=== PATIENT | male | born 1960 | race Caucasian/White ===

== ENCOUNTER 2020-02-13 19:48 | Emergency (ER) | payer OTHER, SELFPAY ==
[2020-02-13] VITALS (10 sets, daily range): BP systolic 126–165; BP diastolic 68–86; PULSE 56–80; RESP 17–24; TEMP 37.1; O2SAT 93–97; BMI 24.4
--- NOTE | 2020-02-13 20:04 | DI.RAD.S_ITS ---
PROCEDURE: XR CHEST 1V INDICATIONS: chest pain TECHNIQUE: One view of the chest was acquired. COMPARISON: None. FINDINGS: Surgical changes and devices: None. Lungs and pleura: Lungs are clear. No pleural effusions or pneumothorax. Mediastinum: Mediastinal contours appear normal. Heart size is normal. Bones and chest wall: No suspicious bony lesions. Overlying soft tissues appear unremarkable. IMPRESSION: Normal chest. Dictated by: Abeba Farooq M.D. on 02/13/2020 at 21:23 Approved by: Abeba Farooq M.D. on 02/13/2020 at 21:24
--- NOTE | 2020-02-13 20:06 | ED.CHESTPAIN ---
HPI - Chest Pain General Chief Complaint: Chest Pain Stated Complaint: dizziness, chest pains Time Seen by Provider: 02/13/20 20:05 Source: patient Mode of arrival: Wheelchair Limitations: no limitations History of Present Illness HPI narrative: Patient is a 59-year-old male with no diagnosed medical problems. He does state he is a smoker who is here for evaluation because he states that her earlier today he had a fairly sudden onset of what he says was dizziness. He did describe somewhat of a room spinning sensation. States that it occurred after he stood up from bending over. Since that time he has had some chest discomfort. Also has had some weakness. General a not feeling very well. Some nausea. No vomiting. He is in the area working. Has never had any cardiac workup in the past. No prior cardiac history. Does not anything for symptoms prior to arrival. Related Data Previous Rx's Medication Instructions Recorded meclizine 25 mg PO TID PRN #12 tab 02/13/20 Allergies Allergy/AdvReac Type Severity Reaction Status Date / Time No Known Drug Allergies Allergy Verified 02/13/20 20:13 Review of Systems Constitutional Constitutional: Reports fatigue, Denies fever(s), Denies headache(s), Reports lethargy and Reports malaise Eyes Eyes: Denies change in vision and Denies diplopia ENT Ears, Nose, Mouth, and Throat: Reports vertigo, Reports dizziness, Denies headache(s) and Denies sore throat Cardiovascular Cardiovascular: Denies chest pain, Denies rapid heart rate and Denies dyspnea Respiratory Respiratory: Denies dyspnea Gastrointestinal Gastrointestinal: Denies abdominal pain, Denies change in bowel habits, Denies diarrhea and Reports nausea Genitourinary Genitourinary: Denies dysuria Genitourinary: Denies dysuria Musculoskeletal Musculoskeletal: Denies arthralgias and Denies myalgias Integumentary/Breasts Skin/Breast: Denies rash Neurologic Neurologic: Denies behavioral changes, Reports vertigo, Reports dizziness and Denies headache(s) Psychiatric Psychiatric: Denies behavioral changes Endocrine Endocrine: Reports fatigue Hematologic/Lymphatic Hematologic/Lymphatic: Denies easy bleeding and Denies easy bruising Patient History Medical History Patient denies medical problems (Acute) Social History (Reviewed 02/14/20 @ 04:35 by SOPHIA Hagen Smoking Status: Current every day smoker Smoking Status: Current every day smoker Substance Use Type: does not use Exam Initial Vital Signs Initial Vital Signs: Vital Signs Temperature 98.7 F 02/13/20 19:58 Pulse Rate 80 02/13/20 19:58 Respiratory Rate 18 02/13/20 19:58 Blood Pressure 165/86 H 02/13/20 19:58 Pulse Oximetry 97 02/13/20 19:58 Const General: cooperative and comfortable Limitations: mental status not altered HENMT Head: normal to inspection and normocephalic Ears: hearing grossly normal bilaterally Nose: external nose normal Resp Effort & Inspection: normal respiratory effort Auscultation: clear to auscultation bilaterally Cardio Rate: regular rate Rhythm: regular rhythm GI Inspection: non-distended Palpation: soft, No firm and No tender Skin Lesions: no lesions Rashes: no rashes Neuro General: patient alert, patient awake and patient oriented x3 Cranial Nerves: CN's II-XI intact bilaterally Cognition: normal cognition Speech: speech normal Gait: normal gait Motor: muscle tone normal throughout Sensory Exam: no sensory deficits noted Extrem General: normal to inspection and capillary refill normal Psych Appearance: grossly normal and well kempt Course Orders Ordered: ED Orders 02/13/20 20:01 EKG-12 Lead Stat 02/13/20 20:04 XR chest 1V Stat 02/13/20 20:10 Complete Blood Count AUTO DIFF Stat Comprehensive Metabolic Panel Stat Lipase Stat Partial Thromboplastin Time Stat Prothrombin Time INR Stat Troponin & CK Cardiac Panel Stat 02/13/20 22:57 Troponin I Stat Discontinued Medications Meclizine HCl (Antivert) 25 mg PO NOW ONE Stop: 02/13/20 20:15 Last Admin: 02/13/20 20:42 Dose: 25 mg Documented by: ATILIO Vital Signs Vital signs: Vital Signs - 8 hr 02/13/20 20:36 02/13/20 21:00 02/13/20 21:30 Pulse Rate 70 67 67 Respiratory Rate 24 18 23 Blood Pressure 132/70 140/72 Pulse Oximetry 97 95 96 02/13/20 22:00 02/13/20 22:01 02/13/20 22:30 Pulse Rate 63 63 61 Respiratory Rate 21 20 19 Blood Pressure 129/69 129/77 Pulse Oximetry 93 94 93 02/13/20 23:00 02/13/20 23:01 02/13/20 23:30 Pulse Rate 56 L 59 L Respiratory Rate 17 18 Blood Pressure 128/69 126/68 Pulse Oximetry 97 95 MDM - Chest Pain Lab Data Attestation: I reviewed the patient's lab results. Result diagrams: 02/13/20 20:10 02/13/20 20:10 Labs: Lab Results 02/13/20 02/13/20 02/13/20 Range/Units 20:10 20:10 20:10 WBC 7.8 (4.5-11.0) X10^3/uL RBC 4.77 (4.5-5.9) X10^6/uL Hgb 15.0 (13.5-17.5) g/dL Hct 43.5 (41-53) % MCV 91.1 (80-100) fL MCH 31.5 (26-34) PG MCHC 34.5 (30-36) % RDW 14.3 (11.6-14.8) % Plt Count 217 (150-400) X10^3/uL Neut % (Auto) 51.7 (50-75) % Lymph % (Auto) 36.9 (25-40) % [place] % (Auto) 5.8 (3-14) % Eos % (Auto) 3.6 (2-4) % Baso % (Auto) 2.0 (0-2) % Neut # (Auto) 4000 (0748-1070) /uL Lymph # (Auto) 2900 (0622-8497) /uL [place] # (Auto) 500 (0-900) /uL Eos # (Auto) 300 (0-450) /uL Baso # (Auto) 200 H (0-100) /uL PT 11.7 (10.1-12.7) SECONDS INR 1.0 (0.9-1.3) APTT 30 (26.4-36.2) SECONDS Sodium 136 L (137-145) mmol/L Potassium 3.7 (3.4-5.1) mmol/L Chloride 102 (98-107) mmol/L Carbon Dioxide 26 (22-32) mmol/L BUN 13 (9-20) mg/dL Creatinine 0.85 (0.66-1.25) mg/dL Estimated GFR > 60.0 (>60) mL/min BUN/Creatinine Ratio 15.3 (6-22) Glucose 149 H (70-100) mg/dL Calcium 9.5 (8.4-10.2) mg/dL Total Bilirubin 0.9 (0.2-1.3) mg/dL AST 34 (17-59) IU/L ALT 41 (<50) IU/L Alkaline Phosphatase 37 L (38-126) U/L Total Creatine Kinase 318 H (55-170) U/L CK-MB (CK-2) 3.62 H (<2.37) ng/mL CK-MB (CK-2) Rel Index 1.1 L (1.5-5.0) % Troponin I 0.012 (0.01-0.034) ng/mL Total Protein 7.2 (6.3-8.2) g/dL Albumin 4.4 (3.5-5.0) g/dL Globulin 2.8 (1.7-4.1) g/dL Albumin/Globulin Ratio 1.6 (1.0-2.8) Lipase 64 (23-300) U/L // Range/Units 22:57 WBC (4.5-11.0) X10^3/uL RBC (4.5-5.9) X10^6/uL Hgb (13.5-17.5) g/dL Hct (41-53) % MCV (80-100) fL MCH (26-34) PG MCHC (30-36) % RDW (11.6-14.8) % Plt Count (150-400) X10^3/uL Neut % (Auto) (50-75) % Lymph % (Auto) (25-40) % [place] % (Auto) (3-14) % Eos % (Auto) (2-4) % Baso % (Auto) (0-2) % Neut # (Auto) (8626-5988) /uL Lymph # (Auto) (8159-6560) /uL [place] # (Auto) (0-900) /uL Eos # (Auto) (0-450) /uL Baso # (Auto) (0-100) /uL PT (10.1-12.7) SECONDS INR (0.9-1.3) APTT (26.4-36.2) SECONDS Sodium (137-145) mmol/L Potassium (3.4-5.1) mmol/L Chloride (98-107) mmol/L Carbon Dioxide (22-32) mmol/L BUN (9-20) mg/dL Creatinine (0.66-1.25) mg/dL Estimated GFR (>60) mL/min BUN/Creatinine Ratio (6-22) Glucose (70-100) mg/dL Calcium (8.4-10.2) mg/dL Total Bilirubin (0.2-1.3) mg/dL AST (17-59) IU/L ALT (<50) IU/L Alkaline Phosphatase (38-126) U/L Total Creatine Kinase (55-170) U/L CK-MB (CK-2) (<2.37) ng/mL CK-MB (CK-2) Rel Index (1.5-5.0) % Troponin I < 0.012 (0.01-0.034) ng/mL Total Protein (6.3-8.2) g/dL Albumin (3.5-5.0) g/dL Globulin (1.7-4.1) g/dL Albumin/Globulin Ratio (1.0-2.8) Lipase (23-300) U/L Urine Dip Bedside Urine Glucose Negative Bedside Urine Bilirubin - Negative Bedside Urine Ketone - Negative Urine Specific [place] 1.020 Bedside Urine Occult Blood - Negative Bedside Urine pH 6.0 Bedside Urine Protein - Negative Bedside Urine Urobilinogen - Negative Bedside Urine Nitrite - Negative Bedside Urine Leukocytes - Negative Esterase Imaging Data Chest x-ray: Radiologist's Impression: [address] [address] XRay Report Signed Patient: Jourdan Augustine CMR#: [id number] : 2Acct:[id number] Age/Sex: 59 / MDate of Service: 02/13/20 Loc: ED Accession Number: [id number] Procedure: XR chest 1V Ordering Provider: Schuyler Abbott D.O. PROCEDURE: XR CHEST 1V INDICATIONS: chest pain TECHNIQUE: One view of the chest was acquired. COMPARISON: None. FINDINGS: Surgical changes and devices: None. Lungs and pleura: Lungs are clear. No pleural effusions or pneumothorax. Mediastinum: Mediastinal contours appear normal. Heart size is normal. Bones and chest wall: No suspicious bony lesions. Overlying soft tissues appear unremarkable. IMPRESSION: Normal chest. Dictated by: Abeba Farooq M.D. on 02/13/2020 at 21:23 Approved by: Abeba Farooq M.D. on 02/13/2020 at 21:24 ECG Data Attestation: I personally reviewed and interpreted this ECG as follows: Prior ECG tracings: not available for review Interpretation: Sinus rhythm Ventricular rate is 74 Normal axis Normal QRS Normal QTC No ST T wave changes MDM Narrative Medical decision making narrative: Patient is afebrile, troponins negative x2 with 2nd being greater than 6 hours of the onset of his symptoms. Did report improvement of symptoms after the meclizine. His dizziness does appear to be vertigo in nature. He states he feels much better after being here in the ER being evaluated for symptoms. Low suspicion for ACS. Feeling can hold on further workup for now. Patient was given return precautions and follow-up instructions. He expressed understanding and agreement. Discharge Plan Departure Patient Disposition: Home Clinical Impression: Vertigo, Atypical chest pain Discharge Date/Time: 02/13/20 23:55 Instructions: DI for Vertigo, DI for Atypical Chest Pain Activity Restrictions/Additional Instructions: Recommend that you may contact with a primary provider when you return back home. Take medication as directed as needed. Return to the emergency department for any new or worsening symptoms Prescriptions: New meclizine 25 mg tablet 25 mg PO TID PRN (Reason: dizziness) Qty: 12 RF: 0
[2020-02-13 20:20] LABS: Add Manual Diff / Slide Review NO; Basophils Absolute Auto 200 /uL (0-100); Eosinophils Absolute Auto 300 /uL (0-450); Eosinophils Percent Auto 3.6 % (2-4); Hematocrit 43.5 % (41-53); Lymphocytes Absolute Auto 2900 /uL (1100-4500); Lymphocytes Percent Auto 36.9 % (25-40); Mean Corpuscular HGB Conc 34.5 % (30-36); Mean Corpuscular Hemoglobin 31.5 PG (26-34); Mean Corpuscular Volume 91.1 fL (80-100); Monocytes Absolute Auto 500 /uL (0-900); Monocytes Percent Auto 5.8 % (3-14); Neutrophils Absolute Auto 4000 /uL (1500-7000); Neutrophils Percent Auto 51.7 % (50-75); Platelet Count 217 X10^3/uL (150-400); Red Blood Cell Count 4.77 X10^6/uL (4.5-5.9); Red Cell Distribution Width 14.3 % (11.6-14.8); White Blood Cell Count 7.8 X10^3/uL (4.5-11.0)
[2020-02-13 20:39] LABS: Prothrombin Time 11.7 SECONDS (10.1-12.7)
[2020-02-13 20:41] LABS: PTT Partial Thromboplastin Tim 30 SECONDS (26.4-36.2)
[2020-02-13] MEDS: MECLIZINE HCL 12.5 MG TABLET 25 MG PO (20:42)
[2020-02-13 20:43] LABS: Alanine Aminotransferase 41 IU/L (<50); Albumin 4.4 g/dL (3.5-5.0); Albumin Globulin Ratio 1.6 (1.0-2.8); Alkaline Phosphatase 37 U/L (38-126); Aspartate Aminotransferase 34 IU/L (17-59); BUN Creatinine Ratio 15.3 (6-22); Bilirubin Total 0.9 mg/dL (0.2-1.3); Blood Urea Nitrogen 13 mg/dL (9-20); Calcium 9.5 mg/dL (8.4-10.2); Carbon Dioxide 26 mmol/L (22-32); Chloride 102 mmol/L (98-107); Creatine Kinase 318 U/L (55-170); Estimated Glomerular Filt Rate > 60.0 mL/min (>60); Globulin 2.8 g/dL (1.7-4.1); Glucose 149 mg/dL (70-100); Lipase 64 U/L (23-300); Potassium 3.7 mmol/L (3.4-5.1); Sodium 136 mmol/L (137-145); Total Protein 7.2 g/dL (6.3-8.2)
[2020-02-13 20:54] LABS: Troponin I 0.012 ng/mL (0.01-0.034)
[2020-02-13 20:58] LABS: CKMB % Relative Index 1.1 % (1.5-5.0); Creatine Kinase MB 3.62 ng/mL (<2.37); HEMOLYSIS 38 (0-50)
[2020-02-13 23:31] LABS: Troponin I < 0.012 ng/mL (0.01-0.034)
== END 2020-02-13 23:55 | disposition home or self-care (01) ==
PROVIDERS: Emergency Provider Emergency Medicine
DX: R42 Dizziness and giddiness (principal); R07.89 Other chest pain
CPT/HCPCS: 36415; 51798; 71045; 80053; 81003; 82550; 82553; 83690; 84484; 85025; 85610; 85730; 93005; 99284

== ENCOUNTER 2020-05-11 15:25 | Emergency (ER) | payer OTHER, SELFPAY ==
[2020-05-11 15:28] VITALS: BP 158/75; PULSE 95; RESP 16; TEMP 36.5; O2SAT 98; BMI 36.6
[2020-05-11 15:45] LABS: WBC Urine None Seen (0-5/HPF)
[2020-05-11 15:56] LABS: Bacteria Urine Few (2-10); Culture Indicated Urine Cult Not Indicated; RBC Urine 0-1/HPF (0-5/HPF)
[2020-05-11 17:25] LABS: Add Manual Diff / Slide Review NO; Basophils Absolute Auto 100 /uL (0-100); Basophils Percent Auto 0.8 % (0-2); Eosinophils Absolute Auto 200 /uL (0-450); Eosinophils Percent Auto 2.2 % (2-4); Hematocrit 43.7 % (41-53); Hemoglobin 15.1 g/dL (13.5-17.5); Lymphocytes Absolute Auto 3300 /uL (1100-4500); Lymphocytes Percent Auto 39.4 % (25-40); Mean Corpuscular HGB Conc 34.6 % (30-36); Mean Corpuscular Hemoglobin 31.8 PG (26-34); Mean Corpuscular Volume 91.7 fL (80-100); Monocytes Absolute Auto 700 /uL (0-900); Monocytes Percent Auto 8.6 % (3-14); Neutrophils Absolute Auto 4100 /uL (1500-7000); Platelet Count 213 X10^3/uL (150-400); Red Blood Cell Count 4.77 X10^6/uL (4.5-5.9); Red Cell Distribution Width 13.1 % (11.6-14.8); White Blood Cell Count 8.3 X10^3/uL (4.5-11.0)
[2020-05-11 17:37] LABS: Alanine Aminotransferase 51 IU/L (<50); Albumin 4.2 g/dL (3.5-5.0); Albumin Globulin Ratio 1.6 (1.0-2.8); Alkaline Phosphatase 35 U/L (38-126); Aspartate Aminotransferase 31 IU/L (17-59); BUN Creatinine Ratio 18.3 (6-22); Bilirubin Total 0.6 mg/dL (0.2-1.3); Blood Urea Nitrogen 20 mg/dL (9-20); Calcium 9.2 mg/dL (8.4-10.2); Carbon Dioxide 30 mmol/L (22-32); Chloride 104 mmol/L (98-107); Estimated Glomerular Filt Rate > 60.0 mL/min (>60); Globulin 2.7 g/dL (1.7-4.1); Glucose 100 mg/dL (70-100); HEMOLYSIS 17 (0-50); Lipase 82 U/L (23-300); Sodium 136 mmol/L (137-145); Total Protein 6.9 g/dL (6.3-8.2)
--- NOTE | 2020-05-11 17:47 | DI.CT.S_ITS ---
PROCEDURE: CT ABDOMEN PELVIS W CON INDICATIONS: right side/abd pain with mass TECHNIQUE: After the administration of intravenous contrast, 5 mm thick sections acquired from the diaphragm to the symphysis. 5 mm coronal and sagittal reformats were acquired. For radiation dose reduction, the following was used: automated exposure control, adjustment of mA and/or kV according to patient size. COMPARISON: None. FINDINGS: Image quality: Excellent. ABDOMEN: Lung bases: Lung bases are clear. Heart size is normal. Solid organs: Liver is enlargement steatosis. Gallbladder is unremarkable . Biliary system is non dilated. Pancreas enhances normally. Spleen is normal in size and enhancement. No adrenal nodules. Kidneys demonstrate normal size and enhancement, without hydronephrosis. Peritoneum and bowel: Bowel loops demonstrate normal wall thickness and caliber. No free fluid or air. Colonic diverticula are present without associated inflammatory change. Nodes and vessels: No retroperitoneal or mesenteric adenopathy by size criteria. Aorta and inferior vena cava are normal in size. Miscellaneous: Fat containing ventral hernia is present.. PELVIS: Genitourinary: Bladder wall thickness is normal. Miscellaneous: Fat containing left inguinal hernia is present. Bones: No suspicious bony lesions. No vertebral body compression fractures. IMPRESSION: 1. Hepatomegaly with steatosis. 2. Diverticulosis. Dictated by: Darshana De Jesus M.D. on 05/11/2020 at 17:09 Approved by: Darshana De Jesus M.D. on 05/11/2020 at 17:12
[2020-05-11 18:14] LABS: Creatine Kinase 170 U/L (55-170)
[2020-05-11 18:26] LABS: Troponin I < 0.012 ng/mL (0.01-0.034)
[2020-05-11 18:30] LABS: CKMB % Relative Index 1.2 % (1.5-5.0); Creatine Kinase MB 2.07 ng/mL (<2.37)
[2020-05-11 18:39] VITALS: BP 137/89; PULSE 74; O2SAT 98
[2020-05-11] MEDS: KETOROLAC 60 MG/2 ML VIAL 15 MG IV (18:54)
[2020-05-11 19:00] VITALS: PULSE 72; O2SAT 97
--- NOTE | 2020-05-11 22:27 | ED.ABDPAIN ---
HPI - Abdominal Pain <ODILIA Hill - Last Filed: 05/11/20 22:53> General Chief Complaint: Urogenital-Male Stated Complaint: RIGHT SIDE PAIN AND SWELLING Time Seen by Provider: 05/11/20 16:49 Source: patient Mode of arrival: Ambulatory Limitations: no limitations History of Present Illness HPI narrative: This is a 60-year-old male, smoker, who has past medical history significant for diverticulitis developed abscess and he was hospitalized in ICU for 10 days, asthma, GERD, vertigo presents to ED with chief complain of bilateral lumbar discomfort for 1 month and now he noticed bilateral side pain for a few days. Patient reports pain is pretty constant and sharp in character and rates as 5 to 6/10. Patient reports he urinates very frequently up to 5 times a hour in a small amount regardless how much he drinks. Patient denies history of prostate problems. Patient reports slight nausea and vertigo symptoms. He denies chest pain, increasing dyspnea from his baseline asthma state, nausea, vomiting, other urinary symptoms like urgency, or dysuria. Denies lower leg edema. Patient reports he can palpate swelling and bulging to right side and abdominal bloatedness. Patient reports last bowel movement this morning and reports his usual. Last meal at 12:30 p.m. this afternoon. Patient reports history of diabetes in grandmother and brother. He denies using alcohol or IV drugs. Related Data Previous Rx's Medication Instructions Recorded meclizine 25 mg PO TID PRN #12 tab 02/13/20 Allergies Allergy/AdvReac Type Severity Reaction Status Date / Time Penicillins Allergy Severe Rash Verified 05/11/20 15:33 Review of Systems <ODILIA Hill - Last Filed: 05/11/20 22:53> Review of Systems Narrative: General: Denies fever, chills, fatigue, malaise, sweats. HEENT: Denies sinus pain, ear pain, sore throat, difficulty swallowing, dizziness. Respiratory: Denies dyspnea, cough, wheezing, hemoptysis, sputum. Cardiovascular: Denies chest pain, palpitations, orthopnea, edema. Gastrointestinal: See HPI : See HPI Musculoskeletal: Denies weakness, joint pain or bony pain. Skin: Denies rash, skin lesions, or other. Neurologic: Denies weakness, headache, numbness, change in speech, confusion, seizures, incoordination. Psychiatric: No concerning psychosocial issues. 12-point review of systems is negative except for those stated above. Patient History <ODILIA Hill - Last Filed: 05/11/20 22:53> Medical History Asthma Diverticulitis GERD (gastroesophageal reflux disease) Social History Smoking Status: Current every day smoker Smoking Status: Current every day smoker Substance Use Type: does not use Exam <ODILIA Hill - Last Filed: 05/11/20 22:53> Narrative Exam Narrative: GEN: Alert, oriented x 3, well appearing and obese, and in no acute distress. Head: Normal cephalic, atraumatic. No scalp or temporal tenderness, palpable mass or rash. EYES: Pupils are equal, round, and reactive to light and accommodation. Extraocular muscles are intact bilaterally. There is no subconjunctival hemorrhage, exudate and sclera non-icteric. ENT: Hearing grossly intact. Nose without bleeding, purulent discharge or deviation. Mucous membrane moist, no mucosal lesion. Throat without erythema, tonsillar hypertrophy or exudate. Uvula in midline, airway patent. Neck: Trachea in midline. No JVD, non-tender without lymphadenopathy. No masses or thyroid megaly. Supple, non-tender and no meningeal signs. CARDIAC: Normal regular rate and rhythm without murmurs, gallops, or rubs. No chest wall tenderness. No peripheral edema, cyanosis or pallor. Capillary refill is less than 2 seconds. RESPIRATORY: Lungs are clear to auscultate bilaterally. No cough, wheezes, rales, or rhonchi. No stridor, respiratory distress, increase work of breathing, or accessary muscle used. ABD: Abdomen soft and non-distended. Mild tenderness to palpate in right mid to lateral abdomen. No guarding or rebound tenderness to palpate. Bowel sounds are normal in all 4 quadrants. There is no palpable masses or organomegaly. EXT: Full painless ROM of all extremities with no loss of sensation, strength, effusion or edema. SKIN: Warm, dry, normal color for patient. No erythema, lesions or rash over visible areas. BACK: Nontender without deformity or crepitance. No flank tenderness. No rash. NEUROLOGICAL: Alert and oriented to place, time and person. Sensation and motor function intact bilaterally. No facial droops, dysphasia. PSYCHIATRIC: Good judgement and reason, without hallucinations, abnormal affect or abnormal behaviors during the examination. Patient is not suicidal. Initial Vital Signs Initial Vital Signs: Vital Signs Temperature 97.7 F 05/11/20 15:28 Pulse Rate 95 H 05/11/20 15:28 Respiratory Rate 16 05/11/20 15:28 Blood Pressure 158/75 H 05/11/20 15:28 Pulse Oximetry 98 05/11/20 15:28 <Schuyler Abbott DO - Last Filed: 05/12/20 07:17> Initial Vital Signs Initial Vital Signs: Vital Signs Temperature 97.7 F 05/11/20 15:28 Pulse Rate 95 H 05/11/20 15:28 Respiratory Rate 16 05/11/20 15:28 Blood Pressure 158/75 H 05/11/20 15:28 Pulse Oximetry 98 05/11/20 15:28 Scores <ODILIA Hill - Last Filed: 05/11/20 22:53> GCS [place] coma scale eye opening: Spontaneous [place] coma scale verbal response: Orientated [place] coma scale motor response: Obey commands [place] coma scale total score: 15 qSOFA Altered Mental Status (GCS <15): No Respiratory rate greater than/equal to 22: No Systolic blood pressure less than or equal to 100: No qSOFA Total: 0 0-1 Not High Risk 1-3 High risk Course <ODILIA Hill - Last Filed: 05/11/20 22:53> Orders Ordered: Discontinued Medications Ketorolac Tromethamine (Ketorolac 60 Mg/2 Ml Vial) 15 mg IV NOW ONE Stop: 05/11/20 18:51 Last Admin: 05/11/20 18:54 Dose: 15 mg Documented by: SWATI Vital Signs Vital signs: Vital Signs - 8 hr 05/11/20 15:28 05/11/20 18:39 05/11/20 19:00 Temperature 97.7 F Pulse Rate 95 H 74 72 Respiratory Rate 16 Blood Pressure 158/75 H 137/89 Pulse Oximetry 98 98 97 <DO Devyn Hagen Last Filed: 05/12/20 07:17> Orders Ordered: Discontinued Medications Ketorolac Tromethamine (Ketorolac 60 Mg/2 Ml Vial) 15 mg IV NOW ONE Stop: 05/11/20 18:51 Last Admin: 05/11/20 18:54 Dose: 15 mg Documented by: SCANAPO Vital Signs Vital signs: Vital Signs - 8 hr 05/11/20 15:28 05/11/20 18:39 05/11/20 19:00 Temperature 97.7 F Pulse Rate 95 H 74 72 Respiratory Rate 16 Blood Pressure 158/75 H 137/89 Pulse Oximetry 98 98 97 MDM - Abdominal Pain <Jaskaran ODILIA Fernandez - Last Filed: 05/11/20 22:53> Differential Diagnosis Differential diagnosis: Likely acute appendicitis, calculus of kidney and diverticulitis (diverticulosis, hernia, kidney failure) Medical Records Attestation: I reviewed the patient's medical records. Lab Data Attestation: I reviewed the patient's lab results. Result diagrams: 05/11/20 17:17 05/11/20 17:17 Labs: Lab Results 05/11/20 05/11/20 05/11/20 Range/Units 15:44 17:17 17:17 WBC 8.3 (4.5-11.0) X10^3/uL RBC 4.77 (4.5-5.9) X10^6/uL Hgb 15.1 (13.5-17.5) g/dL Hct 43.7 (41-53) % MCV 91.7 (80-100) fL MCH 31.8 (26-34) PG MCHC 34.6 (30-36) % RDW 13.1 (11.6-14.8) % Plt Count 213 (150-400) X10^3/uL Neut % (Auto) 49.0 L (50-75) % Lymph % (Auto) 39.4 (25-40) % [place] % (Auto) 8.6 (3-14) % Eos % (Auto) 2.2 (2-4) % Baso % (Auto) 0.8 (0-2) % Neut # (Auto) 4100 (7932-6873) /uL Lymph # (Auto) 3300 (8054-1412) /uL [place] # (Auto) 700 (0-900) /uL Eos # (Auto) 200 (0-450) /uL Baso # (Auto) 100 (0-100) /uL Sodium 136 L (137-145) mmol/L Potassium 4.0 (3.4-5.1) mmol/L Chloride 104 (98-107) mmol/L Carbon Dioxide 30 (22-32) mmol/L BUN 20 (9-20) mg/dL Creatinine 1.09 (0.66-1.25) mg/dL Estimated GFR > 60.0 (>60) mL/min BUN/Creatinine Ratio 18.3 (6-22) Glucose 100 (70-100) mg/dL Calcium 9.2 (8.4-10.2) mg/dL Total Bilirubin 0.6 (0.2-1.3) mg/dL AST 31 (17-59) IU/L ALT 51 H (<50) IU/L Alkaline Phosphatase 35 L (38-126) U/L Total Creatine Kinase (55-170) U/L CK-MB (CK-2) (<2.37) ng/mL CK-MB (CK-2) Rel Index (1.5-5.0) % Troponin I (0.01-0.034) ng/mL Total Protein 6.9 (6.3-8.2) g/dL Albumin 4.2 (3.5-5.0) g/dL Globulin 2.7 (1.7-4.1) g/dL Albumin/Globulin Ratio 1.6 (1.0-2.8) Lipase 82 (23-300) U/L Urine RBC 0-1/hpf (0-5/HPF) Urine WBC None seen (0-5/HPF) Urine Bacteria Few (2-10) H (None) Ur Culture Indicated? Cult not indicated 05/11/20 Range/Units 17:17 WBC (4.5-11.0) X10^3/uL RBC (4.5-5.9) X10^6/uL Hgb (13.5-17.5) g/dL Hct (41-53) % MCV (80-100) fL MCH (26-34) PG MCHC (30-36) % RDW (11.6-14.8) % Plt Count (150-400) X10^3/uL Neut % (Auto) (50-75) % Lymph % (Auto) (25-40) % [place] % (Auto) (3-14) % Eos % (Auto) (2-4) % Baso % (Auto) (0-2) % Neut # (Auto) (4266-2658) /uL Lymph # (Auto) (5508-7634) /uL [place] # (Auto) (0-900) /uL Eos # (Auto) (0-450) /uL Baso # (Auto) (0-100) /uL Sodium (137-145) mmol/L Potassium (3.4-5.1) mmol/L Chloride (98-107) mmol/L Carbon Dioxide (22-32) mmol/L BUN (9-20) mg/dL Creatinine (0.66-1.25) mg/dL Estimated GFR (>60) mL/min BUN/Creatinine Ratio (6-22) Glucose (70-100) mg/dL Calcium (8.4-10.2) mg/dL Total Bilirubin (0.2-1.3) mg/dL AST (17-59) IU/L ALT (<50) IU/L Alkaline Phosphatase (38-126) U/L Total Creatine Kinase 170 (55-170) U/L CK-MB (CK-2) 2.07 (<2.37) ng/mL CK-MB (CK-2) Rel Index 1.2 L (1.5-5.0) % Troponin I < 0.012 (0.01-0.034) ng/mL Total Protein (6.3-8.2) g/dL Albumin (3.5-5.0) g/dL Globulin (1.7-4.1) g/dL Albumin/Globulin Ratio (1.0-2.8) Lipase (23-300) U/L Urine RBC (0-5/HPF) Urine WBC (0-5/HPF) Urine Bacteria (None) Ur Culture Indicated? Point of care testing: Urine Dip Bedside Urine Glucose 250 mg/dl Bedside Urine Bilirubin - Negative Bedside Urine Ketone - Negative Urine Specific Mason 1.025 Bedside Urine Occult Blood +/- Bedside Urine pH 6.0 Bedside Urine Protein - Negative Bedside Urine Urobilinogen - Negative Bedside Urine Nitrite - Negative Bedside Urine Leukocytes - Negative Esterase Imaging Data CT scan - abdomen/pelvis: Radiologist's Impression: [address] [id number] Scan ReportSigned Patient: Jourdan Augustine CMR#: [id number]: 1960cct:[id number]/Sex: 60 / MDate of Service: 05/11/20Loc: EDAccession Number: [id number] Procedure: CT abdomen pelvis w con Ordering Provider: Jaskaran Fernandez PROCEDURE: CT ABDOMEN PELVIS W CON INDICATIONS: right side/abd pain with mass TECHNIQUE: After the administration of intravenous contrast, 5 mm thick sections acquired from the diaphragm to the symphysis. 5 mm coronal and sagittal reformats were acquired. For radiation dose reduction, the following was used: automated exposure control, adjustment of mA and/or kV according to patient size. COMPARISON: None. FINDINGS: Image quality: Excellent. ABDOMEN: Lung bases: Lung bases are clear. Heart size is normal. Solid organs: Liver is enlargement steatosis. Gallbladder is unremarkable . Biliary system is non dilated. Pancreas enhances normally. Spleen is normal in size and enhancement. No adrenal nodules. Kidneys demonstrate normal size and enhancement, without hydronephrosis. Peritoneum and bowel: Bowel loops demonstrate normal wall thickness and caliber. No free fluid or air. Colonic diverticula are present without associated inflammatory change. Nodes and vessels: No retroperitoneal or mesenteric adenopathy by size criteria. Aorta and inferior vena cava are normal in size. Miscellaneous: Fat containing ventral hernia is present.. PELVIS: Genitourinary: Bladder wall thickness is normal. Miscellaneous: Fat containing left inguinal hernia is present. Bones: No suspicious bony lesions. No vertebral body compression fractures. IMPRESSION: 1. Hepatomegaly with steatosis. 2. Diverticulosis. Dictated by: Darshana De Jesus M.D. on 05/11/2020 at 17:09 Approved by: Darshana De Jesus M.D. on 05/11/2020 at 17:12 ECG Data Attestation: I personally reviewed and interpreted this ECG as follows: Prior ECG tracings: available for review Interpretation: Sinus rhythm rate at 70. Normal [place]. [place] interval 174, QRS duration 86, QT/QTC 386/[address] changes. MDM Narrative Medical decision making narrative: This is a 60-year-old male who presents to ED with right side pain for last few day and prior to this had bilateral low back pain for about a month with urinary frequency. No other urinary symptoms. Patient is afebrile. Urine dip stick with positive 250mg/dL of glucose and +/- for blood. No other indications for urinary infection. No leukocytosis of 8.3. No lactate elevation. Unremarkable chemistry test. Unremarkable LFTs with normal lipase. Cardiac enzymes were negative. EKG normal sinus rhythm without ST elevations or depressions. Given patient's history of diverticulitis with abscess formation and slight blood in his urine, abdominal CT was obtained. CT indicates enlarged liver with steatosis. Normal kidney in size and enhancement without hydronephrosis. Normal bowel loops without free fluid or air. Colonic diverticula low cyst without inflammatory changes. Fat containing ventral hernia with fat containing left inguinal hernia. Patient does not complain of left inguinal pain or bulging. He does not feel anterior abdominal bulging or pain. There is no indication of strangulation of hernia. It is unclear the etiology of patient's discomfort. Findings were discussed with patient and advised to elect a PCP to follow-up on non alcoholic fatty liver for monitoring and to monitor his symptoms for worsening. Return precautions were discussed with patient and advised follow-up with general surgery if worsening or persistent discomfort. Patient verbalized understanding and with treatment. <Schuyler Abbott, DO - Last Filed: 05/12/20 07:17> Lab Data Labs: Lab Results 05/11/20 05/11/20 05/11/20 Range/Units 15:44 17:17 17:17 WBC 8.3 (4.5-11.0) X10^3/uL RBC 4.77 (4.5-5.9) X10^6/uL Hgb 15.1 (13.5-17.5) g/dL Hct 43.7 (41-53) % MCV 91.7 (80-100) fL MCH 31.8 (26-34) PG MCHC 34.6 (30-36) % RDW 13.1 (11.6-14.8) % Plt Count 213 (150-400) X10^3/uL Neut % (Auto) 49.0 L (50-75) % Lymph % (Auto) 39.4 (25-40) % [place] % (Auto) 8.6 (3-14) % Eos % (Auto) 2.2 (2-4) % Baso % (Auto) 0.8 (0-2) % Neut # (Auto) 4100 (1738-7842) /uL Lymph # (Auto) 3300 (3270-9434) /uL [place] # (Auto) 700 (0-900) /uL Eos # (Auto) 200 (0-450) /uL Baso # (Auto) 100 (0-100) /uL Sodium 136 L (137-145) mmol/L Potassium 4.0 (3.4-5.1) mmol/L Chloride 104 (98-107) mmol/L Carbon Dioxide 30 (22-32) mmol/L BUN 20 (9-20) mg/dL Creatinine 1.09 (0.66-1.25) mg/dL Estimated GFR > 60.0 (>60) mL/min BUN/Creatinine Ratio 18.3 (6-22) Glucose 100 (70-100) mg/dL Calcium 9.2 (8.4-10.2) mg/dL Total Bilirubin 0.6 (0.2-1.3) mg/dL AST 31 (17-59) IU/L ALT 51 H (<50) IU/L Alkaline Phosphatase 35 L (38-126) U/L Total Creatine Kinase (55-170) U/L CK-MB (CK-2) (<2.37) ng/mL CK-MB (CK-2) Rel Index (1.5-5.0) % Troponin I (0.01-0.034) ng/mL Total Protein 6.9 (6.3-8.2) g/dL Albumin 4.2 (3.5-5.0) g/dL Globulin 2.7 (1.7-4.1) g/dL Albumin/Globulin Ratio 1.6 (1.0-2.8) Lipase 82 (23-300) U/L Urine RBC 0-1/hpf (0-5/HPF) Urine WBC None seen (0-5/HPF) Urine Bacteria Few (2-10) H (None) Ur Culture Indicated? Cult not indicated 05/11/20 Range/Units 17:17 WBC (4.5-11.0) X10^3/uL RBC (4.5-5.9) X10^6/uL Hgb (13.5-17.5) g/dL Hct (41-53) % MCV (80-100) fL MCH (26-34) PG MCHC (30-36) % RDW (11.6-14.8) % Plt Count (150-400) X10^3/uL Neut % (Auto) (50-75) % Lymph % (Auto) (25-40) % [place] % (Auto) (3-14) % Eos % (Auto) (2-4) % Baso % (Auto) (0-2) % Neut # (Auto) (5899-0779) /uL Lymph # (Auto) (0086-3074) /uL [place] # (Auto) (0-900) /uL Eos # (Auto) (0-450) /uL Baso # (Auto) (0-100) /uL Sodium (137-145) mmol/L Potassium (3.4-5.1) mmol/L Chloride (98-107) mmol/L Carbon Dioxide (22-32) mmol/L BUN (9-20) mg/dL Creatinine (0.66-1.25) mg/dL Estimated GFR (>60) mL/min BUN/Creatinine Ratio (6-22) Glucose (70-100) mg/dL Calcium (8.4-10.2) mg/dL Total Bilirubin (0.2-1.3) mg/dL AST (17-59) IU/L ALT (<50) IU/L Alkaline Phosphatase (38-126) U/L Total Creatine Kinase 170 (55-170) U/L CK-MB (CK-2) 2.07 (<2.37) ng/mL CK-MB (CK-2) Rel Index 1.2 L (1.5-5.0) % Troponin I < 0.012 (0.01-0.034) ng/mL Total Protein (6.3-8.2) g/dL Albumin (3.5-5.0) g/dL Globulin (1.7-4.1) g/dL Albumin/Globulin Ratio (1.0-2.8) Lipase (23-300) U/L Urine RBC (0-5/HPF) Urine WBC (0-5/HPF) Urine Bacteria (None) Ur Culture Indicated? Point of care testing: Urine Dip Bedside Urine Glucose 250 mg/dl Bedside Urine Bilirubin - Negative Bedside Urine Ketone - Negative Urine Specific Mason 1.025 Bedside Urine Occult Blood +/- Bedside Urine pH 6.0 Bedside Urine Protein - Negative Bedside Urine Urobilinogen - Negative Bedside Urine Nitrite - Negative Bedside Urine Leukocytes - Negative Esterase Discharge Plan Departure Patient Disposition: Home Clinical Impression: Hernia, Fatty liver Abdominal pain Qualifiers: Abdominal location: upper abdomen, unspecified Qualified Code(s): R10.10 - Upper abdominal pain, unspecified Instructions: DI for Groin Hernia, DI for Abdominal Pain-Adult, DI for Ventral Hernia, DI for Nonalcoholic Fatty Liver Disease Activity Restrictions/Additional Instructions: You have been diagnosed with [right side pain. Labs are assuring. CT findings of liver enlargement with steatosis, fat containing ventral and inguinal hernia, diverticulosis without associated inflammatory changes.]. What to do: *Take your medications as directed. You can take [id number] Tylenol and or Motrin as needed for discomfort. *Follow up with your primary care provider in 2-3 days, call for an appointment. [facility] contact [facility] to set up a primary care physician and follow-up on CT results out patiently. Let them know you were seen in the ED and that we asked you to be seen in follow up. If abdominal pain persists, follow-up with general surgery. *Return to ED if you have any new, worsening, or concerning symptoms, such as [worsening pain, unable to tolerate fluids, fever, jaundice, chest pain, breathing difficulty, unable to tolerate fluids, or any acute concerns]. Prescriptions: No Action meclizine 25 mg tablet 25 mg PO TID PRN (Reason: dizziness) Qty: 12 RF: 0 Referrals: [facility] [Provider Group] [facility] [Outside] <Schuyler Abbott, - Last Filed: 05/12/20 07:17> Cosign ED Attending Helenaature Attestation: Dr Abbott Co-Sign Statement: I was available for consultation during this patient's emergency department visit. This chart is signed by myself for administrative purposes only. I did not have direct contact with this patient during this visit. They were seen independently by the APC.
== END 2020-05-11 19:22 | disposition home or self-care (01) ==
PROVIDERS: Emergency Medicine; Emergency Provider Nurse Practitioner Family
DX: R10.10 Upper abdominal pain, unspecified (principal); K46.9 Unspecified abdominal hernia without obstruction or gangrene; K76.0 Fatty (change of) liver, not elsewhere classified; R11.10 Vomiting, unspecified; R11.0 Nausea; R42 Dizziness and giddiness
CPT/HCPCS: 36415; 74177; 80053; 81003; 81015; 82550; 82553; 83690; 84484; 85025; 93005; 93010; 96374; 99283; 99284; J1885; Q9967

== ENCOUNTER → 2020-06-15 10:11 | Outpatient (CLI) | payer OTHER, MEDICAID, SELFPAY ==
[2020-06-15 11:01] LABS: COVID19 -Nasal RAPID Negative (Negative)
== END ==
PROVIDERS: Visit Provider Specialist
DX: Z01.812 Encounter for preprocedural laboratory examination (principal); Z20.828 Contact with and (suspected) exposure to other viral communicable diseases
CPT/HCPCS: 87635; C9803

== ENCOUNTER 2020-06-16 10:31 | Day surgery (SDC) | payer OTHER, MEDICAID, SELFPAY ==
[2020-06-16] VITALS (7 sets, daily range): BP systolic 111–136; BP diastolic 64–89; PULSE 66–80; RESP 15–20; TEMP 36.1–36.6; O2SAT 93–97; BMI 36.6
--- NOTE | 2020-06-16 | PATH_ITS ---
[facility] Accession Number: [id number] . 01 Material submitted: . PART A: colon - COLON POLYP AT 20 CM PART B: colon - POLYP AT THE ANAL VERGE PART C: colon - BASE OF THE POLYP . 02 Diagnosis: A. Colon Polyp at 20 cm, Biopsy: Hyperplastic polyp. . B. Colon Polyp at Anal Verge, Biopsy: Tubulovillous adenoma with high-grade dysplasia. Negative for malignancy. Additional step sections examined. . C. Base of Polyp, Biopsy: Residual tubulovillous adenoma with high-grade dysplasia. Negative for malignancy. Dysplasia focally approximates the peripheral tissue margin; please see comment. Additional step sections examined. [facility] 06/22/2020 1124 Local . 02 Comment: Part C: Sections are of polypoid colonic mucosa with focal involvement by residual tubulovillous adenoma. Focally, the residual neoplasm approximates the peripheral aspect of the deep cauteried tissue edge. There is no evidence of malignancy. Given the histologic findings, correlation with the endoscopic findings before and after polypectomy to ensure complete removal of the lesion, and a shortened surveillance interval are recommended. . As part of routine quality assurance monitor, Dr. Cee has reviewed this case and agrees with the diagnosis of tubulovillous adenoma with high-grade dysplasia. . 02 Electronically signed: . Edu Massey MD, PhD, Pathologist NPI- [id number] . 01 Gross description: . Part A: COLON POLYP AT 20 CM: Received in formalin is 1 fragment(s) of mehta, soft tissue measuring 0.3 x 0.3 x 0.2 cm submitted entirely in 1 cassette(s) Part B: POLYP AT THE ANAL VERGE: Received in formalin is 1 piece of mehta, soft tissue measuring 1.3 x 1.0 x 0.8 cm which is inked, serially sectioned and submitted entirely in 1 cassette(s) Part C: BASE OF THE POLYP: Received in formalin is 1 piece of mehta, soft tissue measuring 1.0 x 0.7 x 0.7 cm which is inked, serially sectioned and submitted entirely in 1 cassette(s) /[facility] 06/17/2020 0148 Local . 02 Pathologist provided ICD-10: D12.8, K63.5 . 02 CPT . 741161, 195309, 078163 Performed at: 01 [facility] [address] [place] [address], [place], [place] [id number] MD Vitor Elmore MD Phone: [phone] Performed at: 02 [facility] [place] [address] [facility] [place], [place] [id number] MD Fifi Samaniego MD Phone: [phone]
[2020-06-16] MEDS: ONDANSETRON 4 MG/2 ML INJ IV (11:31)
[2020-06-16] MEDS: LACTATED RINGERS 1,000 ML 200 ML IV (11:38)
--- NOTE | 2020-06-16 11:40 | SUR.PREOP ---
Zofran given for c/o nausea, now relieved.
--- NOTE | 2020-06-16 13:18 | PM.PREOP ---
Pre-operative Note COVID-19 COVID-19 status: Negative Result date/Date tested (Pos, Neg/Pending): 06/15/20 Interval Note History & Physical reviewed/Exam performed by Physician: Yes Changes to H&P: Yes H&P completed within 30 days and has changed as indicated here:: Patient pain in his side has essentially gone away. This is without the medication. He had requested a screening colonoscopy the same day as he was in the office. I have discussed the procedure and the rationale with the patient including risks of bleeding, perforation which would necessitate a major operation, failure to find remove all lesions and the potential to tattoo. They appeared to understand and wished to proceed. ASA Class (for procedural sedation): II
[2020-06-16] MEDS: fentaNYL 250 MCG/5 ML INJ IV (13:33)
[2020-06-16] MEDS: MIDAZOLAM 5 MG/5 ML VIAL IV (13:34)
--- NOTE | 2020-06-16 14:04 | PM.OP.ENDO ---
Operative Date/Time/Diagnoses Date of procedure: 06/16/20 Time of procedure: 14:00 Pre-op diagnosis: Screening colonoscopy. This is his 1st exam. Post-op diagnosis: other (Large polyp near the anal verge. Diverticulosis.) Procedure & Clinicians Study performed: Colonoscopy abandoned. Patient had a flexible sigmoidoscopy to 35 cm. With hot snare polypectomy. Same procedure as scheduled: Yes Indications: Screening exam Procedure Notes SCOAP/Timeout: Not applicable Procedure in detail: The patient was placed in left lateral decubitus position underwent IV sedation directed by the surgeon consisting of gela Johnson. Digital exam was remarkable for decreased sphincter tone. I could only feel the very edge of his prostate with my finger. There were no palpable masses. Scope was inserted and advanced slowly through the rectum into the sigmoid colon. At about 35 cm I reached a point that was like pushing against a wall. I could not advance and was requiring a fair amount of pressure in order to attempt to do so. Patient had diverticulosis in the area. I backed the scope out and repositioned the patient as well as thinking that that might help the situation but it did not change anything. I still could not get any further without pushing 2 degree that I felt unsafe. Therefore I is backed the scope out I removed a small polyp at 20 cm with biopsy forceps. I ultimately retroflexed in the rectum. Patient was noted to have a large polyp near the anal verge. I snare this in 2 pieces and they were submitted separately. One was the polyp itself of the 2nd was the base. There was no bleeding at completion. The entire polyp appeared to be removed. It appeared to be over a hemorrhoid. Scope withdrawal time: Not applicable Sedation minutes: 20 Findings: diverticulosis and other findings (Large polyp near the anal verge. Smaller polyp at 20 cm. ) Specimen(s): other (Two polyps) Complications: none Post-procedure Recommendations: Other recommendation (Will need a barium enema.) Follow up: as needed (After barium enema) Disposition: PACU
== END 2020-06-16 14:42 | disposition home or self-care (01) ==
PROVIDERS: Referring Provider Specialist; Visit Provider Specialist
PROC: 0DJD8ZZ Inspection of Lower Intestinal Tract, Via Natural or Artificial Opening Endoscopic (ICD-10-PCS; CPT 45378; principal; 2020-06-16 11:30)
DX: Z12.11 Encounter for screening for malignant neoplasm of colon (principal); F17.210 Nicotine dependence, cigarettes, uncomplicated; K57.30 Diverticulosis of large intestine without perforation or abscess without bleeding; D12.8 Benign neoplasm of rectum
CPT/HCPCS: 45338; 99152; J2250; J2405; J3010

== ENCOUNTER 2020-06-24 15:37 | Inpatient (IN) | payer OTHER, MEDICAID, SELFPAY ==
[2020-06-24 16:03] VITALS: BP 179/104; PULSE 73; RESP 20; TEMP 36.8; O2SAT 98
--- NOTE | 2020-06-24 16:13 | DI.CT.S_ITS ---
PROCEDURE: CT ABDOMEN PELVIS W CON INDICATIONS: RLQ pain 1 week post colonoscopy TECHNIQUE: After the administration of intravenous contrast, 5 mm thick sections acquired from the diaphragm to the symphysis. 5 mm coronal and sagittal reformats were acquired. For radiation dose reduction, the following was used: automated exposure control, adjustment of mA and/or kV according to patient size. COMPARISON: None. FINDINGS: Image quality: Excellent. ABDOMEN: Lung bases: Lung bases are clear. Heart size is normal. Solid organs: Moderate to severe hepatic steatosis. No focal hepatic mass. Gallbladder unremarkable. Normal size and appearance of the spleen. Pancreas is within normal limits. No adrenal gland mass. No hydronephrosis or other significant renal abnormality. The aorta and IVC are patent. There is aortic atherosclerosis extending into the iliac arteries and major visceral branches. Peritoneum and bowel: Patulous distal esophagus. No hiatal hernia. Organized free fluid and inflammatory change are present adjacent to the distal sigmoid colon on the left, abutting the left pelvic sidewall and vasculature. There is no definite free air. There are numerous sigmoid and distal colonic diverticula. Remainder of the bowel is unremarkable. The appendix is normal. Miscellaneous: No ventral hernias. PELVIS: Genitourinary: Bladder wall thickness is normal. Miscellaneous: No inguinal hernias or adenopathy. Bones: No suspicious bony lesions. No vertebral body compression fractures. IMPRESSION: Free fluid and inflammatory change adjacent to the sigmoid colon, consistent with diverticulitis. Somewhat organized appearance of the free fluid without rim enhancement, which may represent a developing abscess. This is not amenable to percutaneous drainage on the basis of size and position. Dictated by: Jose Enrique Alvarez M.D. on 06/24/2020 at 17:16 Approved by: Jose Enrique Alvarez M.D. on 06/24/2020 at 17:19
--- NOTE | 2020-06-24 16:34 | ED.ABDPAIN ---
HPI - Abdominal Pain General Chief Complaint: Abdominal Pain Stated Complaint: pain below belly button Time Seen by Provider: 06/24/20 16:13 Source: patient Mode of arrival: Ambulatory History of Present Illness HPI narrative: 60-year-old gentleman with a history of asthma, reflux and diverticulitis 1 episode of which he developed a diverticular abscess and was hospitalized for 10 days and a colonoscopy on 06/16. Apparently the colonoscopy was not able to be completed any further than the sigmoid. Was seen by Dr. Rivera in follow-up today with continued and increasing left lower quadrant pain. He describes left lower quadrant to suprapubic pain, a change to his stools and describes them as ?smaller and less cohesive?. The pain is described as bloating and cramping worse when he sits down and worse again if he bends forward. Feels that he isn't voiding as much as he typically should be for as much as he is drinking. He describes no fevers, vomiting, cough, chest pain or, headache, neurologic complaints Related Data Home Medications Medication Instructions Recorded Confirmed aspirin 81 mg tablet,delayed 81 mg PO DAILY 05/27/20 06/24/20 release omeprazole magnesium 2.5 mg oral 10 mg PO DAILY 05/27/20 06/24/20 suspension,delayed release albuterol sulfate 2 puff INHALATION QID 06/16/20 06/24/20 Allergies Allergy/AdvReac Type Severity Reaction Status Date / Time Penicillins Allergy Severe Rash Verified 06/24/20 15:28 codeine Allergy Verified 06/24/20 15:28 Review of Systems Review of Systems Narrative: Remainder of review of systems including constitutional, ENT, cardiovascular, respiratory, GI, , musculoskeletal, skin, neurologic and psychiatric systems reviewed and are unremarkable except as noted in HPI. Patient History Medical History Asthma Diverticulitis GERD (gastroesophageal reflux disease) Social History (Updated 05/27/20 @ 13:48 by Jignesh Shah RN) household members: spouse Smoking Status: Current every day smoker alcohol intake: never substance use type: does not use Smoking Status: Current every day smoker Substance Use Type: does not use Exam Narrative Exam Narrative: General: Healthy appearing, mild abdominal pain but Able to give a complete and coherent history. Well-nourished well-developed HEENT: Moist mucous membranes, normal sclera with reactive pupils, Neck: No JVD, supple Respiratory: Lungs are clear to auscultation, no wheezing no rales no rhonchi. Full and symmetrical air movement Cardiac: Regular rate and rhythm no murmurs no bruits Abdomen: Soft, tender in the left lower quadrant and suprapubic area without rebound or guarding. good bowel tones, no flank pain Skin: Warm and dry, no rashes Neurologic: Grossly neurologically intact with no obvious asymmetries or abnormalities Extremities: No trauma, well perfused Psych: Cooperative, appropriate insight and affect Initial Vital Signs Initial Vital Signs: Vital Signs Temperature 98.2 F 06/24/20 16:03 Pulse Rate 73 06/24/20 16:03 Respiratory Rate 20 06/24/20 16:03 Blood Pressure 179/104 H 06/24/20 16:03 Pulse Oximetry 98 06/24/20 16:03 Course Orders Ordered: ED Orders 06/24/20 16:13 CT abdomen pelvis w con Stat 06/24/20 16:40 Complete Blood Count AUTO DIFF Stat Comprehensive Metabolic Panel Stat Magnesium Stat Hydromorphone HCl (Hydromorphone 0.5 Mg Inj) 0.5 mg IV Q15MIN PRN PRN Reason: Pain, Last Admin: 06/24/20 16:37 Dose: 0.5 mg Documented by: EDILMA Discontinued Medications Sodium Chloride (Normal Saline 0.9%) 1,000 mls @ 1,000 mls/hr IV BOLUS ONE Stop: 06/24/20 17:32 Last Admin: 06/24/20 16:37 Dose: 1,000 mls/hr Documented by: EDILMA Ondansetron HCl (Ondansetron 4 Mg/2 Ml Inj) 4 mg IV NOW ONE Stop: 06/24/20 16:14 Last Admin: 06/24/20 16:37 Dose: 4 mg Documented by: EDILMA Vital Signs Vital signs: Vital Signs - 8 hr 06/24/20 16:03 06/24/20 17:31 Temperature 98.2 F Pulse Rate 73 67 Respiratory Rate 20 17 Blood Pressure 179/104 H 131/68 Pulse Oximetry 98 99 MDM - Abdominal Pain Lab Data Attestation: I reviewed the patient's lab results. Result diagrams: 06/24/20 16:40 06/24/20 16:40 Labs: Lab Results 06/24/20 06/24/20 Range/Units 16:40 16:40 WBC 8.4 (4.5-11.0) X10^3/uL RBC 4.44 L (4.5-5.9) X10^6/uL Hgb 14.0 (13.5-17.5) g/dL Hct 40.9 L (41-53) % MCV 92.1 (80-100) fL MCH 31.5 (26-34) PG MCHC 34.1 (30-36) % RDW 12.8 (11.6-14.8) % Plt Count 225 (150-400) X10^3/uL Neut % (Auto) 59.9 (50-75) % Lymph % (Auto) 29.4 (25-40) % [place] % (Auto) 8.2 (3-14) % Eos % (Auto) 2.0 (2-4) % Baso % (Auto) 0.5 (0-2) % Neut # (Auto) 5100 (3618-4459) /uL Lymph # (Auto) 2500 (7420-7778) /uL [place] # (Auto) 700 (0-900) /uL Eos # (Auto) 200 (0-450) /uL Baso # (Auto) 0 (0-100) /uL Sodium 135 L (137-145) mmol/L Potassium 4.2 (3.4-5.1) mmol/L Chloride 104 (98-107) mmol/L Carbon Dioxide 29 (22-32) mmol/L BUN 16 (9-20) mg/dL Creatinine 0.66 (0.66-1.25) mg/dL Estimated GFR > 60.0 (>60) mL/min BUN/Creatinine Ratio 24.2 H (6-22) Glucose 147 H (70-100) mg/dL Calcium 8.8 (8.4-10.2) mg/dL Magnesium 2.0 (1.6-2.3) mg/dL Total Bilirubin 0.2 (0.2-1.3) mg/dL AST 23 (17-59) IU/L ALT 35 (<50) IU/L Alkaline Phosphatase 35 L (38-126) U/L Total Protein 6.7 (6.3-8.2) g/dL Albumin 3.9 (3.5-5.0) g/dL Globulin 2.8 (1.7-4.1) g/dL Albumin/Globulin Ratio 1.4 (1.0-2.8) Point of care testing: Urine Dip Bedside Urine Glucose Negative Bedside Urine Bilirubin - Negative Bedside Urine Ketone - Negative Urine Specific [place] 1.015 Bedside Urine Occult Blood - Negative Bedside Urine pH 6.0 Bedside Urine Protein - Negative Bedside Urine Urobilinogen - Negative Bedside Urine Nitrite - Negative Bedside Urine Leukocytes - Negative Esterase Imaging Data CT scan - abdomen/pelvis: Radiologist's Impression: FINDINGS: Image quality: Excellent. ABDOMEN: Lung bases: Lung bases are clear. Heart size is normal. Solid organs: Moderate to severe hepatic steatosis. No focal hepatic mass. Gallbladder unremarkable. Normal size and appearance of the spleen. Pancreas is within normal limits. No adrenal gland mass. No hydronephrosis or other significant renal abnormality. The aorta and IVC are patent. There is aortic atherosclerosis extending into the iliac arteries and major visceral branches. Peritoneum and bowel: Patulous distal esophagus. No hiatal hernia. Organized free fluid and inflammatory change are present adjacent to the distal sigmoid colon on the left, abutting the left pelvic sidewall and vasculature. There is no definite free air. There are numerous sigmoid and distal colonic diverticula. Remainder of the bowel is unremarkable. The appendix is normal. Miscellaneous: No ventral hernias. PELVIS: Genitourinary: Bladder wall thickness is normal. Miscellaneous: No inguinal hernias or adenopathy. Bones: No suspicious bony lesions. No vertebral body compression fractures. IMPRESSION: Free fluid and inflammatory change adjacent to the sigmoid colon, consistent with diverticulitis. Somewhat organized appearance of the free fluid without rim enhancement, which may represent a developing abscess. This is not amenable to percutaneous drainage on the basis of size and position. Dictated by: Jose Enrique Alvarez M.D. on 06/24/2020 at 17:16 MDM Narrative Medical decision making narrative: Developing diverticulitis with possibility of an organizing abscess without evidence of sepsis. Will be admitted to the Surgical Service, Dr. Rivera, with IV Flagyl and Levaquin due to penicillin allergy. Discharge Plan Departure Patient Disposition: Admitted as Observation Clinical Impression: Colonic diverticular abscess
[2020-06-24] MEDS: HYDROMORPHONE 0.5 MG INJ IV (16:37)
[2020-06-24] MEDS: ONDANSETRON 4 MG/2 ML INJ IV (16:37)
[2020-06-24] MEDS: SODIUM CHLORIDE 0.9% 1,000 ML 1000 ML IV (16:37)
[2020-06-24 16:49] LABS: Add Manual Diff / Slide Review NO; Basophils Absolute Auto 0 /uL (0-100); Basophils Percent Auto 0.5 % (0-2); Eosinophils Absolute Auto 200 /uL (0-450); Hematocrit 40.9 % (41-53); Lymphocytes Absolute Auto 2500 /uL (1100-4500); Lymphocytes Percent Auto 29.4 % (25-40); Mean Corpuscular HGB Conc 34.1 % (30-36); Mean Corpuscular Hemoglobin 31.5 PG (26-34); Mean Corpuscular Volume 92.1 fL (80-100); Monocytes Absolute Auto 700 /uL (0-900); Monocytes Percent Auto 8.2 % (3-14); Neutrophils Absolute Auto 5100 /uL (1500-7000); Neutrophils Percent Auto 59.9 % (50-75); Platelet Count 225 X10^3/uL (150-400); Red Blood Cell Count 4.44 X10^6/uL (4.5-5.9); Red Cell Distribution Width 12.8 % (11.6-14.8); White Blood Cell Count 8.4 X10^3/uL (4.5-11.0)
[2020-06-24 16:58] LABS: Alanine Aminotransferase 35 IU/L (<50); Albumin 3.9 g/dL (3.5-5.0); Albumin Globulin Ratio 1.4 (1.0-2.8); Alkaline Phosphatase 35 U/L (38-126); Aspartate Aminotransferase 23 IU/L (17-59); BUN Creatinine Ratio 24.2 (6-22); Bilirubin Total 0.2 mg/dL (0.2-1.3); Blood Urea Nitrogen 16 mg/dL (9-20); Calcium 8.8 mg/dL (8.4-10.2); Carbon Dioxide 29 mmol/L (22-32); Chloride 104 mmol/L (98-107); Estimated Glomerular Filt Rate > 60.0 mL/min (>60); Globulin 2.8 g/dL (1.7-4.1); Glucose 147 mg/dL (70-100); HEMOLYSIS < 15 (0-50); Potassium 4.2 mmol/L (3.4-5.1); Sodium 135 mmol/L (137-145); Total Protein 6.7 g/dL (6.3-8.2)
[2020-06-24 17:31] VITALS: BP 131/68; PULSE 67; RESP 17; O2SAT 99
[2020-06-24 18:30] VITALS: BP 147/87; PULSE 64; RESP 18; O2SAT 99
[2020-06-24 18:58] LABS: COVID19 -Nasal RAPID Negative (Negative)
[2020-06-24 19:53] VITALS: BP 147/91; PULSE 66; RESP 18; TEMP 35.9; O2SAT 97
[2020-06-24] MEDS: LACTATED RINGERS 1,000 ML 125 ML IV (20:14)
[2020-06-24] MEDS: levoFLOXacin 750 MG/150 ML PIGGYBACK 100 MG IV (20:30)
[2020-06-24] MEDS: KETOROLAC 30 MG/ML VIAL IV (20:30)
[2020-06-24] MEDS: GABAPENTIN 300 MG CAPSULE PO (20:31)
[2020-06-24 20:38] VITALS: BMI 36.6
[2020-06-24] MEDS: ALBUTEROL HFA MDI 60 PUFF/8 GM INHALER INH (21:02)
[2020-06-24 21:03] VITALS: PULSE 56; RESP 16; O2SAT 96
--- NOTE | 2020-06-24 22:05 | PC.NURSE ---
Addendum entered by Ana Morrissey R.N. 06/24/20 23:05: Pt reports good pain relief from toradol with abdominal pain 4/10. Provided with ice pack to abdomen as well. Taking oral fluids without difficulty. Original Note: 1937 Pt to room 216 from E.R. via wheelchair. Able to ambulate independently. C/o abdominal pain 7/10 cramping in nature and given toradol as ordered. IV antibiotics infusing and pt provided with clear liquids. Denies nausea. Oriented to room, call light and plan of care for the evening. BL scd's in place.
[2020-06-24] MEDS: metroNIDAZOLE 500 MG/100 ML PIGGYBACK 100 MG IV (22:07)
[2020-06-25 00:15] VITALS: BP 102/59; PULSE 57; RESP 14; TEMP 36.5; O2SAT 94
[2020-06-25] MEDS: metroNIDAZOLE 500 MG/100 ML PIGGYBACK 100 MG IV ×2 (03:29→10:19)
[2020-06-25 04:00] VITALS: BP 112/58; PULSE 69; RESP 14; TEMP 36.6; O2SAT 96
--- NOTE | 2020-06-25 06:27 | PC.NURSE ---
Pt stable through shift, no complaints of pain. IV abx and fluids as prescribed. Pt slept through shift.
[2020-06-25 07:13] LABS: Add Manual Diff / Slide Review NO; Basophils Absolute Auto 100 /uL (0-100); Basophils Percent Auto 0.6 % (0-2); Eosinophils Absolute Auto 200 /uL (0-450); Eosinophils Percent Auto 1.9 % (2-4); Hematocrit 43.2 % (41-53); Hemoglobin 14.6 g/dL (13.5-17.5); Lymphocytes Absolute Auto 2300 /uL (1100-4500); Lymphocytes Percent Auto 25.7 % (25-40); Mean Corpuscular HGB Conc 33.8 % (30-36); Mean Corpuscular Hemoglobin 31.4 PG (26-34); Mean Corpuscular Volume 92.8 fL (80-100); Monocytes Absolute Auto 800 /uL (0-900); Monocytes Percent Auto 8.9 % (3-14); Neutrophils Absolute Auto 5700 /uL (1500-7000); Neutrophils Percent Auto 62.9 % (50-75); Platelet Count 216 X10^3/uL (150-400); Red Blood Cell Count 4.66 X10^6/uL (4.5-5.9); White Blood Cell Count 9.1 X10^3/uL (4.5-11.0)
[2020-06-25] MEDS: LACTATED RINGERS 1,000 ML 125 ML IV (07:29)
[2020-06-25] MEDS: PANTOPRAZOLE 20 MG TABLET PO (07:29)
[2020-06-25 08:00] VITALS: BP 126/80; PULSE 64; RESP 16; TEMP 36.5; O2SAT 93
[2020-06-25] MEDS: ENOXAPARIN 40 MG/0.4 ML SYRINGE SUBCUT (10:18)
[2020-06-25] MEDS: GABAPENTIN 300 MG CAPSULE PO (10:18)
--- NOTE | 2020-06-25 11:19 | CM.DANOTE ---
DCP: Case received, EMR reviewed and met with patient. Introduced self and role. Was able to obtain information regarding patient's baseline activity status prior to hospitalization. DCP assessment completed with information currently available. Patient is a 60 year old male who admitted yesterday afternoon to the care of the hospitalist team. PCP: None at this time, resources given. Payer: confirmed: [employer]/Medicaid. Patient came to the hospital via private vehicle secondary to having some abdominal discomfort. Patient has history of diverticulitis and was diagnosed with possible abscess. He is to be having a surgery consult today.\ Met with patient in his room. He is independent, he resides in [place] [place] with his spouse, but he and his spouse are up here in the area building a boat house. Patient has no primary MD, and stated that he most likely will be in this area. Gave him phone number for [facility], as they have providers that are accepting new patients. P: DCP to continue to follow. Patient should be able to go home when he is medically stable. Darcie Duke RN/[employer]
--- NOTE | 2020-06-25 12:03 | PC.NURSE ---
Pt is dressing for discharge home. He will be driving himself. He has not taken any narcotics. Went over d/c instructions with Pt-discussed d/c meds, time of last dose, stroke education, starting with easy to digest foods for a couple of days and then increasing his diet as tolerated. Encouraged fluid intake to prevent constipation or dehydration, and to follow up as directed. Pt denies further questions and was taken out via w/c by [employer] ASSISTANT to POV for is drive home.
--- NOTE | 2020-07-07 11:02 | PM.DS.1 ---
History of Present Illness History of Present Illness Date Patient Seen: 06/25/20 Chief complaint: pain below belly button Narrative: Patient is a gentleman who had a colonoscopy on the 16 of June. He developed left lower quadrant pain and was seen in the office. He was sent to the ER and an urgent CT was performed that showed evidence of diverticulitis. There was a possibility of a small abscess. He was brought in for IV antibiotics. Discharge Providers Provider Date of admission: 06/24/20 18:24 Discharge Date: 06/25/20 Consults: 06/24/20 19:44 Consult to Discharge Planning Routine Comment: Discharge provider: Harvey Rivera MD Summary Hospital Course Discharge Diagnosis: Acute diverticulitis Chronic asthma Status at Discharge Cognitive/behavioral status at discharge: oriented Functional status at discharge: independent ambulation Overall status at discharge: patient is back to baseline Time Spent with Patient Time spent: Less than 30 minutes Exam Vital Signs (past 8 hours): Oxygen Delivery Method Room Air Oxygen Flow Rate 0 Narrative Exam Narrative: Alert. Lungs clear. Abdomen is soft. Improved tenderness in left lower quadrant. Objective Labs Result Diagrams: 06/25/20 06:48 06/24/20 16:40 ON LICENSE OF [facility] Medical History Asthma Diverticulitis GERD (gastroesophageal reflux disease) Social History (Updated 05/27/20 @ 13:48 by Jignesh Shah RN) household members: spouse Smoking Status: Current every day smoker alcohol intake: never substance use type: does not use Discharge Plan Discharge Plan Patient Disposition: Home Provider Discharge Comment: You had acute diverticulitis. You also had dysplasia in a polyp which I biopsied at the time of your attempted colonoscopy. I would normally keep you at least an additional day for IV antibiotics but I understand that you have any to go home. Therefore we are discharging you. Please make sure you take the antibiotics. Do not use any alcohol(EVEN IN COUGH SYRUP) while using these antibiotics as it will make you violently ill. Discharge orders & Medications Prescriptions: New ciprofloxacin 500 mg/5 mL suspension,microcapsule recon 500 mg PO BID Qty: 100 RF: 0 metronidazole 250 mg tablet 500 mg PO TID Qty: 60 RF: 0 Continued Prilosec 2.5 mg susp,delayed release for recon 10 mg PO DAILY RF: 0 aspirin [Adult Aspirin Regimen] 81 mg tablet,delayed release (DR/EC) 81 mg PO DAILY RF: 0 albuterol sulfate 90 mcg/actuation HFA aerosol inhaler 2 puff INHALATION QID RF: 0 Diet/Activity/Treatments Diet: Diet as Tolerated Diet comment: Eat light for the 1st several days.Antibiotics may cause you to have nausea Activity: As tolerated Skin/Wound/Dressing Care Report to your healthcare provider any signs of infection, such as:: chills, fever, night sweats and increased pain Quality VTE Deep Vein Thrombosis/Pulmonary Embolism Present on Admission: No
== END 2020-06-25 12:11 | disposition home or self-care (01) | DRG 244 ==
LOC: ED 18:22 → AC 06-25 10:41
PROVIDERS: Admitting Provider Specialist; Emergency Provider Emergency Medicine; Referring Provider Emergency Medicine; Visit Provider Specialist
DX: K57.80 Diverticulitis of intestine, part unspecified, with perforation and abscess without bleeding (principal); G89.18 Other acute postprocedural pain; F17.210 Nicotine dependence, cigarettes, uncomplicated; J45.909 Unspecified asthma, uncomplicated; K21.9 Gastro-esophageal reflux disease without esophagitis; Z20.822 Contact with and (suspected) exposure to COVID-19
CPT/HCPCS: 36415; 74177; 80053; 81003; 83735; 85025; 87635; 94640; 96361; 96374; 96375; 99214; 99284; C9803; G0378; A9270; J1170; J1650; J1885; J1956; J2405; Q9967

== ENCOUNTER → 2020-09-24 15:46 | Outpatient (CLI) | payer OTHER, MEDICAID, SELFPAY ==
[2020-09-24] MEDS: COVID-19 VACC, Ad26(JANSSEN)/PF 0.5 ML IM (15:55)
== END ==
PROVIDERS: Visit Provider Internal Medicine
DX: Z23 Encounter for immunization (principal)
CPT/HCPCS: 0031A; 91303

== ENCOUNTER 2020-12-04 13:43 | Emergency (ER) | payer OTHER, MEDICAID, SELFPAY ==
[2020-12-04] VITALS (8 sets, daily range): BP systolic 121–137; BP diastolic 63–79; PULSE 60–88; RESP 14–23; TEMP 36.4–36.7; O2SAT 93–99
--- NOTE | 2020-12-04 13:56 | DI.RAD.S_ITS ---
PROCEDURE: XR CHEST 2V INDICATIONS: shortness of breath TECHNIQUE: 2 views of the chest were acquired. COMPARISON: [facility], CT, CT ABDOMEN PELVIS W CON, 06/24/2020, 16:58. [facility], CR, XR CHEST 1V, 02/13/2020, 20:26. FINDINGS: Surgical changes and devices: None. Lungs and pleura: Lungs are clear. No pleural effusions or pneumothorax. Mediastinum: Mediastinal contours are normal. Heart size is normal. Bones and chest wall: No suspicious bony abnormalities. Soft tissues appear unremarkable. IMPRESSION: No acute cardiopulmonary abnormality. Dictated by: Josh Healy M.D. on 12/04/2020 at 14:26 Approved by: Josh Healy M.D. on 12/04/2020 at 14:26
--- NOTE | 2020-12-04 14:41 | ED.GENADULT ---
HPI - General Adult General Chief complaint: Shortness of Breath/Dyspnea Stated complaint: total brain fog/dizzy Time Seen by Provider: 12/04/20 14:03 Source: patient Mode of arrival: Ambulatory Limitations: no limitations History of Present Illness HPI narrative: 60-year-old gentleman with no significant medical history presents with 24 hours of vague but persistent symptoms including a sense of vertigo, dyspnea of brain fog difficulty in thinking and processing. He complains that his right eye is burning and notes that his sclera are injected bilaterally. overall he feels generally weak significantly more fatigued than he would expect, dizzy if he turns his head too fast with low-grade headache. He notes frances oral burning as if some sort of skin eruption would be noticed around his entire mouth. He does not report specific chest pain, abdominal pain, flank pain, dysuria, vomiting or diarrhea. He notes no skin changes specifically no rashes on the right side of his face or perioral. He does not describe decreased sensation or unilateral weakness. No gait difficulties. Related Data Home Medications Medication Instructions Recorded Confirmed aspirin 81 mg tablet,delayed 81 mg PO DAILY 05/27/20 12/04/20 release omeprazole magnesium 2.5 mg oral 10 mg PO DAILY 05/27/20 12/04/20 suspension,delayed release naproxen sodium [Aleve] 220 mg PO BID PRN 12/04/20 12/04/20 Previous Rx's Medication Instructions Recorded doxycycline hyclate 100 mg PO BID #20 cap 12/04/20 Allergies Allergy/AdvReac Type Severity Reaction Status Date / Time Penicillins Allergy Severe Rash Verified 12/04/20 14:10 codeine Allergy Verified 12/04/20 14:10 Review of Systems Review of Systems Narrative: Remainder of complete review of systems is otherwise unremarkable except for that included in the HPI. Patient History Medical History Asthma Diverticulitis GERD (gastroesophageal reflux disease) Social History household members: spouse Smoking Status: Current every day smoker alcohol intake: never substance use type: does not use Smoking Status: Current every day smoker alcohol intake frequency: 0-2 drinks per day Substance Use Type: does not use Exam Narrative Exam Narrative: General: mildly ill appearing but in no acute distress. Able to give a complete and coherent history. Well-nourished well-developed HEENT: Moist mucous membranes, bilaterally injected sclera with reactive pupils, no nystagmus and no precipitated vertigo with had manipulation Neck: No JVD, supple, no nuchal rigidity Respiratory: Lungs are clear to auscultation, no wheezing no rales no rhonchi. Full and symmetrical air movement Cardiac: Regular rate and rhythm no murmurs no bruits Abdomen: Soft, nontender, good bowel tones, no flank pain Skin: Warm and dry, no rashes. no skin abnormalities over the area of increased sensation on the side of his face or around his lips Neurologic: Grossly neurologically intact with no obvious asymmetries or abnormalities Extremities: No trauma, well perfused Psych: Cooperative, appropriate insight and affect Initial Vital Signs Initial Vital Signs: Vital Signs Temperature 98.1 F 12/04/20 13:45 Pulse Rate 88 12/04/20 13:45 Respiratory Rate 14 12/04/20 13:45 Blood Pressure 129/70 12/04/20 13:45 Pulse Oximetry 99 12/04/20 13:45 Course Orders Ordered: ED Orders 12/04/20 13:56 XR chest 2V Stat EKG-12 Lead Stat RT Consult Eval and Treat Now 12/04/20 14:17 COVID19 -Nasal swab/Pre-Proc Stat 12/04/20 14:35 C-Reactive Protein Quant Stat Complete Blood Count AUTO DIFF Stat Comprehensive Metabolic Panel Stat Lactate (Lactic Acid) Stat NT-proBNP (BNP-Adult 18+) Stat Procalcitonin Stat Troponin & CK Cardiac Panel Stat 12/04/20 14:57 CT head/brain wo con Stat Vital Signs Vital signs: Vital Signs - 8 hr 12/04/20 13:45 12/04/20 14:36 12/04/20 14:37 Temperature 98.1 F Pulse Rate 88 80 77 Respiratory Rate 14 20 22 Blood Pressure 129/70 126/70 Pulse Oximetry 99 97 95 12/04/20 14:40 12/04/20 15:00 12/04/20 15:30 Temperature Pulse Rate 75 71 67 Respiratory Rate 19 23 18 Blood Pressure 121/63 123/71 Pulse Oximetry 94 93 93 12/04/20 15:54 Temperature Pulse Rate 65 Respiratory Rate 22 Blood Pressure 137/79 Pulse Oximetry 97 Medical Decision Making Medical Records Medical records reviewed: Yes I reviewed the patient's medical records. Lab Data Lab results reviewed: Yes I reviewed the patient's lab results. Result diagrams: 12/04/20 14:35 12/04/20 14:35 Labs: Lab Results 12/04/20 12/04/20 12/04/20 Range/Units 14:17 14:35 14:35 WBC 7.9 (4.5-11.0) X10^3/uL RBC 4.89 (4.5-5.9) X10^6/uL Hgb 15.2 (13.5-17.5) g/dL Hct 44.8 (41-53) % MCV 91.6 (80-100) fL MCH 31.1 (26-34) PG MCHC 33.9 (30-36) % RDW 13.3 (11.6-14.8) % Plt Count 233 (150-400) X10^3/uL Neut % (Auto) 59.3 (50-75) % Lymph % (Auto) 31.2 (25-40) % [place] % (Auto) 6.7 (3-14) % Eos % (Auto) 1.9 L (2-4) % Baso % (Auto) 0.9 (0-2) % Neut # (Auto) 4700 (9061-8436) /uL Lymph # (Auto) 2500 (5421-3575) /uL [place] # (Auto) 500 (0-900) /uL Eos # (Auto) 100 (0-450) /uL Baso # (Auto) 100 (0-100) /uL Sodium 135 L (137-145) mmol/L Potassium 3.8 (3.4-5.1) mmol/L Chloride 103 (98-107) mmol/L Carbon Dioxide 26 (22-32) mmol/L BUN 15 (9-20) mg/dL Creatinine 0.64 L (0.66-1.25) mg/dL Estimated GFR > 60.0 (>60) mL/min BUN/Creatinine Ratio 23.4 H (6-22) Glucose 201 H (70-100) mg/dL Lactate (0.7-2.1) mmol/L Calcium 9.3 (8.4-10.2) mg/dL Total Bilirubin 0.6 (0.2-1.3) mg/dL AST 24 (17-59) IU/L ALT 32 (<50) IU/L Alkaline Phosphatase 40 (38-126) U/L Total Creatine Kinase 119 (55-170) U/L CK-MB (CK-2) 1.34 (<2.37) ng/mL CK-MB (CK-2) Rel Index 1.1 L (1.5-5.0) % Troponin I < 0.012 (0.01-0.034) ng/mL C-Reactive Protein (<1.0) mg/dL NT-Pro-B Natriuret Pep 80 (<125) pg/mL Total Protein 6.9 (6.3-8.2) g/dL Albumin 4.0 (3.5-5.0) g/dL Globulin 2.9 (1.7-4.1) g/dL Albumin/Globulin Ratio 1.4 (1.0-2.8) Procalcitonin (<0.5) ng/mL SARS-CoV-2 (PCR) Negative (Negative) 12/04/20 12/04/20 Range/Units 14:35 14:35 WBC (4.5-11.0) X10^3/uL RBC (4.5-5.9) X10^6/uL Hgb (13.5-17.5) g/dL Hct (41-53) % MCV (80-100) fL MCH (26-34) PG MCHC (30-36) % RDW (11.6-14.8) % Plt Count (150-400) X10^3/uL Neut % (Auto) (50-75) % Lymph % (Auto) (25-40) % [place] % (Auto) (3-14) % Eos % (Auto) (2-4) % Baso % (Auto) (0-2) % Neut # (Auto) (0287-5629) /uL Lymph # (Auto) (1741-8613) /uL [place] # (Auto) (0-900) /uL Eos # (Auto) (0-450) /uL Baso # (Auto) (0-100) /uL Sodium (137-145) mmol/L Potassium (3.4-5.1) mmol/L Chloride (98-107) mmol/L Carbon Dioxide (22-32) mmol/L BUN (9-20) mg/dL Creatinine (0.66-1.25) mg/dL Estimated GFR (>60) mL/min BUN/Creatinine Ratio (6-22) Glucose (70-100) mg/dL Lactate 1.4 (0.7-2.1) mmol/L Calcium (8.4-10.2) mg/dL Total Bilirubin (0.2-1.3) mg/dL AST (17-59) IU/L ALT (<50) IU/L Alkaline Phosphatase (38-126) U/L Total Creatine Kinase (55-170) U/L CK-MB (CK-2) (<2.37) ng/mL CK-MB (CK-2) Rel Index (1.5-5.0) % Troponin I (0.01-0.034) ng/mL C-Reactive Protein 0.5 (<1.0) mg/dL NT-Pro-B Natriuret Pep (<125) pg/mL Total Protein (6.3-8.2) g/dL Albumin (3.5-5.0) g/dL Globulin (1.7-4.1) g/dL Albumin/Globulin Ratio (1.0-2.8) Procalcitonin 0.06 (<0.5) ng/mL SARS-CoV-2 (PCR) (Negative) Imaging Data Chest x-ray: Radiologist's Impression: FINDINGS: Surgical changes and devices: None. Lungs and pleura: Lungs are clear. No pleural effusions or pneumothorax. Mediastinum: Mediastinal contours are normal. Heart size is normal. Bones and chest wall: No suspicious bony abnormalities. Soft tissues appear unremarkable. IMPRESSION: No acute cardiopulmonary abnormality. Dictated by: Josh Healy M.D. on 12/04/2020 at 14:26 CT scan - head: Radiologist's Impression: FINDINGS: Image quality: Excellent. CSF spaces: Basal cisterns are patent. No extra-axial fluid collections. The ventricles are symmetric in size and shape. Brain: No intracranial bleeds or masses. There is cerebral volume loss for age, with resultant ventricular and sulcal prominence. There are periventricular and deep white matter chronic small vessel ischemic changes. There is intracranial internal carotid artery atherosclerosis. Skull and face: Calvarium and visualized facial bones appear intact, without suspicious lesions. Sinuses: Mild right maxillary sinus disease. IMPRESSION: No acute intracranial process. Dictated by: Scott Baker M.D. on 12/04/2020 at 15:24 ECG Data Attestation: I personally reviewed and interpreted this ECG as follows: Interpretation: sinus rhythm at a rate of 85 with patient will PVC normal intervals, normal axis no acute ischemic changes MDM Narrative Medical decision making narrative: 60-year-old gentleman presents with general malaise, a foggy feeling, pain on the right side of his face with frances oral burning. Labs are reassuring with no evidence of COVID, sepsis, stroke or acute coronary syndrome. CT scan does show right maxillary sinus disease which would actually fit with his symptoms and complaints. There is no evidence of intracranial mass or stroke. At this point will treat him for bacterial sinusitis based on the CT scan. of note he also has a single elevated blood sugar. He does not carry a diagnosis of diabetes. Did review this with him and recommended that he follow-up with specific testing with his primary care physician MIPS antibiotic use with sinusitis. The patient has bacterial sinusitis with CT confirmed findings. He has a penicillin allergy so amoxicillin based antibiotics are not appropriate. He is given a prescription for doxycycline. Discharge Plan Departure Patient Disposition: Home Clinical Impression: Acute bacterial sinusitis, Elevated blood sugar Instructions: DI for Sinusitis, DI for Diabetes Type 2 Activity Restrictions/Additional Instructions: thank you for coming in today your symptoms are interesting and that your lab work is very reassuring. There is no evidence of overwhelming infection. There is no evidence of stroke however on the CT scan done to evaluate for that there is evidence of acute right-sided maxillary sinusitis. This could explain the severity and rapid miss of symptoms along with the right-sided eye pain, facial pain and the symptoms around your mouth. Because you have a penicillin allergy, I am going to give you 10 days of doxycycline 100 mg morning and night. Please complete the entire prescription Of note, you had a single elevated blood sugar reading on your blood work today. A single reading does not make a diagnosis however it was over 200 and you need to discuss this with your primary care doctor and consider further diagnostic studies to see if you are beginning to develop diabetes. Prescriptions: New doxycycline hyclate 100 mg capsule 100 mg PO BID Qty: 20 RF: 0 No Action Prilosec 2.5 mg susp,delayed release for recon 10 mg PO DAILY RF: 0 aspirin [Adult Aspirin Regimen] 81 mg tablet,delayed release (DR/EC) 81 mg PO DAILY RF: 0 naproxen sodium [Aleve] 220 mg Capsule 220 mg PO BID PRN (Reason: pain / discomfort) RF: 0
[2020-12-04 14:44] LABS: Add Manual Diff / Slide Review NO; Basophils Absolute Auto 100 /uL (0-100); Basophils Percent Auto 0.9 % (0-2); Eosinophils Absolute Auto 100 /uL (0-450); Eosinophils Percent Auto 1.9 % (2-4); Hematocrit 44.8 % (41-53); Hemoglobin 15.2 g/dL (13.5-17.5); Lymphocytes Absolute Auto 2500 /uL (1100-4500); Lymphocytes Percent Auto 31.2 % (25-40); Mean Corpuscular HGB Conc 33.9 % (30-36); Mean Corpuscular Hemoglobin 31.1 PG (26-34); Mean Corpuscular Volume 91.6 fL (80-100); Monocytes Absolute Auto 500 /uL (0-900); Monocytes Percent Auto 6.7 % (3-14); Neutrophils Absolute Auto 4700 /uL (1500-7000); Neutrophils Percent Auto 59.3 % (50-75); Platelet Count 233 X10^3/uL (150-400); Red Blood Cell Count 4.89 X10^6/uL (4.5-5.9); Red Cell Distribution Width 13.3 % (11.6-14.8); White Blood Cell Count 7.9 X10^3/uL (4.5-11.0)
--- NOTE | 2020-12-04 14:44 | PC.NURSE ---
Pt c/o having mental fog, exertional SOB, frances oral burning. Neuro intact. Stable vitals.
[2020-12-04 14:55] LABS: Alanine Aminotransferase 32 IU/L (<50); Albumin Globulin Ratio 1.4 (1.0-2.8); Alkaline Phosphatase 40 U/L (38-126); Aspartate Aminotransferase 24 IU/L (17-59); BUN Creatinine Ratio 23.4 (6-22); Bilirubin Total 0.6 mg/dL (0.2-1.3); Blood Urea Nitrogen 15 mg/dL (9-20); Calcium 9.3 mg/dL (8.4-10.2); Carbon Dioxide 26 mmol/L (22-32); Chloride 103 mmol/L (98-107); Creatine Kinase 119 U/L (55-170); Estimated Glomerular Filt Rate > 60.0 mL/min (>60); Globulin 2.9 g/dL (1.7-4.1); Glucose 201 mg/dL (70-100); Lactate (Lactic Acid) 1.4 mmol/L (0.7-2.1); Potassium 3.8 mmol/L (3.4-5.1); Sodium 135 mmol/L (137-145); Total Protein 6.9 g/dL (6.3-8.2)
--- NOTE | 2020-12-04 14:57 | DI.CT.S_ITS ---
PROCEDURE: CT HEAD/BRAIN WO CON INDICATIONS: acutely altered mental status TECHNIQUE: Noncontrast 4.5 mm thick angled axial sections acquired from the foramen magnum to the vertex, with coronal and sagittal reformats. For radiation dose reduction, the following was used: automated exposure control, adjustment of mA and/or kV according to patient size. COMPARISON: None. FINDINGS: Image quality: Excellent. CSF spaces: Basal cisterns are patent. No extra-axial fluid collections. The ventricles are symmetric in size and shape. Brain: No intracranial bleeds or masses. There is cerebral volume loss for age, with resultant ventricular and sulcal prominence. There are periventricular and deep white matter chronic small vessel ischemic changes. There is intracranial internal carotid artery atherosclerosis. Skull and face: Calvarium and visualized facial bones appear intact, without suspicious lesions. Sinuses: Mild right maxillary sinus disease. IMPRESSION: No acute intracranial process. Dictated by: Scott Baker M.D. on 12/04/2020 at 15:24 Approved by: Scott Baker M.D. on 12/04/2020 at 15:28
[2020-12-04 15:03] LABS: COVID19 -Nasal RAPID Negative (Negative)
[2020-12-04 15:07] LABS: NT-proBNP (BNP-Adult 18+) 80 pg/mL (<125); Troponin I < 0.012 ng/mL (0.01-0.034)
[2020-12-04 15:10] LABS: CKMB % Relative Index 1.1 % (1.5-5.0); Creatine Kinase MB 1.34 ng/mL (<2.37); HEMOLYSIS 19 (0-50)
[2020-12-04 15:50] LABS: C-Reactive Protein Quant 0.5 mg/dL (<1.0)
[2020-12-04 16:01] LABS: Procalcitonin 0.06 ng/mL (<0.5)
== END 2020-12-04 17:11 | disposition home or self-care (01) ==
PROVIDERS: Emergency Provider Emergency Medicine
DX: J01.90 Acute sinusitis, unspecified (principal); E11.65 Type 2 diabetes mellitus with hyperglycemia; H57.11 Ocular pain, right eye; R51.9 Headache, unspecified; R41.82 Altered mental status, unspecified; R06.02 Shortness of breath; Z20.822 Contact with and (suspected) exposure to COVID-19
CPT/HCPCS: 36415; 70450; 71046; 80053; 82550; 82553; 83605; 83880; 84145; 84484; 85025; 86140; 87635; 93005; 93010; 99284; C9803

== ENCOUNTER → 2021-01-21 15:59 | Outpatient (CLI) | payer OTHER, MEDICAID, SELFPAY ==
--- NOTE | 2021-01-21 16:02 | DI.RAD.S_ITS ---
PROCEDURE: XR CHEST 2V INDICATIONS: smoking; sob TECHNIQUE: 2 views of the chest were acquired. COMPARISON: [facility], CR, XR CHEST 1V, 02/13/2020, 20:26. [facility], CR, XR CHEST 2V, 12/04/2020, 14:10. FINDINGS: Surgical changes and devices: None. Lungs and pleura: Lungs are clear, aside from sub cm nodular opacity which is seen only on the PA view projecting over the lateral mid lung at the level of the 5th right anterior lateral rib.. No pleural effusions or pneumothorax. Mediastinum: Mediastinal contours are normal. Heart size is normal. Bones and chest wall: No suspicious bony abnormalities. Soft tissues appear unremarkable. IMPRESSION: 1. Possible nodular opacity projected over the the mid right lung which could also represent a small bone island within the adjacent rib. Recommend obtaining right rib series for further assessment. Dictated by: Barry Brown [facility] Interpreted: Perry Rosado MD on 01/21/2021 at 16:12 Transcribed by: GINO on 01/21/2021 at 16:16 Approved by: Perry Rosado M.D. on 01/21/2021 at 17:05
== END ==
PROVIDERS: PCP Registered Nurse; Referring Provider Registered Nurse; Visit Provider Registered Nurse
DX: R06.02 Shortness of breath (principal); F17.200 Nicotine dependence, unspecified, uncomplicated
CPT/HCPCS: 71046

== ENCOUNTER → 2021-01-27 15:04 | Outpatient (CLI) | payer OTHER, MEDICAID, SELFPAY ==
--- NOTE | 2021-01-27 15:05 | DI.RAD.S_ITS ---
PROCEDURE: XR RIBS RT 2V INDICATIONS: Pain TECHNIQUE: 3 views of the right ribs were acquired. COMPARISON: None. FINDINGS: Surgical changes and devices: None. Bones and chest wall: No fractures or dislocations. No suspicious bony lesions. Overlying soft tissues appear unremarkable. Lungs and pleura: The visualized lung appears clear. No pleural effusions or pneumothorax are visible. IMPRESSION: Unremarkable right rib radiographs without fracture or pneumothorax Approved by: Antonio Delgadillo M.D. on 01/27/2021 at 15:36
== END ==
PROVIDERS: PCP Registered Nurse; Referring Provider Registered Nurse; Visit Provider Registered Nurse
DX: R06.02 Shortness of breath (principal); R91.1 Solitary pulmonary nodule
CPT/HCPCS: 71100

== ENCOUNTER 2021-01-27 15:32 | Emergency (ER) | payer OTHER, MEDICAID, SELFPAY ==
[2021-01-27 15:40] VITALS: BP 155/79; PULSE 81; RESP 16; TEMP 36.7; O2SAT 96; BMI 36.9
--- NOTE | 2021-01-27 16:47 | ED.EYEPROB ---
HPI - Eye Problem <Barry Garza PA-C - Last Filed: 01/27/21 17:38> General Chief complaint: Eye Problems Stated complaint: right eye feels like it is infected Time Seen by Provider: 01/27/21 16:28 Source: patient Mode of arrival: Ambulatory Limitations: no limitations History of Present Illness HPI Narrative: Jourdan presents today with chief complaint of right eye irritation and discharge that has gotten worse over the last few days. Reports symptoms are also starting in his left. He is taking antibiotics for a sinus infection at this time so he does report a runny nose. No history of allergies. He denies any significant difficulty seeing pain with eye movement, fever, headache or any other acute concerns or complaints. Related Data Home Medications Medication Instructions Recorded Confirmed aspirin 81 mg tablet,delayed 81 mg PO DAILY 05/27/20 01/01/21 release (Adult Aspirin Regimen) omeprazole magnesium 2.5 mg oral 10 mg PO DAILY 05/27/20 01/01/21 suspension,delayed release (Prilosec) naproxen sodium 220 mg capsule 220 mg PO BID PRN 12/04/20 01/01/21 (Aleve) Previous Rx's Medication Instructions Recorded albuterol sulfate 90 mcg/actuation 2 puff INHALATION Q4-6H PRN #8.5 g 01/21/21 aerosol inhaler cefdinir 300 mg capsule 300 mg PO BID 10 Days #20 cap 01/21/21 famotidine 40 mg tablet (Pepcid) 40 mg PO DAILY 28 Days #30 tab 01/21/21 erythromycin 5 mg/gram (0.5 %) eye 1 applic OPHTHALMIC (EYE) TID 7 01/27/21 ointment Days #3.5 g Allergies Allergy/AdvReac Type Severity Reaction Status Date / Time Penicillins Allergy Severe Rash Verified 01/01/21 18:05 codeine Allergy Verified 01/01/21 18:05 Review of Systems <Barry Garza PA-C - Last Filed: 01/27/21 17:38> Review of Systems Narrative: As per HPI Patient History <Barry Garza PA-C - Last Filed: 01/27/21 17:38> Medical History (Updated 01/27/21 @ 17:25 by Barry Garza PA-C) Abnormal laboratory test result Asthma Diverticulitis Elevated blood pressure reading without diagnosis of hypertension Fatigue GERD (gastroesophageal reflux disease) Sinusitis SOB (shortness of breath) Social History household members: spouse Smoking Status: Current every day smoker alcohol intake: never substance use type: does not use Smoking Status: Current every day smoker alcohol intake frequency: 0-2 drinks per day Substance Use Type: does not use Exam <Barry Garza PA-C - Last Filed: 01/27/21 17:38> Narrative Exam Narrative: Exam Narrative: Const General: cooperative, healthy appearing, comfortable, no acute distress, well developed and well groomed Nutritional Appearance: Elevated BMI Orientation: alert and oriented x3 HENMT Head: normal to inspection and atraumatic Ears: hearing grossly normal bilaterally Nose: external nose normal and nares normal Face and sinus: normal facial exam Eyes: Minimal bilateral conjunctival injection. No fluorescein uptake on Wood's lamp it examination. No foreign bodies visualized. Eyelids everted. PERRLA, EOMI Neck Neck: normal visual inspection and supple Resp Effort & Inspection: normal respiratory effort, able to speak in complete sentences, no audible wheezes, not labored, no nasal flaring and no respiratory distress Neuro General: alert, oriented x3, gait normal, tone normal and moves all extremities Cognition: normal cognition Speech: speech normal Gait: normal gait Psych Appearance: grossly normal and well kempt Mental Status: mental status grossly normal Speech and Movement: speech and movement normal Mood: congruent mood Affect: normal affect Initial Vital Signs Initial Vital Signs: Vital Signs Temperature 98.1 F 01/27/21 15:40 Pulse Rate 81 01/27/21 15:40 Respiratory Rate 16 01/27/21 15:40 Blood Pressure 155/79 H 01/27/21 15:40 Pulse Oximetry 96 01/27/21 15:40 <Schuyler Abbott DO - Last Filed: 01/27/21 17:38> Initial Vital Signs Initial Vital Signs: Vital Signs Temperature 98.1 F 01/27/21 15:40 Pulse Rate 81 01/27/21 15:40 Respiratory Rate 16 01/27/21 15:40 Blood Pressure 155/79 H 01/27/21 15:40 Pulse Oximetry 96 01/27/21 15:40 Course <RAUL Dennison Last Filed: 01/27/21 17:38> Orders Ordered: Discontinued Medications Fluorescein Sodium (Fluorescein 1 Mg Strip) 1 mg EYE-RIGHT NOW ONE Stop: 01/27/21 16:46 Last Admin: 01/27/21 17:10 Dose: 1 mg Documented by: STEVEN Proparacaine HCl (Proparacaine 0.5% Ophth Kristie) 1 drops EYE-RIGHT NOW ONE Stop: 01/27/21 16:46 Last Admin: 01/27/21 17:09 Dose: 1 drop Documented by: STEVEN Vital Signs Vital signs: Vital Signs - 8 hr 01/27/21 15:40 Temperature 98.1 F Pulse Rate 81 Respiratory Rate 16 Blood Pressure 155/79 H Pulse Oximetry 96 <Schuyler Abbott DO - Last Filed: 01/27/21 17:38> Orders Ordered: Discontinued Medications Fluorescein Sodium (Fluorescein 1 Mg Strip) 1 mg EYE-RIGHT NOW ONE Stop: 01/27/21 16:46 Last Admin: 01/27/21 17:10 Dose: 1 mg Documented by: STEVEN Proparacaine HCl (Proparacaine 0.5% Ophth Kristie) 1 drops EYE-RIGHT NOW ONE Stop: 01/27/21 16:46 Last Admin: 01/27/21 17:09 Dose: 1 drop Documented by: STEVEN Vital Signs Vital signs: Vital Signs - 8 hr 01/27/21 15:40 Temperature 98.1 F Pulse Rate 81 Respiratory Rate 16 Blood Pressure 155/79 H Pulse Oximetry 96 Discharge Plan Departure Patient Disposition: Home Clinical Impression: Acute conjunctivitis Qualifiers: Acute conjunctivitis type: unspecified Laterality: unspecified laterality Qualified Code(s): H10.30 - Unspecified acute conjunctivitis, unspecified eye Instructions: Conjunctivitis Activity Restrictions/Additional Instructions: It was nice to meet you. Please use the topical abx for treatment of conjunctivitis. Symptoms should improve over the next few days. If you experience difficulty seeing, fever, pain with eye movement, significant headache or any other acute concerns or complaints do not hesitate to return for re-evaluation. Thank you Barry Garza PA-C Prescriptions: New erythromycin 5 mg/gram (0.5 %) ointment 1 applic ophthalmic (eye) TID 7 Days Qty: 3.5 RF: 0 No Action cefdinir 300 mg capsule 300 mg PO BID 10 Days Qty: 20 RF: 0 famotidine [Pepcid] 40 mg tablet 40 mg PO DAILY 28 Days Qty: 30 RF: 0 albuterol sulfate 90 mcg/actuation HFA aerosol inhaler 2 puff inhalation Q4-6H PRN (Reason: shortness of breath or wheezing) Qty: 8.5 RF: 3 Prilosec 2.5 mg susp,delayed release for recon 10 mg PO DAILY RF: 0 aspirin [Adult Aspirin Regimen] 81 mg tablet,delayed release (DR/EC) 81 mg PO DAILY RF: 0 naproxen sodium [Aleve] 220 mg Capsule 220 mg PO BID PRN (Reason: pain / discomfort) RF: 0 Referrals: Manoj Skaggs ARNP [Primary Care Provider] - <Schuyler Abbott, - Last Filed: 01/27/21 17:38> Cosign ED Attending Cosignature Attestation: Dr Abbott Co-Sign Statement: I was available for consultation during this patient's emergency department visit. This chart is signed by myself for administrative purposes only. I did not have direct contact with this patient during this visit. They were seen independently by the APC.
[2021-01-27] MEDS: PROPARACAINE 0.5% OPHTH SOL 1 DROPS EYE-RIGHT (17:09)
[2021-01-27] MEDS: FLUORESCEIN 1 MG STRIP EYE-RIGHT (17:10)
[2021-01-27 17:49] VITALS: BP 123/75; PULSE 72; O2SAT 97
== END 2021-01-27 17:50 | disposition home or self-care (01) ==
PROVIDERS: Emergency Provider Physician Assistant; PCP Registered Nurse
DX: H10.31 Unspecified acute conjunctivitis, right eye (principal)
CPT/HCPCS: 71100; 99282

== ENCOUNTER → 2021-02-04 09:46 | Outpatient (CLI) | payer OTHER, MEDICAID, SELFPAY ==
[2021-02-04 10:47] LABS: Hemoglobin A1C% w Est Avg Glu 7.5 % (4.0-6.0)
[2021-02-04 11:13] LABS: Cholesterol 238 mg/dL (140-199); HDL Cholesterol 40 mg/dL (40-60); LDL Cholesterol Calculated 152 mg/dL (<100); Triglycerides 232 mg/dL (35-150)
[2021-02-04 11:40] LABS: Prostate Specific Antigen Scrn 0.507 ng/mL (0.1-4.0); TSH w/ Reflex to FT4 2.53 uIU/mL (0.47-4.68)
== END ==
PROVIDERS: PCP Registered Nurse; Referring Provider Registered Nurse; Visit Provider Registered Nurse
DX: R53.83 Other fatigue (principal); R89.9 Unspecified abnormal finding in specimens from other organs, systems and tissues; K57.92 Diverticulitis of intestine, part unspecified, without perforation or abscess without bleeding; Z12.5 Encounter for screening for malignant neoplasm of prostate; Z82.49 Family history of ischemic heart disease and other diseases of the circulatory system
CPT/HCPCS: 36415; 80061; 83036; 84443; 99214; G0103

== ENCOUNTER → 2021-03-16 09:10 | Outpatient (CLI) | payer OTHER, MEDICAID, SELFPAY ==
--- NOTE | 2021-03-16 10:26 | DIAB.INIT ---
Initial Diabetes Education Assessment Name: Jourdan Augustine Date: 03/16/21 Time: 9:15-10:20a Dx: T2DM Provider: Gabriela Parker Jourdan presents with new dx of T2Dm. FH of DM c insulin with maternal grandmother. C/o polyuria, polydipsia, and fatigue. Jourdan reports working a lot of hours, which certainly is contributing to fatigue. Seems likely blood sugars are also a contributing factor, as he reports even with good sleep he is exhausted. He was unaware that he was not taking his DM medication, since he has been taking atorvastatin HS. Unaware of differences between insulin and Metformin. He is a very proud father of a 4 y/o girl, is [place] and cooks delicious dinners with lot of vegetables, has a baby on the way ( 30 wks ). Limited exercise, though very active with work. Long periods of fasting during the day. Higher fat intake with protein and dairy choices. High carb intake at dinner, unless skips dinner. Diet recall: morning: venti coffee with half n half 2p: [employer] burger alone or 2 x pizza slices 8p: (off work at 7p) 3 x chicken, some vegetables, 1 1/3 c rice and 16oz whole milk (85g CHO) Beverages: coffee x 20oz, 12 x 16oz water Anthropometrics: Ht: 6' Wt: 263# last PCP visit Physical Activity: Mostly work-related. 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 Self-Monitoring Blood Glucose: None currently, though he is interested in checking after discussing HgA1c. Diabetes Medications: Rx'd Metformin XR 1000 mg BID. Not currently taking. Was unaware that his Atorvastatin was not the DM medication. Past Medical History: (Last Updated 02/23/21 @ 15:44 by Manoj Skaggs [facility]) Abnormal laboratory test result Asthma Diverticulitis Elevated blood pressure reading without diagnosis of hypertension Fatigue GERD (gastroesophageal reflux disease) Respiratory infection Sinusitis SOB (shortness of breath) Intervention: This participant was very receptive. Provided appropriate educational handouts. Discussed the following topics: Completed intake assessment. Discussed barriers to care. Pathophysiology of type 2 diabetes Diabetes medications and actions (Metformin v insulin) HgA1c, its correlation to blood glucose numbers, and goal Potential for Self-monitoring BG Plate Method, impact of macronutrients on blood sugar, meal timing, carbohydrate counting, and spreading out carbohydrates for better blood glucose management General recommended servings for carbohydrates at meals and snacks Role of physical activity in insulin resistance Created SMART goals for patient self-care and success. 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
== END ==
PROVIDERS: PCP Registered Nurse; Referring Provider Registered Nurse; Visit Provider Registered Nurse
DX: E11.9 Type 2 diabetes mellitus without complications (principal); Z71.3 Dietary counseling and surveillance
CPT/HCPCS: G0108

== ENCOUNTER → 2021-03-31 14:54 | Outpatient (CLI) | payer OTHER, MEDICAID, SELFPAY ==
--- NOTE | 2021-03-31 16:53 | DIAB.FU ---
Follow-up Diabetes Education Assessment Name: Jourdan Augustine Date: 03/31/21 Time: [id number] Dx: Type II Diabetes Provider: Gabriela Parker Jourdan presents for DM ed follow-up. States he has changed his dinners since sharing with his the recommendations for nutrition, aiming for plate method. Also changed to a higher fiber rice reportedly, called joya rice x 1 c. Reports fish 2 x per week. Also reports taking Metformin as rx'd. He spoke with a pharmacist that is providing a 30 day supply. Pharmacist asked about SMBG supplies. Jourdan is interested in checking BG. Today he reports stress with some complications surrounding his 's . 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 Possible poor sleep, though getting enough hours, states he wakes tired. Reports h/o snoring at night, possible JOYCE? Stress management techniques mostly with staying physically active. Has questions today about lows vs high BG and complication risk, specifically LE circulation. States he often goes without foot protection in the home and steps on toys. Has 4 y/o at home. Anthropometrics: Ht: 6' Last Wt: 263# Physical Activity: Active job. has been taking 4 y/o to the park and playing with her, almost q night for 2 hours per his report. Also endorses kick boxing at home. Self-Monitoring Blood Glucose: None currently but interested. Would like to request rx for meter and supplies, bring next week for meter teach. Diabetes Medications: Metformin 1000 mg XR BID Pertinent Labs: 7.5% HgA1c Cholesterol: 238 H T H LDL: 152 H HDL: 40 WNL Past Medical History: (Last Updated 02/23/21 @ 15:44 by Manoj Skaggs [facility]) Abnormal laboratory test result Asthma Diverticulitis Elevated blood pressure reading without diagnosis of hypertension Fatigue GERD (gastroesophageal reflux disease) Respiratory infection Sinusitis SOB (shortness of breath) Intervention: This participant was very receptive. Provided appropriate educational handouts. Discussed the following topics: Potential for BG monitoring and when to monitor Review of general nutrition recommendations and current intake Physical activity plan and impact on blood sugars Prevention of complications: foot care, dental and eye appointments, kidney and heart health, neuropathy Stress management Created SMART goals for patient self-care and success. 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 Deidre Jones RDN, [facility] Certified Diabetes Care and Engine Setter P: [phone] Thank you for this referral
== END ==
PROVIDERS: PCP Registered Nurse; Referring Provider Registered Nurse; Visit Provider Registered Nurse
DX: E11.9 Type 2 diabetes mellitus without complications (principal); Z71.3 Dietary counseling and surveillance; Z79.84 Long term (current) use of oral hypoglycemic drugs
CPT/HCPCS: G0108

== ENCOUNTER → 2021-05-27 09:44 | Outpatient (CLI) | payer OTHER, MEDICAID, SELFPAY ==
--- NOTE | 2021-05-27 16:39 | DIAB.FU ---
Follow-up Diabetes Education Assessment Name: Jourdan Augustine Date: 05/27/21 Time: 945-11a Dx: Type II Diabetes Jourdan presents today for DM follow-up. Excited that had a healthy baby girl six weeks ago. Now has two daughters, Milena and Stormy. Reports some social struggles with his at home. Seems to have h/o depression that may manifest itself in aggression toward him. States he nikunj by attempts to deescalate the interactions with not fighting back or leaving the house to take his 3 y/o to the park. He feels it does not matter what I do, she is unhappy. States this improved last time once the child was 1 y/o. Jourdan has been trying to incorporate more vegetables. States he does not eat much fruit but likes apples. Continues to eat infrequently, usually 1-2 meals per day. Skips breakfast. Eats out at lunch. Dinner is at home and reportedly usually 0-45g CHO. States his is encouraging him to stop smoking, which he is open to. Plans to try a nicotine patch or gum. Physical Activity: Decreased recently with weather. Use to walk park track with 3 y/o. Considering [facility] in [place]. Self-Monitoring Blood Glucose: Recently started checking BG. Demonstration in appt today revealed BG 165 mg/dL after coffee with cream. No FBG to evaluate, but after meal readings 2/3 elevations and pre dinner readings both elevated. Date Pre Post Pre Post Pre Post HS 05/04 155 05/05 205 05/09 280 05/11 192 176 05/12 Diabetes Medications: Metformin 1000 mg BID Pertinent Labs: 7.5% HgA1c Cholesterol: 238 H T H LDL: 152 H HDL: 40 WNL Past Medical History: (Last Reviewed 05/18/21 @ 14:04 by Merle Mann PA-C) Abnormal laboratory test result Asthma Diverticulitis Elevated blood pressure reading without diagnosis of hypertension Fatigue GERD (gastroesophageal reflux disease) Respiratory infection Sinusitis SOB (shortness of breath) Intervention: This participant was very receptive. Provided appropriate educational handouts. Discussed the following topics: Recent blood sugar results and trends, when to check, technique for checking, ADA BG goals (80-130 for FBG and <180 for 1-2 hr pc) Medication management and types How depression can impact women and partners Review of general nutrition recommendations and current intake Physical activity plan and impact on blood sugars Prevention of complications: smoking cessation benefits and plan Created SMART goals for patient self-care and success. Goals: Purchase slippers with a sole for indoors- not met Check BG 1-2 x per day: FBG and/or pc- new Call [facility] for more info- new Make PCP appt for DM f/u- new Jourdan seems to have a lot of social struggles going on at home at the moment. He seems motivated to get some additional BG trends to determine DM plan. If hyperglycemia continues, may benefit from additional DM medication. Next visit: Phys activity continued, nutrition review, BG review, foot care, dental and eye appointments, kidney and heart health, neuropathy, vaccination recommendations Follow-up: KEERTHI ROMANO follow-up in 2-3 weeks Deidre Jones RDN, [facility] Certified Diabetes Care and Blacksmith Supervisor P: [phone] Thank you for this referral
== END ==
PROVIDERS: PCP Registered Nurse; Referring Provider Registered Nurse; Visit Provider Registered Nurse
DX: E11.9 Type 2 diabetes mellitus without complications (principal); Z79.84 Long term (current) use of oral hypoglycemic drugs; Z71.3 Dietary counseling and surveillance
CPT/HCPCS: G0108

== ENCOUNTER → 2021-06-02 11:13 | Outpatient (CLI) | payer OTHER, MEDICAID, SELFPAY ==
[2021-06-02 11:36] LABS: Add Manual Diff / Slide Review NO; Basophils Absolute Auto 100 /uL (0-100); Basophils Percent Auto 0.7 % (0-2); Eosinophils Absolute Auto 200 /uL (0-450); Eosinophils Percent Auto 1.6 % (2-4); Hematocrit 43.5 % (41-53); Hemoglobin 15.2 g/dL (13.5-17.5); Lymphocytes Absolute Auto 2400 /uL (1100-4500); Lymphocytes Percent Auto 24.1 % (25-40); Mean Corpuscular HGB Conc 34.9 % (30-36); Mean Corpuscular Hemoglobin 31.6 PG (26-34); Mean Corpuscular Volume 90.7 fL (80-100); Monocytes Absolute Auto 800 /uL (0-900); Monocytes Percent Auto 8.2 % (3-14); Neutrophils Absolute Auto 6500 /uL (1500-7000); Neutrophils Percent Auto 65.4 % (50-75); Platelet Count 234 X10^3/uL (150-400); Red Cell Distribution Width 13.4 % (11.6-14.8)
[2021-06-02 11:52] LABS: BUN Creatinine Ratio 23.9 (6-22); Blood Urea Nitrogen 16 mg/dL (9-20); Calcium 9.6 mg/dL (8.4-10.2); Carbon Dioxide 26 mmol/L (22-32); Chloride 105 mmol/L (98-107); Estimated Glomerular Filt Rate > 60.0 mL/min (>60); Glucose 165 mg/dL (70-100); HEMOLYSIS < 15 (0-50); Potassium 4.2 mmol/L (3.4-5.1); Sodium 139 mmol/L (137-145)
== END ==
PROVIDERS: PCP Registered Nurse; Referring Provider Specialist; Visit Provider Specialist
DX: E11.9 Type 2 diabetes mellitus without complications (principal); K57.92 Diverticulitis of intestine, part unspecified, without perforation or abscess without bleeding
CPT/HCPCS: 36415; 80048; 85025

== ENCOUNTER → 2021-06-02 13:56 | Outpatient (CLI) | payer OTHER, MEDICAID, SELFPAY ==
--- NOTE | 2021-06-02 13:58 | DI.CT.S_ITS ---
PROCEDURE: CT ABDOMEN PELVIS W CON INDICATIONS: Recurrent left lower quadrant pain. Hx diverticular abscess TECHNIQUE: After the administration of oral and IV contrast, axial sections were acquired from the lung bases to the pubic symphysis. Coronal and sagittal reformats were performed. For radiation dose reduction, the following was used: automated exposure control, adjustment of mA and/or kV according to patient size. COMPARISON: [facility], CT, CT ABDOMEN PELVIS W CON, 06/24/2020, 16:58. FINDINGS: Image quality: Excellent. Lung bases: There is minimal dependent atelectasis. Heart: Heart is normal in size. ABDOMEN: Liver: There is diffuse hypoattenuation of the liver consistent with fatty infiltration with mild relative sparing along the gallbladder fossa. Gallbladder: Within normal limits without gallstones. Biliary ducts: No biliary ductal dilatation. Pancreas: Unremarkable. Spleen: Normal in size. Adrenal Glands: No adrenal nodules. Kidneys and Ureters: No hydronephrosis. Stomach and Bowel: Stomach and small bowel loops are normal in caliber and wall thickness. The appendix is normal in appearance. There is colonic diverticulosis with associated diverticular and colonic wall thickening in the sigmoid colon associated with pericolonic fat stranding consistent with acute diverticulitis. No macroscopic free air or discrete diverticular abscess collection. The sigmoid colon slightly abuts the left bladder dome without a discrete fistula identified. Peritoneum: No abnormal intraperitoneal fluid. No free air. Ventral Wall: No hernia. Abdominal Nodes: No retroperitoneal or mesenteric adenopathy by size criteria. Vessels: Aorta and inferior vena cava are normal in size. PELVIS: Pelvic Organs: Unremarkable. Bladder: Unremarkable. Pelvic Nodes: No enlarged lymph nodes. Miscellaneous: There is a small fat-containing left inguinal hernia. Bones: Visualized osseous structures demonstrate no suspicious focal lesions. IMPRESSION: 1. Sigmoid diverticulitis without evidence of diverticular abscess or macroscopic free air. 2. Sigmoid colon slightly abuts the left bladder dome without a discrete fistula identified. 3. Hepatic steatosis. Dictated by: Vitor Tim M.D. on 06/02/2021 at 15:21 Approved by: Vitor Tim M.D. on 06/02/2021 at 15:33
== END ==
PROVIDERS: PCP Registered Nurse; Referring Provider Specialist; Visit Provider Specialist
DX: K57.32 Diverticulitis of large intestine without perforation or abscess without bleeding (principal); E11.9 Type 2 diabetes mellitus without complications; K76.0 Fatty (change of) liver, not elsewhere classified
CPT/HCPCS: 36415; 74177; 80048; 85025; 99213; Q9967

== ENCOUNTER 2021-06-06 23:37 | Emergency (ER) | payer OTHER, MEDICAID, SELFPAY ==
[2021-06-06 23:49] VITALS: BP 153/82; PULSE 87; RESP 17; TEMP 37.1; O2SAT 98; BMI 35.2
--- NOTE | 2021-06-06 23:57 | ED_ITS ---
HPI - Abdominal Pain General Chief Complaint: Abdominal Pain Stated Complaint: diverticulitis pain x4 days Time Seen by Provider: 06/06/21 23:44 Source: patient Mode of arrival: Ambulatory History of Present Illness HPI narrative: Patient is a 61-year-old male with new onset diabetes started on metformin, hyperlipidemia recently diagnosed diverticulitis started on liquid Cipro (likely secondary to shortage of ciprofloxacin) and Flagyl. He states he has taken 3 and half days of antibiotics. He continues to have pain suprapubic area. He previously had a CT done on 06/02/2021 which did not show any complication but did show diverticulitis. He states the pain has continued it has gotten a little bit worse. He denies fever or chills. He has no bloody bowel movements. He has not taken anything for pain at home. But is concerned. He previously had an episode of diverticulitis is some thickening may have been hospitalized. He actually has an appointment with surgery, Dr. Preston, to home are out at 3:00 p.m.. Related Data Home Medications Medication Instructions Recorded Confirmed aspirin 81 mg tablet,delayed 81 mg PO DAILY 05/27/20 06/02/21 release (Adult Aspirin Regimen) omeprazole magnesium 2.5 mg oral 10 mg PO DAILY 05/27/20 06/02/21 suspension,delayed release (Prilosec) naproxen sodium 220 mg capsule 220 mg PO BID PRN 12/04/20 06/02/21 (Aleve) Previous Rx's Medication Instructions Recorded albuterol sulfate 90 mcg/actuation 2 puff INHALATION Q4-6H PRN #8.5 g 01/21/21 aerosol inhaler atorvastatin 20 mg tablet (Lipitor) 20 mg PO BEDTIME #30 tab 02/23/21 blood sugar diagnostic (Blood #100 ea 04/13/21 Glucose Test) blood-glucose meter #1 ea 04/13/21 lancets 26 gauge #100 ea 04/13/21 metformin 1,000 mg tablet,extended 1,000 mg PO BID 90 Days #180 tab 04/19/21 release 24hr peg 3350-electrolytes 236 240 ml PO Q10M #4000 ml 05/25/21 gram-22.74 gram-6.74 gram-5.86 gram solution (Golytely) ciprofloxacin 500 mg/5 mL oral 500 mg (5 mL) PO BID #100 ml 06/02/21 suspension (Cipro) metronidazole 250 mg tablet 500 mg PO Q8H #42 tab 06/02/21 levofloxacin 750 mg tablet 750 mg PO DAILY 7 Days tab 06/07/21 Allergies Allergy/AdvReac Type Severity Reaction Status Date / Time Penicillins Allergy Severe Rash Verified 06/02/21 10:44 codeine Allergy Verified 06/02/21 10:44 Review of Systems Review of Systems Narrative: GENERAL: Denies chills, fatigue, malaise, fever, sweats, travel HEENT: Denies sinus pain, ear pain, sore throat, difficulty swallowing, neck pain RESPIRATORY: Denies dyspnea, cough, wheezing, hemoptysis, sputum. CARDIOVASCULAR: Denies chest pain, palpitations, orthopnea, edema GASTROINTESTINAL: See HPI : Denies dysuria, frequency, incontinence, hematuria, urinary retention, flank pain. MUSCULOSKELETAL: Denies weakness, joint pain, or bony pain SKIN: No rash, no erythema, no pruritus NEUROLOGIC: Denies weakness, dizziness, headache, numbness, change in speech, confusion PSYCHIATRIC: No concerning psychosocial issues. 12 point review of systems is negative except for those stated above and HPI Patient History Medical History Abnormal laboratory test result Asthma Diverticulitis Elevated blood pressure reading without diagnosis of hypertension Fatigue GERD (gastroesophageal reflux disease) Respiratory infection Sinusitis SOB (shortness of breath) Social History household members: spouse Smoking Status: Current every day smoker alcohol intake: never substance use type: does not use Smoking Status: Current every day smoker alcohol intake frequency: 0-2 drinks per day Substance Use Type: does not use Exam Initial Vital Signs Initial Vital Signs: Vital Signs Temperature 98.7 F 06/06/21 23:49 Pulse Rate 87 06/06/21 23:49 Respiratory Rate 17 06/06/21 23:49 Blood Pressure 153/82 H 06/06/21 23:49 Pulse Oximetry 98 06/06/21 23:49 GENERAL: Alert very nice well-appearing 61-year-old male and in no acute distress. HEENT: Head atraumatic,EOMI, pupils reactive, face symmetric, moist mucous membranes CARDIOVASCULAR: Regular rate and rhythm without murmurs, rubs or gallops. RESPIRATORY: Breath sounds equal bilaterally, no wheezes rales or rhonchi. ABDOMEN: Soft, tender suprapubic area no guarding or rebound EXTREMITIES: Normal range of motion, no clubbing or edema. Neurovascularly intact NEUROLOGICAL: Alert and oriented x4.Normal gait and speech. SKIN: Warm, dry, no laceration, no petechiae, no rashes or lesions. Course Orders Ordered: ED Orders 06/06/21 23:53 Complete Blood Count AUTO DIFF Stat Comprehensive Metabolic Panel Stat Lipase Stat 06/07/21 00:16 CT abdomen pelvis w con Stat Discontinued Medications Levofloxacin (Levofloxacin 250 Mg Tablet) 750 mg PO NOW ONE Stop: 06/07/21 01:13 Last Admin: 06/07/21 01:26 Dose: 750 mg Documented by: DALE Vital Signs Vital signs: Vital Signs - 8 hr 06/06/21 23:49 06/07/21 01:28 06/07/21 01:29 Temperature 98.7 F Pulse Rate 87 72 68 Respiratory Rate 17 Blood Pressure 153/82 H 130/84 Pulse Oximetry 98 94 97 06/07/21 01:30 Temperature Pulse Rate 73 Respiratory Rate Blood Pressure Pulse Oximetry 96 MDM - Abdominal Pain Lab Data Result diagrams: 06/07/21 00:04 06/07/21 00:04 Labs: Lab Results 06/07/21 06/07/21 Range/Units 00:04 00:04 WBC 10.8 (4.5-11.0) X10^3/uL RBC 4.48 L (4.5-5.9) X10^6/uL Hgb 14.2 (13.5-17.5) g/dL Hct 40.4 L (41-53) % MCV 90.2 (80-100) fL MCH 31.8 (26-34) PG MCHC 35.3 (30-36) % RDW 13.2 (11.6-14.8) % Plt Count 227 (150-400) X10^3/uL Neut % (Auto) 65.8 (50-75) % Lymph % (Auto) 24.3 L (25-40) % [place] % (Auto) 8.0 (3-14) % Eos % (Auto) 1.5 L (2-4) % Baso % (Auto) 0.4 (0-2) % Neut # (Auto) 7100 H (8074-8146) /uL Lymph # (Auto) 2600 (9841-9171) /uL [place] # (Auto) 900 (0-900) /uL Eos # (Auto) 200 (0-450) /uL Baso # (Auto) 0 (0-100) /uL Sodium 136 L (137-145) mmol/L Potassium 3.8 (3.4-5.1) mmol/L Chloride 103 (98-107) mmol/L Carbon Dioxide 28 (22-32) mmol/L BUN 12 (9-20) mg/dL Creatinine 0.68 (0.66-1.25) mg/dL Estimated GFR > 60.0 (>60) mL/min BUN/Creatinine Ratio 17.6 (6-22) Glucose 179 H (70-100) mg/dL Calcium 9.4 (8.4-10.2) mg/dL Total Bilirubin 0.4 (0.2-1.3) mg/dL AST 21 (17-59) IU/L ALT 27 (<50) IU/L Alkaline Phosphatase 58 (38-126) U/L Total Protein 6.9 (6.3-8.2) g/dL Albumin 4.1 (3.5-5.0) g/dL Globulin 2.8 (1.7-4.1) g/dL Albumin/Globulin Ratio 1.5 (1.0-2.8) Lipase 50 (23-300) U/L Point of care testing: Urine Dip Bedside Urine Glucose Negative Bedside Urine Bilirubin - Negative Bedside Urine Ketone - Negative Urine Specific [place] 1.010 Bedside Urine Occult Blood - Negative Bedside Urine pH 6.0 Bedside Urine Protein - Negative Bedside Urine Urobilinogen - Negative Bedside Urine Nitrite - Negative Bedside Urine Leukocytes - Negative Esterase Imaging Data CT scan - abdomen/pelvis: Radiologist's Impression: PROCEDURE:? CT ABDOMEN PELVIS W CON ? INDICATIONS:? known diverticulitis ? TECHNIQUE:? After the administration of IV contrast, axial sections were acquired from the lung bases to the pubic symphysis.? Coronal and sagittal reformats were performed.? For radiation dose reduction, the following was used:? automated exposure control, adjustment of mA and/or kV according to patient size. ? COMPARISON:? [facility], CT, CT ABDOMEN PELVIS W CON, 06/24/2020, 16:58.? [facility], CT, CT ABDOMEN PELVIS W CON, 06/02/2021, 14:45. ? FINDINGS:? Image quality:? Excellent.? ? Lung bases:? Unremarkable.? ? Heart:? No significant findings. ? ? ABDOMEN: Liver:? Diffuse fatty liver infiltration is noted.? Is the liver demonstrates normal size and demonstrates no focal lesions. Gallbladder:? Unremarkable.? ? Biliary ducts:? Unremarkable.? ? Pancreas:? Unremarkable.? ? Spleen:? Unremarkable.? ? Adrenal Glands:? Unremarkable.? ? Kidneys and Ureters:? Unremarkable.? ? ? Stomach and Bowel:? There is wall thickening seen involving the sigmoid colon, with moderate surrounding inflammatory change.? The degree of inflammatory change is similar to the 06/02/2021 examination.? No abscess collection can be seen. The sigmoid colon abuts the superior aspect of the bladder, as on series 5, image 50, yet without findings of distal left. The colon is otherwise unremarkable. No dilated loops of small bowel are seen. No significant gastric abnormality can be seen. Residual contrast can be seen within the appendix, as on series 4, image 36.? The appendix demonstrates normal size, without associated inflammatory change. Peritoneum:? No abnormal intraperitoneal fluid.? No free air.? ? Ventral Wall: A mild periumbilical hernia is seen, containing fat. ? Abdominal Nodes:? No retroperitoneal or mesenteric adenopathy by size criteria.? Vessels:? Aorta and inferior vena cava are normal in size.? Atherosclerotic calcification is noted.? ? PELVIS: Pelvic Organs:? Unremarkable.? ? Bladder:? Unremarkable.? ? Pelvic Nodes: No enlarged lymph nodes.? Miscellaneous:? There is a fat containing left inguinal hernia seen. ? ? ? Bones:? Age-appropriate bony degenerative changes are seen.? ? ? IMPRESSION:? ? Continued sigmoid diverticulitis, without paxton findings of perforation or abscess.? No significant change compared to the 06/02/2021 examination. ? When clinically appropriate (following adequate treatment of the patient's current clinical episode) a colonoscopy is recommended for further evaluation for a potential underlying mass (if not already recently done). ? ? Incidental note is made of: Fatty liver infiltration Fat containing periumbilical hernia Residual contrast within the appendix, which otherwise appears normal Fat containing left inguinal hernia.? ? Dictated by: Bipin Emerson M.D. on 06/06/2021 at 23:47? MDM Narrative Medical decision making narrative: Patient continues to have pain but does not require pain medication in the emergency department. Blood work is overall reassuring. Repeat CT does not show any complication. Assuming he was given liquid Cipro secondary to the shortage will put him on Levaquin he would prefer to take a pill. He has close follow-up with surgery later today. At this time he is grateful that there is no complication and that he can go home. Discharge Plan Departure Patient Disposition: Home Clinical Impression: Diverticulitis Instructions: DI for Diverticulitis Activity Restrictions/Additional Instructions: *You have been diagnosed with diverticulitis *What to do: At this time blood work and CT scan are overall reassuring no complication of diverticulitis. At this time I think she you need longer on antibiotics and this will eventually stop your pain. *Continue to take medications as directed Stop taking Cipro, the liquid medication Start taking Levaquin 750 mg once daily for 7 days *Follow up with your primary care provider in 2-3 days, follow-up with Dr. Preston today as scheduled or call [phone] *Return to ER if you should have bloody stool, fever, increasing pain or any new, worsening or concerning symptoms Prescriptions: New levofloxacin 750 mg tablet 750 mg PO DAILY 7 Days 0RF No Action (DME) blood-glucose meter Misc See Rx Instructions .Route Qty: 1 0RF Rx Instructions: Use to check blood sugar 3 times daily before meals (DME) Blood Glucose Test Strip See Rx Instructions .Route Qty: 100 3RF Rx Instructions: Use to check blood sugars three times daily before meals (DME) lancets 26 gauge misc See Rx Instructions .Route Qty: 100 3RF Rx Instructions: Use to check blood sugar three times daily before meals peg 3350-electrolytes [Golytely] 236-22.74-6.74 -5.86 gram recon soln 240 ml PO Q10M Qty: 4000 0RF Rx Instructions: until fecal effluent is clear albuterol sulfate 90 mcg/actuation HFA aerosol inhaler 2 puff inhalation Q4-6H PRN (Reason: shortness of breath or wheezing) Qty: 8.5 3RF atorvastatin [Lipitor] 20 mg tablet 20 mg PO BEDTIME Qty: 30 3RF metformin 1,000 mg tablet extended release 24hr 1,000 mg PO BID 90 Days Qty: 180 0RF Prilosec 2.5 mg susp,delayed release for recon 10 mg PO DAILY 0RF aspirin [Adult Aspirin Regimen] 81 mg tablet,delayed release (DR/EC) 81 mg PO DAILY 0RF ciprofloxacin [Cipro] 500 mg/5 mL suspension,microcapsule recon 500 mg PO BID Qty: 100 0RF metronidazole 250 mg tablet 500 mg PO Q8H Qty: 42 0RF naproxen sodium [Aleve] 220 mg Capsule 220 mg PO BID PRN (Reason: pain / discomfort) 0RF Referrals: Manoj Skaggs ARNP [Primary Care Provider] - Ferny Preston MD [Physician] -
--- NOTE | 2021-06-07 00:16 | DI.CT.S_ITS ---
PROCEDURE: CT ABDOMEN PELVIS W CON INDICATIONS: known diverticulitis TECHNIQUE: After the administration of IV contrast, axial sections were acquired from the lung bases to the pubic symphysis. Coronal and sagittal reformats were performed. For radiation dose reduction, the following was used: automated exposure control, adjustment of mA and/or kV according to patient size. COMPARISON: [facility], CT, CT ABDOMEN PELVIS W CON, 06/24/2020, 16:58. [facility], CT, CT ABDOMEN PELVIS W CON, 06/02/2021, 14:45. FINDINGS: Image quality: Excellent. Lung bases: Unremarkable. Heart: No significant findings. ABDOMEN: Liver: Diffuse fatty liver infiltration is noted. Is the liver demonstrates normal size and demonstrates no focal lesions. Gallbladder: Unremarkable. Biliary ducts: Unremarkable. Pancreas: Unremarkable. Spleen: Unremarkable. Adrenal Glands: Unremarkable. Kidneys and Ureters: Unremarkable. Stomach and Bowel: There is wall thickening seen involving the sigmoid colon, with moderate surrounding inflammatory change. The degree of inflammatory change is similar to the 06/02/2021 examination. No abscess collection can be seen. The sigmoid colon abuts the superior aspect of the bladder, as on series 5, image 50, yet without findings of distal left. The colon is otherwise unremarkable. No dilated loops of small bowel are seen. No significant gastric abnormality can be seen. Residual contrast can be seen within the appendix, as on series 4, image 36. The appendix demonstrates normal size, without associated inflammatory change. Peritoneum: No abnormal intraperitoneal fluid. No free air. Ventral Wall: A mild periumbilical hernia is seen, containing fat. Abdominal Nodes: No retroperitoneal or mesenteric adenopathy by size criteria. Vessels: Aorta and inferior vena cava are normal in size. Atherosclerotic calcification is noted. PELVIS: Pelvic Organs: Unremarkable. Bladder: Unremarkable. Pelvic Nodes: No enlarged lymph nodes. Miscellaneous: There is a fat containing left inguinal hernia seen. Bones: Age-appropriate bony degenerative changes are seen. IMPRESSION: Continued sigmoid diverticulitis, without paxton findings of perforation or abscess. No significant change compared to the 06/02/2021 examination. When clinically appropriate (following adequate treatment of the patient's current clinical episode) a colonoscopy is recommended for further evaluation for a potential underlying mass (if not already recently done). Incidental note is made of: Fatty liver infiltration Fat containing periumbilical hernia Residual contrast within the appendix, which otherwise appears normal Fat containing left inguinal hernia. Dictated by: Bipin Emerson M.D. on 06/06/2021 at 23:47 Approved by: Bipin Emerson M.D. on 06/06/2021 at 23:52
[2021-06-07 00:19] LABS: Add Manual Diff / Slide Review NO; Basophils Absolute Auto 0 /uL (0-100); Basophils Percent Auto 0.4 % (0-2); Eosinophils Absolute Auto 200 /uL (0-450); Eosinophils Percent Auto 1.5 % (2-4); Hematocrit 40.4 % (41-53); Hemoglobin 14.2 g/dL (13.5-17.5); Lymphocytes Absolute Auto 2600 /uL (1100-4500); Lymphocytes Percent Auto 24.3 % (25-40); Mean Corpuscular HGB Conc 35.3 % (30-36); Mean Corpuscular Hemoglobin 31.8 PG (26-34); Mean Corpuscular Volume 90.2 fL (80-100); Monocytes Absolute Auto 900 /uL (0-900); Neutrophils Absolute Auto 7100 /uL (1500-7000); Neutrophils Percent Auto 65.8 % (50-75); Platelet Count 227 X10^3/uL (150-400); Red Blood Cell Count 4.48 X10^6/uL (4.5-5.9); Red Cell Distribution Width 13.2 % (11.6-14.8); White Blood Cell Count 10.8 X10^3/uL (4.5-11.0)
[2021-06-07 00:29] LABS: Alanine Aminotransferase 27 IU/L (<50); Albumin 4.1 g/dL (3.5-5.0); Albumin Globulin Ratio 1.5 (1.0-2.8); Alkaline Phosphatase 58 U/L (38-126); Aspartate Aminotransferase 21 IU/L (17-59); BUN Creatinine Ratio 17.6 (6-22); Bilirubin Total 0.4 mg/dL (0.2-1.3); Blood Urea Nitrogen 12 mg/dL (9-20); Calcium 9.4 mg/dL (8.4-10.2); Carbon Dioxide 28 mmol/L (22-32); Chloride 103 mmol/L (98-107); Estimated Glomerular Filt Rate > 60.0 mL/min (>60); Globulin 2.8 g/dL (1.7-4.1); Glucose 179 mg/dL (70-100); HEMOLYSIS < 15 (0-50); Lipase 50 U/L (23-300); Potassium 3.8 mmol/L (3.4-5.1); Sodium 136 mmol/L (137-145); Total Protein 6.9 g/dL (6.3-8.2)
[2021-06-07] MEDS: levoFLOXacin 250 MG TABLET 750 MG PO (01:26)
[2021-06-07 01:28] VITALS: PULSE 72; O2SAT 94
[2021-06-07 01:29] VITALS: BP 130/84; PULSE 68; O2SAT 97
[2021-06-07 01:30] VITALS: PULSE 73; O2SAT 96
== END 2021-06-07 01:43 | disposition home or self-care (01) ==
PROVIDERS: Emergency Provider Emergency Medicine; PCP Registered Nurse
DX: K57.32 Diverticulitis of large intestine without perforation or abscess without bleeding (principal); Z88.5 Allergy status to narcotic agent; Z88.0 Allergy status to penicillin; F17.200 Nicotine dependence, unspecified, uncomplicated
CPT/HCPCS: 36415; 74177; 80053; 81003; 83690; 85025; 99284; Q9967

== ENCOUNTER → 2021-06-17 09:31 | Outpatient (CLI) | payer OTHER, MEDICAID, SELFPAY ==
[2021-06-09 16:30] VITALS: BMI 36.6
--- NOTE | 2021-06-17 10:36 | DIAB.FU ---
Follow-up Diabetes Education Assessment Name: Jourdan Augustine Date: 06/17/21 Time: [id number] Dx: Type II Diabetes Jourdan presents today for diabetes follow-up. States he continues to have limited appetite. Eating twice per day. Portions for carbs generally in goal range per report. Today we did discover that he has been drinking 20oz of half n half TID. Originally, he reported having coffee with cream but today upon further discussion, this beverage is two shots of espresso and the rest is cream. This adds up to 2362.5 kcals, 127.5g saturated fat, and 78g carbs daily just from half n half. This certainly would inhibit his appetite and weight loss efforts. Further this would impact his elevated cholesterol. He is motivated to make changes to this beverage, however he states he just purchased [employer] amount of cream recently. Jourdan also has questions about diverticulitis. He was provided some handouts regarding low fiber v high fiber pending diverticulitis v diverticulosis. Anthropometrics: Ht: 6' Wt: 265.4# (today) Weight history: 262.4# last PCP visit Physical Activity: No program. Has not called [employer]. Weather has impacted visits to the park. Self-Monitoring Blood Glucose: Brought his meter today. FBG continue above goal. Potentially weight loss (from reduction in cream intake) and increased exercise could impact these numbers. Evening and pc readings sometimes in range with some elevations to 200. Morning numbers running high at 170-200 mg/dL and pc readings often 89-200 (recent: 155, 205 H, 89, 191 H, 176, 165, 121, 206 H, 157). Diabetes Medications: Metformin 1000 mg BID Pertinent Labs: 7.5% HgA1c Cholesterol: 238 H T H LDL: 152 H HDL: 40 WNL Past Medical History: (Last Reviewed 06/12/21 @ 22:36 by Ferny Preston MD) Abnormal laboratory test result Asthma Diverticulitis Elevated blood pressure reading without diagnosis of hypertension Fatigue GERD (gastroesophageal reflux disease) Respiratory infection Sinusitis SOB (shortness of breath) Intervention: This participant was very receptive. Provided appropriate educational handouts. Discussed the following topics: Recent blood sugar results and trends Nutrition regarding his large consumption of half n half: fat and kcals as well as impact on appetite Medication management Physical and impact on blood sugars Motivation for weight loss Fiber intake Created SMART goals for patient self-care and success. Goals: Check BG 1-2 x per day: FBG and/or pc- met Call [facility] for more info- not met Make PCP appt for DM f/u- met Reduce to one half n half beverage per day (with a future plan to switch to 2% milk)- new Follow-up: KEERTHI ROMANO follow-up in 4 weeks. See PCP on 06/29/21. Deidre Jones RDN, ROSALINA Certified Diabetes Care and Mechanical Specialist P: [phone] Thank you for this referral
== END ==
PROVIDERS: PCP Registered Nurse; Referring Provider Registered Nurse; Visit Provider Registered Nurse
DX: E11.9 Type 2 diabetes mellitus without complications (principal)
CPT/HCPCS: G0108

== ENCOUNTER → 2021-07-16 09:00 | Outpatient (CLI) | payer OTHER, MEDICAID, SELFPAY ==
[2021-06-28 16:29] VITALS: BMI 36.6
--- NOTE | 2021-07-16 09:01 | DI.RAD.S_ITS ---
PROCEDURE: FL BARIUM ENEMA W AIR CONTRAST INDICATIONS: failed colonoscopy . screening exam. Hx diverticulitis COMPARISON: [facility], CT, CT ABDOMEN PELVIS W CON, 06/07/2021, 0:29. 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 No suspicious abdominal calcifications. Visualized solid organ contours are normal in size. No suspicious bony lesions. Colon: There is adequate air-contrast opacification from the rectum to the cecum. No strictures, ulcers, polyps, or masses are seen. Haustral folds are normal in thickness throughout. There are multiple diverticula, most numerous in sigmoid colon. Visualization of distal sigmoid colon is suboptimal because of overlapping structures. There is mild irregularity of distal sigmoid colon. 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 Normal appendix. IMPRESSION: 1. Diverticulosis, most pronounced in sigmoid colon. 2. Visualization of the distal sigmoid colon is suboptimal. There is mild irregularity of the distal sigmoid colon. Etiology may be inflammatory or infectious but early neoplasm cannot be excluded. Recommend correlation with findings on colonoscopy. If clinically indicated, repeat sigmoidoscopy may be obtained. Dictated by: Nino Tang M.D. on 07/16/2021 at 11:02 Approved by: Nino Tang M.D. on 07/16/2021 at 11:09
== END ==
PROVIDERS: PCP Registered Nurse; Referring Provider Surgery; Visit Provider Specialist
DX: Z12.11 Encounter for screening for malignant neoplasm of colon (principal); K57.30 Diverticulosis of large intestine without perforation or abscess without bleeding
CPT/HCPCS: 74280

== ENCOUNTER → 2021-07-21 15:51 | Outpatient (CLI) | payer OTHER, MEDICAID, SELFPAY ==
[2021-06-28 16:29] VITALS: BMI 36.6
--- NOTE | 2021-07-21 15:52 | DI.RAD.S_ITS ---
PROCEDURE: XR THORACIC SPINE 3V INDICATIONS: back pain TECHNIQUE: 3 views of the thoracic spine were acquired. COMPARISON: None. FINDINGS: Bones: No fractures or dislocations. No suspicious bony lesions. 12 pairs of ribs are noted, and appear intact where visualized. Mild degenerative changes noted lower lumbar spine Soft tissues: No paravertebral stripe thickening. IMPRESSION: Mild degenerative changes no fracture or malalignment Approved by: Antonio Delgadillo M.D. on 07/21/2021 at 15:59
--- NOTE | 2021-07-21 15:52 | DI.RAD.S_ITS ---
PROCEDURE: XR LUMBAR SPINE 2-3V INDICATIONS: back pain TECHNIQUE: 3 views of the lumbar spine were acquired. COMPARISON: None. FINDINGS: Bones: 5 ind-etn-piexbnk vertebrae are present. There is normal bony alignment. No vertebral body compression fractures. No suspicious bony lesions. Soft tissues: Overlying bowel gas pattern is normal. No suspicious soft tissue calcifications. Retained barium noted in several diverticula as well as within the appendix. Moderate fecal debris in the right and transverse colon. IMPRESSION: Moderate fecal debris in the right and transverse colon. No obstruction. Retained barium and multiple diverticuli and the appendix Approved by: Antonio Delgadillo M.D. on 07/21/2021 at 15:51
== END ==
PROVIDERS: PCP Registered Nurse; Referring Provider Nurse Practitioner Family; Visit Provider Nurse Practitioner Family
DX: M47.816 Spondylosis without myelopathy or radiculopathy, lumbar region (principal); M54.9 Dorsalgia, unspecified
CPT/HCPCS: 72072; 72100

== ENCOUNTER → 2021-08-09 12:58 | Outpatient (CLI) | payer OTHER, MEDICAID, SELFPAY ==
[2021-06-28 16:29] VITALS: BMI 36.6
[2021-08-09 13:42] LABS: COVID19 -Nasal RAPID Negative (Negative)
== END ==
PROVIDERS: PCP Registered Nurse; Visit Provider Physician Assistant
DX: Z20.822 Contact with and (suspected) exposure to COVID-19 (principal)
CPT/HCPCS: 87635

== ENCOUNTER → 2021-10-01 12:51 | Outpatient (CLI) | payer OTHER, MEDICAID, SELFPAY ==
[2021-06-28 16:29] VITALS: BMI 36.6
--- NOTE | 2021-10-01 12:56 | DI.RAD.S_ITS ---
PROCEDURE: XR SHOULDER LT MIN 2V INDICATIONS: left shoulder pain TECHNIQUE: 3 views of the shoulder were acquired. COMPARISON: None. FINDINGS: Bones: No acute fractures or dislocations. No suspicious bony lesions. Visualized ribs appear intact. Mild to moderate acromioclavicular joint osteoarthrosis. Soft tissues: No suspicious soft tissue calcifications. IMPRESSION: No acute osseous abnormality. If the symptoms persist, consider cross sectional imaging such as MRI or CT for further assessment. Dictated by: Perry Rosado M.D. on 10/01/2021 at 15:49 Approved by: Perry Rosado M.D. on 10/01/2021 at 15:49
== END ==
PROVIDERS: Referring Provider Family Medicine; Visit Provider Family Medicine
DX: M25.512 Pain in left shoulder (principal); M75.00 Adhesive capsulitis of unspecified shoulder; M19.012 Primary osteoarthritis, left shoulder
CPT/HCPCS: 73030

== ENCOUNTER 2021-12-03 08:15 | Outpatient (RCR) | payer OTHER, MEDICAID, SELFPAY ==
[2021-06-28 16:29] VITALS: BMI 36.6
--- NOTE | 2021-10-11 11:53 | PT.OIE ---
Current Diagnoses Pain in left shoulder (10/11/21) Adhesive capsulitis of unspecified shoulder (10/11/21) Past Medical History (Last Reviewed 08/09/21 @ 15:16 by Merle Mann PA-C) Abnormal laboratory test result Asthma Diverticulitis Elevated blood pressure reading without diagnosis of hypertension Fatigue GERD (gastroesophageal reflux disease) Respiratory infection Sinusitis SOB (shortness of breath) Visit Care Team Role Provider Type Danna Maldonado MD Attending Provider Physician Family Provider Primary Care Provider Referring Provider Specialty: Family Practice Address: [address] [place] [address], [id number] Phone: Fax: Email: [email or web address] [facility] Initial Evaluation PT-OP-A Visit Information Start: 10/11/21 07:32 Freq: Status: Active Protocol: Document 10/11/21 07:30 AMB (Rec: 10/12/21 08:33 AMB [id number]) Out-Patient Physical Therapy Visit Information Visit Information Visit Type Initial Evaluation Visit Start Time 07:30 Visit Stop Time 08:15 Total Visit Minutes 45 Visit Number 1 PT-OP-B Current Condition Start: 10/11/21 07:32 Freq: Status: Active Protocol: Document 10/11/21 07:30 AMB (Rec: 10/11/21 07:52 AMB [id number]) Current Condition History of Current Condition Onset Date 3 months Current Complaints L shoulder History of Current Condition Insidious onset left shoulder pain. Does not remember any falls or heavy lifting, but one day got into bed and shoulder was very painful. Davide reports Sleeping is very painful. 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 Denies clicking/locking. Painful to lift arm but pushes through it. Pain with pulling pants up. Tries to use right arm to do most things. Personal Factors Other Personal Factors That May Effect DMII, Therapy/Recovery PT-OP-C Subjective Start: 10/11/21 07:32 Freq: Status: Active Protocol: Document 10/11/21 07:30 AMB (Rec: 10/12/21 08:53 AMB [id number]) Patient Questionnaires Quick Dash- Upper Extremity Quick Dash UE Score 52 Quick Dash UE Impairment 40 to 59% Impaired (Score 40- 59) OP-PT Pain Assessment Comments Pain Comments 8/10 pain throughout lateral/ anterior shoulder PT-OP-J Posture/Palpation/Skin Start: 10/11/21 07:32 Freq: Status: Active Protocol: Document 10/11/21 07:30 AMB (Rec: 10/12/21 08:53 AMB [id number]) Posture Evaluation Comments Posture Comments Forward head, but no scapular winging PT-OP-K Range of Motion Start: 10/11/21 07:32 Freq: Status: Active Protocol: Document 10/11/21 07:30 AMB (Rec: 10/12/21 08:53 AMB [id number]) Shoulder Goniometric Range of Motion Shoulder Left Passive Testing Position Supine Flexion 122 Abduction 110 External Rotation at 45 degrees 65 Abduction Comments increased pain throughout testing PT-OP-L Special Tests Start: 10/11/21 07:32 Freq: Status: Active Protocol: Document 10/11/21 07:30 AMB (Rec: 10/12/21 08:53 AMB [id number]) Special Tests Shoulder Special Tests Lift-Off Rotator Cuff Test Results + PT-OP-Q Treatments Start: 10/11/21 07:32 Freq: Status: Active Protocol: Document 10/11/21 07:30 AMB (Rec: 10/12/21 08:53 AMB [id number]) Therapeutic Exercises Standing Exercises pendulum Side left Reps/Minutes 30x3 PT-OP-T Assessment and Plan Start: 10/11/21 07:32 Freq: Status: Active Protocol: Document 10/11/21 07:30 AMB (Rec: 10/12/21 09:00 AMB [id number]) Physical Therapy Assessment Rehab Potential Rehabilitation Potential Good Evaluation Complexity Number of Personal Factors/Comorbidities 1-2 Number of Body Systems Impaired 4 or More Clinical Presentation at Evaluation Evolving Impairments Impairments Activity Tolerance,Functional Activities,Pain,ROM Goals Two Impairment ADLs Short Term Goal (STG) Davide will pull up his pants without an increase in baseline pain. STG Duration 4 weeks Solo Truck Driver Goal (LTG) Davide will sleep for 6 hours without waking due to shoulder pain. LTG Duration 8 weeks One Impairment Range of motion Short Term Goal (STG) Davide will improve his passive flexion to 150 degrees. STG Duration 4 weeks Correction Goal (LTG) Davide will improve his active flexion to 150 degrees. LTG Duration 8 weeks Assessment Summary Assessment Davide attends physical therapy with recent sudden onset left shoulder pain, but denies any specific known cause of the pain. He is significantly limited in both passive and active range of motion, but pain limited his range more than a firm end feel. He was tender throughout his scapula, anterior shoulder and lateral shoulder. Strength was not formally tested as pt had difficulty lifting arm against gravity. X-ray was negative per the patient. He will benefit from physical therapy, but limited insurance may be a barrier. Physical Therapy Plan Frequency and Duration Frequency of Treatment 2x/Week Duration of Treatment 8 weeks Plan of Care Start Date 10/11/21 Plan of Care End Date 12/11/21 Therapeutic Interventions Therapeutic Interventions Home Exercise Program,Joint Mobilizations,Manual Therapy, Neuromuscular Re-education, Self-Care/Home Management, Therapeutic Activities, Therapeutic Exercises Modalities Cold Pack/Ice Massage,Electric Stimulation,Iontophoresis Other Therapeutic Interventions iontophoresis with dexamethasone Next Visit Focus/Plan Next Note Type Treatment Note Next Visit Plan Review pendulum, consider isometrics vs AAROM, manual/ modalities as needed
--- NOTE | 2021-10-11 11:56 | PT.OPPOC ---
Physical, Occupational & Speech Therapy At [facility] Current Diagnoses Pain in left shoulder (10/11/21) Adhesive capsulitis of unspecified shoulder (10/11/21) Visit Care Team Role Provider Type Danna Maldonado MD Attending Provider Physician Family Provider Primary Care Provider Referring Provider Specialty: Family Practice Address: [address] [place] [address], [address] Phone: Fax: Email: [email or web address] Plan Of Care PT-OP-T Assessment and Plan Start: 10/11/21 07:32 Freq: Status: Active Protocol: Document 10/11/21 07:30 AMB (Rec: 10/12/21 09:00 AMB [id number]) Physical Therapy Assessment Rehab Potential Rehabilitation Potential Good Evaluation Complexity Number of Personal Factors/Comorbidities 1-2 Number of Body Systems Impaired 4 or More Clinical Presentation at Evaluation Evolving Impairments Impairments Activity Tolerance,Functional Activities,Pain,ROM Goals Two Impairment ADLs Short Term Goal (STG) Davide will pull up his pants without an increase in baseline pain. 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 LTG Duration 8 weeks One Impairment Range of motion Short Term Goal (STG) Davide will improve his passive flexion to 150 degrees. STG Duration 4 weeks Mcfp Goal (LTG) Davide will improve his active flexion to 150 degrees. LTG Duration 8 weeks Assessment Summary Assessment Davide attends physical therapy with recent sudden onset left shoulder pain, but denies any specific known cause of the pain. He is significantly limited in both passive and active range of motion, but pain limited his range more than a firm end feel. He was tender throughout his scapula, anterior shoulder and lateral shoulder. Strength was not formally tested as pt had difficulty lifting arm against gravity. X-ray was negative per the patient. He will benefit from physical therapy, but limited insurance may be a barrier. Physical Therapy Plan Frequency and Duration Frequency of Treatment 2x/Week Duration of Treatment 8 weeks Plan of Care Start Date 10/11/21 Plan of Care End Date 12/11/21 Therapeutic Interventions Therapeutic Interventions Home Exercise Program,Joint Mobilizations,Manual Therapy, Neuromuscular Re-education, Self-Care/Home Management, Therapeutic Activities, Therapeutic Exercises Modalities Cold Pack/Ice Massage,Electric Stimulation,Iontophoresis Other Therapeutic Interventions iontophoresis with dexamethasone Next Visit Focus/Plan Next Note Type Treatment Note Next Visit Plan Review pendulum, consider isometrics vs AAROM, manual/ modalities as needed Plan of Care Dates Plan of Care Start Date 10/11/21 Plan of Care End Date 12/11/21 Electronically Signed by: Renetta Chery, PT 10/12/21 2847 If you are in agreement with this Plan of Care, please return a signed and dated copy. I have reviewed this Plan of Care and certify that the skilled therapy services above are required to meet the patient?s needs. Physician Signature Date Printed Name and Credentials Clinical Instructor Signature Printed Name and Credentials
--- NOTE | 2021-10-14 11:14 | PT-OP ANOTE ---
no show- called pt, pt apologized thought appt was tomorrow, offered appt on Monday and he accepted.
--- NOTE | 2021-10-15 16:00 | PT.OTN ---
Current Diagnoses Pain in left shoulder (10/15/21) Adhesive capsulitis of unspecified shoulder (10/15/21) Physical Therapy Treatment Note PT-OP-A Visit Information Start: 10/11/21 07:32 Freq: Status: Active Protocol: Document 10/15/21 10:30 AMB (Rec: 10/16/21 09:37 AMB [id number]) Out-Patient Physical Therapy Visit Information Visit Information Visit Type Treatment Note Visit Start Time 10:30 Visit Stop Time 11:15 Total Visit Minutes 45 Visit Number 2 PT-OP-B Current Condition Start: 10/11/21 07:32 Freq: Status: Active Protocol: Document 10/11/21 07:30 AMB (Rec: 10/11/21 07:52 AMB [id number]) Current Condition History of Current Condition Onset Date 3 months Current Complaints L shoulder History of Current Condition Insidious onset left shoulder pain. Does not remember any falls or heavy lifting, but one day got into bed and shoulder was very painful. Davide reports Sleeping is very painful. 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 Denies clicking/locking. Painful to lift arm but pushes through it. Pain with pulling pants up. Tries to use right arm to do most things. Personal Factors Other Personal Factors That May Effect DMII, Therapy/Recovery PT-OP-C Subjective Start: 10/11/21 07:32 Freq: Status: Active Protocol: Document 10/15/21 10:30 AMB (Rec: 10/16/21 09:37 AMB [id number]) OP-PT Subjective Patient Comments Patient Comments Davide states he has been doign the pendulums, they hurt, but not too bad. PT-OP-J Posture/Palpation/Skin Start: 10/11/21 07:32 Freq: Status: Active Protocol: Document 10/11/21 07:30 AMB (Rec: 10/12/21 08:53 AMB [id number]) Posture Evaluation Comments Posture Comments Forward head, but no scapular winging PT-OP-K Range of Motion Start: 10/11/21 07:32 Freq: Status: Active Protocol: Document 10/11/21 07:30 AMB (Rec: 10/12/21 08:53 AMB [id number]) Shoulder Goniometric Range of Motion Shoulder Left Passive Testing Position Supine Flexion 122 Abduction 110 External Rotation at 45 degrees 65 Abduction Comments increased pain throughout testing PT-OP-L Special Tests Start: 10/11/21 07:32 Freq: Status: Active Protocol: Document 10/11/21 07:30 AMB (Rec: 10/12/21 08:53 AMB [id number]) Special Tests Shoulder Special Tests Lift-Off Rotator Cuff Test Results + PT-OP-Q Treatments Start: 10/11/21 07:32 Freq: Status: Active Protocol: Document 10/15/21 10:30 AMB (Rec: 10/16/21 09:37 AMB [id number]) Therapeutic Exercises Supine Exercises PROM Comments flexion, abd, ER, IR scap protraction Comments at 90 degrees of flexion- increased pain isometrics Supine Exercise Name extension (mildly painful, tolerable) Reps/Minutes 10 Comments tried IR, abd, flexion all painful Standing Exercises pendulum Side left Reps/Minutes 30x3 Comments reviewed form Manual Therapy Treatment Soft Tissue Mobilization 1 Body Location L shoulder Comments biceps, deltoid, subscap, infra and supraspinatus Taping 1 Body Location L shoulder Type of Tape Kinesio Tape Comments Y strip around GH joint PT-OP-T Assessment and Plan Start: 10/11/21 07:32 Freq: Status: Active Protocol: Document 10/15/21 10:30 AMB (Rec: 10/16/21 09:37 AMB [id number]) Physical Therapy Assessment Goals Two Impairment ADLs Short Term Goal (STG) Davide will pull up his pants without an increase in baseline pain. STG Duration 4 weeks Chcf Goal (LTG) Davide will sleep for 6 hours without waking due to shoulder pain. LTG Duration 8 weeks One Impairment Range of motion Short Term Goal (STG) Davide will improve his passive flexion to 150 degrees. 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 LTG Duration 8 weeks Assessment Summary Assessment Davide has been icing his shoulder and doing pendulums. A little painful, but not as bad as sleeping, which continues to be very painful. Continued to have pain, worst with isometric IR today, but abduction PROM was also quite painful and unable to get to feel end range before pain starts. Physical Therapy Plan Next Visit Focus/Plan Next Note Type Treatment Note Next Visit Plan Review pendulum, extension isometric, tolerance to k tape
--- NOTE | 2021-10-21 16:18 | PT.OTN ---
Current Diagnoses Pain in left shoulder (10/21/21) Adhesive capsulitis of unspecified shoulder (10/21/21) Physical Therapy Treatment Note PT-OP-A Visit Information Start: 10/11/21 07:32 Freq: Status: Active Protocol: Document 10/21/21 09:45 AMB (Rec: 10/21/21 10:34 AMB [id number]) Out-Patient Physical Therapy Visit Information Visit Information Visit Type Treatment Note Visit Start Time 09:45 Visit Stop Time 10:30 Total Visit Minutes 45 Visit Number 3 PT-OP-B Current Condition Start: 10/11/21 07:32 Freq: Status: Active Protocol: Document 10/11/21 07:30 AMB (Rec: 10/11/21 07:52 AMB [id number]) Current Condition History of Current Condition Onset Date 3 months Current Complaints L shoulder History of Current Condition Insidious onset left shoulder pain. Does not remember any falls or heavy lifting, but one day got into bed and shoulder was very painful. Davide reports Sleeping is very painful. 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 Denies clicking/locking. Painful to lift arm but pushes through it. Pain with pulling pants up. Tries to use right arm to do most things. Personal Factors Other Personal Factors That May Effect DMII, Therapy/Recovery PT-OP-C Subjective Start: 10/11/21 07:32 Freq: Status: Active Protocol: Document 10/21/21 09:45 AMB (Rec: 10/21/21 16:18 AMB [id number]) OP-PT Subjective Patient Comments Patient Comments Davide continues to have shoulder pain, about the same. PT-OP-J Posture/Palpation/Skin Start: 10/11/21 07:32 Freq: Status: Active Protocol: Document 10/11/21 07:30 AMB (Rec: 10/12/21 08:53 AMB [id number]) Posture Evaluation Comments Posture Comments Forward head, but no scapular winging PT-OP-K Range of Motion Start: 10/11/21 07:32 Freq: Status: Active Protocol: Document 10/11/21 07:30 AMB (Rec: 10/12/21 08:53 AMB [id number]) Shoulder Goniometric Range of Motion Shoulder Left Passive Testing Position Supine Flexion 122 Abduction 110 External Rotation at 45 degrees 65 Abduction Comments increased pain throughout testing PT-OP-L Special Tests Start: 10/11/21 07:32 Freq: Status: Active Protocol: Document 10/11/21 07:30 AMB (Rec: 10/12/21 08:53 AMB [id number]) Special Tests Shoulder Special Tests Lift-Off Rotator Cuff Test Results + PT-OP-Q Treatments Start: 10/11/21 07:32 Freq: Status: Active Protocol: Document 10/21/21 09:45 AMB (Rec: 10/21/21 16:18 AMB [id number]) Therapeutic Exercises Supine Exercises PROM Comments flexion, abd, ER, IR isometrics Supine Exercise Name extension (mildly painful, tolerable) Reps/Minutes 10 Comments tried IR, abd, flexion all painful Manual Therapy Treatment Soft Tissue Mobilization 1 Body Location L shoulder Comments biceps, deltoid, subscap, infra and supraspinatus Taping 1 Body Location L shoulder Type of Tape Kinesio Tape Comments Y strip around GH joint, I front ant shoulder to scap PT-OP-T Assessment and Plan Start: 10/11/21 07:32 Freq: Status: Active Protocol: Document 10/21/21 09:45 AMB (Rec: 10/21/21 16:18 AMB [id number]) Physical Therapy Assessment Goals Two Impairment ADLs Short Term Goal (STG) Davide will pull up his pants without an increase in baseline pain. 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 LTG Duration 8 weeks One Impairment Range of motion Short Term Goal (STG) Davide will improve his passive flexion to 150 degrees. STG Duration 4 weeks Usp Goal (LTG) Davide will improve his active flexion to 150 degrees. LTG Duration 8 weeks Assessment Summary Assessment Davide continues to have pain with all ROM but is tolerating slightly more flexion PROM, retaped as he did find that moderately helfpul. Reviewed pillow positioning for sleeping. Physical Therapy Plan Next Visit Focus/Plan Next Note Type Treatment Note Next Visit Plan Review pendulum, extension isometric, tolerance to k tape
--- NOTE | 2021-10-29 10:38 | PT.OTN ---
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 Does not remember any falls or heavy lifting, but one day got into bed and shoulder was very painful. Davide reports Sleeping is very painful. 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 Denies clicking/locking. Painful to lift arm but pushes through it. Pain with pulling pants up. Tries to use right arm to do most things. Personal Factors Other Personal Factors That May Effect DMII, Therapy/Recovery PT-OP-C Subjective Start: 10/11/21 07:32 Freq: Status: Active Protocol: Document 10/29/21 09:48 SP (Rec: 10/29/21 10:39 SP [id number]) OP-PT Subjective Patient Comments Patient Comments Pt states stiff and L shld pain when wakes up. Had steroid shot yesterday am and pain alot better/ less. Pt stated when saw ortho yesterday removed k taping and noted small open blisters under anterior taping. Pt reported the ktaping helped alot in stabilizing shld and wants retaped, other areas were fine, didn't feel any irritation. PT-OP-J Posture/Palpation/Skin Start: 10/11/21 07:32 Freq: Status: Active Protocol: Document 10/11/21 07:30 AMB (Rec: 10/12/21 08:53 AMB [id number]) Posture Evaluation Comments Posture Comments Forward head, but no scapular winging PT-OP-K Range of Motion Start: 10/11/21 07:32 Freq: Status: Active Protocol: Document 10/11/21 07:30 AMB (Rec: 10/12/21 08:53 AMB [id number]) Shoulder Goniometric Range of Motion Shoulder Left Passive Testing Position Supine Flexion 122 Abduction 110 External Rotation at 45 degrees 65 Abduction Comments increased pain throughout testing PT-OP-L Special Tests Start: 10/11/21 07:32 Freq: Status: Active Protocol: Document 10/11/21 07:30 AMB (Rec: 10/12/21 08:53 AMB [id number]) Special Tests Shoulder Special Tests Lift-Off Rotator Cuff Test Results + PT-OP-Q Treatments Start: 10/11/21 07:32 Freq: Status: Active Protocol: Document 10/29/21 09:48 SP (Rec: 10/29/21 10:39 SP [id number]) Therapeutic Exercises Supine Exercises PROM Side left Comments flexion, abd, ER, IR isometrics Supine Exercise Name extension (mildly painful, tolerable)- added to HEP Side left Resistance standing gentle pressure, towel behind arm, elbow bent Reps/Minutes 5 sec x5 Comments cued gentle pressure, very little discomfort, cued for set up/positioning Sidelying Exercises open book Sidelying Exercise Name L assessment Comments caused pain AAROM so stopped, not ready yet. shld ER Sidelying Exercise Name added to HEP Side left Resistance AROM Equipment Used towel under arm Reps/Minutes 2x5 Comments good form and painfree range response Sitting Exercises UT, lev scap stretch Sitting Exercise Name added to HEP w/ HO Side left Resistance RUE over pressure gentle stretch Reps/Minutes 30 x2 Comments good form and stretch response scap retraction Side left Standing Exercises self STMs Standing Exercise Name UT, lev scap, inter scap, posterior scap Side left Equipment Used ball wall in sock Reps/Minutes 30 sec Comments good response, will get ball for home performance pendulum Standing Exercise Name reviewed sit and stand versions Side left Resistance PROM Reps/Minutes 30x3 Comments reviewed form Manual Therapy Treatment Soft Tissue Mobilization 1 Body Location L Mobilization Type Myofascial Release,Rolling, Sustained Pressure Intensity/Depth Moderate Body Position Sidelying Comments UT, lev scap, infra and supraspinatus Joint Mobilizations scapulthoracic Joint L Direction retraction, depression Grade II Body Position Sidelying Comments good feedback response Taping 1 Body Location L shoulder Type of Tape Kinesio Tape Comments V strip top/posterior GH joint diagonal to spine retraction and elevation support, I strip mid scap inferior for scap stabilization. Good feedback response. Pt understanding adverse responses: red, irritation, itchy, blistering to remove immediately, if ok leave on for 1-2 days ok to get wet. Self-Care/Home Management Treatment Education Patient Education Body Mechanics,Joint Protection,Pain Management, Posture Other Education Extra time spent: Ed for pillow positioning under head, ribcage, between knees and bwtween BUEs front when sidelying for comfort- states feels really good, less wt on shld. R sidelying pillow under arm and hand. PT-OP-T Assessment and Plan Start: 10/11/21 07:32 Freq: Status: Active Protocol: Document 10/29/21 09:48 SP (Rec: 10/29/21 10:39 SP [id number]) Physical Therapy Assessment Goals Two Impairment ADLs Short Term Goal (STG) Davide will pull up his pants without an increase in baseline pain. STG Duration 4 weeks Shank Cementer Hand Goal (LTG) Davide will sleep for 6 hours without waking due to shoulder pain. LTG Duration 8 weeks One Impairment Range of motion Short Term Goal (STG) Davide will improve his passive flexion to 150 degrees. STG Duration 4 weeks Shank Cementer Hand Goal (LTG) Davide will improve his active flexion to 150 degrees. LTG Duration 8 weeks Assessment Summary Assessment Pt good response to manual, ed for sleeping pillow propping, and HEP for posturing and LUE support mobility painfree. Pt had painfree throughout tx. Instructed us CP if needed for pain. Physical Therapy Plan Frequency and Duration Frequency of Treatment 2x/Week Duration of Treatment 8 weeks Plan of Care Start Date 10/11/21 Plan of Care End Date 12/11/21 Therapeutic Interventions Therapeutic Interventions Home Exercise Program,Joint Mobilizations,Manual Therapy, Neuromuscular Re-education, Self-Care/Home Management, Therapeutic Activities, Therapeutic Exercises Modalities Cold Pack/Ice Massage,Electric Stimulation,Iontophoresis Other Therapeutic Interventions iontophoresis with dexamethasone Next Visit Focus/Plan Next Note Type Treatment Note Next Visit Plan Recheck: ktaping response, shld ER AROM, extension isometric. POC: as tolerated per PT.
--- NOTE | 2021-11-03 16:09 | PT.OTN ---
Current Diagnoses Pain in left shoulder (11/03/21) Adhesive capsulitis of unspecified shoulder (11/03/21) Physical Therapy Treatment Note PT-OP-A Visit Information Start: 10/11/21 07:32 Freq: Status: Active Protocol: Document 11/03/21 10:30 AMB (Rec: 11/03/21 16:08 AMB [id number]) Out-Patient Physical Therapy Visit Information Visit Information Visit Type Treatment Note Visit Note 5/9 visits authorized Visit Start Time 10:30 Visit Stop Time 11:15 Total Visit Minutes 45 Visit Number 5 PT-OP-B Current Condition Start: 10/11/21 07:32 Freq: Status: Active Protocol: Document 10/11/21 07:30 AMB (Rec: 10/11/21 07:52 AMB [id number]) Current Condition History of Current Condition Onset Date 3 months Current Complaints L shoulder History of Current Condition Insidious onset left shoulder pain. Does not remember any falls or heavy lifting, but one day got into bed and shoulder was very painful. Davide reports Sleeping is very painful. 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 Denies clicking/locking. Painful to lift arm but pushes through it. Pain with pulling pants up. Tries to use right arm to do most things. Personal Factors Other Personal Factors That May Effect DMII, Therapy/Recovery PT-OP-C Subjective Start: 10/11/21 07:32 Freq: Status: Active Protocol: Document 11/03/21 10:30 AMB (Rec: 11/03/21 16:08 AMB [id number]) OP-PT Subjective Patient Comments Patient Comments Davide is seeing the ortho again in 4 weeks. 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 Overall still feeling better since the cortisone and really appreciated going over sleeping positions last visit, but continues to have pain. PT-OP-J Posture/Palpation/Skin Start: 10/11/21 07:32 Freq: Status: Active Protocol: Document 10/11/21 07:30 AMB (Rec: 10/12/21 08:53 AMB [id number]) Posture Evaluation Comments Posture Comments Forward head, but no scapular winging PT-OP-K Range of Motion Start: 04/25/22 07:32 Freq: Status: Active Protocol: Document 10/11/21 07:30 AMB (Rec: 10/12/21 08:53 AMB [id number]) Shoulder Goniometric Range of Motion Shoulder Left Passive Testing Position Supine Flexion 122 Abduction 110 External Rotation at 45 degrees 65 Abduction Comments increased pain throughout testing PT-OP-L Special Tests Start: 10/11/21 07:32 Freq: Status: Active Protocol: Document 10/11/21 07:30 AMB (Rec: 10/12/21 08:53 AMB [id number]) Special Tests Shoulder Special Tests Lift-Off Rotator Cuff Test Results + PT-OP-Q Treatments Start: 10/11/21 07:32 Freq: Status: Active Protocol: Document 11/03/21 10:30 AMB (Rec: 11/03/21 16:08 AMB [id number]) Therapeutic Exercises Supine Exercises isometrics Supine Exercise Name extension (mildly painful, tolerable)- added to HEP Side left Resistance standing gentle pressure, towel behind arm, elbow bent Reps/Minutes 5 sec x5 Comments cued gentle pressure, very little discomfort, cued for set up/positioning Sidelying Exercises shld ER Sidelying Exercise Name added to HEP Side left Resistance AROM Equipment Used towel under arm Reps/Minutes 2x5 Comments some discomfort today, encouraged to modify ROM Sitting Exercises UT, lev scap stretch Sitting Exercise Name added to HEP Side left Resistance RUE over pressure gentle stretch Reps/Minutes 30 x2 Comments good form and stretch response Standing Exercises pendulum Standing Exercise Name reviewed sit and stand versions Side left Resistance PROM Reps/Minutes 30x3 Comments reviewed form Manual Therapy Treatment Soft Tissue Mobilization 1 Body Location L Mobilization Type Myofascial Release,Rolling, Sustained Pressure Intensity/Depth Moderate Body Position Sidelying Comments UT, lev scap, infra and supraspinatus Taping 1 Body Location L shoulder Type of Tape Kinesio Tape Comments V strip top/posterior GH joint diagonal to spine retraction and elevation support, -- tried to avoid any areas of irritation, encouraged pt taking off in a couple of days to avoid skin irritation PT-OP-T Assessment and Plan Start: 10/11/21 07:32 Freq: Status: Active Protocol: Document 11/03/21 10:30 AMB (Rec: 11/03/21 16:08 AMB [id number]) Physical Therapy Assessment Goals Two Impairment ADLs Short Term Goal (STG) Davide will pull up his pants without an increase in baseline pain. STG Duration 4 weeks Golf Ball Molder Goal (LTG) Davide will sleep for 6 hours without waking due to shoulder pain. LTG Duration 8 weeks One Impairment Range of motion Short Term Goal (STG) Davide will improve his passive flexion to 150 degrees. STG Duration 4 weeks Senior Care Goal (LTG) Davide will improve his active flexion to 150 degrees. LTG Duration 8 weeks Assessment Summary Assessment Jourdan continues to have pain with shoulder flexion or abduction above 90 degrees, but overall less irritable and better able to position with less pain. Physical Therapy Plan Next Visit Focus/Plan Next Note Type Treatment Note Next Visit Plan Recheck: ktaping response, shld ER AROM, extension isometric.
--- NOTE | 2021-11-05 08:30 | PT.OTN ---
Addendum entered and electronically signed by Ema Mcclendon, GREGORY 11/05/21 08:55: Pt might benefit from further imaging assessment. Pt is limited to 9 visits and not seeing significant reduction in pain L shld since eval. 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 Does not remember any falls or heavy lifting, but one day got into bed and shoulder was very painful. Davide reports Sleeping is very painful. 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 Denies clicking/locking. Painful to lift arm but pushes through it. Pain with pulling pants up. Tries to use right arm to do most things. 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 PT-OP-J Posture/Palpation/Skin Start: 10/11/21 07:32 Freq: Status: Active Protocol: Document 10/11/21 07:30 AMB (Rec: 10/12/21 08:53 AMB [id number]) Posture Evaluation Comments Posture Comments Forward head, but no scapular winging PT-OP-K Range of Motion Start: 10/11/21 07:32 Freq: Status: Active Protocol: Document 11/05/21 07:32 SP (Rec: 11/05/21 08:53 SP [id number]) Shoulder Goniometric Range of Motion Shoulder Left Passive Shoulder ROM WFL No Testing Position Supine Flexion 131 Abduction 110 External Rotation at 45 degrees 65 Abduction Comments sitting L shld AROM: FF 122> 131 deg ABD 110> 90deg ER 65> 68 deg PT-OP-L Special Tests Start: 10/11/21 07:32 Freq: Status: Active Protocol: Document 10/11/21 07:30 AMB (Rec: 10/12/21 08:53 AMB [id number]) Special Tests Shoulder Special Tests Lift-Off Rotator Cuff Test Results + PT-OP-Q Treatments Start: 10/11/21 07:32 Freq: Status: Active Protocol: Document 11/05/21 07:32 SP (Rec: 11/05/21 08:53 SP [id number]) Therapeutic Exercises Supine Exercises isometrics Supine Exercise Name extension (6/10 painful, tolerable) Side left Resistance standing gentle pressure, towel behind arm, elbow bent Equipment Used thin pillow under arm for support Reps/Minutes 5 sec x5 Comments cued gentle pressure, very little discomfort, cued for set up/positioning Sidelying Exercises sleep stretch Sidelying Exercise Name added to HEP Side left Resistance AAROM gentle stretch post L GH Jt Reps/Minutes 2 x10s Comments stated discomfort but the area that has tension/ pain thinks helping open book Sidelying Exercise Name L hand on head slow scapular movement Side left Resistance AROM Equipment Used cued head with hand Reps/Minutes x3 Comments little discomfort but tolerable, good scapular mobility control shld ER Sidelying Exercise Name reviewed HEP Side left Resistance AROM Equipment Used towel under arm Reps/Minutes x5 Comments some discomfort today, encouraged to modify ROM Sitting Exercises UT, lev scap stretch Sitting Exercise Name reviewed HEP Side left Resistance RUE over pressure gentle stretch Reps/Minutes 30 x2 Comments good form and stretch response scap retraction Sitting Exercise Name reviewed HEP Side left Reps/Minutes 5 sec x2 Comments cued tall posture head back neutral, helpful prep progressive ex Standing Exercises Shld ext, adduction Standing Exercise Name added to HEP Side left Resistance TB #1 Reps/Minutes 2x5 reps Comments cued head, scap alignment, gentle pull back to side seam pants- low 2/10 self STMs Standing Exercise Name UT, lev scap, inter scap, posterior scap Side left Equipment Used theracane Reps/Minutes 30 sec Comments good response, MWM Manual Therapy Treatment Soft Tissue Mobilization 1 Body Location L Mobilization Type Myofascial Release,Rolling, Sustained Pressure Intensity/Depth Moderate Body Position Sidelying Comments UT, lev scap, infra and supraspinatus, posterior deltoid, teres Joint Mobilizations scapulthoracic Joint L Direction retraction, depression Grade II Body Position Sidelying Comments good feedback response Taping 1 Body Location L shoulder Type of Tape Kinesio Tape Comments V strip top/posterior GH joint diagonal to spine retraction and elevation support, -- tried to avoid any areas of irritation, encouraged pt taking off in a couple of days to avoid skin irritation Self-Care/Home Management Treatment Education Patient Education Body Mechanics,Joint Protection,Pain Management, Posture Other Education Extra time spent: Ed anatomy and for pillow positioning under L UE to set supported positioning less wt on GH Jt in R sidelying. Added to HEP: theracance MWM posterior neck and scap, TB L shld ext and adduction, very low discomfort w/ cues for head/scap alignment for no UT/ pec recruitment. PT-OP-T Assessment and Plan Start: 10/11/21 07:32 Freq: Status: Active Protocol: Document 11/05/21 07:32 SP (Rec: 11/05/21 08:53 SP [id number]) Physical Therapy Assessment Goals Two Impairment ADLs Short Term Goal (STG) Davide will pull up his pants without an increase in baseline pain. STG Duration 4 weeks Procedures Analyst Goal (LTG) Davide will sleep for 6 hours without waking due to shoulder pain. LTG Duration 8 weeks One Impairment Range of motion Short Term Goal (STG) Davide will improve his passive flexion to 150 degrees. STG Duration 4 weeks Procedures Analyst Goal (LTG) Davide will improve his active flexion to 150 degrees. LTG Duration 8 weeks Progress Towards Goals Progress Towards Goals Progressing Toward Goals Progress Comments Pt improving in L shld AROM: 9 deg FF, decrease 20 deg ABD, 3 deg ER sitting, liimited by pain.. Assessment Summary Assessment Pt tolerated manual, better understanding post education on scapular positioning for stability and understanding activity doing could be irritating L shld outside of sleeping positioning. Pt states compliant with HEP given, Ktaping helps alot with no adverse affects to skin, along with self STMs. Pt is making progress in ROM except ABD decreased by 20 deg with increased pain. Pt declined modalities, stated will do at home, does contrast bath. Physical Therapy Plan Frequency and Duration Frequency of Treatment 2x/Week Duration of Treatment 8 weeks Plan of Care Start Date 10/11/21 Plan of Care End Date 12/11/21 Therapeutic Interventions Therapeutic Interventions Home Exercise Program,Joint Mobilizations,Manual Therapy, Neuromuscular Re-education, Self-Care/Home Management, Therapeutic Activities, Therapeutic Exercises Modalities Cold Pack/Ice Massage,Electric Stimulation,Iontophoresis Other Therapeutic Interventions iontophoresis with dexamethasone Next Visit Focus/Plan Next Note Type Treatment Note Next Visit Plan Recheck: TB L shld ext, adduction, sleeper stretch and MWM theracane added last tx. POC: Continue K taping , shld ER AROM, extension isometric.
--- NOTE | 2021-11-16 11:26 | PT.OTN ---
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 Does not remember any falls or heavy lifting, but one day got into bed and shoulder was very painful. Davide reports Sleeping is very painful. 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 Has been taking Aleve. Denies clicking/locking. Painful to lift arm but pushes through it. Pain with pulling pants up. Tries to use right arm to do most things. Personal Factors Other Personal Factors That May Effect DMII, Therapy/Recovery PT-OP-C Subjective Start: 10/11/21 07:32 Freq: Status: Active Protocol: Document 11/16/21 10:36 SP (Rec: 11/16/21 11:58 SP [id number]) OP-PT Subjective Patient Comments Patient Comments Pt reports is L shoulder is sore, rough, sketchy. Is compliant with stretching, HEP and some days doing ok but mostly times restricted and using CP. He states has asked others for help with jobs to allow recovery. Pt states all exercises painful except pendulum and ball rolling on wall all rest cause pain but does because doesn't want to lose what has so has continues to do other exercises given. Requesting recommendations at this time to help. Patient Reported Progress Worse PT-OP-J Posture/Palpation/Skin Start: 10/11/21 07:32 Freq: Status: Active Protocol: Document 10/11/21 07:30 AMB (Rec: 10/12/21 08:53 AMB [id number]) Posture Evaluation Comments Posture Comments Forward head, but no scapular winging PT-OP-K Range of Motion Start: 10/11/21 07:32 Freq: Status: Active Protocol: Document 11/16/21 10:36 SP (Rec: 11/16/21 11:58 SP [id number]) Shoulder Goniometric Range of Motion Shoulder Left Passive Shoulder ROM WFL No Testing Position Supine Flexion 144 Abduction 90 External Rotation at 0 degrees Abduction 42 Comments supine L shld AROM: FF 131 last> 144 deg today, AAROM 165 deg ABD 90 last> 90deg today, AAROM 140 ER 42 deg, sitting 68last >75 deg today PT-OP-L Special Tests Start: 10/11/21 07:32 Freq: Status: Active Protocol: Document 10/11/21 07:30 AMB (Rec: 10/12/21 08:53 AMB [id number]) Special Tests Shoulder Special Tests Lift-Off Rotator Cuff Test Results + PT-OP-Q Treatments Start: 10/11/21 07:32 Freq: Status: Active Protocol: Document 11/16/21 10:36 SP (Rec: 11/16/21 11:58 SP [id number]) Therapeutic Exercises Supine Exercises L shld FF Supine Exercise Name AAROM Side left Equipment Used wand Reps/Minutes x3 reps Comments painful at 131 deg, cant go further. PROM Supine Exercise Name flexion, abd, ER, IR Side left Comments manual- see measurements taken Sidelying Exercises sleep stretch Sidelying Exercise Name reassessed- increased posterior GH Jt pain- Discontinue Side left Resistance AAROM gentle stretch post L GH Jt Reps/Minutes 2 x10s open book Sidelying Exercise Name reassessed- increased posterior GH Jt pain- Discontinue Side left Resistance AROM Equipment Used cued head with hand Reps/Minutes x3 Standing Exercises AAROM L shld FF OH at wall Standing Exercise Name ball roll FF AAROM- trialed if assist AAROM and low/ no pain Comments caused pain so stopped self STMs Standing Exercise Name UT, lev scap, inter scap, posterior scap Side left Equipment Used ball on wall great at home, uses alot theracane Reps/Minutes 30 sec Comments good response, MWM pendulum Standing Exercise Name does all the time- helps Side left Resistance PROM Reps/Minutes 30x3 Comments good form Other Exercises 1/2 kneel eccentric OH FF Other Exercise Name trialed if assist AAROM and low/ no pain Side left Comments caused pain so stopped Manual Therapy Treatment Soft Tissue Mobilization 1 Body Location L Mobilization Type Myofascial Release,Rolling, Sustained Pressure Intensity/Depth Moderate Body Position Sidelying Comments UT, lev scap, infra and supraspinatus, posterior deltoid, teres, subscap Joint Mobilizations GH jt Joint L Direction posterior, inferior glide Grade II Body Position Hooklying Comments manual, good feedback scapulthoracic Joint L Direction retraction, depression Grade II Body Position Sidelying Comments good feedback response Self-Care/Home Management Treatment Education Patient Education Joint Protection,Pain Management,Safety Other Education Time spent ed on comfort and ROM Painfree ther ex: wand supine FF, pendulum and ballrolling STMs for comfort and using CP for pain control- good response end tx. PT-OP-R Modalities Start: 10/11/21 07:32 Freq: Status: Active Protocol: Document 11/16/21 10:36 SP (Rec: 11/16/21 11:58 SP [id number]) Hot Pack/Cold Pack Treatment CP Location L shld Patient Position Hooklying Treatment Duration (minutes) 10 Patient Tolerance Good Comments good feedback- states uses CP at home at night 2-3 times. PT-OP-T Assessment and Plan Start: 10/11/21 07:32 Freq: Status: Active Protocol: Document 11/16/21 10:36 SP (Rec: 11/16/21 11:58 SP [id number]) Physical Therapy Assessment Goals Two Impairment ADLs Short Term Goal (STG) Davide will pull up his pants without an increase in baseline pain. STG Duration 4 weeks Diesel Powerplant Mechanic Goal (LTG) Davide will sleep for 6 hours without waking due to shoulder pain. 11/16/21: states hurts sleeping , finds self modified L sidelying for support but doesn't sleep long, alot time spent finding confortable position and using suggestions . LTG Duration 8 weeks (pain limits) One Impairment Range of motion Short Term Goal (STG) Davide will improve his passive flexion of L shoulder to 150 degrees. 11/16/21: PROM supine: FF 165 deg ABD 140 deg. STG Duration 4 weeks progresssing Diesel Powerplant Mechanic Goal (LTG) Davide will improve his active flexion of L shoulder to 150 degrees. 11/16/21: supine: FF 144 deg, ABD 90, seated ER 75 deg but all painful LTG Duration 8 weeks progressing Assessment Summary Assessment Pt made gains in AROM and AAROM supine (see measurement/ goal section) but increased pain 7/10 pain L shld today, no significant decrease post manual STMs. He reports pain limits his activities now at work and playing with his daughters. Ed calling ortho, PCM and provide feedback request further assessment, MRI. Call insurance, only 2 more allowed PT visits, can he request more, is there anything from PT, physican that may need if can authorize more visits. Reviewed limit HEP to: pendulum self STMs and AAROM w/ wand at this time painfree range and continue CP for pain control. Physical Therapy Plan Frequency and Duration Frequency of Treatment 2x/Week Duration of Treatment 8 weeks Plan of Care Start Date 10/11/21 Plan of Care End Date 12/11/21 Therapeutic Interventions Therapeutic Interventions Home Exercise Program,Joint Mobilizations,Manual Therapy, Neuromuscular Re-education, Self-Care/Home Management, Therapeutic Activities, Therapeutic Exercises Modalities Cold Pack/Ice Massage,Electric Stimulation,Iontophoresis Other Therapeutic Interventions iontophoresis with dexamethasone Other Referrals/Consults Referrals/Consults Recommended Recommending MRI for further assessment L shld. DIscussed with pt to contact ortho. Next Visit Focus/Plan Next Note Type Treatment Note Next Visit Plan Recheck: limited HEP, see assessment 11/16/21. POC: Continue K taping , shld ER AROM, extension isometric.
--- NOTE | 2021-11-25 09:31 | PT.OTN ---
Current Diagnoses Pain in left shoulder (11/25/21) Adhesive capsulitis of unspecified shoulder (11/25/21) Physical Therapy Treatment Note PT-OP-A Visit Information Start: 10/11/21 07:32 Freq: Status: Active Protocol: Document 11/25/21 07:47 AMB (Rec: 11/25/21 08:33 AMB [id number]) Out-Patient Physical Therapy Visit Information Visit Information Visit Type Treatment Note Visit Note 01/25 Visit Start Time 07:30 Visit Stop Time 08:15 Total Visit Minutes 45 Visit Number 8 PT-OP-B Current Condition Start: 10/11/21 07:32 Freq: Status: Active Protocol: Document 10/11/21 07:30 AMB (Rec: 10/11/21 07:52 AMB [id number]) Current Condition History of Current Condition Onset Date 3 months Current Complaints L shoulder History of Current Condition Insidious onset left shoulder pain. Does not remember any falls or heavy lifting, but one day got into bed and shoulder was very painful. Davide reports Sleeping is very painful. 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 Denies clicking/locking. Painful to lift arm but pushes through it. Pain with pulling pants up. Tries to use right arm to do most things. Personal Factors Other Personal Factors That May Effect DMII, Therapy/Recovery PT-OP-C Subjective Start: 10/11/21 07:32 Freq: Status: Active Protocol: Document 11/25/21 07:30 AMB (Rec: 11/25/21 09:31 AMB [id number]) OP-PT Subjective Patient Comments Patient Comments Pt reports shoulder isn't necessarily worse, but isn't better either. Is supposed to have follow up with ortho at end of November, but hoping for sooner. Has been trying to be really dilligent not to flare up the shoulder by lifting anything heavy. PT-OP-J Posture/Palpation/Skin Start: 10/11/21 07:32 Freq: Status: Active Protocol: Document 10/11/21 07:30 AMB (Rec: 10/12/21 08:53 AMB [id number]) Posture Evaluation Comments Posture Comments Forward head, but no scapular winging PT-OP-K Range of Motion Start: 10/11/21 07:32 Freq: Status: Active Protocol: Document 11/16/21 10:36 SP (Rec: 11/16/21 11:58 SP [id number]) Shoulder Goniometric Range of Motion Shoulder Left Passive Shoulder ROM WFL No Testing Position Supine Flexion 144 Abduction 90 External Rotation at 0 degrees Abduction 42 Comments supine L shld AROM: FF 131 last> 144 deg today, AAROM 165 deg ABD 90 last> 90deg today, AAROM 140 ER 42 deg, sitting 68last >75 deg today PT-OP-L Special Tests Start: 10/11/21 07:32 Freq: Status: Active Protocol: Document 10/11/21 07:30 AMB (Rec: 10/12/21 08:53 AMB [id number]) Special Tests Shoulder Special Tests Lift-Off Rotator Cuff Test Results + PT-OP-Q Treatments Start: 10/11/21 07:32 Freq: Status: Active Protocol: Document 11/25/21 07:30 AMB (Rec: 11/25/21 09:31 AMB [id number]) Therapeutic Exercises Supine Exercises PROM Supine Exercise Name flexion, abd, ER, IR Side left Comments manual- see measurements taken Sitting Exercises scap retraction Sitting Exercise Name reviewed HEP Side left Reps/Minutes 5 sec x2 Comments cued tall posture head back neutral, helpful prep progressive ex Standing Exercises pendulum Standing Exercise Name does all the time- helps Side left Resistance PROM Reps/Minutes 30x3 Comments cues for form Manual Therapy Treatment Soft Tissue Mobilization 1 Body Location L Mobilization Type Myofascial Release,Rolling, Sustained Pressure Intensity/Depth Moderate Body Position Sidelying Comments UT, lev scap, infra and supraspinatus, posterior deltoid, teres, subscap Joint Mobilizations GH jt Joint L Direction posterior, inferior glide Grade II Body Position Hooklying Comments manual, good feedback scapulthoracic Joint L Direction retraction, depression Grade II Body Position Sidelying Comments good feedback response PT-OP-R Modalities Start: 10/11/21 07:32 Freq: Status: Active Protocol: Document 11/16/21 10:36 SP (Rec: 11/16/21 11:58 SP [id number]) Hot Pack/Cold Pack Treatment CP Location L shld Patient Position Hooklying Treatment Duration (minutes) 10 Patient Tolerance Good Comments good feedback- states uses CP at home at night 2-3 times. PT-OP-T Assessment and Plan Start: 10/11/21 07:32 Freq: Status: Active Protocol: Document 11/25/21 07:30 AMB (Rec: 11/25/21 09:31 AMB [id number]) Physical Therapy Assessment Goals Two Impairment ADLs Short Term Goal (STG) Davide will pull up his pants without an increase in baseline pain. STG Duration 4 weeks Candy Puller Goal (LTG) Davide will sleep for 6 hours without waking due to shoulder pain. 11/16/21: states hurts sleeping , finds self modified L sidelying for support but doesn't sleep long, alot time spent finding confortable position and using suggestions . LTG Duration 8 weeks (pain limits) One Impairment Range of motion Short Term Goal (STG) Davide will improve his passive flexion of L shoulder to 150 degrees. 11/16/21: PROM supine: FF 165 deg ABD 140 deg. STG Duration 4 weeks progresssing Candy Puller Goal (LTG) Davide will improve his active flexion of L shoulder to 150 degrees. 11/16/21: supine: FF 144 deg, ABD 90, seated ER 75 deg but all painful LTG Duration 8 weeks progressing Assessment Summary Assessment Discussed care further with patient, would recommend follow up with ortho. Pt does well with pendulum (although required more education in appropriate form today). But otherwise even light isometrics continue to flare sx. Physical Therapy Plan Next Visit Focus/Plan Next Note Type Treatment Note Next Visit Plan Recheck: limited HEP, see assessment 11/16/21. POC: Continue K taping , shld ER AROM, extension isometric.
--- NOTE | 2021-12-03 09:43 | PT.OTN ---
Current Diagnoses Pain in left shoulder (12/03/21) Adhesive capsulitis of unspecified shoulder (12/03/21) Physical Therapy Treatment Note PT-OP-A Visit Information Start: 10/11/21 07:32 Freq: Status: Active Protocol: Document 12/03/21 08:18 AMB (Rec: 12/03/21 08:35 AMB [id number]) Out-Patient Physical Therapy Visit Information Visit Information Visit Type Treatment Note Visit Start Time 07:30 Visit Stop Time 08:15 Total Visit Minutes 45 Visit Number 9 PT-OP-B Current Condition Start: 10/11/21 07:32 Freq: Status: Active Protocol: Document 10/11/21 07:30 AMB (Rec: 10/11/21 07:52 AMB [id number]) Current Condition History of Current Condition Onset Date 3 months Current Complaints L shoulder History of Current Condition Insidious onset left shoulder pain. Does not remember any falls or heavy lifting, but one day got into bed and shoulder was very painful. Davide reports Sleeping is very painful. 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 Denies clicking/locking. Painful to lift arm but pushes through it. Pain with pulling pants up. Tries to use right arm to do most things. Personal Factors Other Personal Factors That May Effect DMII, Therapy/Recovery PT-OP-C Subjective Start: 10/11/21 07:32 Freq: Status: Active Protocol: Document 12/03/21 08:18 AMB (Rec: 12/03/21 08:35 AMB [id number]) OP-PT Subjective Patient Comments Patient Comments Pt reports PT-OP-J Posture/Palpation/Skin Start: 10/11/21 07:32 Freq: Status: Active Protocol: Document 10/11/21 07:30 AMB (Rec: 10/12/21 08:53 AMB [id number]) Posture Evaluation Comments Posture Comments Forward head, but no scapular winging PT-OP-K Range of Motion Start: 10/11/21 07:32 Freq: Status: Active Protocol: Document 11/16/21 10:36 SP (Rec: 11/16/21 11:58 SP [id number]) Shoulder Goniometric Range of Motion Shoulder Left Passive Shoulder ROM WFL No Testing Position Supine Flexion 144 Abduction 90 External Rotation at 0 degrees Abduction 42 Comments supine L shld AROM: FF 131 last> 144 deg today, AAROM 165 deg ABD 90 last> 90deg today, AAROM 140 ER 42 deg, sitting 68last >75 deg today PT-OP-L Special Tests Start: 10/11/21 07:32 Freq: Status: Active Protocol: Document 10/11/21 07:30 AMB (Rec: 10/12/21 08:53 AMB [id number]) Special Tests Shoulder Special Tests Lift-Off Rotator Cuff Test Results + PT-OP-Q Treatments Start: 10/11/21 07:32 Freq: Status: Active Protocol: Document 12/03/21 09:06 AMB (Rec: 12/03/21 09:10 AMB [id number]) Therapeutic Exercises Sitting Exercises UT, lev scap stretch Sitting Exercise Name reviewed HEP Side left Resistance RUE over pressure gentle stretch Reps/Minutes 30 x2 Comments good form and stretch response scap retraction Sitting Exercise Name reviewed HEP Side left Reps/Minutes 5 sec x2 Comments cued tall posture head back neutral, helpful prep progressive ex Standing Exercises pendulum Standing Exercise Name does all the time- helps Side left Resistance PROM Reps/Minutes 30x3 Comments cues for form Manual Therapy Treatment Soft Tissue Mobilization 1 Body Location L Mobilization Type Myofascial Release,Rolling, Sustained Pressure Intensity/Depth Moderate Body Position Sidelying Comments UT, lev scap, infra and supraspinatus, posterior deltoid, teres, subscap Taping 1 Body Location L shoulder Type of Tape Kinesio Tape Comments V strip top/posterior GH joint diagonal to spine retraction and elevation support, -- tried to avoid any areas of irritation, encouraged pt taking off in a couple of days to avoid skin irritation PT-OP-R Modalities Start: 10/11/21 07:32 Freq: Status: Active Protocol: Document 11/16/21 10:36 SP (Rec: 11/16/21 11:58 SP [id number]) Hot Pack/Cold Pack Treatment CP Location L shld Patient Position Hooklying Treatment Duration (minutes) 10 Patient Tolerance Good Comments good feedback- states uses CP at home at night 2-3 times. PT-OP-T Assessment and Plan Start: 10/11/21 07:32 Freq: Status: Active Protocol: Document 12/03/21 08:18 AMB (Rec: 12/03/21 08:35 AMB [id number]) Physical Therapy Assessment Goals Two Impairment ADLs Short Term Goal (STG) Davide will pull up his pants without an increase in baseline pain. STG Duration NOT MET Electric Motor Repairing Supervisor Goal (LTG) Davide will sleep for 6 hours without waking due to shoulder pain. states hurts sleeping, finds self modified L sidelying for support but doesn't sleep long , alot time spent finding confortable position and using suggestions. LTG Duration 8 weeks (pain limits) One Impairment Range of motion Short Term Goal (STG) Davide will improve his passive flexion of L shoulder to 150 degrees. STG Duration MET Snf Goal (LTG) Davide will improve his active flexion of L shoulder to 150 degrees. LTG Duration NOT MET Assessment Summary Assessment Davide has met his insurance limit for physical therapy (9 total visits) HE continues to have pain. He did have good pain relief with injection from ortho but the relief was brief in nature. Has benefited from education regarding the nature of his injury and taping. Does perform his HEP, but continues to have pain with shoulder movement above 90 degrees. Physical Therapy Plan Discharge Physical Therapy Discharge Comments Insurance cap
== END 2021-12-06 10:49 ==
LOC: PHYS 08:15
PROVIDERS: Family Provider Family Medicine; PCP Family Medicine; Referring Provider Family Medicine; Visit Provider Family Medicine
DX: M75.00 Adhesive capsulitis of unspecified shoulder (principal); M25.512 Pain in left shoulder
CPT/HCPCS: 97010; 97110; 97140; 97161; 97535

== ENCOUNTER → 2021-12-16 19:40 | Outpatient (CLI) | payer OTHER, MEDICAID, SELFPAY ==
[2021-06-28 16:29] VITALS: BMI 36.6
--- NOTE | 2021-12-16 | DI.MRI.S_ITS ---
PROCEDURE: MR SHOULDER LT WO CON INDICATIONS: LEFT SHOULDER PAIN TECHNIQUE: Noncontrast oblique coronal T2 fast spin echo with fat saturation, oblique sagittal T1 spin echo and T2 fast spin echo with fat saturation, axial T1 spin echo and T2 fast spin echo with fat saturation through the shoulder. COMPARISON: Located Within [facility], CR, XR SHOULDER LT MIN 2V, 10/01/2021, 12:50. FINDINGS: Image quality: Excellent. Rotator cuff: Tendinosis and low-grade articular and bursal surface partial thickness tear involving distal supraspinatus at its insertion on the humeral head is seen extending to musculotendinous junction. Distal infraspinatus tendinosis is seen. Tendinosis and low-grade intrasubstance partial-thickness tear involving distal subscapularis is also noted. No full-thickness rotator cuff tendon rupture. Small calcifications are noted within distal supraspinatus at its insertion on humeral head suggestive of hydroxyapatite deposition disease. Sagittal images demonstrate no significant muscle atrophy. Bones and bursae: No bone marrow contusions or fractures. Moderate acromioclavicular joint osteoarthritic changes are seen with joint space narrowing and prominent downward osteophyte formation depressing the musculotendinous junction of supraspinatus. Mild to moderate glenohumeral joint osteoarthritic changes also seen. There is small amount of subacromial subdeltoid bursal fluid. Capsule and soft tissues: Signal abnormality and contour irregularity involving superior anterior labrum at 12 to 2 o'clock position is seen. Similar signal abnormality involving anterior inferior labrum at 4 to 6 o'clock position is also noted. The long head of the biceps tendinosis is seen. The rotator interval appears normal, without fibrosis. The coracohumeral ligament is normal in thickness. IMPRESSION: 1. Tendinosis and low-grade articular and bursal surface partial thickness tear involving distal supraspinatus extending to musculotendinous junction. Distal infraspinatus tendinosis. Low-grade intrasubstance partial-thickness tear involving distal subscapularis. No full-thickness rotator cuff tendon rupture. Suggestion of hydroxyapatite deposition disease involving distal supraspinatus at its insertion on the humeral head (calcific tendinitis). 2. Moderate acromioclavicular joint osteoarthritis and [id number] glenohumeral joint osteoarthritis. No fracture or dislocation. Small subacromial subdeltoid bursal fluid. 3. Suggestion of superior anterior labral tear at 12 to 2 o'clock position and anterior-inferior labral tear at 4 to 6 o'clock position. 4. Proximal intra-articular portion of long head of biceps tendinosis. Dictated by: Toan Sadler M.D. on 12/17/2021 at 8:51 Approved by: Toan Sadler M.D. on 12/17/2021 at 9:01
== END ==
PROVIDERS: Family Provider Family Medicine; PCP Family Medicine; Referring Provider Orthopaedic Surgery; Visit Provider Orthopaedic Surgery
DX: M75.112 Incomplete rotator cuff tear or rupture of left shoulder, not specified as traumatic (principal); M19.012 Primary osteoarthritis, left shoulder; M75.42 Impingement syndrome of left shoulder; M75.02 Adhesive capsulitis of left shoulder
CPT/HCPCS: 73221

== ENCOUNTER 2022-03-12 17:14 | Emergency (ER) | payer OTHER, MEDICAID, SELFPAY ==
[2021-06-28 16:29] VITALS: BMI 36.6
[2022-03-12 18:52] VITALS: BP 163/89; PULSE 69; RESP 18; TEMP 36.2; O2SAT 100; BMI 35.2
[2022-03-12 19:27] LABS: Add Manual Diff / Slide Review NO; Basophils Absolute Auto 0 /uL (0-100); Basophils Percent Auto 0.6 % (0-2); Eosinophils Absolute Auto 100 /uL (0-450); Eosinophils Percent Auto 1.9 % (2-4); Hematocrit 41.3 % (41-53); Hemoglobin 14.1 g/dL (13.5-17.5); Lymphocytes Absolute Auto 2500 /uL (1100-4500); Lymphocytes Percent Auto 32.9 % (25-40); Mean Corpuscular HGB Conc 34.1 % (30-36); Mean Corpuscular Volume 90.8 fL (80-100); Monocytes Absolute Auto 500 /uL (0-900); Monocytes Percent Auto 7.3 % (3-14); Neutrophils Absolute Auto 4300 /uL (1500-7000); Neutrophils Percent Auto 57.3 % (50-75); Platelet Count 256 X10^3/uL (150-400); Red Blood Cell Count 4.55 X10^6/uL (4.5-5.9); Red Cell Distribution Width 13.7 % (11.6-14.8); White Blood Cell Count 7.5 X10^3/uL (4.5-11.0)
[2022-03-12 19:36] LABS: Alanine Aminotransferase 28 IU/L (<50); Albumin 4.1 g/dL (3.5-5.0); Albumin Globulin Ratio 1.3 (1.0-2.8); Alkaline Phosphatase 46 U/L (38-126); Aspartate Aminotransferase 24 IU/L (17-59); BUN Creatinine Ratio 23.2 (6-22); Bilirubin Total 0.4 mg/dL (0.2-1.3); Blood Urea Nitrogen 16 mg/dL (9-20); Calcium 9.2 mg/dL (8.4-10.2); Carbon Dioxide 26 mmol/L (22-32); Chloride 100 mmol/L (98-107); Estimated Glomerular Filt Rate > 60 mL/min (>60); Globulin 3.2 g/dL (1.7-4.1); Glucose 330 mg/dL (70-100); HEMOLYSIS 45 (0-50); Lipase 59 U/L (23-300); Potassium 3.8 mmol/L (3.4-5.1); Sodium 137 mmol/L (137-145); Total Protein 7.3 g/dL (6.3-8.2)
--- NOTE | 2022-03-13 00:35 | ED_ITS ---
HPI - Abdominal Pain General Chief Complaint: Abdominal Pain Stated Complaint: abdominal pain hx diverticulitis Time Seen by Provider: 03/13/22 00:34 Source: patient Mode of arrival: Ambulatory Limitations: no limitations History of Present Illness HPI narrative: This is a 61-year-old male with complaint of initially suprapubic pain has moved to the left lower quadrant. No flank pain. No fevers or chills. No nausea or vomiting. No diarrhea constipation, no black or bloody stools. Patient did note some increased frequency last night he was up 4 or 5 times instead of his usual 1-2. No dysuria, incontinence or sense of urgency. Patient has had diverticulitis in the past he states this feels somewhat similar although the left lower locations a little different. He states he has a history of diabetes is on metformin, dyslipidemia on atorvastatin, Prilosec and a daily aspirin. Denies any prior surgeries. Allergic to penicillin. Smokes a pack per day, no alcohol or illicit. Related Data Home Medications Medication Instructions Recorded Confirmed aspirin 81 mg tablet,delayed 81 mg PO DAILY 05/27/20 11/04/21 release (Adult Aspirin Regimen) omeprazole magnesium 2.5 mg oral 10 mg PO DAILY 05/27/20 11/04/21 suspension,delayed release (Prilosec) naproxen sodium 220 mg capsule 220 mg PO BID PRN pain / discomfort 12/04/20 11/04/21 (Aleve) Previous Rx's Medication Instructions Recorded blood sugar diagnostic (Blood #100 ea 04/13/21 Glucose Test strips) blood-glucose meter #1 ea 04/13/21 lancets 26 gauge #100 ea 04/13/21 peg 3350-electrolytes 236 240 ml PO Q10M #4,000 mL 07/01/21 gram-22.74 gram-6.74 gram-5.86 gram solution (Golytely) cyclobenzaprine 5 mg tablet 5 mg PO TID PRN muscle spasm #20 07/21/21 tabs nicotine 21 mg/24 hr daily 1 patch transdermal Q24H #28 ea 10/20/21 transdermal patch nicotine 14 mg/24 hr daily 1 patch transdermal Q24H #14 ea 11/09/21 transdermal patch nicotine 7 mg/24 hr daily 1 patch transdermal Q24H #14 ea 11/09/21 transdermal patch Advair Diskus 250 mcg-50 mcg/dose See Rx Instructions .Route 03/07/22 powder for inhalation (fluticasone .COMPLEX #60 blisters propion-salmeterol) albuterol sulfate 90 mcg/actuation See Rx Instructions .Route 03/08/22 aerosol inhaler .COMPLEX #8.5 grams atorvastatin 20 mg tablet (Lipitor) 20 mg PO BEDTIME hyperlipidemia; 03/08/22 diabetes #90 tabs ciprofloxacin HCl 500 mg tablet 500 mg PO Q12H #20 tabs 03/13/22 metronidazole 500 mg tablet 500 mg PO BID 10 days #20 tabs 03/13/22 Allergies Allergy/AdvReac Type Severity Reaction Status Date / Time Penicillins Allergy Severe Rash Verified 02/15/22 09:33 codeine Allergy Verified 02/15/22 09:33 Review of Systems Review of Systems ROS Unobtainable: All systems reviewed & are unremarkable except as noted in HPI and below Patient History Medical History Abnormal laboratory test result Asthma Diverticulitis Elevated blood pressure reading without diagnosis of hypertension Fatigue GERD (gastroesophageal reflux disease) Respiratory infection Sinusitis SOB (shortness of breath) Social History household members: spouse Smoking Status: Current every day smoker alcohol intake: never substance use type: does not use Smoking Status: Current every day smoker alcohol intake frequency: 0-2 drinks per day Substance Use Type: does not use Exam Narrative Exam Narrative: GENERAL: Alert and oriented x three, male in mild distress HEENT: Head normocephalic, atraumatic, EOMI, pupils reactive, face symmetric, moist mucous membranes NECK: Supple, full range of motion CARDIOVASCULAR: Regular rate and rhythm without murmurs, rubs or gallops. RESPIRATORY: Breath sounds equal bilaterally, no wheezes rales or rhonchi. ABDOMEN: Soft, mild suprapubic and left lower quadrant tenderness. Normoactive bowel sounds all 4 quadrants. No guarding or rebound, rigidity, no mass. : No CVA tenderness EXTREMITIES: Normal range of motion, no clubbing or edema. Neurovascularly in tact NEUROLOGICAL: Cranial nerves II through XII grossly intact. Moving all extremities SKIN: Warm, dry, no petechiae, no rashes or lesions. Initial Vital Signs Initial Vital Signs: Vital Signs Temperature 97.2 F L 09/24/22 18:52 Pulse Rate 69 03/12/22 18:52 Respiratory Rate 18 03/12/22 18:52 Blood Pressure 163/89 H 03/12/22 18:52 Pulse Oximetry 100 03/12/22 18:52 Oxygen Delivery Method 03/12/22 18:52 Course Orders Ordered: Discontinued Medications Hydrocodone Bitart/Acetaminophen (Hydrocodone/Acet 5/325 Prepack) 1 bottle MISC SEEINSTR ONE Stop: 03/13/22 01:13 Last Admin: 03/13/22 01:22 Dose: 1 bottle Documented By: CALI Ciprofloxacin (Ciprofloxacin 250 Mg Tablet) 500 mg PO NOW ONE Stop: 03/13/22 01:12 Last Admin: 03/13/22 01:22 Dose: 500 mg Documented By: CALI Metronidazole (Metronidazole 500 Mg Tablet) 500 mg PO NOW ONE Stop: 03/13/22 01:13 Last Admin: 03/13/22 01:22 Dose: 500 mg Documented By: CALI Vital Signs Vital signs: Vital Signs - 8 hr 03/13/22 01:16 Temperature 98.6 F Pulse Rate 64 Respiratory Rate 15 Blood Pressure 116/87 Pulse Oximetry 97 Oxygen Delivery Method Room Air MDM - Abdominal Pain Lab Data Result diagrams: 03/12/22 19:10 03/12/22 19:10 Labs: Lab Results 03/12/22 03/12/22 Range/Units 19:10 19:10 WBC 7.5 (4.5-11.0) X10^3/uL RBC 4.55 (4.5-5.9) X10^6/uL Hgb 14.1 (13.5-17.5) g/dL Hct 41.3 (41-53) % MCV 90.8 (80-100) fL MCH 31.0 (26-34) PG MCHC 34.1 (30-36) % RDW 13.7 (11.6-14.8) % Plt Count 256 (150-400) X10^3/uL Neut % (Auto) 57.3 (50-75) % Lymph % (Auto) 32.9 (25-40) % [place] % (Auto) 7.3 (3-14) % Eos % (Auto) 1.9 L (2-4) % Baso % (Auto) 0.6 (0-2) % Neut # (Auto) 4300 (4716-3596) /uL Lymph # (Auto) 2500 (4281-1514) /uL [place] # (Auto) 500 (0-900) /uL Eos # (Auto) 100 (0-450) /uL Baso # (Auto) 0 (0-100) /uL Sodium 137 (137-145) mmol/L Potassium 3.8 (3.4-5.1) mmol/L Chloride 100 (98-107) mmol/L Carbon Dioxide 26 (22-32) mmol/L BUN 16 (9-20) mg/dL Creatinine 0.69 (0.66-1.25) mg/dL Estimated GFR > 60 (>60) mL/min BUN/Creatinine Ratio 23.2 H (6-22) Glucose 330 H (70-100) mg/dL Calcium 9.2 (8.4-10.2) mg/dL Total Bilirubin 0.4 (0.2-1.3) mg/dL AST 24 (17-59) IU/L ALT 28 (<50) IU/L Alkaline Phosphatase 46 (38-126) U/L Total Protein 7.3 (6.3-8.2) g/dL Albumin 4.1 (3.5-5.0) g/dL Globulin 3.2 (1.7-4.1) g/dL Albumin/Globulin Ratio 1.3 (1.0-2.8) Lipase 59 (23-300) U/L Point of care testing: Urine Dip Bedside Urine Glucose 500 mg/dl Bedside Urine Bilirubin - Negative Bedside Urine Ketone - Negative Urine Specific [place] 1.030 Bedside Urine Occult Blood - Negative Bedside Urine pH 6.0 Bedside Urine Protein - Negative Bedside Urine Urobilinogen - Negative Bedside Urine Nitrite - Negative Bedside Urine Leukocytes - Negative Esterase ECG Data Attestation: I personally reviewed and interpreted this ECG as follows: Interpretation: Sinus rhythm rate of 61 [place] 180 QRS 90 QTC of 402. T-wave depression inverted in [address] changes appreciated MDM Narrative Medical decision making narrative: Discussed with patient with his history of diverticulitis and location suspect diverticular source. Patient's CBC, CMP and lipase are negative. Patient urine sample shows glucose he does have known diabetes but no other signs of infection. Based on his exam findings and history diverticulitis I would cover him today his tender but has no rebound or guarding. He is otherwise has reassuring labs and vital signs. Return precautions discussed all questions answered. Discharge Plan Departure Patient Disposition: Home Clinical Impression: Diverticulitis Instructions: DI for Diverticulitis Activity Restrictions/Additional Instructions: Follow-up for recheck. I suspect your symptoms are from diverticulitis and I would start you on antibiotics. Take both antibiotics until completely gone. [facility] You have a prescription for [place] which is a narcotic. You may take 1 tablet every 6 hours as needed for pain. This medication can make you sleepy do not drive, perform hazardous activities or make any major decisions while taking it. This medication will make you constipated please take a stool softener once to twice daily until stools are soft and regular. Please return for fevers, new or worsening abdominal, back or flank pain, persistent vomiting, lightheadedness or passing out, black or bloody stools or o ther new or concerning symptoms. Prescriptions: New ciprofloxacin HCl 500 mg tablet 500 mg PO Q12H Qty: 20 0RF metronidazole 500 mg tablet 500 mg PO BID 10 Days Qty: 20 0RF No Action cyclobenzaprine 5 mg tablet 5 mg PO TID PRN (Reason: muscle spasm) Qty: 20 0RF (DME) blood-glucose meter Misc See Rx Instructions .Route Qty: 1 0RF Rx Instructions: Use to check blood sugar 3 times daily before meals (DME) Blood Glucose Test Strip See Rx Instructions .Route Qty: 100 3RF Rx Instructions: Use to check blood sugars three times daily before meals (DME) lancets 26 gauge misc See Rx Instructions .Route Qty: 100 3RF Rx Instructions: Use to check blood sugar three times daily before meals nicotine 21 mg/24 hr patch 24 hour 1 patch transdermal Q24H Qty: 28 0RF nicotine 14 mg/24 hr patch 24 hour 1 patch transdermal Q24H Qty: 14 0RF nicotine 7 mg/24 hr patch 24 hour 1 patch transdermal Q24H Qty: 14 0RF fluticasone propion-salmeterol [Advair Diskus] 250-50 mcg/dose blister with device See Rx Instructions .ROUTE .COMPLEX Qty: 60 0RF Dose Instruction: inhale 1 puff by mouth and INTO THE LUNGS twice a day Rinse mouth after use Rx Instructions: inhale 1 puff by mouth and INTO THE LUNGS twice a day Rinse mouth after use albuterol sulfate 90 mcg/actuation HFA aerosol inhaler See Rx Instructions .ROUTE .COMPLEX Qty: 8.5 1RF Dose Instruction: inhale 2 puffs by mouth every 4 to 6 hours if needed for shortness of breath or wheezing Rx Instructions: inhale 2 puffs by mouth every 4 to 6 hours if needed for shortness of breath or wheezing atorvastatin [Lipitor] 20 mg tablet 20 mg PO BEDTIME Qty: 90 0RF Prilosec 2.5 mg susp,delayed release for recon 10 mg PO DAILY aspirin [Adult Aspirin Regimen] 81 mg tablet,delayed release (DR/EC) 81 mg PO DAILY peg 3350-electrolytes [Golytely] 236-22.74-6.74 -5.86 gram recon soln 240 ml PO Q10M Qty: 4000 0RF Rx Instructions: until fecal effluent is clear naproxen sodium [Aleve] 220 mg Capsule 220 mg PO BID PRN (Reason: pain / discomfort) Referrals: Danna Maldonado MD [Primary Care Provider] - Visit Report Forms: Patient Portal/API
[2022-03-13 01:16] VITALS: BP 116/87; PULSE 64; RESP 15; TEMP 37; O2SAT 97
[2022-03-13] MEDS: HYDROCODONE/ACET 5/325 PREPACK 1 BOTTLE MISC (01:22)
[2022-03-13] MEDS: CIPROFLOXACIN 250 MG TABLET 500 MG PO (01:22)
[2022-03-13] MEDS: metroNIDAZOLE 500 MG TABLET PO (01:22)
== END 2022-03-13 01:25 | disposition home or self-care (01) ==
PROVIDERS: Emergency Provider Emergency Medicine; Family Provider Family Medicine; PCP Family Medicine
DX: K57.92 Diverticulitis of intestine, part unspecified, without perforation or abscess without bleeding (principal)
CPT/HCPCS: 36415; 80053; 81003; 83690; 85025; 93005; 99284

== ENCOUNTER → 2022-04-19 11:31 | Outpatient (CLI) | payer OTHER, MEDICAID, SELFPAY ==
[2021-06-28 16:29] VITALS: BMI 36.6
[2022-04-19 12:57] LABS: Hemoglobin A1C% w Est Avg Glu 8.4 % (4.0-6.0)
[2022-04-19 13:25] LABS: BUN Creatinine Ratio 27.9 (6-22); Blood Urea Nitrogen 17 mg/dL (9-20); Calcium 9.5 mg/dL (8.4-10.2); Carbon Dioxide 24 mmol/L (22-32); Chloride 102 mmol/L (98-107); Cholesterol 154 mg/dL (140-199); Estimated Glomerular Filt Rate > 60 mL/min (>60); Glucose 217 mg/dL (80-110); HDL Cholesterol 41 mg/dL (40-60); HEMOLYSIS < 15 (0-50); LDL Cholesterol Calculated 59 mg/dL (<100); Potassium 4.2 mmol/L (3.4-5.1); Sodium 138 mmol/L (137-145); Triglycerides 268 mg/dL (35-150)
[2022-04-19 15:31] LABS: Protein (Total) Urine Random 10 mg/dL (0-12)
== END ==
PROVIDERS: Family Provider Family Medicine; PCP Family Medicine; Referring Provider Family Medicine; Visit Provider Family Medicine
DX: E11.9 Type 2 diabetes mellitus without complications (principal); E78.5 Hyperlipidemia, unspecified
CPT/HCPCS: 36415; 80048; 80061; 82570; 83036; 84156

== ENCOUNTER → 2022-06-08 10:20 | Outpatient (CLI) | payer OTHER, MEDICAID, SELFPAY ==
[2021-06-28 16:29] VITALS: BMI 36.6
[2022-06-08 11:31] LABS: Influenza A - CEPHEID Flu A NEGATIVE (NEGATIVE); Influenza B - CEPHEID Flu B NEGATIVE (NEGATIVE); Respiratory Syncytial Virus Negative (Negative)
[2022-06-08 11:32] LABS: COVID-19 CEPHEID 4-PLEX PCR POSITIVE (Negative)
== END ==
PROVIDERS: Family Provider Orthopaedic Surgery; PCP Family Medicine; Visit Provider Family Medicine
DX: R05.9 Cough, unspecified (principal); U07.1 COVID-19; Z20.822 Contact with and (suspected) exposure to COVID-19
CPT/HCPCS: 0241U

== ENCOUNTER 2022-06-18 11:31 | Emergency (ER) | payer OTHER, MEDICAID, SELFPAY ==
[2021-06-28 16:29] VITALS: BMI 36.6
[2022-06-18] VITALS (8 sets, daily range): BP systolic 132–164; BP diastolic 84–93; PULSE 71–87; RESP 19; TEMP 36.5; O2SAT 95–98
--- NOTE | 2022-06-18 11:40 | DI.RAD.S_ITS ---
PROCEDURE: XR CHEST 1V INDICATIONS: chest pain TECHNIQUE: One view of the chest was acquired. COMPARISON: [facility], CR, XR CHEST 2V, 01/21/2021, 15:59. FINDINGS: Surgical changes and devices: None. Lungs and pleura: Lungs are clear. No pleural effusions or pneumothorax. Mediastinum: Mediastinal contours appear normal. Heart size is normal. Bones and chest wall: No suspicious bony lesions. Overlying soft tissues appear unremarkable. IMPRESSION: No acute cardiopulmonary findings Approved by: Antonio Delgadillo M.D. on 06/18/2022 at 12:42
--- NOTE | 2022-06-18 11:50 | ED.CHESTPAIN ---
HPI - Chest Pain General Chief Complaint: Chest Pain Stated Complaint: CHEST PAINS Time Seen by Provider: 06/18/22 11:50 History of Present Illness HPI narrative: Patient is a 62-year-old male history of diabetes presenting today with chest pressure ongoing for the last couple of days. He was actually seen and evaluated at his PCP last week for medication refills it was noted that time that some family members were ill. Was tested for COVID at that time and was positive but never informed that he had COVID-19. Continued to have some chest pressure nonradiating he denies any shortness of breath. He feels like his eyes little bit Kayla not significant sore throat or body aches. He does not feel like he has been coughing very hard. He has been eating and drinking as normal. Reports multiple family members continue to be sick especially his . He was worried today due to the chest pressure. He denies any worsening chest pain with exertion. It is constant in nature Related Data Home Medications Medication Instructions Recorded Confirmed aspirin 81 mg tablet,delayed 81 mg PO DAILY 05/27/20 05/04/22 release (Adult Aspirin Regimen) omeprazole magnesium 2.5 mg oral 10 mg PO DAILY 05/27/20 05/04/22 suspension,delayed release (Prilosec) naproxen sodium 220 mg capsule 220 mg PO BID PRN pain / discomfort 12/04/20 05/04/22 (Aleve) Previous Rx's Medication Instructions Recorded blood sugar diagnostic (Blood #100 ea 04/13/21 Glucose Test strips) blood-glucose meter #1 ea 04/13/21 lancets 26 gauge #100 ea 04/13/21 peg 3350-electrolytes 236 240 ml PO Q10M #4,000 mL 07/01/21 gram-22.74 gram-6.74 gram-5.86 gram solution (Golytely) cyclobenzaprine 5 mg tablet 5 mg PO TID PRN muscle spasm #20 07/21/21 tabs nicotine 21 mg/24 hr daily 1 patch transdermal Q24H #28 ea 10/20/21 transdermal patch nicotine 14 mg/24 hr daily 1 patch transdermal Q24H #14 ea 11/09/21 transdermal patch nicotine 7 mg/24 hr daily 1 patch transdermal Q24H #14 ea 11/09/21 transdermal patch metformin 500 mg tablet See Rx Instructions .Route 05/02/22 .COMPLEX #360 tabs Advair Diskus 250 mcg-50 mcg/dose See Rx Instructions .Route 05/10/22 powder for inhalation (fluticasone .COMPLEX #60 blisters propion-salmeterol) liraglutide 0.6 mg/0.1 mL (18 mg/3 1.2 mg (0.2 mL) SUBCUT DAILY #6 mL 05/16/22 mL) subcutaneous pen injector (Victoza 2-Darius) albuterol sulfate 90 mcg/actuation See Rx Instructions .Route 05/26/22 aerosol inhaler .COMPLEX #8.5 grams atorvastatin 20 mg tablet (Lipitor) 20 mg PO BEDTIME hyperlipidemia; 06/17/22 diabetes #90 tabs Allergies Allergy/AdvReac Type Severity Reaction Status Date / Time Penicillins Allergy Severe Rash Verified 05/04/22 12:50 codeine Allergy Verified 05/04/22 12:50 Review of Systems Review of Systems ROS Unobtainable: All systems reviewed & are unremarkable except as noted in HPI and below Patient History Medical History Abnormal laboratory test result Asthma Colonic diverticular abscess Degenerative tear of glenoid labrum of left shoulder Diverticulitis Elevated blood pressure reading without diagnosis of hypertension Fatigue GERD (gastroesophageal reflux disease) JOYCE (obstructive sleep apnea) Partial tear subscapularis tendon Respiratory infection SOB (shortness of breath) Supraspinatus tendon tear Tendinosis of rotator cuff Tobacco consumption Social History household members: spouse Smoking Status: Current every day smoker alcohol intake: never substance use type: does not use Smoking Status: Current every day smoker alcohol intake frequency: 0-2 drinks per day Substance Use Type: does not use Exam Initial Vital Signs Initial Vital Signs: Vital Signs Temperature 97.7 F 06/18/22 11:40 Pulse Rate 87 06/18/22 11:40 Respiratory Rate 19 06/18/22 11:40 Blood Pressure 164/93 H 06/18/22 11:40 Pulse Oximetry 98 06/18/22 11:40 Oxygen Delivery Method 06/18/22 11:40 GENERAL: Alert pleasant 62-year-old male and in no acute distress. HEENT: Head atraumatic,EOMI, pupils reactive, face symmetric, moist mucous membranes CARDIOVASCULAR: Regular rate and rhythm without murmurs, rubs or gallops. RESPIRATORY: Breath sounds equal bilaterally, no wheezes rales or rhonchi. ABDOMEN: Soft, nontender. Normoactive bowel sounds all 4 quadrants. No guarding or rebound. EXTREMITIES: Normal range of motion, no clubbing or edema. Neurovascularly intact NEUROLOGICAL: Alert and oriented x4.Normal gait and speech. SKIN: Warm, dry, no laceration, no petechiae, no rashes or lesions. Scores HEART Score Heart Score history: Moderately Suspicious Heart Score EKG: Normal Heart Score Age: 45-64 years old Heart Score risk factors: 1-2 risk factors Heart Score troponin: < or = to normal limit Heart Score Total: 3 Course Orders Ordered: Discontinued Medications Aspirin (Aspirin 81 Mg Chew Tab) 324 mg PO NOW ONE Stop: 06/18/22 11:41 Last Admin: 06/18/22 13:03 Dose: 324 mg Documented By: AT Vital Signs Vital signs: Vital Signs - 8 hr 06/18/22 11:40 06/18/22 12:20 06/18/22 12:30 Temperature 97.7 F Pulse Rate 87 75 75 Respiratory Rate 19 Blood Pressure 164/93 H Pulse Oximetry 98 97 98 Oxygen Delivery Method Room Air Room Air 06/18/22 12:57 06/18/22 12:57 06/18/22 13:00 Temperature Pulse Rate 76 Respiratory Rate Blood Pressure 146/88 H 143/84 H Pulse Oximetry 95 Oxygen Delivery Method 06/18/22 13:00 06/18/22 13:30 06/18/22 13:30 Temperature Pulse Rate 75 74 Respiratory Rate Blood Pressure 142/87 H Pulse Oximetry 95 96 Oxygen Delivery Method 06/18/22 14:00 06/18/22 14:00 Temperature Pulse Rate 73 Respiratory Rate Blood Pressure 156/93 H Pulse Oximetry 96 Oxygen Delivery Method Room Air MDM - Chest Pain Lab Data Result diagrams: 06/18/22 12:03 06/18/22 12:03 Labs: Lab Results 06/18/22 06/18/22 06/18/22 Range/Units 12:03 12:03 12:03 WBC 8.4 (4.5-11.0) X10^3/uL RBC 4.58 (4.5-5.9) X10^6/uL Hgb 14.4 (13.5-17.5) g/dL Hct 41.1 (41-53) % MCV 89.8 (80-100) fL MCH 31.5 (26-34) PG MCHC 35.0 (30-36) % RDW 13.6 (11.6-14.8) % Plt Count 267 (150-400) X10^3/uL Neut % (Auto) 59.2 (50-75) % Lymph % (Auto) 30.1 (25-40) % Ransom % (Auto) 8.0 (3-14) % Eos % (Auto) 2.0 (2-4) % Baso % (Auto) 0.7 (0-2) % Neut # (Auto) 5000 (5531-4156) /uL Lymph # (Auto) 2500 (6693-9036) /uL Ransom # (Auto) 700 (0-900) /uL Eos # (Auto) 200 (0-450) /uL Baso # (Auto) 100 (0-100) /uL PT 12.1 (10.1-12.7) SECONDS INR 1.1 (0.9-1.3) APTT 29 (26-36) SECONDS Sodium 139 (137-145) mmol/L Potassium 4.0 (3.4-5.1) mmol/L Chloride 103 (98-107) mmol/L Carbon Dioxide 27 (22-32) mmol/L BUN 14 (9-20) mg/dL Creatinine 0.54 L (0.66-1.25) mg/dL Estimated GFR > 60 (>60) mL/min BUN/Creatinine Ratio 25.9 H (6-22) Glucose 118 H (80-110) mg/dL Calcium 9.0 (8.4-10.2) mg/dL Magnesium 1.5 L (1.6-2.3) mg/dL Total Bilirubin 0.4 (0.2-1.3) mg/dL AST 26 (17-59) IU/L ALT 32 (<50) IU/L Alkaline Phosphatase 48 (38-126) U/L Total Creatine Kinase 93 (55-170) U/L CK-MB (CK-2) TNP CK-MB (CK-2) Rel Index TNP Troponin I < 0.012 (0.01-0.034) ng/mL Total Protein 7.2 (6.3-8.2) g/dL Albumin 4.2 (3.5-5.0) g/dL Globulin 3.0 (1.7-4.1) g/dL Albumin/Globulin Ratio 1.4 (1.0-2.8) Lipase 201 (23-300) U/L SARS-CoV-2 (PCR) (Negative) Influenza A (RT-PCR) (NEGATIVE) Influenza B (RT-PCR) (NEGATIVE) RSV (PCR) (Negative) 06/18/22 06/18/22 Range/Units 12:52 14:04 WBC (4.5-11.0) X10^3/uL RBC (4.5-5.9) X10^6/uL Hgb (13.5-17.5) g/dL Hct (41-53) % MCV (80-100) fL MCH (26-34) PG MCHC (30-36) % RDW (11.6-14.8) % Plt Count (150-400) X10^3/uL Neut % (Auto) (50-75) % Lymph % (Auto) (25-40) % Ransom % (Auto) (3-14) % Eos % (Auto) (2-4) % Baso % (Auto) (0-2) % Neut # (Auto) (4469-5972) /uL Lymph # (Auto) (7208-6517) /uL Ransom # (Auto) (0-900) /uL Eos # (Auto) (0-450) /uL Baso # (Auto) (0-100) /uL PT (10.1-12.7) SECONDS INR (0.9-1.3) APTT (26-36) SECONDS Sodium (137-145) mmol/L Potassium (3.4-5.1) mmol/L Chloride (98-107) mmol/L Carbon Dioxide (22-32) mmol/L BUN (9-20) mg/dL Creatinine (0.66-1.25) mg/dL Estimated GFR (>60) mL/min BUN/Creatinine Ratio (6-22) Glucose (80-110) mg/dL Calcium (8.4-10.2) mg/dL Magnesium (1.6-2.3) mg/dL Total Bilirubin (0.2-1.3) mg/dL AST (17-59) IU/L ALT (<50) IU/L Alkaline Phosphatase (38-126) U/L Total Creatine Kinase (55-170) U/L CK-MB (CK-2) CK-MB (CK-2) Rel Index Troponin I < 0.012 (0.01-0.034) ng/mL Total Protein (6.3-8.2) g/dL Albumin (3.5-5.0) g/dL Globulin (1.7-4.1) g/dL Albumin/Globulin Ratio (1.0-2.8) Lipase (23-300) U/L SARS-CoV-2 (PCR) Positive H (Negative) Influenza A (RT-PCR) Flu a negative (NEGATIVE) Influenza B (RT-PCR) Flu b negative (NEGATIVE) RSV (PCR) Negative (Negative) Imaging Data Chest x-ray: Radiologist's Impression: XRay Report Signed Patient: Jourdan Augustine MR#: [id number] : 1960 Acct:[id number] Age/Sex: 62 / M Date of Service: 06/18/22 Loc: ED Accession Number: [id number] ?? Procedure: XR chest 1V Ordering Provider: Samara Gage D.O. PROCEDURE:? XR CHEST 1V ? INDICATIONS:? chest pain ? TECHNIQUE:? One view of the chest was acquired.? ? COMPARISON:? [facility], , XR CHEST 2V, 01/21/2021, 15:59. ? FINDINGS:? ? Surgical changes and devices:? None.? ? Lungs and pleura:? Lungs are clear.? No pleural effusions or pneumothorax.? ? Mediastinum:? Mediastinal contours appear normal.? Heart size is normal.? ? Bones and chest wall:? No suspicious bony lesions.? Overlying soft tissues appear unremarkable.? ? IMPRESSION:? No acute cardiopulmonary findings ? ? ? Approved by: Antonio Delgadillo M.D. on 06/18/2022 at 12:42? ECG Data Interpretation: Normal sinus rhythm rate 84 MA interval 174 QRS [address] depression T-wave inversion noted in lead [address] depression in aVL no ST elevation similar to previous EKG MDM Narrative Medical decision making narrative: Patient presents with ongoing chest pressure for last couple of days. He has no changes in his EKG has 2- troponins. He continues to be positive for COVID. He did not recognize or was not informed that he was positive for COVID week ago. Multiple family members are sick at this time. He denies any shortness of breath he is not tachycardic or hypoxic. I suspect his chest discomfort is secondary to his COVID infection. He is a clear chest x-ray. At this time there is no indication for any further workup. Pulmonary embolism was considered however unlikely. Discharge Plan Departure Patient Disposition: Home Clinical Impression: COVID-19, Atypical chest pain Instructions: DI for Atypical Chest Pain, COVID-19 Activity Restrictions/Additional Instructions: *You have been diagnosed with COVID-19 and atypical chest *What to do: At this time I suspect her chest discomfort is from COVID-19. However he still may require further testing with her PCP in regards to stress test and/or echocardiogram. If your chest pain should worsen or change in any way please return to emergency department *Continue to take medications as directed *Follow up with your primary care provider in 2-3 days or call [phone] *Return to ER if you should have oxygen less than 90% increasing shortness of breath worsening chest pain or any new, worsening or concerning symptoms Prescriptions: No Action cyclobenzaprine 5 mg tablet 5 mg PO TID PRN (Reason: muscle spasm) Qty: 20 0RF (DME) blood-glucose meter Misc See Rx Instructions .Route Qty: 1 0RF Rx Instructions: Use to check blood sugar 3 times daily before meals (DME) Blood Glucose Test Strip See Rx Instructions .Route Qty: 100 3RF Rx Instructions: Use to check blood sugars three times daily before meals (DME) lancets 26 gauge misc See Rx Instructions .Route Qty: 100 3RF Rx Instructions: Use to check blood sugar three times daily before meals nicotine 21 mg/24 hr patch 24 hour 1 patch transdermal Q24H Qty: 28 0RF nicotine 14 mg/24 hr patch 24 hour 1 patch transdermal Q24H Qty: 14 0RF nicotine 7 mg/24 hr patch 24 hour 1 patch transdermal Q24H Qty: 14 0RF metformin 500 mg tablet See Rx Instructions .ROUTE .COMPLEX Qty: 360 0RF Dose Instruction: TAKE 2 TABLET BY MOUTH TWICE A DAY FOR 90 DAYS. Rx Instructions: TAKE 2 TABLET BY MOUTH TWICE A DAY FOR 90 DAYS. fluticasone propion-salmeterol [Advair Diskus] 250-50 mcg/dose blister with device See Rx Instructions .ROUTE .COMPLEX Qty: 60 5RF Dose Instruction: inhale 1 puff by mouth and INTO THE LUNGS twice a day Rinse mouth after use Rx Instructions: inhale 1 puff by mouth and INTO THE LUNGS twice a day Rinse mouth after use Victoza 2-Darius 0.6 mg/0.1 mL (18 mg/3 mL) pen injector 1.2 mg SUBCUT DAILY Qty: 6 1RF albuterol sulfate 90 mcg/actuation HFA aerosol inhaler See Rx Instructions .ROUTE .COMPLEX Qty: 8.5 1RF Dose Instruction: inhale 2 puffs by mouth every 4 to 6 hours if needed for shortness of breath or wheezing Rx Instructions: inhale 2 puffs by mouth every 4 to 6 hours if needed for shortness of breath or wheezing atorvastatin [Lipitor] 20 mg tablet 20 mg PO BEDTIME Qty: 90 3RF Prilosec 2.5 mg susp,delayed release for recon 10 mg PO DAILY aspirin [Adult Aspirin Regimen] 81 mg tablet,delayed release (DR/EC) 81 mg PO DAILY peg 3350-electrolytes [Golytely] 236-22.74-6.74 -5.86 gram recon soln 240 ml PO Q10M Qty: 4000 0RF Rx Instructions: until fecal effluent is clear naproxen sodium [Aleve] 220 mg Capsule 220 mg PO BID PRN (Reason: pain / discomfort) Referrals: Shabnam Dowell DO [Primary Care Provider] -
[2022-06-18 12:13] LABS: Add Manual Diff / Slide Review NO; Basophils Absolute Auto 100 /uL (0-100); Basophils Percent Auto 0.7 % (0-2); Eosinophils Absolute Auto 200 /uL (0-450); Hematocrit 41.1 % (41-53); Hemoglobin 14.4 g/dL (13.5-17.5); Lymphocytes Absolute Auto 2500 /uL (1100-4500); Lymphocytes Percent Auto 30.1 % (25-40); Mean Corpuscular Hemoglobin 31.5 PG (26-34); Mean Corpuscular Volume 89.8 fL (80-100); Monocytes Absolute Auto 700 /uL (0-900); Neutrophils Absolute Auto 5000 /uL (1500-7000); Neutrophils Percent Auto 59.2 % (50-75); Platelet Count 267 X10^3/uL (150-400); Red Blood Cell Count 4.58 X10^6/uL (4.5-5.9); Red Cell Distribution Width 13.6 % (11.6-14.8); White Blood Cell Count 8.4 X10^3/uL (4.5-11.0)
[2022-06-18 12:23] LABS: INR 1.1 (0.9-1.3); Prothrombin Time 12.1 SECONDS (10.1-12.7)
[2022-06-18 12:25] LABS: PTT Partial Thromboplastin Tim 29 SECONDS (26-36)
[2022-06-18 12:26] LABS: Alanine Aminotransferase 32 IU/L (<50); Albumin 4.2 g/dL (3.5-5.0); Albumin Globulin Ratio 1.4 (1.0-2.8); Alkaline Phosphatase 48 U/L (38-126); Aspartate Aminotransferase 26 IU/L (17-59); BUN Creatinine Ratio 25.9 (6-22); Bilirubin Total 0.4 mg/dL (0.2-1.3); Blood Urea Nitrogen 14 mg/dL (9-20); Carbon Dioxide 27 mmol/L (22-32); Chloride 103 mmol/L (98-107); Creatine Kinase 93 U/L (55-170); Estimated Glomerular Filt Rate > 60 mL/min (>60); Glucose 118 mg/dL (80-110); HEMOLYSIS < 15 (0-50); Lipase 201 U/L (23-300); Magnesium 1.5 mg/dL (1.6-2.3); Sodium 139 mmol/L (137-145); Total Protein 7.2 g/dL (6.3-8.2)
[2022-06-18 12:38] LABS: Troponin I < 0.012 ng/mL (0.01-0.034)
[2022-06-18] MEDS: ASPIRIN 81 MG CHEW TAB 324 MG PO (13:03)
[2022-06-18 13:31] LABS: Influenza A - CEPHEID Flu A NEGATIVE (NEGATIVE); Influenza B - CEPHEID Flu B NEGATIVE (NEGATIVE); Respiratory Syncytial Virus Negative (Negative)
[2022-06-18 13:34] LABS: COVID-19 CEPHEID 4-PLEX PCR POSITIVE (Negative)
[2022-06-18 14:39] LABS: Troponin I < 0.012 ng/mL (0.01-0.034)
== END 2022-06-18 15:02 | disposition home or self-care (01) ==
PROVIDERS: Emergency Provider Emergency Medicine; Family Provider Orthopaedic Surgery; PCP Family Medicine
DX: U07.1 COVID-19 (principal); R07.89 Other chest pain; Z79.82 Long term (current) use of aspirin; Z79.899 Other long term (current) drug therapy; Z86.16 Personal history of COVID-19
CPT/HCPCS: 0241U; 36415; 71045; 80053; 82550; 83690; 83735; 84484; 85025; 85610; 85730; 93005; 99284

== ENCOUNTER → 2022-06-22 11:19 | Outpatient (CLI) | payer OTHER, MEDICAID, SELFPAY ==
[2021-06-28 16:29] VITALS: BMI 36.6
[2022-06-22 12:29] LABS: Hematocrit 45.1 % (41-53); Hemoglobin 15.2 g/dL (13.5-17.5); Mean Corpuscular HGB Conc 33.8 % (30-36); Mean Corpuscular Hemoglobin 30.9 PG (26-34); Mean Corpuscular Volume 91.2 fL (80-100); Platelet Count 315 X10^3/uL (150-400); Red Blood Cell Count 4.94 X10^6/uL (4.5-5.9); Red Cell Distribution Width 13.6 % (11.6-14.8); White Blood Cell Count 9.8 X10^3/uL (4.5-11.0)
[2022-06-22 13:01] LABS: Erythrocyte Sedimentation Rate 3 MM/HR (0-15)
[2022-06-22 13:20] LABS: C-Reactive Protein Quant < 0.5 mg/dL (<1.0)
== END ==
PROVIDERS: Family Provider Orthopaedic Surgery; PCP Family Medicine; Referring Provider Nurse Practitioner Family; Visit Provider Nurse Practitioner Family
DX: R07.89 Other chest pain (principal); U07.1 COVID-19
CPT/HCPCS: 36415; 85027; 85651; 86140

== ENCOUNTER 2022-08-24 08:15 | Outpatient (RCR) | payer OTHER, MEDICAID, SELFPAY ==
[2021-06-28 16:29] VITALS: BMI 36.6
--- NOTE | 2022-06-17 22:45 | PT.OPPOC ---
Physical, Occupational & Speech Therapy At [facility] Current Diagnoses Primary osteoarthritis, left shoulder (06/17/22) Calcific tendinitis of left shoulder (06/17/22) Impingement syndrome of left shoulder (06/17/22) Superior glenoid labrum lesion of left shoulder, subsequent encounter (06/17/22) Visit Care Team Role Provider Type Shabnam Dowell DO Primary Care Provider Physician Specialty: Medical Address: [address] [place] [address], [address], [place], [address] Email: [email or web address] Deo Bond DO Attending Provider Non-Staff Family Provider Referring Provider Specialty: Orthopedics Address: [address] [place] [address] [address], [place], [address] opt2 Email: Plan Of Care PT-OP-T Assessment and Plan Start: 06/13/22 18:55 Freq: Status: Active Protocol: Document 06/17/22 10:52 AMB (Rec: 06/20/22 21:59 AMB [id number]) Physical Therapy Assessment Rehab Potential Rehabilitation Potential Good Evaluation Complexity Number of Personal Factors/Comorbidities 1-2 Number of Body Systems Impaired 4 or More Clinical Presentation at Evaluation Stable Impairments Impairments Pain,Posture,ROM,Strength Goals Three Impairment HEP Short Term Goal (STG) Jourdan will be independent and consistent with a HEP to improve his shoulder strength, lifting over shoulder height and decrease his pain. STG Duration 4 weeks Two Impairment Strength Short Term Goal (STG) Jourdan will improve his MMT in all planes to at least 4+/5 . STG Duration 4 weeks Snf Goal (LTG) Jourdan will lift 10# to head height without shoulder pain. LTG Duration 8 weeks One Impairment ROM Short Term Goal (STG) Jourdan will improve his flexion ROM to at least 165 degrees actively. STG Duration 4 weeks Assessment Summary Assessment Jourdan attends physical therapy with overall improving symptoms s/p cortisone injection 2 months ago. He is concerned about being able to continue to improve and not returnt to the high level of pain he had previously. 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 He also has young children that he needs to be able to carry at times. Given his need for a high level of shoulder function and his previous high level of pain in combination with continued weakness, ROM restriction, and postural impairments he will benefit from physical therapy. Physical Therapy Plan Frequency and Duration Frequency of Treatment 2x/Week Duration of treatment (weeks) 8 Plan of Care Start Date 06/17/22 Plan of Care End Date 08/12/22 Therapeutic Interventions Therapeutic Interventions Home Exercise Program,Joint Mobilizations,Manual Therapy, Neuromuscular Re-education, Self-Care/Home Management, Therapeutic Activities, Therapeutic Exercises Modalities Cold Pack/Ice Massage,Electric Stimulation,Hot Packs Next Visit Focus/Plan Next Note Type Treatment Note Next Visit Plan Review wall walk and ER (tband ) HEP. progress strengthening (scapular stability, decreased forward shoulder posture. Plan of Care Dates Plan of Care Start Date 06/17/22 Plan of Care End Date 08/12/22 Electronically Signed by: Renetta Chery, PT 06/20/22 1698 If you are in agreement with this Plan of Care, please return a signed and dated copy. I have reviewed this Plan of Care and certify that the skilled therapy services above are required to meet the patient?s needs. Physician Signature Date Printed Name and Credentials Clinical Instructor Signature Printed Name and Credentials
--- NOTE | 2022-06-17 22:45 | PT.OIE ---
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 Diverticulitis Elevated blood pressure reading without diagnosis of hypertension Fatigue GERD (gastroesophageal reflux disease) JOYCE (obstructive sleep apnea) Partial tear subscapularis tendon Respiratory infection SOB (shortness of breath) Supraspinatus tendon tear Tendinosis of rotator cuff Tobacco consumption Visit Care Team Role Provider Type Shabnam Dowell DO Primary Care Provider Physician Specialty: Medical Address: [address] [place] [address], [address], [place], [address] Email: [email or web address] Deo Bond DO Attending Provider Non-Staff Family Provider Referring Provider Specialty: Orthopedics Address: [address] [place] [address] [address], [place], [address] opt2 Email: Physical Therapy Initial Evaluation PT-OP-A Visit Information Start: 06/13/22 18:55 Freq: Status: Active Protocol: Document 06/17/22 10:26 AMB (Rec: 06/17/22 10:51 AMB [id number]) Out-Patient Physical Therapy Visit Information Visit Information Visit Type Initial Evaluation Visit Start Time 10:30 Visit Stop Time 11:15 Total Visit Minutes 45 Visit Number 1 PT-OP-B Current Condition Start: 06/13/22 18:55 Freq: Status: Active Protocol: Document 06/17/22 10:26 AMB (Rec: 06/17/22 10:51 AMB [id number]) Current Condition History of Current Condition Onset Date Over a year Current Complaints Left shoulder History of Current Condition Pt reports he had a cortisone injection 2 months ago and pain and range of motion have very much improved. Reports very little pain at this point . Possibly a little bit of tingling. 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 Was seen for physical therapy previously and had been in significant pain, difficulty sleeping at that time. Is hoping to make sure that pain relief from cortisone lasts. Prior Functional Status Baseline Function- ADL's Independent Personal Factors Other Personal Factors That May Effect DMII Therapy/Recovery PT-OP-J Posture/Palpation/Skin Start: 06/13/22 18:55 Freq: Status: Active Protocol: Document 06/17/22 10:52 AMB (Rec: 06/20/22 21:59 AMB [id number]-) Posture Evaluation Comments Posture Comments bilateral forward shoulders Palpation Assessment Location One Palpation Location L shoulder Palpation Details mild tenderness over biceps tendon, no significant tenderness over scapula PT-OP-K Range of Motion Start: 06/13/22 18:55 Freq: Status: Active Protocol: Document 06/17/22 10:52 AMB (Rec: 06/17/22 10:57 AMB [id number]) Shoulder Goniometric Range of Motion Shoulder Left Active Testing Position Sitting Flexion 158 Abduction 170 Internal Rotation Behind Back (text) L1 PT-OP-M Strength Start: 06/13/22 18:55 Freq: Status: Active Protocol: Document 06/17/22 10:52 AMB (Rec: 06/17/22 10:57 AMB [id number]) Shoulder Strength Shoulder Manual Muscle Testing Left Flexion 5 Normal Extension 4+ Good+ Abduction (C5) 4- Good- External Rotation 4 Good Internal Rotation 4+ Good+ PT-OP-Q Treatments Start: 06/13/22 18:55 Freq: Status: Active Protocol: Document 06/17/22 10:52 AMB (Rec: 06/20/22 21:59 AMB [id number]-) Therapeutic Exercises Standing Exercises ER Standing Exercise Name t band Resistance #2 Reps/Minutes 2x5 PT-OP-T Assessment and Plan Start: 06/13/22 18:55 Freq: Status: Active Protocol: Document 06/17/22 10:52 AMB (Rec: 06/20/22 21:59 AMB [id number]-) Physical Therapy Assessment Rehab Potential Rehabilitation Potential Good Evaluation Complexity Number of Personal Factors/Comorbidities 1-2 Number of Body Systems Impaired 4 or More Clinical Presentation at Evaluation Stable Impairments Impairments Pain,Posture,ROM,Strength Goals Three Impairment HEP Short Term Goal (STG) Jourdan will be independent and consistent with a HEP to improve his shoulder strength, lifting over shoulder height and decrease his pain. STG Duration 4 weeks Two Impairment Strength Short Term Goal (STG) Jourdan will improve his MMT in all planes to at least 4+/5 . STG Duration 4 weeks Operational Review Sergeant Goal (LTG) Jourdan will lift 10# to head height without shoulder pain. LTG Duration 8 weeks One Impairment ROM Short Term Goal (STG) Jourdan will improve his flexion ROM to at least 165 degrees actively. STG Duration 4 weeks Assessment Summary Assessment Jourdan attends physical therapy with overall improving symptoms s/p cortisone injection 2 months ago. He is concerned about being able to continue to improve and not returnt to the high level of pain he had previously. 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 He also has young children that he needs to be able to carry at times. Given his need for a high level of shoulder function and his previous high level of pain in combination with continued weakness, ROM restriction, and postural impairments he will benefit from physical therapy. Physical Therapy Plan Frequency and Duration Frequency of Treatment 2x/Week Duration of treatment (weeks) 8 Plan of Care Start Date 06/17/22 Plan of Care End Date 08/12/22 Therapeutic Interventions Therapeutic Interventions Home Exercise Program,Joint Mobilizations,Manual Therapy, Neuromuscular Re-education, Self-Care/Home Management, Therapeutic Activities, Therapeutic Exercises Modalities Cold Pack/Ice Massage,Electric Stimulation,Hot Packs Next Visit Focus/Plan Next Note Type Treatment Note Next Visit Plan Review wall walk and ER (tband ) HEP. progress strengthening (scapular stability, decreased forward shoulder posture.
--- NOTE | 2022-06-22 08:18 | PT-OP ANOTE ---
Pt tested positive for Covid and thought he had canceled this appointment.
--- NOTE | 2022-07-04 12:31 | PT.OTN ---
Current Diagnoses Primary osteoarthritis, left shoulder (07/04/22) Calcific tendinitis of left shoulder (07/04/22) Impingement syndrome of left shoulder (07/04/22) Superior glenoid labrum lesion of left shoulder, subsequent encounter (07/04/22) Physical Therapy Treatment Note PT-OP-A Visit Information Start: 06/13/22 18:55 Freq: Status: Active Protocol: Document 07/04/22 11:19 NBM (Rec: 07/04/22 12:30 NB [id number]) Out-Patient Physical Therapy Visit Information Visit Information Visit Type Treatment Note Visit Start Time 11:20 Visit Stop Time 12:05 Total Visit Minutes 45 Visit Number 2 Number of CONSTRUCTION MGR Visits 1 PT-OP-B Current Condition Start: 06/13/22 18:55 Freq: Status: Active Protocol: Document 06/17/22 10:26 AMB (Rec: 06/17/22 10:51 AMB [id number]) Current Condition History of Current Condition Onset Date Over a year Current Complaints Left shoulder History of Current Condition Pt reports he had a cortisone injection 2 months ago and pain and range of motion have very much improved. Reports very little pain at this point . Possibly a little bit of tingling. 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 Was seen for physical therapy previously and had been in significant pain, difficulty sleeping at that time. Is hoping to make sure that pain relief from cortisone lasts. Prior Functional Status Baseline Function- ADL's Independent Personal Factors Other Personal Factors That May Effect DMII Therapy/Recovery PT-OP-C Subjective Start: 06/13/22 18:55 Freq: Status: Active Protocol: Document 07/04/22 11:19 NBM (Rec: 07/04/22 12:30 NB [id number]) OP-PT Subjective Patient Comments Patient Comments Pt reports he is feeling really good since his cortisone shot. He does not feel like he has long haul COVID. He's been doing his ex' s. PT-OP-J Posture/Palpation/Skin Start: 06/13/22 18:55 Freq: Status: Active Protocol: Document 06/17/22 10:52 AMB (Rec: 06/20/22 21:59 AMB [id number]) Posture Evaluation Comments Posture Comments bilateral forward shoulders Palpation Assessment Location One Palpation Location L shoulder Palpation Details mild tenderness over biceps tendon, no significant tenderness over scapula PT-OP-K Range of Motion Start: 06/13/22 18:55 Freq: Status: Active Protocol: Document 06/17/22 10:52 AMB (Rec: 06/17/22 10:57 AMB [id number]) Shoulder Goniometric Range of Motion Shoulder Left Active Testing Position Sitting Flexion 158 Abduction 170 Internal Rotation Behind Back (text) L1 PT-OP-M Strength Start: 06/13/22 18:55 Freq: Status: Active Protocol: Document 06/17/22 10:52 AMB (Rec: 06/17/22 10:57 AMB [id number]) Shoulder Strength Shoulder Manual Muscle Testing Left Flexion 5 Normal Extension 4+ Good+ Abduction (C5) 4- Good- External Rotation 4 Good Internal Rotation 4+ Good+ PT-OP-Q Treatments Start: 06/13/22 18:55 Freq: Status: Active Protocol: Document 07/04/22 11:19 NBM (Rec: 07/04/22 12:30 NBM [id number]) Therapeutic Exercises Supine Exercises Pec stretch Supine Exercise Name !. W 2. hands behind head 3. T Side bilateral Reps/Minutes 2 x 30s ea Comments dc'd hands behind head d/t pt c/o L piyush pain scap retraction Supine Exercise Name elbows at 90deg - added to HEP Side bilateral Reps/Minutes 10x5 SH Standing Exercises extension Standing Exercise Name shoulder ext ER Standing Exercise Name t band Resistance #2 Reps/Minutes 2x5 Manual Therapy Treatment Soft Tissue Mobilization L shoulder Body Location L UT, LS, medial border of scapula Mobilization Type Myofascial Release,Rolling, Strumming,Sustained Pressure, Trigger Point Release Intensity/Depth Moderate Body Position Sidelying Comments Treatment focus medial border of L scapula Good feedback response Joint Mobilizations Glenohumeral Joint GH Direction posterior, inferior Grade II Body Position Hooklying Comments distraction in scapular plane -pt c/o pain in posterior direction but relief with slightly less pressure. Scapulothoracic Joint ST Direction Upward/Downward rotation, Elevation/Depression Grade II Body Position Sidelying Comments Good feedback response Self-Care/Home Management Treatment Education Patient Education Home Exercise Program,Posture Other Education Discussed shoulder anatomy and importance of decreasing UT overactivation, strengthening postural muscles, stretching pec and no breathholding. Added to HEP: seated/supine scapular squeeze, resisted shoulder extension, and Open Book stretch - HO given. PT-OP-T Assessment and Plan Start: 06/13/22 18:55 Freq: Status: Active Protocol: Document 07/04/22 11:19 NBM (Rec: 07/04/22 12:30 NBM [id number]) Physical Therapy Assessment Impairments Impairments Pain,Posture,ROM,Strength Goals Three Impairment HEP Short Term Goal (STG) Jourdan will be independent and consistent with a HEP to improve his shoulder strength, lifting over shoulder height and decrease his pain. STG Duration 4 weeks Two Impairment Strength Short Term Goal (STG) Jourdan will improve his MMT in all planes to at least 4+/5 . STG Duration 4 weeks Avionics System Engineer Goal (LTG) Jourdan will lift 10# to head height without shoulder pain. LTG Duration 8 weeks One Impairment ROM Short Term Goal (STG) Jourdan will improve his flexion ROM to at least 165 degrees actively. STG Duration 4 weeks Assessment Summary Assessment Davide presents today with decreased L shoulder pain s/p cortisone injection, but requires cues for UT overactivation and scapular setting. Treatment focus on postural education with emphasis on UT overactivation, rhomboid strengthening, pec stretch and manual to improve scapulothoracic mobility. Pt also educated to stay within pain-free range of motion w/ ex's. Added to HEP: seated/ supine scapular squeeze, resisted shoulder extension, and Open Book stretch - HO given. Physical Therapy Plan Frequency and Duration Frequency of Treatment 2x/Week Duration of treatment (weeks) 8 Plan of Care Start Date 06/17/22 Plan of Care End Date 08/12/22 Therapeutic Interventions Therapeutic Interventions Home Exercise Program,Joint Mobilizations,Manual Therapy, Neuromuscular Re-education, Self-Care/Home Management, Therapeutic Activities, Therapeutic Exercises Modalities Cold Pack/Ice Massage,Electric Stimulation,Hot Packs Next Visit Focus/Plan Next Note Type Treatment Note Next Visit Plan Consider adding shoulder rows and pec stretch to HEP. Review wall walk, scap squeeze , ER and ext (#2 tband) HEP. progress strengthening ( scapular stability, decreased forward shoulder posture.
--- NOTE | 2022-07-22 10:52 | PT.OTN ---
Current Diagnoses Primary osteoarthritis, left shoulder (07/22/22) Calcific tendinitis of left shoulder (07/22/22) Impingement syndrome of left shoulder (07/22/22) Superior glenoid labrum lesion of left shoulder, subsequent encounter (07/22/22) Physical Therapy Treatment Note PT-OP-A Visit Information Start: 06/13/22 18:55 Freq: Status: Active Protocol: Document 07/22/22 10:05 NBM (Rec: 07/22/22 10:51 NBM [id number]) Out-Patient Physical Therapy Visit Information Visit Information Visit Type Treatment Note Visit Start Time 10:05 Visit Stop Time 10:50 Total Visit Minutes 45 Visit Number 3 Number of GEOTHERMAL INSTALLER Visits 2 PT-OP-B Current Condition Start: 06/13/22 18:55 Freq: Status: Active Protocol: Document 06/17/22 10:26 AMB (Rec: 06/17/22 10:51 AMB [id number]) Current Condition History of Current Condition Onset Date Over a year Current Complaints Left shoulder History of Current Condition Pt reports he had a cortisone injection 2 months ago and pain and range of motion have very much improved. Reports very little pain at this point . Possibly a little bit of tingling. 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 Was seen for physical therapy previously and had been in significant pain, difficulty sleeping at that time. Is hoping to make sure that pain relief from cortisone lasts. Prior Functional Status Baseline Function- ADL's Independent Personal Factors Other Personal Factors That May Effect DMII Therapy/Recovery PT-OP-C Subjective Start: 06/13/22 18:55 Freq: Status: Active Protocol: Document 07/22/22 10:05 NBM (Rec: 07/22/22 10:51 NB [id number]) OP-PT Subjective Patient Comments Patient Comments Pt reports still feeling well, but he did not do ex's due to being busy but has been super careful and letting the guys do the work. It feels pretty good. PT-OP-J Posture/Palpation/Skin Start: 06/13/22 18:55 Freq: Status: Active Protocol: Document 06/17/22 10:52 AMB (Rec: 06/20/22 21:59 AMB [id number]) Posture Evaluation Comments Posture Comments bilateral forward shoulders Palpation Assessment Location One Palpation Location L shoulder Palpation Details mild tenderness over biceps tendon, no significant tenderness over scapula PT-OP-K Range of Motion Start: 06/13/22 18:55 Freq: Status: Active Protocol: Document 06/17/22 10:52 AMB (Rec: 06/17/22 10:57 AMB [id number]) Shoulder Goniometric Range of Motion Shoulder Left Active Testing Position Sitting Flexion 158 Abduction 170 Internal Rotation Behind Back (text) L1 PT-OP-M Strength Start: 06/13/22 18:55 Freq: Status: Active Protocol: Document 06/17/22 10:52 AMB (Rec: 06/17/22 10:57 AMB [id number]) Shoulder Strength Shoulder Manual Muscle Testing Left Flexion 5 Normal Extension 4+ Good+ Abduction (C5) 4- Good- External Rotation 4 Good Internal Rotation 4+ Good+ PT-OP-Q Treatments Start: 06/13/22 18:55 Freq: Status: Active Protocol: Document 07/22/22 10:05 NBM (Rec: 07/22/22 10:51 NBM [id number]) Therapeutic Exercises Supine Exercises Pec stretch Supine Exercise Name !. W 2. T Side bilateral Reps/Minutes 2 x 30s ea Comments cue for holding 30s Standing Exercises IR Side left Resistance Lvl2 Tb Reps/Minutes x5 Comments dc'd d/t pt reports soreness posterior L piyush row Side bilateral Resistance Lvl 2Tb Reps/Minutes x10 Comments cues for UT overactivation and scap squeeze extension Standing Exercise Name shoulder ext Side bilateral Resistance Lvl2 Tb Reps/Minutes x10 Comments cue for scap squeeze ER Standing Exercise Name t band Side left Resistance #2 Reps/Minutes 2x5 Manual Therapy Treatment Soft Tissue Mobilization L shoulder Body Location L UT, LS, medial border of scapula Mobilization Type Myofascial Release,Rolling, Strumming,Sustained Pressure, Trigger Point Release Intensity/Depth Moderate Body Position Sidelying Comments Pin and stretch to L UT and L LS. Good feedback response Joint Mobilizations Glenohumeral Joint GH Direction posterior, inferior Grade II Body Position Hooklying Comments distraction in scapular plane -pt c/o pain in posterior direction but relief with slightly less pressure. Scapulothoracic Joint ST Direction Upward/Downward rotation, Elevation/Depression Grade II Body Position Sidelying Comments Good feedback response Self-Care/Home Management Treatment Education Patient Education Home Exercise Program,Posture Other Education Reviewed shoulder anatomy and importance of decreasing UT overactivation, strengthening postural muscles, stretching pec and no breathholding. Added to HEP: resisted shoulder rows- HO emailed. PT-OP-T Assessment and Plan Start: 06/13/22 18:55 Freq: Status: Active Protocol: Document 07/22/22 10:05 NBM (Rec: 07/22/22 10:51 NBM [id number]) Physical Therapy Assessment Impairments Impairments Pain,Posture,ROM,Strength Goals Three Impairment HEP Short Term Goal (STG) Jourdan will be independent and consistent with a HEP to improve his shoulder strength, lifting over shoulder height and decrease his pain. STG Duration 4 weeks Two Impairment Strength Short Term Goal (STG) Jourdan will improve his MMT in all planes to at least 4+/5 . STG Duration 4 weeks Group Home Goal (LTG) Jourdan will lift 10# to head height without shoulder pain. LTG Duration 8 weeks One Impairment ROM Short Term Goal (STG) Jourdan will improve his flexion ROM to at least 165 degrees actively. STG Duration 4 weeks Assessment Summary Assessment Davide requires cues for UT overactivation and form with resisted shoulder ex's but demonstrates improved self- awareness by end of session. He requires frequent cues for chin tuck due to forward head posture. Pt requires cues for UT overactivation with wall walk as well and better understands how it feels in his L piyush when he performs the ex correctly, carrying over to improved self-awareness. Tightness in L UT and L LS decreases greatly w manual therapy. Added to HEP: resisted shoulder rows - HO emailed. Physical Therapy Plan Frequency and Duration Frequency of Treatment 2x/Week Duration of treatment (weeks) 8 Plan of Care Start Date 06/17/22 Plan of Care End Date 08/12/22 Therapeutic Interventions Therapeutic Interventions Home Exercise Program,Joint Mobilizations,Manual Therapy, Neuromuscular Re-education, Self-Care/Home Management, Therapeutic Activities, Therapeutic Exercises Modalities Cold Pack/Ice Massage,Electric Stimulation,Hot Packs Next Visit Focus/Plan Next Note Type Treatment Note Next Visit Plan Consider adding shoulder rows and pec stretch to HEP. Review wall walk, scap squeeze , ER and ext (#2 tband) HEP. progress strengthening ( scapular stability, decreased forward shoulder posture.
--- NOTE | 2022-07-26 16:00 | PT.OTN ---
Current Diagnoses Primary osteoarthritis, left shoulder (07/26/22) Calcific tendinitis of left shoulder (07/26/22) Impingement syndrome of left shoulder (07/26/22) Superior glenoid labrum lesion of left shoulder, subsequent encounter (07/26/22) Physical Therapy Treatment Note PT-OP-A Visit Information Start: 06/13/22 18:55 Freq: Status: Active Protocol: Document 07/26/22 11:21 AMB (Rec: 07/26/22 12:19 AMB [id number]) Out-Patient Physical Therapy Visit Information Visit Information Visit Type Treatment Note Visit Start Time 11:15 Visit Stop Time 12:00 Total Visit Minutes 45 Visit Number 4 Number of POWER WASHER Visits 0 PT-OP-B Current Condition Start: 06/13/22 18:55 Freq: Status: Active Protocol: Document 06/17/22 10:26 AMB (Rec: 06/17/22 10:51 AMB [id number]) Current Condition History of Current Condition Onset Date Over a year Current Complaints Left shoulder History of Current Condition Pt reports he had a cortisone injection 2 months ago and pain and range of motion have very much improved. Reports very little pain at this point . Possibly a little bit of tingling. 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 Was seen for physical therapy previously and had been in significant pain, difficulty sleeping at that time. Is hoping to make sure that pain relief from cortisone lasts. Prior Functional Status Baseline Function- ADL's Independent Personal Factors Other Personal Factors That May Effect DMII Therapy/Recovery PT-OP-C Subjective Start: 06/13/22 18:55 Freq: Status: Active Protocol: Document 07/26/22 09:45 AMB (Rec: 07/27/22 08:54 AMB [id number]) OP-PT Subjective Patient Comments Patient Comments Pt states his shoulder is doing well, can still feel it if he really reaches into horizontal abduction but otherwise feels pretty good. PT-OP-J Posture/Palpation/Skin Start: 06/13/22 18:55 Freq: Status: Active Protocol: Document 06/17/22 10:52 AMB (Rec: 06/20/22 21:59 AMB [id number]) Posture Evaluation Comments Posture Comments bilateral forward shoulders Palpation Assessment Location One Palpation Location L shoulder Palpation Details mild tenderness over biceps tendon, no significant tenderness over scapula PT-OP-K Range of Motion Start: 06/13/22 18:55 Freq: Status: Active Protocol: Document 06/17/22 10:52 AMB (Rec: 06/17/22 10:57 AMB [id number]) Shoulder Goniometric Range of Motion Shoulder Left Active Testing Position Sitting Flexion 158 Abduction 170 Internal Rotation Behind Back (text) L1 PT-OP-M Strength Start: 06/13/22 18:55 Freq: Status: Active Protocol: Document 06/17/22 10:52 AMB (Rec: 06/17/22 10:57 AMB [id number]) Shoulder Strength Shoulder Manual Muscle Testing Left Flexion 5 Normal Extension 4+ Good+ Abduction (C5) 4- Good- External Rotation 4 Good Internal Rotation 4+ Good+ PT-OP-Q Treatments Start: 06/13/22 18:55 Freq: Status: Active Protocol: Document 07/26/22 11:21 AMB (Rec: 07/26/22 12:19 AMB [id number]) Therapeutic Exercises Supine Exercises Pec stretch Supine Exercise Name 1 W 2. T Side bilateral Reps/Minutes 2 x 30s ea Comments cue for holding 30s Standing Exercises row Side bilateral Resistance Lvl 2Tb Reps/Minutes x10 Comments cues for UT overactivation and scap squeeze ER Standing Exercise Name t band Side left Resistance #2 Reps/Minutes 2x5 Manual Therapy Treatment Soft Tissue Mobilization L shoulder Body Location L UT, LS, medial border of scapula Mobilization Type Myofascial Release,Rolling, Strumming,Sustained Pressure, Trigger Point Release Intensity/Depth Moderate Body Position Sidelying Comments Pin and stretch to L UT and L LS. Good feedback response Other Other Manual Treatments PROM all planes- tenderness into flexion/abduction/ER PT-OP-T Assessment and Plan Start: 06/13/22 18:55 Freq: Status: Active Protocol: Document 07/26/22 11:21 AMB (Rec: 07/26/22 12:19 AMB [id number]) Physical Therapy Assessment Goals Three Impairment HEP Short Term Goal (STG) Jourdan will be independent and consistent with a HEP to improve his shoulder strength, lifting over shoulder height and decrease his pain. STG Duration 4 weeks Two Impairment Strength Short Term Goal (STG) Jourdan will improve his MMT in all planes to at least 4+/5 . STG Duration 4 weeks Python Programmer Goal (LTG) Jourdan will lift 10# to head height without shoulder pain. LTG Duration 8 weeks One Impairment ROM Short Term Goal (STG) Jourdan will improve his flexion ROM to at least 165 degrees actively. STG Duration 4 weeks Assessment Summary Assessment Davide did better today with less UT utilization. Continues to have discomfort with end range flexion, but overall less pain. Continue to progress strengthening with focus on form. Reviewed HEP, and reprinted as it did not seem like pt had remembered all. Consider adding more next visit. Physical Therapy Plan Frequency and Duration Frequency of Treatment 2x/Week Duration of treatment (weeks) 8 Plan of Care Start Date 06/17/22 Plan of Care End Date 08/12/22 Therapeutic Interventions Therapeutic Interventions Home Exercise Program,Joint Mobilizations,Manual Therapy, Neuromuscular Re-education, Self-Care/Home Management, Therapeutic Activities, Therapeutic Exercises Modalities Cold Pack/Ice Massage,Electric Stimulation,Hot Packs Next Visit Focus/Plan Next Note Type Treatment Note Next Visit Plan Consider adding shoulder rows and pec stretch to HEP. Review wall walk, scap squeeze , ER and ext (#2 tband) HEP. progress strengthening ( scapular stability, decreased forward shoulder posture.
--- NOTE | 2022-08-03 16:24 | PT.OTN ---
Current Diagnoses Primary osteoarthritis, left shoulder (08/02/22) Calcific tendinitis of left shoulder (08/02/22) Impingement syndrome of left shoulder (08/02/22) Superior glenoid labrum lesion of left shoulder, subsequent encounter (08/02/22) Physical Therapy Treatment Note PT-OP-A Visit Information Start: 06/13/22 18:55 Freq: Status: Active Protocol: Document 08/02/22 09:44 AMB (Rec: 08/02/22 10:35 AMB [id number]) Out-Patient Physical Therapy Visit Information Visit Information Visit Type Treatment Note Visit Start Time 09:45 Visit Stop Time 10:30 Total Visit Minutes 45 Visit Number 5 PT-OP-B Current Condition Start: 06/13/22 18:55 Freq: Status: Active Protocol: Document 06/17/22 10:26 AMB (Rec: 06/17/22 10:51 AMB [id number]) Current Condition History of Current Condition Onset Date Over a year Current Complaints Left shoulder History of Current Condition Pt reports he had a cortisone injection 2 months ago and pain and range of motion have very much improved. Reports very little pain at this point . Possibly a little bit of tingling. 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 Was seen for physical therapy previously and had been in significant pain, difficulty sleeping at that time. Is hoping to make sure that pain relief from cortisone lasts. Prior Functional Status Baseline Function- ADL's Independent Personal Factors Other Personal Factors That May Effect DMII Therapy/Recovery PT-OP-C Subjective Start: 06/13/22 18:55 Freq: Status: Active Protocol: Document 08/02/22 09:44 AMB (Rec: 08/02/22 10:35 AMB [id number]) OP-PT Subjective Patient Comments Patient Comments Pt is doing well, but continues to be very aware of how he is using his shoulder. PT-OP-J Posture/Palpation/Skin Start: 06/13/22 18:55 Freq: Status: Active Protocol: Document 06/17/22 10:52 AMB (Rec: 06/20/22 21:59 AMB [id number]) Posture Evaluation Comments Posture Comments bilateral forward shoulders Palpation Assessment Location One Palpation Location L shoulder Palpation Details mild tenderness over biceps tendon, no significant tenderness over scapula PT-OP-K Range of Motion Start: 06/13/22 18:55 Freq: Status: Active Protocol: Document 06/17/22 10:52 AMB (Rec: 06/17/22 10:57 AMB [id number]) Shoulder Goniometric Range of Motion Shoulder Left Active Testing Position Sitting Flexion 158 Abduction 170 Internal Rotation Behind Back (text) L1 PT-OP-M Strength Start: 06/13/22 18:55 Freq: Status: Active Protocol: Document 06/17/22 10:52 AMB (Rec: 06/17/22 10:57 AMB [id number]) Shoulder Strength Shoulder Manual Muscle Testing Left Flexion 5 Normal Extension 4+ Good+ Abduction (C5) 4- Good- External Rotation 4 Good Internal Rotation 4+ Good+ PT-OP-Q Treatments Start: 06/13/22 18:55 Freq: Status: Active Protocol: Document 08/02/22 09:45 AMB (Rec: 08/03/22 16:22 AMB [id number]) Therapeutic Exercises Supine Exercises isometrics Resistance moderate- therapist provided Comments flex/ext, horiz abd/add Pec stretch Supine Exercise Name 1 W 2. T Side bilateral Reps/Minutes 2 x 30s ea Comments cue for holding 30s Standing Exercises row Side bilateral Resistance Lvl 2Tb Reps/Minutes x10 Comments cues for UT overactivation and scap squeeze extension Standing Exercise Name shoulder ext Side bilateral Resistance Lvl2 Tb Reps/Minutes x10 Comments cue for scap squeeze ER Standing Exercise Name t band Side left Resistance #2 Reps/Minutes 2x5 Manual Therapy Treatment Soft Tissue Mobilization L shoulder Body Location L UT, LS, medial border of scapula Mobilization Type Myofascial Release,Rolling, Strumming,Sustained Pressure, Trigger Point Release Intensity/Depth Moderate Body Position Sidelying Comments Pin and stretch to L UT and L LS. Good feedback response Joint Mobilizations Glenohumeral Joint GH Direction posterior, inferior Grade II Body Position Hooklying Comments distraction in scapular plane PT-OP-T Assessment and Plan Start: 06/13/22 18:55 Freq: Status: Active Protocol: Document 08/02/22 09:44 AMB (Rec: 08/02/22 10:35 AMB [id number]) Physical Therapy Assessment Goals Three Impairment HEP Short Term Goal (STG) Jourdan will be independent and consistent with a HEP to improve his shoulder strength, lifting over shoulder height and decrease his pain. STG Duration 4 weeks Two Impairment Strength Short Term Goal (STG) Jourdan will improve his MMT in all planes to at least 4+/5 . STG Duration 4 weeks Assisted Goal (LTG) Jourdan will lift 10# to head height without shoulder pain. LTG Duration 8 weeks One Impairment ROM Short Term Goal (STG) Jourdan will improve his flexion ROM to at least 165 degrees actively. STG Duration 4 weeks Assessment Summary Assessment Davide is continuing to improve , discussed throwing motion as this would still be painful. Working on getting more stabilization at end range. Physical Therapy Plan Frequency and Duration Frequency of Treatment 2x/Week Duration of treatment (weeks) 8 Plan of Care Start Date 06/17/22 Plan of Care End Date 08/12/22 Therapeutic Interventions Therapeutic Interventions Home Exercise Program,Joint Mobilizations,Manual Therapy, Neuromuscular Re-education, Self-Care/Home Management, Therapeutic Activities, Therapeutic Exercises Modalities Cold Pack/Ice Massage,Electric Stimulation,Hot Packs Next Visit Focus/Plan Next Note Type Treatment Note Next Visit Plan Consider adding shoulder rows and pec stretch to HEP. Review wall walk, scap squeeze , ER and ext (#2 tband) HEP. progress strengthening ( scapular stability, decreased forward shoulder posture.
--- NOTE | 2022-08-15 21:34 | PT.OTN ---
Current Diagnoses Primary osteoarthritis, left shoulder (08/15/22) Calcific tendinitis of left shoulder (08/15/22) Impingement syndrome of left shoulder (08/15/22) Superior glenoid labrum lesion of left shoulder, subsequent encounter (08/15/22) Physical Therapy Treatment Note PT-OP-A Visit Information Start: 06/13/22 18:55 Freq: Status: Active Protocol: Document 08/15/22 09:12 AMB (Rec: 08/15/22 09:52 AMB [id number]) Out-Patient Physical Therapy Visit Information Visit Information Visit Type Treatment Note Visit Start Time 09:10 Visit Stop Time 09:40 Total Visit Minutes 30 Visit Number 6 PT-OP-B Current Condition Start: 06/13/22 18:55 Freq: Status: Active Protocol: Document 06/17/22 10:26 AMB (Rec: 06/17/22 10:51 AMB [id number]) Current Condition History of Current Condition Onset Date Over a year Current Complaints Left shoulder History of Current Condition Pt reports he had a cortisone injection 2 months ago and pain and range of motion have very much improved. Reports very little pain at this point . Possibly a little bit of tingling. 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 Was seen for physical therapy previously and had been in significant pain, difficulty sleeping at that time. Is hoping to make sure that pain relief from cortisone lasts. Prior Functional Status Baseline Function- ADL's Independent Personal Factors Other Personal Factors That May Effect DMII Therapy/Recovery PT-OP-C Subjective Start: 06/13/22 18:55 Freq: Status: Active Protocol: Document 08/15/22 09:12 AMB (Rec: 08/15/22 09:52 AMB [id number]) OP-PT Subjective Patient Comments Patient Comments Pt has been moving furniture so a little sore but overall doing well. PT-OP-J Posture/Palpation/Skin Start: 06/13/22 18:55 Freq: Status: Active Protocol: Document 06/17/22 10:52 AMB (Rec: 06/20/22 21:59 AMB [id number]) Posture Evaluation Comments Posture Comments bilateral forward shoulders Palpation Assessment Location One Palpation Location L shoulder Palpation Details mild tenderness over biceps tendon, no significant tenderness over scapula PT-OP-K Range of Motion Start: 06/13/22 18:55 Freq: Status: Active Protocol: Document 06/17/22 10:52 AMB (Rec: 06/17/22 10:57 AMB [id number]) Shoulder Goniometric Range of Motion Shoulder Left Active Testing Position Sitting Flexion 158 Abduction 170 Internal Rotation Behind Back (text) L1 PT-OP-M Strength Start: 06/13/22 18:55 Freq: Status: Active Protocol: Document 06/17/22 10:52 AMB (Rec: 06/17/22 10:57 AMB [id number]) Shoulder Strength Shoulder Manual Muscle Testing Left Flexion 5 Normal Extension 4+ Good+ Abduction (C5) 4- Good- External Rotation 4 Good Internal Rotation 4+ Good+ PT-OP-Q Treatments Start: 06/13/22 18:55 Freq: Status: Active Protocol: Document 08/15/22 09:00 AMB (Rec: 08/15/22 21:33 AMB [id number]) Therapeutic Exercises Supine Exercises AAROM Supine Exercise Name dowel Resistance 30x2 Comments good stretch isometrics Resistance moderate- therapist provided Comments flex/ext, horiz abd/add Pec stretch Supine Exercise Name 1 W 2. T Side bilateral Reps/Minutes 2 x 30s ea Comments cue for holding 30s Manual Therapy Treatment Soft Tissue Mobilization L shoulder Body Location L UT, LS, medial border of scapula Mobilization Type Myofascial Release,Rolling, Strumming,Sustained Pressure, Trigger Point Release Intensity/Depth Moderate Body Position Sidelying Comments Pin and stretch to L UT and L LS. Good feedback response Joint Mobilizations Glenohumeral Joint GH Direction posterior, inferior Grade II Body Position Hooklying Comments distraction in scapular plane Scapulothoracic Joint ST Direction Upward/Downward rotation, Elevation/Depression Grade II Body Position Sidelying Comments Good feedback response PT-OP-T Assessment and Plan Start: 06/13/22 18:55 Freq: Status: Active Protocol: Document 08/15/22 09:12 AMB (Rec: 08/15/22 09:52 AMB [id number]) Physical Therapy Assessment Goals Three Impairment HEP Short Term Goal (STG) Jourdan will be independent and consistent with a HEP to improve his shoulder strength, lifting over shoulder height and decrease his pain. STG Duration 4 weeks Two Impairment Strength Short Term Goal (STG) Jourdan will improve his MMT in all planes to at least 4+/5 . STG Duration 4 weeks Prison Goal (LTG) Jourdan will lift 10# to head height without shoulder pain. LTG Duration 8 weeks One Impairment ROM Short Term Goal (STG) Jourdan will improve his flexion ROM to at least 165 degrees actively. STG Duration 4 weeks Assessment Summary Assessment Donna shoulder is doing well , he has been moving furniture and that has been aggravating the shoulders a little but not bad. Physical Therapy Plan Frequency and Duration Frequency of Treatment 2x/Week Duration of treatment (weeks) 4 Plan of Care Start Date 08/12/22 Plan of Care End Date 09/09/22 Therapeutic Interventions Therapeutic Interventions Home Exercise Program,Joint Mobilizations,Manual Therapy, Neuromuscular Re-education, Self-Care/Home Management, Therapeutic Activities, Therapeutic Exercises Modalities Cold Pack/Ice Massage,Electric Stimulation,Hot Packs Next Visit Focus/Plan Next Note Type Treatment Note Next Visit Plan Consider adding shoulder rows and pec stretch to HEP. Review wall walk, scap squeeze , ER and ext (#2 tband) HEP. progress strengthening ( scapular stability, decreased forward shoulder posture.
--- NOTE | 2022-08-24 09:03 | PT.OTN ---
Current Diagnoses Primary osteoarthritis, left shoulder (08/24/22) Calcific tendinitis of left shoulder (08/24/22) Impingement syndrome of left shoulder (08/24/22) Superior glenoid labrum lesion of left shoulder, subsequent encounter (08/24/22) Physical Therapy Treatment Note PT-OP-A Visit Information Start: 06/13/22 18:55 Freq: Status: Active Protocol: Document 08/24/22 08:18 SP (Rec: 08/24/22 09:05 SP [id number]) Out-Patient Physical Therapy Visit Information Visit Information Visit Type Treatment Note Visit Start Time 08:18 Visit Stop Time 09:03 Total Visit Minutes 45 Visit Number 7 Number of [employer] DIRECTOR Visits 1 PT-OP-B Current Condition Start: 06/13/22 18:55 Freq: Status: Active Protocol: Document 06/17/22 10:26 AMB (Rec: 06/17/22 10:51 AMB [id number]) Current Condition History of Current Condition Onset Date Over a year Current Complaints Left shoulder History of Current Condition Pt reports he had a cortisone injection 2 months ago and pain and range of motion have very much improved. Reports very little pain at this point . Possibly a little bit of tingling. 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 Was seen for physical therapy previously and had been in significant pain, difficulty sleeping at that time. Is hoping to make sure that pain relief from cortisone lasts. Prior Functional Status Baseline Function- ADL's Independent Personal Factors Other Personal Factors That May Effect DMII Therapy/Recovery PT-OP-C Subjective Start: 06/13/22 18:55 Freq: Status: Active Protocol: Document 08/24/22 08:18 SP (Rec: 08/24/22 09:05 SP [id number]) OP-PT Subjective Patient Comments Patient Comments Pt reports doing well, able to lift boxes and mindful back alignment and elbows tucked in and using hand trunk. PT-OP-J Posture/Palpation/Skin Start: 06/13/22 18:55 Freq: Status: Active Protocol: Document 06/17/22 10:52 AMB (Rec: 06/20/22 21:59 AMB [id number]) Posture Evaluation Comments Posture Comments bilateral forward shoulders Palpation Assessment Location One Palpation Location L shoulder Palpation Details mild tenderness over biceps tendon, no significant tenderness over scapula PT-OP-K Range of Motion Start: 06/13/22 18:55 Freq: Status: Active Protocol: Document 08/24/22 08:18 SP (Rec: 08/24/22 09:05 SP [id number]) Shoulder Goniometric Range of Motion Shoulder Left Active Testing Position Sitting Flexion 153 Abduction 152 External Rotation at 0 degrees Abduction 74 Internal Rotation Behind Back (text) T10 Comments LUE AROM seated: FF: 3 deg less from 158 at eval ABD: 18 deg less from 170 at eval ER: improved 3 vertibra from L1 PT-OP-M Strength Start: 06/13/22 18:55 Freq: Status: Active Protocol: Document 06/17/22 10:52 AMB (Rec: 06/17/22 10:57 AMB [id number]) Shoulder Strength Shoulder Manual Muscle Testing Left Flexion 5 Normal Extension 4+ Good+ Abduction (C5) 4- Good- External Rotation 4 Good Internal Rotation 4+ Good+ PT-OP-Q Treatments Start: 06/13/22 18:55 Freq: Status: Active Protocol: Document 08/24/22 08:18 SP (Rec: 08/24/22 09:05 SP [id number]) Therapeutic Exercises Supine Exercises over foam roller Supine Exercise Name add Standing Exercises D2 flex, punch OH Standing Exercise Name discussed progression Other Exercises self STMs Other Exercise Name ball wall wall: rhomboid, low trap, infraspinatus Side left Equipment Used racquetball on wall Reps/Minutes 20 sec total- rolling over ball Comments states painful knot specific spot-Low trap noted [employer] DIRECTOR massage 1/2 knee AAROM Other Exercise Name L shld: concentric ext pull down/eccentric FF and ABD stretch/ AAROM Side left Equipment Used pad under L knee, contact rail Reps/Minutes x10 each direction Comments cued slow eccentric AAROM good painfree ROM 180 deg Manual Therapy Treatment Soft Tissue Mobilization L shoulder Body Location L Rhomboid, Low Trap, infraspinatus Mobilization Type Instrument Assisted,Rolling, Strumming,Sustained Pressure, Trigger Point Release Intensity/Depth Moderate Body Position Standing Comments strumming and pin FM L shld AROM FF, HABD small range- then ball wall assimulate self performance- states pretty sore will limit time and may just go get a massage. PT-OP-T Assessment and Plan Start: 06/13/22 18:55 Freq: Status: Active Protocol: Document 08/24/22 08:18 SP (Rec: 08/24/22 09:05 SP [id number]) Physical Therapy Assessment Goals Three Impairment HEP Short Term Goal (STG) Jourdan will be independent and consistent with a HEP to improve his shoulder strength, lifting over shoulder height and decrease his pain. 08/24/22: Discussed/progressed and I with HOs: hasn't done recently due to moving boxes at home, no adverse pain results. HEP reviewed today: 1/2 kneel TB eccentric FF, abduction, standing TB shld ext, rows, IR /ER, added resisted supine FF, scaption, HABD over foam roller, good feedback resistance, does c/o knot pain/discomfort over L Low Trap during exercise otherwise feels good muscle work. DIscussed progress standing D2 flexion and OH punch later to support lift items over head more consistantly. STG Duration 4 weeks 08/24/22 GOAL MET Two Impairment Strength Short Term Goal (STG) Jourdan will improve his MMT in all planes to at least 4+/5 . 08/24/22: GOAL MET: 5/5 seated resisted abd and ER painfree. STG Duration 4 weeks GOAL MET 08/24/22 Snf Goal (LTG) Jourdan will lift 10# to head height without shoulder pain. 08/24/22: GOAL MET: able lift 10# DB over head x5 reps without pain but states stiff and sore. LTG Duration 8 weeks GOAL MET 08/24/22 One Impairment ROM Short Term Goal (STG) Jourdan will improve his flexion ROM to at least 165 degrees actively. 08/24/22: pt less AROM since eval see assessment measurements. Pt states stiff in am due to sleeping on L side next to daughter and trying not to move to roll onto her so stiff in the am. LUE AROM seated: FF: 3 deg less from 158 at eval ABD: 18 deg less from 170 at eval IR: improved 3 vertebra from L1 STG Duration 4 weeks (less ROM since eval) 08/24/22 Progress Towards Goals Progress Towards Goals Progressing Toward Goals Progress Comments 08/24/22 LUE AROM seated: FF: 3 deg less from 158 at eval ABD: 18 deg less from 170 at eval IR: improved 3 vertebra from L1 Assessment Summary Assessment Pt made gains in lifting items as boxes at home over the last week and feels if more consistant with HEP will be back to normal. Reviewed HEP and added ther ex to progress to and feels confident to continue on own. See HOs scanned in to view. Pt found AAROM eccentric TB in 1/2 kneel a good ROM stretch will allow progress ROM OH on own. Physical Therapy Plan Frequency and Duration Frequency of Treatment 2x/Week Duration of treatment (weeks) 4 Plan of Care Start Date 08/12/22 Plan of Care End Date 09/09/22 Therapeutic Interventions Therapeutic Interventions Home Exercise Program,Joint Mobilizations,Manual Therapy, Neuromuscular Re-education, Self-Care/Home Management, Therapeutic Activities, Therapeutic Exercises Modalities Cold Pack/Ice Massage,Electric Stimulation,Hot Packs Discharge Physical Therapy Discharge Reasons Patient Request Discharge Comments Pt ready to DC to HEP, PT Renetta will complete DC. Next Visit Focus/Plan Next Note Type Treatment Note Next Visit Plan DC to HEP
--- NOTE | 2022-09-11 10:53 | PT.OPDS ---
Current Diagnoses Primary osteoarthritis, left shoulder (08/24/22) Calcific tendinitis of left shoulder (08/24/22) Impingement syndrome of left shoulder (08/24/22) Superior glenoid labrum lesion of left shoulder, subsequent encounter (08/24/22) Visit Care Team Role Provider Type Shabnam Dowell DO Primary Care Provider Physician Specialty: Medical Address: [address] [place] [address], [address], [place], [address] Email: [email or web address] Deo Bond DO Attending Provider Non-Staff Family Provider Referring Provider Specialty: Orthopedics Address: [address] [place] [address] [address], [place], [address] opt2 Email: Visit Number Visit Number 7 Discharge Summary PT-OP-B Current Condition Start: 06/13/22 18:55 Freq: Status: Active Protocol: Document 06/17/22 10:26 AMB (Rec: 06/17/22 10:51 AMB [id number]) Current Condition History of Current Condition Onset Date Over a year Current Complaints Left shoulder History of Current Condition Pt reports he had a cortisone injection 2 months ago and pain and range of motion have very much improved. Reports very little pain at this point . Possibly a little bit of tingling. 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 Was seen for physical therapy previously and had been in significant pain, difficulty sleeping at that time. Is hoping to make sure that pain relief from cortisone lasts. Prior Functional Status Baseline Function- ADL's Independent Personal Factors Other Personal Factors That May Effect DMII Therapy/Recovery PT-OP-C Subjective Start: 06/13/22 18:55 Freq: Status: Active Protocol: Document 08/24/22 08:18 SP (Rec: 08/24/22 09:05 SP [id number]) OP-PT Subjective Patient Comments Patient Comments Pt reports doing well, able to lift boxes and mindful back alignment and elbows tucked in and using hand trunk. PT-OP-J Posture/Palpation/Skin Start: 06/13/22 18:55 Freq: Status: Active Protocol: Document 06/17/22 10:52 AMB (Rec: 06/20/22 21:59 AMB [id number]) Posture Evaluation Comments Posture Comments bilateral forward shoulders Palpation Assessment Location One Palpation Location L shoulder Palpation Details mild tenderness over biceps tendon, no significant tenderness over scapula PT-OP-K Range of Motion Start: 06/13/22 18:55 Freq: Status: Active Protocol: Document 08/24/22 08:18 SP (Rec: 08/24/22 09:05 SP [id number]) Shoulder Goniometric Range of Motion Shoulder Left Active Testing Position Sitting Flexion 153 Abduction 152 External Rotation at 0 degrees Abduction 74 Internal Rotation Behind Back (text) T10 Comments LUE AROM seated: FF: 3 deg less from 158 at eval ABD: 18 deg less from 170 at eval ER: improved 3 vertibra from L1 PT-OP-M Strength Start: 06/13/22 18:55 Freq: Status: Active Protocol: Document 06/17/22 10:52 AMB (Rec: 06/17/22 10:57 AMB [id number]) Shoulder Strength Shoulder Manual Muscle Testing Left Flexion 5 Normal Extension 4+ Good+ Abduction (C5) 4- Good- External Rotation 4 Good Internal Rotation 4+ Good+ PT-OP-T Assessment and Plan Start: 06/13/22 18:55 Freq: Status: Active Protocol: Document 09/11/22 10:52 AMB (Rec: 09/11/22 10:53 AMB [id number]) Physical Therapy Assessment Goals Three Impairment HEP Short Term Goal (STG) Jourdan will be independent and consistent with a HEP to improve his shoulder strength, lifting over shoulder height and decrease his pain. 08/24/22: Discussed/progressed and I with HOs: hasn't done recently due to moving boxes at home, no adverse pain results. HEP reviewed today: 1/2 kneel TB eccentric FF, abduction, standing TB shld ext, rows, IR /ER, added resisted supine FF, scaption, HABD over foam roller, good feedback resistance, does c/o knot pain/discomfort over L Low Trap during exercise otherwise feels good muscle work. DIscussed progress standing D2 flexion and OH punch later to support lift items over head more consistantly. STG Duration 4 weeks 08/24/22 GOAL MET Two Impairment Strength Short Term Goal (STG) Jourdan will improve his MMT in all planes to at least 4+/5 . 08/24/22: GOAL MET: 5/ seated resisted abd and ER painfree. STG Duration 4 weeks GOAL MET 08/24/22 Senior Care Goal (LTG) Jourdan will lift 10# to head height without shoulder pain. 08/24/22: GOAL MET: able lift 10# DB over head x5 reps without pain but states stiff and sore. LTG Duration 8 weeks GOAL MET 08/24/22 One Impairment ROM Short Term Goal (STG) Jourdan will improve his flexion ROM to at least 165 degrees actively. 08/24/22: pt less AROM since eval see assessment measurements. Pt states stiff in am due to sleeping on L side next to daughter and trying not to move to roll onto her so stiff in the am. LUE AROM seated: FF: 3 deg less from 158 at eval ABD: 18 deg less from 170 at eval IR: improved 3 vertebra from L1 STG Duration 4 weeks (less ROM since eval) 08/24/22 Assessment Summary Assessment Jourdan met the majority of his goals. He continues to have mild pain but overall is much more functional and is happy with his current status. Physical Therapy Plan Discharge Physical Therapy Discharge Reasons Patient Request Discharge Comments Pt ready to DC to HEP,.
== END 2022-09-12 11:09 | disposition home or self-care (01) ==
LOC: PHYS 08:15
PROVIDERS: Family Provider Orthopaedic Surgery; PCP Family Medicine; Referring Provider Orthopaedic Surgery; Visit Provider Orthopaedic Surgery
DX: S43.432D Superior glenoid labrum lesion of left shoulder, subsequent encounter (principal); M19.012 Primary osteoarthritis, left shoulder; M75.42 Impingement syndrome of left shoulder; M75.32 Calcific tendinitis of left shoulder
CPT/HCPCS: 97110; 97140; 97161; 97535

== ENCOUNTER → 2022-09-29 08:38 | Outpatient (CLI) | payer OTHER, MEDICAID, SELFPAY ==
[2021-06-28 16:29] VITALS: BMI 36.6
--- NOTE | 2022-09-29 08:39 | DI.RAD.S_ITS ---
PROCEDURE: XR KNEE RT 3V INDICATIONS: knee pain TECHNIQUE: 3 views of the knee were acquired. COMPARISON: None. FINDINGS: Bones: No acute fractures or dislocations. No suspicious bony lesions. Mild tricompartmental degenerative changes with small marginal osteophytes. Small suprapatellar and infrapatellar enthesophytes. Soft tissues: No joint effusion. No suspicious soft tissue calcifications. IMPRESSION: Mild tricompartmental osteoarthrosis. Approved by: Perry Rosado M.D. on 09/29/2022 at 11:07
== END ==
PROVIDERS: Family Provider Orthopaedic Surgery; PCP Family Medicine; Referring Provider Nurse Practitioner Family; Visit Provider Nurse Practitioner Family
DX: M25.561 Pain in right knee (principal); M17.11 Unilateral primary osteoarthritis, right knee
CPT/HCPCS: 73562

== ENCOUNTER 2022-10-20 17:39 | Emergency (ER) | payer OTHER, MEDICAID, SELFPAY ==
[2021-06-28 16:29] VITALS: BMI 36.6
[2022-10-20] VITALS (10 sets, daily range): BP systolic 114–142; BP diastolic 67–91; PULSE 73–100; RESP 13–23; TEMP 36.6; O2SAT 95–97; BMI 33.9
--- NOTE | 2022-10-20 17:54 | DI.RAD.S_ITS ---
PROCEDURE: XR CHEST 1V INDICATIONS: Shortness of breath TECHNIQUE: One view of the chest was acquired. COMPARISON: [facility], CR, XR CHEST 1V, 06/18/2022, 12:05. FINDINGS: Surgical changes and devices: None. Lungs and pleura: Lungs are clear. No pleural effusions or pneumothorax. Mediastinum: Mediastinal contours appear normal. Heart size is normal. Bones and chest wall: No suspicious bony lesions. Overlying soft tissues appear unremarkable. IMPRESSION: No acute pulmonary process. Dictated by: Darshana De Jesus M.D. on 10/20/2022 at 18:36 Approved by: Darshana De Jesus M.D. on 10/20/2022 at 18:37
[2022-10-20 18:17] LABS: Prothrombin Time 11.6 SECONDS (10.1-12.7)
[2022-10-20 18:18] LABS: Add Manual Diff / Slide Review NO; Basophils Absolute Auto 100 /uL (0-100); Basophils Percent Auto 0.7 % (0-2); Eosinophils Absolute Auto 200 /uL (0-450); Eosinophils Percent Auto 1.9 % (2-4); Hematocrit 42.3 % (41-53); Hemoglobin 14.8 g/dL (13.5-17.5); Lymphocytes Absolute Auto 2900 /uL (1100-4500); Lymphocytes Percent Auto 31.9 % (25-40); Mean Corpuscular Hemoglobin 31.5 PG (26-34); Monocytes Absolute Auto 600 /uL (0-900); Neutrophils Absolute Auto 5400 /uL (1500-7000); Neutrophils Percent Auto 58.5 % (50-75); Platelet Count 294 X10^3/uL (150-400); Red Cell Distribution Width 13.2 % (11.6-14.8); White Blood Cell Count 9.2 X10^3/uL (4.5-11.0)
[2022-10-20 18:24] LABS: Alanine Aminotransferase 28 IU/L (<50); Albumin 4.4 g/dL (3.5-5.0); Albumin Globulin Ratio 1.6 (1.0-2.8); Alkaline Phosphatase 38 U/L (38-126); Aspartate Aminotransferase 27 IU/L (17-59); Bilirubin Total 0.6 mg/dL (0.2-1.3); Blood Urea Nitrogen 14 mg/dL (9-20); Calcium 9.1 mg/dL (8.4-10.2); Carbon Dioxide 28 mmol/L (22-32); Chloride 101 mmol/L (98-107); Estimated Glomerular Filt Rate > 60 mL/min (>60); Globulin 2.7 g/dL (1.7-4.1); Glucose 205 mg/dL (80-110); Sodium 136 mmol/L (137-145); Total Protein 7.1 g/dL (6.3-8.2)
[2022-10-20 18:32] LABS: HEMOLYSIS 90 (0-50)
[2022-10-20 18:35] LABS: Potassium 4.4 mmol/L (3.4-5.1)
[2022-10-20 18:37] LABS: NT-proBNP (BNP-Adult 18+) 26 pg/mL (<125); Troponin I < 0.012 ng/mL (0.01-0.034)
[2022-10-20 19:07] LABS: Adenovirus Not Detected (Not Detect); B. parapertussis Not Detected (Not Detecte); Bordetella pertussis Not Detected (Not Detecte); Chlamydophila pneumoniae Not Detected (Not Detect); Coronavirus 229E Not Detected (Not Detect); Coronavirus HKU1 Not Detected (Not Detect); Coronavirus NL 63 Not Detected (Not Detect); Coronavirus OC43 Not Detected (Not Detect); Human Metapneumovirus Not Detected (Not Detect); Human Rhinovirus/Enterovirus Not Detected (Not Detect); Influenza A Not Detected (Not Detect); Influenza B Not Detected (Not Detect); Mycoplasma pneumoniae Not Detected (Not Detect); Parainfluenza Virus 1 Not Detected (Not Detect); Parainfluenza Virus 2 Not Detected (Not Detect); Parainfluenza Virus 3 Not Detected (Not Detect); Parainfluenza Virus 4 Not Detected (Not Detect); Respiratory Syncytial Virus Not Detected (Not Detect); SARS- CoV-2 Not Detected (Not Detecte)
--- NOTE | 2022-10-20 22:10 | ED_ITS ---
HPI - Dizziness General Chief Complaint: Dizziness Stated Complaint: Dizzy Time Seen by Provider: 10/20/22 21:09 Source: patient Mode of arrival: Ambulatory Limitations: no limitations History of Present Illness HPI Narrative: This is a 62-year-old male diabetes and dyslipidemia who comes in with complaint of about a month of upper respiratory symptoms along with his entire family. He states in the last 24 hours developed a worsening cough that is now got some productive green sputum, he is felt little bit dizzy. He states sort of lightheaded but also little bit of worse with movement of his head. No syncope. He is felt tired, fatigued, he states his eyes have been scratchy, no drainage. He denies chest pain, he states maybe some mild shortness of breath but he states it may just be feeling fatigued. He is had some mild nausea but no vomiting. No diarrhea constipation, no urinary symptoms he is had decreased appetite. Patient states he is had nasal congestion. He states his eyes feel red and irritated. Patient denies any surgeries. States he is allergic to penicillin. He does use tobacco, no alcohol, no illicit. Primary care is Dr. Dowell. Related Data Home Medications Medication Instructions Recorded Confirmed aspirin 81 mg tablet,delayed 81 mg PO DAILY 05/27/20 09/29/22 release (Adult Aspirin Regimen) omeprazole magnesium 2.5 mg oral 10 mg PO DAILY 05/27/20 09/29/22 suspension,delayed release (Prilosec) naproxen sodium 220 mg capsule 220 mg PO BID PRN pain / discomfort 12/04/20 09/29/22 (Aleve) Previous Rx's Medication Instructions Recorded blood sugar diagnostic (Blood #100 ea 04/13/21 Glucose Test strips) blood-glucose meter #1 ea 04/13/21 lancets 26 gauge #100 ea 04/13/21 peg 3350-electrolytes 236 240 ml PO Q10M #4,000 mL 07/01/21 gram-22.74 gram-6.74 gram-5.86 gram solution (Golytely) cyclobenzaprine 5 mg tablet 5 mg PO TID PRN muscle spasm #20 07/21/21 tabs nicotine 21 mg/24 hr daily 1 patch transdermal Q24H #28 ea 10/20/21 transdermal patch nicotine 14 mg/24 hr daily 1 patch transdermal Q24H #14 ea 11/09/21 transdermal patch nicotine 7 mg/24 hr daily 1 patch transdermal Q24H #14 ea 11/09/21 transdermal patch metformin 500 mg tablet See Rx Instructions .Route 05/02/22 .COMPLEX #360 tabs Advair Diskus 250 mcg-50 mcg/dose See Rx Instructions .Route 05/10/22 powder for inhalation (fluticasone .COMPLEX #60 blisters propion-salmeterol) atorvastatin 20 mg tablet (Lipitor) 20 mg PO BEDTIME hyperlipidemia; 06/17/22 diabetes #90 tabs albuterol sulfate 90 mcg/actuation See Rx Instructions .Route 07/11/22 aerosol inhaler .COMPLEX #8.5 grams Home Sleep Study #1 ea 08/05/22 liraglutide 0.6 mg/0.1 mL (18 mg/3 0.6 mg (0.1 mL) SUBCUT DAILY 08/05/22 mL) subcutaneous pen injector diabetes #6 mL (Victoza 2-Darius) meclizine 25 mg tablet 25 mg PO TID PRN dizziness #14 tabs 10/20/22 Allergies Allergy/AdvReac Type Severity Reaction Status Date / Time Penicillins Allergy Severe Rash Verified 10/20/22 17:49 codeine Allergy Verified 10/20/22 17:49 Review of Systems Review of Systems ROS Unobtainable: All systems reviewed & are unremarkable except as noted in HPI and below Patient History Medical History Abnormal laboratory test result Asthma Colonic diverticular abscess Degenerative tear of glenoid labrum of left shoulder Diverticulitis Elevated blood pressure reading without diagnosis of hypertension Fatigue GERD (gastroesophageal reflux disease) JOYCE (obstructive sleep apnea) Partial tear subscapularis tendon Respiratory infection SOB (shortness of breath) Supraspinatus tendon tear Tendinosis of rotator cuff Tobacco consumption Type 2 diabetes mellitus with complication, without long-term current use of insulin Social History household members: spouse Smoking Status: Current some day smoker alcohol intake: never substance use type: does not use Smoking Status: Current some day smoker alcohol intake frequency: 0-2 drinks per day Substance Use Type: does not use Exam Narrative Exam Narrative: GEN: well nourished, well appearing male, alert and oriented x 3, patient appears to be in mild distress. HEENT: Atraumatic, pupils are equal round reactive to light, extraocular movements are intact, eyes are slightly injected, no drainage, nares bilateral clear rhinorrhea, TMs are clear with no fluid they retracted bilaterally, there is no conjunctival pallor. Throat is clear without any exudates, erythema, tonsillar enlargement or uvular deviation, no facial droop. Normal range of motion of neck. Slight hoarseness. No muffled voice, no stridor easy work of breathing. HEART: Regular rate and rhythm without murmur, clicks, rubs. LUNGS:Lungs clear to auscultation, no wheezes, rales, crackles, chest moves symmetrically ABD:bowel sounds normal, soft, non-tender, no guarding, rebound, rigidity, no masses noted, no hepatosplenomegaly :No CVA tenderness MSCL: Non-tender, no muscle atrophy, muscles strength 5/5 upper and lower extremities, full range of motion, normal gait NEURO:CN 2-12 intact, sensation normal SKIN: No rash, erythema or other skin changes. Initial Vital Signs Initial Vital Signs: Vital Signs Temperature 97.9 F 10/20/22 17:45 Pulse Rate 100 H 10/20/22 17:45 Respiratory Rate 18 10/20/22 17:45 Blood Pressure 142/88 H 10/20/22 17:45 Pulse Oximetry 95 10/20/22 17:45 Oxygen Delivery Method Room Air 10/20/22 17:45 Course Orders Ordered: Discontinued Medications Meclizine HCl (Meclizine Hcl 12.5 Mg Tablet) 25 mg PO NOW ONE Stop: 10/20/22 22:27 Last Admin: 10/20/22 22:32 Dose: 25 mg Documented By: FANNIE Vital Signs Vital signs: Vital Signs - 8 hr 10/20/22 17:45 10/20/22 20:07 10/20/22 20:08 Temperature 97.9 F Pulse Rate 100 H 90 91 H Respiratory Rate 18 21 22 Blood Pressure 142/88 H Pulse Oximetry 95 96 97 Oxygen Delivery Method Room Air Room Air 10/20/22 20:08 10/20/22 20:30 10/20/22 20:30 Temperature Pulse Rate 82 Respiratory Rate 23 Blood Pressure 115/83 114/67 Pulse Oximetry 96 Oxygen Delivery Method 10/20/22 21:00 10/20/22 21:00 10/20/22 21:30 Temperature Pulse Rate 79 Respiratory Rate 20 Blood Pressure 114/69 121/73 Pulse Oximetry 96 Oxygen Delivery Method 10/20/22 21:30 10/20/22 22:00 10/20/22 22:00 Temperature Pulse Rate 79 73 Respiratory Rate 23 22 Blood Pressure 120/70 Pulse Oximetry 95 96 Oxygen Delivery Method Room Air MDM - Dizziness Lab Data 10/20/22 18:02 10/20/22 18:02 Labs: Lab Results 10/20/22 10/20/22 10/20/22 Range/Units 18:02 18:02 18:02 WBC 9.2 (4.5-11.0) X10^3/uL RBC 4.70 (4.5-5.9) X10^6/uL Hgb 14.8 (13.5-17.5) g/dL Hct 42.3 (41-53) % MCV 90.0 (80-100) fL MCH 31.5 (26-34) PG MCHC 35.0 (30-36) % RDW 13.2 (11.6-14.8) % Plt Count 294 (150-400) X10^3/uL Neut % (Auto) 58.5 (50-75) % Lymph % (Auto) 31.9 (25-40) % [place] % (Auto) 7.0 (3-14) % Eos % (Auto) 1.9 L (2-4) % Baso % (Auto) 0.7 (0-2) % Neut # (Auto) 5400 (6321-2722) /uL Lymph # (Auto) 2900 (7309-1698) /uL [place] # (Auto) 600 (0-900) /uL Eos # (Auto) 200 (0-450) /uL Baso # (Auto) 100 (0-100) /uL PT 11.6 (10.1-12.7) SECONDS INR 1.0 (0.9-1.3) Sodium 136 L (137-145) mmol/L Potassium 4.4 (3.4-5.1) mmol/L Chloride 101 (98-107) mmol/L Carbon Dioxide 28 (22-32) mmol/L BUN 14 (9-20) mg/dL Creatinine 0.70 (0.66-1.25) mg/dL Estimated GFR > 60 (>60) mL/min BUN/Creatinine Ratio 20.0 (6-22) Glucose 205 H (80-110) mg/dL Lactate (0.7-2.1) mmol/L Calcium 9.1 (8.4-10.2) mg/dL Total Bilirubin 0.6 (0.2-1.3) mg/dL AST 27 (17-59) IU/L ALT 28 (<50) IU/L Alkaline Phosphatase 38 (38-126) U/L Troponin I < 0.012 (0.01-0.034) ng/mL NT-Pro-B Natriuret Pep 26 (<125) pg/mL Total Protein 7.1 (6.3-8.2) g/dL Albumin 4.4 (3.5-5.0) g/dL Globulin 2.7 (1.7-4.1) g/dL Albumin/Globulin Ratio 1.6 (1.0-2.8) Chlamy pneumoniae PCR (Not Detect) Adenovirus (PCR) (Not Detect) B. pertussis DNA (PCR) (Not Detecte) B.parapertussis DNA PCR (Not Detecte) Coronavirus OC43 (PCR) (Not Detect) Coronavirus HKU1 (PCR) (Not Detect) Coronavirus 229E (PCR) (Not Detect) SARS-CoV-2 (PCR) (Not Detecte) Coronavirus NL63 (PCR) (Not Detect) Human Metapneumovir PCR (Not Detect) Influenza Type A (PCR) (Not Detect) Influenza Type B (PCR) (Not Detect) M. pneumoniae (PCR) (Not Detect) Parainfluenza 1 (PCR) (Not Detect) Parainfluenza 2 (PCR) (Not Detect) Parainfluenza 3 (PCR) (Not Detect) Parainfluenza 4 (PCR) (Not Detect) RSV (PCR) (Not Detect) Entero/Rhino (PCR) (Not Detect) 10/20/22 10/20/22 Range/Units 18:02 18:02 WBC (4.5-11.0) X10^3/uL RBC (4.5-5.9) X10^6/uL Hgb (13.5-17.5) g/dL Hct (41-53) % MCV (80-100) fL MCH (26-34) PG MCHC (30-36) % RDW (11.6-14.8) % Plt Count (150-400) X10^3/uL Neut % (Auto) (50-75) % Lymph % (Auto) (25-40) % [place] % (Auto) (3-14) % Eos % (Auto) (2-4) % Baso % (Auto) (0-2) % Neut # (Auto) (1226-6748) /uL Lymph # (Auto) (9933-4608) /uL [place] # (Auto) (0-900) /uL Eos # (Auto) (0-450) /uL Baso # (Auto) (0-100) /uL PT (10.1-12.7) SECONDS INR (0.9-1.3) Sodium (137-145) mmol/L Potassium (3.4-5.1) mmol/L Chloride (98-107) mmol/L Carbon Dioxide (22-32) mmol/L BUN (9-20) mg/dL Creatinine (0.66-1.25) mg/dL Estimated GFR (>60) mL/min BUN/Creatinine Ratio (6-22) Glucose (80-110) mg/dL Lactate 2.0 (0.7-2.1) mmol/L Calcium (8.4-10.2) mg/dL Total Bilirubin (0.2-1.3) mg/dL AST (17-59) IU/L ALT (<50) IU/L Alkaline Phosphatase (38-126) U/L Troponin I (0.01-0.034) ng/mL NT-Pro-B Natriuret Pep (<125) pg/mL Total Protein (6.3-8.2) g/dL Albumin (3.5-5.0) g/dL Globulin (1.7-4.1) g/dL Albumin/Globulin Ratio (1.0-2.8) Chlamy pneumoniae PCR Not detected (Not Detect) Adenovirus (PCR) Not detected (Not Detect) B. pertussis DNA (PCR) Not detected (Not Detecte) B.parapertussis DNA PCR Not detected (Not Detecte) Coronavirus OC43 (PCR) Not detected (Not Detect) Coronavirus HKU1 (PCR) Not detected (Not Detect) Coronavirus 229E (PCR) Not detected (Not Detect) SARS-CoV-2 (PCR) Not detected (Not Detecte) Coronavirus NL63 (PCR) Not detected (Not Detect) Human Metapneumovir PCR Not detected (Not Detect) Influenza Type A (PCR) Not detected (Not Detect) Influenza Type B (PCR) Not detected (Not Detect) M. pneumoniae (PCR) Not detected (Not Detect) Parainfluenza 1 (PCR) Not detected (Not Detect) Parainfluenza 2 (PCR) Not detected (Not Detect) Parainfluenza 3 (PCR) Not detected (Not Detect) Parainfluenza 4 (PCR) Not detected (Not Detect) RSV (PCR) Not detected (Not Detect) Entero/Rhino (PCR) Not detected (Not Detect) Urine Dip Bedside Urine Glucose Negative Bedside Urine Bilirubin - Negative Bedside Urine Ketone - Negative Urine Specific [place] 1.015 Bedside Urine Occult Blood - Negative Bedside Urine pH 5.5 Bedside Urine Protein - Negative Bedside Urine Urobilinogen +/- 1mg Bedside Urine Nitrite - Negative Bedside Urine Leukocytes - Negative Esterase Imaging Data Chest x-ray: Radiologist's Impression: Close Chest X-Ray (Signed) Darshana De Jesus - 10/20/22 Knee X-Ray (Signed) Perry Rosado - 09/29/22 EKG Rpt. 06/22/22 Chest X-Ray (Signed) Delgadillo,Antonio - 06/18/22 EKG Rpt. 03/12/22 Shoulder MRI (Signed) Toan Sadler - 12/16/21 Shoulder X-Ray (Signed) Perry Rosado - 10/01/21 Thoracic Spine X-Ray (Signed) Delgadillo,Antonio - 07/21/21 Lumbar Spine X-Ray (Signed) Delgadillo,Antonio - 07/21/21 Barium Enema w/Air Contrast (Signed) Paul Tang - 07/16/21 Abdomen/Pelvis CT (Signed) Bipin Emerson - 06/07/21 Abdomen/Pelvis CT (Signed) Vitor Tim - 06/02/21 Ribs X-Ray (Signed) Delgadillo,Antonio - 01/27/21 Chest X-Ray (Signed) Perry Rosado - 01/21/[address] (Signed) Scott Baker - 12/04/20 Chest X-Ray (Signed) Josh Healy - 12/04/20 Abdomen/Pelvis CT (Signed) Jose Enrique Alvarez - 06/24/20 Telemetry Strips 06/16/20 Abdomen/Pelvis CT (Signed) Darshana De Jesus - 05/11/20 Chest X-Ray (Signed) OseasEyadAbeba - 02/13/20 Launch?Image [address] [address] XRay Report Signed Patient: Jourdan Augustine MR#: [id number] : 1960 Acct:[id number] Age/Sex: 62 / M Date of Service: 10/20/22 Loc: ED Accession Number: [id number] ?? Procedure: XR chest 1V Ordering Provider: Schuyler Abbott D.O. PROCEDURE:? XR CHEST 1V ? INDICATIONS:? Shortness of breath ? TECHNIQUE:? One view of the chest was acquired.? ? COMPARISON:? [facility], , XR CHEST 1V, 06/18/2022, 12:05. ? FINDINGS:? ? Surgical changes and devices:? None.? ? Lungs and pleura:? Lungs are clear.? No pleural effusions or pneumothorax.? ? Mediastinum:? Mediastinal contours appear normal.? Heart size is normal.? ? Bones and chest wall:? No suspicious bony lesions.? Overlying soft tissues appear unremarkable.? ? IMPRESSION:? No acute pulmonary process. ? ? Dictated by: Darshana De Jesus M.D. on 10/20/2022 at 18:36 ? ? Approved by: Darshana De Jesus M.D. on 10/20/2022 at 18:37?? ECG Data Attestation: I personally reviewed and interpreted this ECG as follows: Interpretation: Sinus rhythm rate of 97 PA 168 QRS 82 QTC of 431. No acute ST elevation dep ression noted. Patient has prior from 06/18/2022 which appears similar MDM Narrative Medical decision making narrative: This is a 62-year-old male with history of diabetes and dyslipidemia he is had upper respiratory symptoms on and off for a month has a new worsening cough with some green productive sputum but afebrile he is got some slightly injected eyes, scratchiness, nasal congestion and slight hoarseness. Patient's overall physical exam seems most consistent with upper respiratory infection. Lungs are clear, patient had an IO in place had negative chest x-ray, respiratory panel, CBC, CMP, INR troponin LFTs are negative. Urine was negative. Patient does have a little bit of vertigo type symptoms so was offered to try some meclizine he does not have any other acute neurologic changes and I suspect this is related to his recent infection. Patient does not seem to be appropriate for antibiotics at this time does not have any wheeze or changes consistent with bronchitis requiring nebs or steroids. Discussed return precautions. Patient does note he has a 1-year-old and a 4-year-old at home who are likely bring home recurrent viral infections. Discharge Plan Departure Patient Disposition: Home Clinical Impression: Upper respiratory infection Instructions: DI for Viral Upper Respiratory Infection -- Adult, DI for Labyrinthitis Activity Restrictions/Additional Instructions: Please follow-up with your physician for recheck if your symptoms are persisting. You can take meclizine 1-2 tablets every 8 hours as needed for vertigo or dizziness type symptoms. I would recommend Tylenol and/or ibuprofen for any fevers and muscle aches. Prescription sent to [facility] in [place]. Please return for fevers, new or worsening chest pain, shortness of breath, passing out, new numbness, tingling weakness, persistent vomiting, difficulty with ambulation, new swelling in her extremities or other new or concerning changes. Prescriptions: New meclizine 25 mg tablet 25 mg PO TID PRN (Reason: dizziness) Qty: 14 0RF No Action cyclobenzaprine 5 mg tablet 5 mg PO TID PRN (Reason: muscle spasm) Qty: 20 0RF (DME) blood-glucose meter Mis See Rx Instructions .Route Qty: 1 0RF Rx Instructions: Use to check blood sugar 3 times daily before meals (DME) Blood Glucose Test Strip See Rx Instructions .Route Qty: 100 3RF Rx Instructions: Use to check blood sugars three times daily before meals (DME) lancets 26 gauge misc See Rx Instructions .Route Qty: 100 3RF Rx Instructions: Use to check blood sugar three times daily before meals nicotine 21 mg/24 hr patch 24 hour 1 patch transdermal Q24H Qty: 28 0RF nicotine 14 mg/24 hr patch 24 hour 1 patch transdermal Q24H Qty: 14 0RF nicotine 7 mg/24 hr patch 24 hour 1 patch transdermal Q24H Qty: 14 0RF metformin 500 mg tablet See Rx Instructions .ROUTE .COMPLEX Qty: 360 0RF Dose Instruction: TAKE 2 TABLET BY MOUTH TWICE A DAY FOR 90 DAYS. Rx Instructions: TAKE 2 TABLET BY MOUTH TWICE A DAY FOR 90 DAYS. fluticasone propion-salmeterol [Advair Diskus] 250-50 mcg/dose blister with device See Rx Instructions .ROUTE .COMPLEX Qty: 60 5RF Dose Instruction: inhale 1 puff by mouth and INTO THE LUNGS twice a day Rinse mouth after use Rx Instructions: inhale 1 puff by mouth and INTO THE LUNGS twice a day Rinse mouth after use atorvastatin [Lipitor] 20 mg tablet 20 mg PO BEDTIME Qty: 90 3RF albuterol sulfate 90 mcg/actuation HFA aerosol inhaler See Rx Instructions .ROUTE .COMPLEX Qty: 8.5 12RF Dose Instruction: inhale 2 puffs by mouth every 4 to 6 hours if needed for shortness of breath or wheezing Rx Instructions: inhale 2 puffs by mouth every 4 to 6 hours if needed for shortness of breath or wheezing Victoza 2-Darius 0.6 mg/0.1 mL (18 mg/3 mL) pen injector 0.6 mg SUBCUT DAILY Qty: 6 11RF (DME) Home Sleep Study See Rx Instructions .Route .MEDSUPPLY Qty: 1 0RF Rx Instructions: as directed Prilosec 2.5 mg susp,delayed release for recon 10 mg PO DAILY aspirin [Adult Aspirin Regimen] 81 mg tablet,delayed release (DR/EC) 81 mg PO DAILY peg 3350-electrolytes [Golytely] 236-22.74-6.74 -5.86 gram recon soln 240 ml PO Q10M Qty: 4000 0RF Rx Instructions: until fecal effluent is clear naproxen sodium [Aleve] 220 mg Capsule 220 mg PO BID PRN (Reason: pain / discomfort) Referrals: Shabnam Dowell DO [Primary Care Provider] - Stand Alone Forms: Patient Portal/API
[2022-10-20] MEDS: MECLIZINE HCL 12.5 MG TABLET 25 MG PO (22:32)
== END 2022-10-20 22:40 | disposition home or self-care (01) ==
PROVIDERS: Emergency Medicine; Emergency Provider Emergency Medicine; Family Provider Orthopaedic Surgery; PCP Family Medicine
DX: J06.9 Acute upper respiratory infection, unspecified (principal); R06.02 Shortness of breath; Z79.899 Other long term (current) drug therapy; Z20.822 Contact with and (suspected) exposure to COVID-19
CPT/HCPCS: 36415; 71045; 80053; 81003; 83605; 83880; 84484; 85025; 85610; 87633; 93005; 99284

== ENCOUNTER → 2022-12-09 08:52 | Outpatient (CLI) | payer OTHER, MEDICAID, SELFPAY ==
[2021-06-28 16:29] VITALS: BMI 36.6
[2022-12-09 10:12] LABS: BUN Creatinine Ratio 18.3 (6-22); Blood Urea Nitrogen 13 mg/dL (9-20); Calcium 9.4 mg/dL (8.4-10.2); Carbon Dioxide 30 mmol/L (22-32); Chloride 100 mmol/L (98-107); Estimated Glomerular Filt Rate > 60 mL/min (>60); Glucose 134 mg/dL (80-110); HEMOLYSIS < 15 (0-50); Potassium 4.4 mmol/L (3.4-5.1); Sodium 137 mmol/L (137-145)
[2022-12-10 06:41] LABS: x Labcorp Estim. Avg Glu (eAG) 140 mg/dL (.); x Labcorp Hemoglobin A1c 6.5 % (4.8-5.6)
== END ==
PROVIDERS: Family Provider Orthopaedic Surgery; PCP Family Medicine; Referring Provider Family Medicine; Visit Provider Family Medicine
DX: E11.8 Type 2 diabetes mellitus with unspecified complications (principal)
CPT/HCPCS: 36415; 80048; 83036

== ENCOUNTER 2022-12-22 21:52 | Emergency (ER) | payer OTHER, MEDICAID, SELFPAY ==
[2021-06-28 16:29] VITALS: BMI 36.6
[2022-12-22 21:55] VITALS: BP 133/91; PULSE 84; RESP 14; TEMP 36.6; O2SAT 96; BMI 33.9
--- NOTE | 2022-12-22 22:00 | DI.RAD.S_ITS ---
PROCEDURE: XR FOREARM RT 2V INDICATIONS: lifting and felt a pop TECHNIQUE: 2 views of the forearm were acquired. COMPARISON: None. FINDINGS: Bones: No fractures or dislocations. No suspicious bony lesions. Soft tissues: No suspicious soft tissue calcifications or masses. IMPRESSION: 1. No fracture or dislocation. Dictated by: Vitor Tim M.D. on 12/22/2022 at 23:28 Approved by: Vitor Tim M.D. on 12/22/2022 at 23:28
--- NOTE | 2022-12-22 23:08 | PC.NURSE ---
Pt reports increase in pain when rotating his R forearm. [employer]ENT[employer] intact.
--- NOTE | 2022-12-22 23:39 | ED_ITS ---
HPI - Extremity Injury (Upper) General Chief Complaint: Extremity Injury, Upper Stated Complaint: rt arm pain Time Seen by Provider: 12/22/22 23:13 Source: patient, RN notes reviewed and old records reviewed Mode of arrival: Ambulatory Limitations: no limitations History of Present Illness HPI narrative: This is a 62-year-old male with history of diabetes, dyslipidemia who presents with complaint of right forearm pain for the last 3 weeks. Patient states he was slipping up a piece of fiberglass on board which was quite heavy he was lifting up with his right arm flexing and felt up and rotating his hand in a a pronation movement and felt a pop in his forearm and has had pain radiating across the forearm over the dorsum and towards the elbow since. Patient states symptoms have not been improving with time. He has tried to leave. He follow up with his physician who told him to give it another week to see if it improved. He states it has been persisting. He presents tonight as it has been persisting making it hard for him to sleep. He is taken a leave which is somewhat helpful. He denies fevers chills, no warmth, no redness no swelling no obvious deformity. He states movement such as pronation supination increase his pain as well as trying to flex at the elbow with any sort of weight. Patient states it felt like there was a pop. Patient does not have much pain in the biceps region. He states no other injuries. States he is allergic to penicillin, does use tobacco, no alcohol or illicit. His primary care is Dr. Dowell. Related Data Home Medications Medication Instructions Recorded Confirmed aspirin 81 mg tablet,delayed 81 mg PO DAILY 05/27/20 09/29/22 release (Adult Aspirin Regimen) omeprazole magnesium 2.5 mg oral 10 mg PO DAILY 05/27/20 09/29/22 suspension,delayed release (Prilosec) naproxen sodium 220 mg capsule 220 mg PO BID PRN pain / discomfort 12/04/20 09/29/22 (Aleve) Previous Rx's Medication Instructions Recorded blood sugar diagnostic (Blood #100 ea 04/13/21 Glucose Test strips) blood-glucose meter #1 ea 04/13/21 lancets 26 gauge #100 ea 04/13/21 peg 3350-electrolytes 236 240 ml PO Q10M #4,000 mL 07/01/21 gram-22.74 gram-6.74 gram-5.86 gram solution (LocalGuidingly) cyclobenzaprine 5 mg tablet 5 mg PO TID PRN muscle spasm #20 07/21/21 tabs nicotine 21 mg/24 hr daily 1 patch transdermal Q24H #28 ea 10/20/21 transdermal patch nicotine 14 mg/24 hr daily 1 patch transdermal Q24H #14 ea 11/09/21 transdermal patch nicotine 7 mg/24 hr daily 1 patch transdermal Q24H #14 ea 11/09/21 transdermal patch atorvastatin 20 mg tablet (Lipitor) 20 mg PO BEDTIME hyperlipidemia; 06/17/22 diabetes #90 tabs albuterol sulfate 90 mcg/actuation See Rx Instructions .Route 07/11/22 aerosol inhaler .COMPLEX #8.5 grams Home Sleep Study #1 ea 08/05/22 liraglutide 0.6 mg/0.1 mL (18 mg/3 0.6 mg (0.1 mL) SUBCUT DAILY 08/05/22 mL) subcutaneous pen injector diabetes #6 mL (Victoza 2-Darius) metformin 500 mg tablet See Rx Instructions .Route 10/28/22 .COMPLEX #360 tabs meclizine 25 mg tablet 25 mg PO TID PRN dizziness #45 tabs 11/02/22 Advair Diskus 250 mcg-50 mcg/dose See Rx Instructions .Route 11/18/22 powder for inhalation (fluticasone .COMPLEX #60 blisters propion-salmeterol) tramadol 50 mg tablet 50 mg PO BEDTIME PRN pain #5 tabs 12/22/22 Allergies Allergy/AdvReac Type Severity Reaction Status Date / Time Penicillins Allergy Severe Rash Verified 12/22/22 21:59 codeine Allergy Verified 12/22/22 21:59 Review of Systems Review of Systems ROS Unobtainable: All systems reviewed & are unremarkable except as noted in HPI and below Patient History Medical History Abnormal laboratory test result Asthma Colonic diverticular abscess Degenerative tear of glenoid labrum of left shoulder Diverticulitis Elevated blood pressure reading without diagnosis of hypertension Fatigue GERD (gastroesophageal reflux disease) JOYCE (obstructive sleep apnea) Partial tear subscapularis tendon Respiratory infection SOB (shortness of breath) Supraspinatus tendon tear Tendinosis of rotator cuff Tobacco consumption Type 2 diabetes mellitus with complication, without long-term current use of insulin Social History household members: spouse Smoking Status: Current some day smoker alcohol intake: never substance use type: does not use Smoking Status: Current some day smoker alcohol intake frequency: 0-2 drinks per day Substance Use Type: does not use Exam Narrative Exam Narrative: GENERAL: Alert and oriented x three, male in mild distress. HEENT: Head normocephalic, atraumatic, EOMI, pupils reactive, face symmetric, moist mucous membranes NECK: Supple, full range of motion EXTREMITIES: Normal range of motion, no clubbing or edema. Neurovascularly intact. Patient has some mild tenderness over the proximal forearm particularly with the soft tissue extending towards the lateral elbow on the dorsal side. No warmth, no obvious deformity. No bony tenderness of the right upper extremity. Patient has full range of motion, normal flexion-extension, pronation supin ation, at the elbow, normal flexion-extension, abduction and neb adduction of the wrist, fingers. 5/5 muscle strength. 2+ radial pulses bilaterally. No warmth, erythema or other skin changes noted. NEUROLOGICAL: Cranial nerves II through XII grossly intact. Moving all extremities SKIN: Warm, dry, no petechiae, no rashes or lesions. Initial Vital Signs Initial Vital Signs: Vital Signs Temperature 97.9 F 12/22/22 21:55 Pulse Rate 84 12/22/22 21:55 Respiratory Rate 14 12/22/22 21:55 Blood Pressure 133/91 H 12/22/22 21:55 Pulse Oximetry 96 12/22/22 21:55 Oxygen Delivery Method Room Air 12/22/22 21:55 Course Orders Ordered: ED Orders 12/22/22 22:00 XR forearm RT 2V Stat Discontinued Medications Tramadol HCl (Tramadol 50 Mg Prepack) 1 bottle MISC SEEINSTR ONE Stop: 12/22/22 23:54 Last Admin: 12/23/22 00:05 Dose: 1 bottle Documented By: [facility] Vital Signs Vital signs: Vital Signs - 8 hr 12/22/22 21:55 Temperature 97.9 F Pulse Rate 84 Respiratory Rate 14 Blood Pressure 133/91 H Pulse Oximetry 96 Oxygen Delivery Method Room Air MDM - Extremity Injury (Upper) Imaging Data Extremity x-ray #1: Radiologist's Impression: Close Forearm X-Ray (Signed) MeetaVitor - 12/22/22 Chest X-Ray (Signed) Darshana De Jesus - 10/20/22 Knee X-Ray (Signed) Perry Rosado - 09/29/22 Chest X-Ray (Signed) Delgadillo,Antonio - 06/18/22 Shoulder MRI (Signed) DoroteoToan - 12/16/21 Shoulder X-Ray (Signed) Perry Rosado - 10/01/21 Thoracic Spine X-Ray (Signed) Delgadillo,Antonio - 07/21/21 Lumbar Spine X-Ray (Signed) Delgadillo,Antonio - 07/21/21 Barium Enema w/Air Contrast (Signed) Paul Tang - 07/16/21 Abdomen/Pelvis CT (Signed) Bipin Emerson - 06/07/21 Abdomen/Pelvis CT (Signed) Vitor Tim - 06/02/21 Ribs X-Ray (Signed) Delgadillo,Antonio - 01/27/21 Chest X-Ray (Signed) Perry Rosado - 01/21/[address] (Signed) Scott Baker - 12/04/20 Chest X-Ray (Signed) Josh Healy - 12/04/20 Abdomen/Pelvis CT (Signed) Jose Enrique Alvarez - 06/24/20 Telemetry Strips 06/16/20 Abdomen/Pelvis CT (Signed) Darshana De Jesus - 05/11/20 Chest X-Ray (Signed) Abeba Farooq - 02/13/20 Launch?[address] [address] XRay Report Signed Patient: Jourdan Augustine MR#: [id number] : 1960 Acct:[id number] Age/Sex: 62 / M Date of Service: 12/22/22 Loc: ED Accession Number: [id number] ?? Procedure: XR forearm RT 2V Ordering Provider: Violette Terrell D.O. PROCEDURE:? XR FOREARM RT 2V ? INDICATIONS:? lifting and felt a pop ? TECHNIQUE:? 2 views of the forearm were acquired.? ? COMPARISON:? None. ? FINDINGS:? ? Bones:? No fractures or dislocations.? No suspicious bony lesions.? ? Soft tissues:? No suspicious soft tissue calcifications or masses.? ? ? IMPRESSION:? ? 1. No fracture or dislocation. ? ? ? Dictated by: Vitor Tim M.D. on 12/22/2022 at 23:28 ? ? Approved by: Vitor Tim M.D. on 12/22/2022 at 23:28?? MDM Narrative Medical decision making narrative: 62-year-old male with what I suspect is likely either tendon/ligament or muscle tear. Patient appears to have intact range of motion and strength was recommended to have, follow-up with orthopedic surgery these at 3 weeks symptoms persistently unlikely recommended to have PT and additional workup if this is not helpful. Discussed with patient decrease his activity no heavy lifting with his arm, decreasing his movement. He can still go through normal range of motion. Patient was given short term narcotic script as he finds it quite difficult to sleep at night. Discharge Plan Departure Patient Disposition: Home Clinical Impression: Forearm injury Instructions: DI for Forearm Muscle Strain Activity Restrictions/Additional Instructions: Follow-up with orthopedic surgery, call in the morning to set up an appointment. You may take ibuprofen up to 600 mg every 6 hours as needed for pain. You may take 1-2 tablets tramadol at night for sleep. [facility]. Please return for rapidly worsening symptoms new numbness, loss of sensation, increasing swelling inability to lift or move her arm. Prescriptions: New tramadol 50 mg tablet 50 mg PO BEDTIME PRN (Reason: pain) Qty: 5 0RF No Action cyclobenzaprine 5 mg tablet 5 mg PO TID PRN (Reason: muscle spasm) Qty: 20 0RF (DME) blood-glucose meter Misc See Rx Instructions .Route Qty: 1 0RF Rx Instructions: Use to check blood sugar 3 times daily before meals (DME) Blood Glucose Test Strip See Rx Instructions .Route Qty: 100 3RF Rx Instructions: Use to check blood sugars three times daily before meals (DME) lancets 26 gauge misc See Rx Instructions .Route Qty: 100 3RF Rx Instructions: Use to check blood sugar three times daily before meals nicotine 21 mg/24 hr patch 24 hour 1 patch transdermal Q24H Qty: 28 0RF nicotine 14 mg/24 hr patch 24 hour 1 patch transdermal Q24H Qty: 14 0RF nicotine 7 mg/24 hr patch 24 hour 1 patch transdermal Q24H Qty: 14 0RF atorvastatin [Lipitor] 20 mg tablet 20 mg PO BEDTIME Qty: 90 3RF albuterol sulfate 90 mcg/actuation HFA aerosol inhaler See Rx Instructions .ROUTE .COMPLEX Qty: 8.5 12RF Dose Instruction: inhale 2 puffs by mouth every 4 to 6 hours if needed for shortness of breath or wheezing Rx Instructions: inhale 2 puffs by mouth every 4 to 6 hours if needed for shortness of breath or wheezing metformin 500 mg tablet See Rx Instructions .ROUTE .COMPLEX Qty: 360 0RF Dose Instruction: TAKE 2 TABLET BY MOUTH TWICE A DAY FOR 90 DAYS. Rx Instructions: TAKE 2 TABLET BY MOUTH TWICE A DAY FOR 90 DAYS. fluticasone propion-salmeterol [Advair Diskus] 250-50 mcg/dose blister with device See Rx Instructions .ROUTE .COMPLEX Qty: 60 0RF Dose Instruction: inhale 1 puff by mouth and INTO THE LUNGS twice a day Rinse mouth after use Rx Instructions: inhale 1 puff by mouth and INTO THE LUNGS twice a day Rinse mouth after use Victoza 2-Darius 0.6 mg/0.1 mL (18 mg/3 mL) pen injector 0.6 mg SUBCUT DAILY Qty: 6 11RF (DME) Home Sleep Study See Rx Instructions .Route .MEDSUPPLY Qty: 1 0RF Rx Instructions: as directed meclizine 25 mg tablet 25 mg PO TID PRN (Reason: dizziness) Qty: 45 0RF Prilosec 2.5 mg susp,delayed release for recon 10 mg PO DAILY aspirin [Adult Aspirin Regimen] 81 mg tablet,delayed release (DR/EC) 81 mg PO DAILY peg 3350-electrolytes [Golytely] 236-22.74-6.74 -5.86 gram recon soln 240 ml PO Q10M Qty: 4000 0RF Rx Instructions: until fecal effluent is clear naproxen sodium [Aleve] 220 mg Capsule 220 mg PO BID PRN (Reason: pain / discomfort) Referrals: Bessy Wright MD [Physician] - Shabnam Dowell DO [Primary Care Provider] - Stand Alone Forms: Patient Portal/API
[2022-12-23] MEDS: TRAMADOL 50 MG PREPACK 1 BOTTLE MISC (00:05)
== END 2022-12-23 00:07 | disposition home or self-care (01) ==
PROVIDERS: Emergency Provider Emergency Medicine; Family Provider Orthopaedic Surgery; PCP Family Medicine
DX: S59.911A Unspecified injury of right forearm, initial encounter (principal); X50.9XXA Other and unspecified overexertion or strenuous movements or postures, initial encounter
CPT/HCPCS: 73090; 99281; 99283

== ENCOUNTER → 2023-02-13 19:34 | Outpatient (ROUT) | payer OTHER, MEDICAID, SELFPAY ==
[2021-06-28 16:29] VITALS: BMI 36.6
[2023-02-13 20:08] LABS: Creatinine Urine Random 146.4 mg/dL
[2023-02-13 20:10] LABS: Microalbumi Creatinin Ratio Ur 34.8 ug/mg CR (<30); Microalbumin Urine Random 5.1 mg/dL (0-1.6)
== END ==
PROVIDERS: Family Provider Orthopaedic Surgery; PCP Family Medicine; Visit Provider Family Medicine
DX: E11.9 Type 2 diabetes mellitus without complications (principal)
CPT/HCPCS: 82043; 82570

== ENCOUNTER 2023-06-20 19:24 | Emergency (ER) | payer OTHER, MEDICAID, SELFPAY ==
[2021-06-28 16:29] VITALS: BMI 36.6
[2023-06-20] VITALS (8 sets, daily range): BP systolic 118–146; BP diastolic 69–81; PULSE 65–84; RESP 20–22; TEMP 36.3; O2SAT 94–97; BMI 33.9
--- NOTE | 2023-06-20 20:21 | ED_ITS ---
HPI - General Adult General Chief complaint: Diabetic Problem Stated complaint: bs issues Time Seen by Provider: 06/20/23 19:50 Source: patient Mode of arrival: Ambulatory History of Present Illness HPI narrative: This is a 63-year-old man with type 2 diabetes and reactive airways disease presenting with about 2 weeks of malaise fatigue blurred vision. He does not check his blood sugars regularly but he checked it at home and it was 360. Says that he has been following his diet, taking his Victoza and metformin. He has not had chest pain shortness of breath nausea vomiting abdominal pain he has some urinary frequency and urgency. I reviewed his most recent primary care note in at that time his diabetes was well controlled. The patient does smoke. Related Data Home Medications Medication Instructions Recorded Confirmed aspirin 81 mg tablet,delayed 81 mg PO DAILY 05/27/20 09/29/22 release (Adult Aspirin Regimen) omeprazole magnesium 2.5 mg oral 10 mg PO DAILY 05/27/20 09/29/22 suspension,delayed release (Prilosec) naproxen sodium 220 mg capsule 220 mg PO BID PRN pain / discomfort 12/04/20 09/29/22 (Aleve) Previous Rx's Medication Instructions Recorded blood sugar diagnostic (Blood #100 ea 04/13/21 Glucose Test strips) blood-glucose meter #1 ea 04/13/21 lancets 26 gauge #100 ea 04/13/21 peg 3350-electrolytes 236 240 ml PO Q10M #4,000 mL 07/01/21 gram-22.74 gram-6.74 gram-5.86 gram solution (Golytely) cyclobenzaprine 5 mg tablet 5 mg PO TID PRN muscle spasm #20 07/21/21 tabs nicotine 21 mg/24 hr daily 1 patch transdermal Q24H #28 ea 10/20/21 transdermal patch nicotine 14 mg/24 hr daily 1 patch transdermal Q24H #14 ea 11/09/21 transdermal patch nicotine 7 mg/24 hr daily 1 patch transdermal Q24H #14 ea 11/09/21 transdermal patch albuterol sulfate 90 mcg/actuation See Rx Instructions .Route 07/11/22 aerosol inhaler .COMPLEX #8.5 grams Home Sleep Study #1 ea 08/05/22 liraglutide 0.6 mg/0.1 mL (18 mg/3 0.6 mg (0.1 mL) SUBCUT DAILY 08/05/22 mL) subcutaneous pen injector diabetes #6 mL (Victoza 2-Darius) meclizine 25 mg tablet 25 mg PO TID PRN dizziness #45 tabs 11/02/22 tramadol 50 mg tablet 50 mg PO BEDTIME PRN pain #5 tabs 12/22/22 metformin 500 mg tablet See Rx Instructions .Route 01/25/23 .COMPLEX #360 tabs Advair Diskus 250 mcg-50 mcg/dose See Rx Instructions .Route 04/13/23 powder for inhalation (fluticasone .COMPLEX #60 blisters propion-salmeterol) BD Ultra Fine Pen Tips 31G x 8mm #1 ea 05/03/23 atorvastatin 20 mg tablet (Lipitor) 20 mg PO BEDTIME hyperlipidemia; 05/15/23 diabetes #90 tabs Allergies Allergy/AdvReac Type Severity Reaction Status Date / Time Penicillins Allergy Severe Rash Verified 12/22/22 21:59 codeine Allergy Verified 12/22/22 21:59 Patient History Medical History Abnormal laboratory test result Asthma Colonic diverticular abscess Degenerative tear of glenoid labrum of left shoulder Diverticulitis Elevated blood pressure reading without diagnosis of hypertension Fatigue GERD (gastroesophageal reflux disease) JOYCE (obstructive sleep apnea) Partial tear subscapularis tendon Respiratory infection SOB (shortness of breath) Supraspinatus tendon tear Tendinosis of rotator cuff Tobacco consumption Type 2 diabetes mellitus with complication, without long-term current use of insulin Social History household members: spouse Smoking Status: Current some day smoker alcohol intake: never substance use type: does not use Smoking Status: Current some day smoker alcohol intake frequency: 0-2 drinks per day Substance Use Type: does not use Exam Initial Vital Signs Initial Vital Signs: Vital Signs Temperature 97.4 F L 06/20/23 19:27 Pulse Rate 84 06/20/23 19:27 Respiratory Rate 20 06/20/23 19:27 Blood Pressure 146/77 H 06/20/23 19:27 Pulse Oximetry 97 06/20/23 19:27 Oxygen Delivery Method Room Air 06/20/23 19:27 Const General: No acute distress [facility] Other: Normocephalic atraumatic pupils are equal and reactive extraocular movements are intact no nystagmus Resp Effort & Inspection: normal respiratory effort Auscultation: clear to auscultation bilaterally Cardio Other: Regular rhythm rate no murmur rub or gallop Skin Other: Warm and dry without rash Neuro Other: Alert and oriented speech is fluent no cranial nerve defects Course Course Course Narrative: Patient was given 1 L of normal saline, he is feeling better following this Orders Ordered: ED Orders 06/20/23 20:16 A1C [Hemoglobin A1C% w Est Avg Glu] Stat CBC Auto Diff [Complete Blood Count AUTO DIFF] Stat CMP [Comprehensive Metabolic Panel] Stat Trop I [Troponin I] Stat 06/20/23 20:22 UA Complete [Urinalysis and Microscopic] Stat Discontinued Medications Sodium Chloride (Normal Saline 0.9%) 1,000 mls @ 150 mls/hr IV CONT MICKIE Last Infusion: 06/20/23 21:43 Dose: Infused Documented By: Infusion: 06/20/23 20:30 Dose: 1,000 mls/hr Documented By: Admin: 06/20/23 20:27 Dose: 150 mls/hr Documented By: ERIK Vital Signs Vital signs: Vital Signs - 8 hr 06/20/23 20:33 06/20/23 20:33 06/20/23 21:00 Pulse Rate 79 Respiratory Rate Blood Pressure 126/75 118/71 Pulse Oximetry 97 Oxygen Delivery Method 06/20/23 21:30 06/20/23 22:00 06/20/23 22:00 Pulse Rate 68 Respiratory Rate 22 Blood Pressure 132/81 121/72 Pulse Oximetry 94 Oxygen Delivery Method Room Air 06/20/23 22:30 06/20/23 22:30 06/20/23 23:00 Pulse Rate 71 Respiratory Rate 20 Blood Pressure 128/69 134/80 Pulse Oximetry 96 Oxygen Delivery Method 06/20/23 23:00 Pulse Rate 65 Respiratory Rate Blood Pressure Pulse Oximetry 95 Oxygen Delivery Method Room Air Medical Decision Making Lab Data Lab results narrative: CBC is unremarkable. Glucose swollen chemistry panel is 171 with a hemoglobin A1c of 7.5. BUN and creatinine ratio is elevated little bit, urinalysis is unremarkable. 06/20/23 20:16 06/20/23 20:16 Labs: Lab Results 06/20/23 06/20/23 Range/Units 20:16 20:22 WBC 9.0 (4.5-11.0) X10^3/uL RBC 4.70 (4.5-5.9) X10^6/uL Hgb 14.9 (13.5-17.5) g/dL Hct 42.2 (41-53) % MCV 89.7 (80-100) fL MCH 31.6 (26-34) PG MCHC 35.3 (30-36) % RDW 13.2 (11.6-14.8) % Plt Count 284 (150-400) X10^3/uL Neut % (Auto) 51.1 (50-75) % Lymph % (Auto) 36.7 (25-40) % [place] % (Auto) 8.7 (3-14) % Eos % (Auto) 2.8 (2-4) % Baso % (Auto) 0.7 (0-2) % Neut # (Auto) 4600 (3632-4083) /uL Lymph # (Auto) 3300 (0705-9940) /uL [place] # (Auto) 800 (0-900) /uL Eos # (Auto) 200 (0-450) /uL Baso # (Auto) 100 (0-100) /uL Sodium 134 L (137-145) mmol/L Potassium 3.8 (3.4-5.1) mmol/L Chloride 99 (98-107) mmol/L Carbon Dioxide 28 (22-32) mmol/L BUN 16 (9-20) mg/dL Creatinine 0.70 (0.66-1.25) mg/dL Estimated GFR > 60 (>60) mL/min BUN/Creatinine Ratio 22.9 H (6-22) Glucose 171 H (80-110) mg/dL Hemoglobin A1c 7.5 H (4.0-6.0) % Calcium 9.4 (8.4-10.2) mg/dL Total Bilirubin 0.6 (0.2-1.3) mg/dL AST TNP ALT 30 (<50) IU/L Alkaline Phosphatase 51 (38-126) U/L Troponin I < 0.012 (0.01-0.034) ng/mL Total Protein 7.2 (6.3-8.2) g/dL Albumin 4.3 (3.5-5.0) g/dL Globulin 2.9 (1.7-4.1) g/dL Albumin/Globulin Ratio 1.5 (1.0-2.8) Urine Color Yellow Urine Appearance Clear Urine pH 5.5 (4.5-8.0) Ur Specific [place] 1.010 (1.000-1.035) Urine Protein Negative (Negative) Urine Glucose (UA) Negative (Negative) g/dL Urine Ketones Negative (NEGATIVE) Urine Occult Blood Negative (Negative) Urine Nitrate Negative (Negative) Urine Bilirubin Negative (NEGATIVE) Urine Urobilinogen 0.2 (0.2) E.U./dL Ur Leukocyte Esterase Negative (NEGATIVE) Urine RBC 0-1/hpf (0-5/HPF) Urine WBC 0-1/hpf (0-5/HPF) Ur Squamous Epith Cells 0-1 /hpf (0-5/HPF) Urine Bacteria None seen (None) Ur Culture Indicated? Cult not indicated Point of Care Testing Glucose POC 132 Urine Dip Bedside Urine Glucose Negative Bedside Urine Bilirubin - Negative Bedside Urine Ketone - Negative Urine Specific [place] 1.010 Bedside Urine Occult Blood - Negative Bedside Urine pH 6.0 Bedside Urine Protein - Negative Bedside Urine Urobilinogen - Negative Bedside Urine Nitrite - Negative Bedside Urine Leukocytes - Negative Esterase Point of care testing: Point of Care Testing Glucose POC 132 Urine Dip Bedside Urine Glucose Negative Bedside Urine Bilirubin - Negative Bedside Urine Ketone - Negative Urine Specific [place] 1.010 Bedside Urine Occult Blood - Negative Bedside Urine pH 6.0 Bedside Urine Protein - Negative Bedside Urine Urobilinogen - Negative Bedside Urine Nitrite - Negative Bedside Urine Leukocytes - Negative Esterase ECG Data Interpretation: ECG shows normal sinus rhythm at 79. It was 174 QRS duration is [address] segment changes, cues in V1 and V2 no old EKG for comparison MDM Narrative Medical decision making narrative: 63-year-old type 2 diabetic who is blood sugars have been elevated at home and who has generalized fatigue and malaise. Workup was reassuring without evidence of acute infection, he is not hyperosmolar or altered this is not DKA, no evidence of an acute coronary syndrome. After 1 L of saline he is feeling better and his glucose is down. Recommended he follow up with his primary care provider soon. Discharge Plan Departure Patient Disposition: Home Clinical Impression: Type 2 diabetes mellitus Qualifiers: Diabetes mellitus terminal carman insulin use: with terminal carman use Diabetes mellitus complication status: without complication Qualified Code(s): E11.9 - Type 2 diabetes mellitus without complications Fatigue Qualifiers: Fatigue type: unspecified Qualified Code(s): R53.83 - Other fatigue Activity Restrictions/Additional Instructions: Workup today is overall reassuring. I think it is safe for you to go home, continue previous medications and contact your primary care provider soon for further advice regarding your blood sugar management. I checked your hemoglobin A1c today, it was 7.5, your doctor would likely want to know this Although we have made every effort to ensure that you are safe for discharge, if your symptoms are getting worse, or if you are having other acute symptoms such as chest pain shortness of breath high fevers, abdominal pain or uncontrolled vomiting recheck in the emergency department. Prescriptions: No Action cyclobenzaprine 5 mg tablet 5 mg PO TID PRN (Reason: muscle spasm) Qty: 20 0RF (DME) blood-glucose meter Misc See Rx Instructions .Route Qty: 1 0RF Rx Instructions: Use to check blood sugar 3 times daily before meals (DME) Blood Glucose Test Strip See Rx Instructions .Route Qty: 100 3RF Rx Instructions: Use to check blood sugars three times daily before meals (DME) lancets 26 gauge misc See Rx Instructions .Route Qty: 100 3RF Rx Instructions: Use to check blood sugar three times daily before meals nicotine 21 mg/24 hr patch 24 hour 1 patch transdermal Q24H Qty: 28 0RF nicotine 14 mg/24 hr patch 24 hour 1 patch transdermal Q24H Qty: 14 0RF nicotine 7 mg/24 hr patch 24 hour 1 patch transdermal Q24H Qty: 14 0RF albuterol sulfate 90 mcg/actuation HFA aerosol inhaler See Rx Instructions .ROUTE .COMPLEX Qty: 8.5 12RF Dose Instruction: inhale 2 puffs by mouth every 4 to 6 hours if needed for shortness of breath or wheezing Rx Instructions: inhale 2 puffs by mouth every 4 to 6 hours if needed for shortness of breath or wheezing metformin 500 mg tablet See Rx Instructions .ROUTE .COMPLEX Qty: 360 1RF Dose Instruction: TAKE 2 TABLET BY MOUTH TWICE A DAY FOR 90 DAYS. Rx Instructions: TAKE 2 TABLET BY MOUTH TWICE A DAY FOR 90 DAYS. fluticasone propion-salmeterol [Advair Diskus] 250-50 mcg/dose blister with device See Rx Instructions .ROUTE .COMPLEX Qty: 60 3RF Dose Instruction: inhale 1 puff by mouth and INTO THE LUNGS twice a day Rinse mouth after use Rx Instructions: inhale 1 puff by mouth and INTO THE LUNGS twice a day Rinse mouth after use (DME) BD Ultra Fine Pen Tips 31G x 8mm 100 package See Rx Instructions .ROUTE .MEDSUPPLY Qty: 1 3RF Rx Instructions: USE TO ADMINISTER VICTOZA ONCE DAILY atorvastatin [Lipitor] 20 mg tablet 20 mg PO BEDTIME Qty: 90 2RF Victoza 2-Darius 0.6 mg/0.1 mL (18 mg/3 mL) pen injector 0.6 mg SUBCUT DAILY Qty: 6 11RF (DME) Home Sleep Study See Rx Instructions .Route .MEDSUPPLY Qty: 1 0RF Rx Instructions: as directed meclizine 25 mg tablet 25 mg PO TID PRN (Reason: dizziness) Qty: 45 0RF Prilosec 2.5 mg susp,delayed release for recon 10 mg PO DAILY aspirin [Adult Aspirin Regimen] 81 mg tablet,delayed release (DR/EC) 81 mg PO DAILY peg 3350-electrolytes [Golytely] 236-22.74-6.74 -5.86 gram recon soln 240 ml PO Q10M Qty: 4000 0RF Rx Instructions: until fecal effluent is clear naproxen sodium [Aleve] 220 mg Capsule 220 mg PO BID PRN (Reason: pain / discomfort) tramadol 50 mg tablet 50 mg PO BEDTIME PRN (Reason: pain) Qty: 5 0RF Referrals: Shabnam Dowell DO [Primary Care Provider] - Stand Alone Forms: Patient Portal/API
[2023-06-20] MEDS: SODIUM CHLORIDE 0.9% 1,000 ML 150 ML IV (20:27)
[2023-06-20 20:29] LABS: Appearance Urine UA CLEAR; Bilirubin Urine UA NEGATIVE (NEGATIVE); Color Urine UA YELLOW; Glucose Urine UA NEGATIVE (Negative); Ketones Urine UA NEGATIVE (NEGATIVE); Leukocyte Esterase Urine UA NEGATIVE (NEGATIVE); Nitrite Urine UA NEGATIVE (Negative); Occult Blood Urine UA NEGATIVE (Negative); Protein Urine UA NEGATIVE (Negative); Urobilinogen Urine UA 0.2 E.U./dL (0.2); pH Urine UA 5.5 (4.5-8.0)
[2023-06-20 20:34] LABS: Add Manual Diff / Slide Review NO; Basophils Absolute Auto 100 /uL (0-100); Basophils Percent Auto 0.7 % (0-2); Eosinophils Absolute Auto 200 /uL (0-450); Eosinophils Percent Auto 2.8 % (2-4); Hematocrit 42.2 % (41-53); Hemoglobin 14.9 g/dL (13.5-17.5); Lymphocytes Absolute Auto 3300 /uL (1100-4500); Lymphocytes Percent Auto 36.7 % (25-40); Mean Corpuscular HGB Conc 35.3 % (30-36); Mean Corpuscular Hemoglobin 31.6 PG (26-34); Mean Corpuscular Volume 89.7 fL (80-100); Monocytes Absolute Auto 800 /uL (0-900); Monocytes Percent Auto 8.7 % (3-14); Neutrophils Absolute Auto 4600 /uL (1500-7000); Neutrophils Percent Auto 51.1 % (50-75); Platelet Count 284 X10^3/uL (150-400); Red Cell Distribution Width 13.2 % (11.6-14.8)
[2023-06-20 20:45] LABS: Bacteria Urine None Seen; Culture Indicated Urine Cult Not Indicated; RBC Urine 0-1/HPF (0-5/HPF); Squamous Epithelial Cell Urine 0-1 /HPF (0-5/HPF); WBC Urine 0-1/HPF (0-5/HPF)
[2023-06-20 20:49] LABS: Alanine Aminotransferase 30 IU/L (<50); Albumin 4.3 g/dL (3.5-5.0); Albumin Globulin Ratio 1.5 (1.0-2.8); Alkaline Phosphatase 51 U/L (38-126); BUN Creatinine Ratio 22.9 (6-22); Bilirubin Total 0.6 mg/dL (0.2-1.3); Blood Urea Nitrogen 16 mg/dL (9-20); Calcium 9.4 mg/dL (8.4-10.2); Carbon Dioxide 28 mmol/L (22-32); Chloride 99 mmol/L (98-107); Estimated Glomerular Filt Rate > 60 mL/min (>60); Globulin 2.9 g/dL (1.7-4.1); Glucose 171 mg/dL (80-110); Potassium 3.8 mmol/L (3.4-5.1); Sodium 134 mmol/L (137-145); Total Protein 7.2 g/dL (6.3-8.2)
[2023-06-20 20:56] LABS: Hemoglobin A1C% w Est Avg Glu 7.5 % (4.0-6.0)
[2023-06-20 21:00] LABS: Troponin I < 0.012 ng/mL (0.01-0.034)
[2023-06-23 16:16] LABS: HEMOLYSIS 21 (0-50)
[2023-06-23 16:17] LABS: Aspartate Aminotransferase 26 IU/L (17-59)
== END 2023-06-20 23:23 | disposition home or self-care (01) ==
PROVIDERS: Emergency Provider Emergency Medicine; Family Provider Orthopaedic Surgery; PCP Family Medicine
DX: E11.9 Type 2 diabetes mellitus without complications (principal); R53.83 Other fatigue
CPT/HCPCS: 36415; 80053; 81001; 81003; 82962; 83036; 84484; 85025; 99283; 99284

== ENCOUNTER 2023-07-02 15:05 | Emergency (ER) | payer OTHER, MEDICAID, SELFPAY ==
[2021-06-28 16:29] VITALS: BMI 36.6
[2023-07-02 15:19] VITALS: BP 137/80; PULSE 87; RESP 18; TEMP 36.2; O2SAT 96; BMI 33.9
--- NOTE | 2023-07-02 15:46 | DI.RAD.S_ITS ---
PROCEDURE: XR KNEE RT 3V INDICATIONS: pain TECHNIQUE: 3 views of the knee were acquired. COMPARISON: [facility], CR, XR KNEE RT 3V, 09/29/2022, 8:48. FINDINGS: Bones: No fractures or dislocations. No suspicious bony lesions. Tricompartmental osteoarthrosis with marginal osteophytes joint space narrowing and subchondral sclerosis most prominently medial compartment. Patellar enthesophytes. Soft tissues: No joint effusion. No suspicious soft tissue calcifications. Vascular calcifications. Linear radiodensities noticed along the superficial tissues of the knee anterior to the patellar tendon, unchanged. IMPRESSION: No acute findings. Mild tricompartmental osteoarthrosis. Dictated by: Willie Alvarez M.D. on 07/02/2023 at 15:45 Approved by: Willie Alvarez M.D. on 07/02/2023 at 15:48
[2023-07-02] MEDS: KETOROLAC 30 MG/ML VIAL IM (15:57)
--- NOTE | 2023-07-02 15:57 | ED.LOWEXIN ---
HPI - Extremity Injury (Lower) <Brenda Harrison PA-C - Last Filed: 07/02/23 19:47> General Chief Complaint: Extremity Injury, Lower Stated Complaint: rt knee pain swollen Time Seen by Provider: 07/02/23 15:13 Source: patient Mode of arrival: Ambulatory History of Present Illness HPI Narrative: 63-year-old male here today for right knee pain which started yesterday morning. Denies any trauma or known injury. States he woke up with severe pain yesterday and could hardly move it or walk. No improvement since then. He denies any fevers or chills. He is able to flex his knee slightly but with pain. He has no history of gout. Denies any calf pain. No shortness a breath or chest pain. Denies any new or prolonged activities which could have caused injury. Related Data Home Medications Medication Instructions Recorded Confirmed aspirin 81 mg tablet,delayed 81 mg PO DAILY 05/27/20 06/27/23 release (Adult Aspirin Regimen) omeprazole magnesium 2.5 mg oral 10 mg PO DAILY 05/27/20 06/27/23 suspension,delayed release (Prilosec) naproxen sodium 220 mg capsule 220 mg PO BID PRN pain / discomfort 12/04/20 06/27/23 (Aleve) Previous Rx's Medication Instructions Recorded blood-glucose meter #1 ea 04/13/21 peg 3350-electrolytes 236 240 ml PO Q10M #4,000 mL 07/01/21 gram-22.74 gram-6.74 gram-5.86 gram solution (Golytely) nicotine 21 mg/24 hr daily 1 patch transdermal Q24H #28 ea 10/20/21 transdermal patch nicotine 14 mg/24 hr daily 1 patch transdermal Q24H #14 ea 11/09/21 transdermal patch nicotine 7 mg/24 hr daily 1 patch transdermal Q24H #14 ea 11/09/21 transdermal patch albuterol sulfate 90 mcg/actuation See Rx Instructions .Route 07/11/22 aerosol inhaler .COMPLEX #8.5 grams Home Sleep Study #1 ea 08/05/22 meclizine 25 mg tablet 25 mg PO TID PRN dizziness #45 tabs 11/02/22 metformin 500 mg tablet See Rx Instructions .Route 01/25/23 .COMPLEX #360 tabs Advair Diskus 250 mcg-50 mcg/dose See Rx Instructions .Route 04/13/23 powder for inhalation (fluticasone .COMPLEX #60 blisters propion-salmeterol) atorvastatin 20 mg tablet (Lipitor) 20 mg PO BEDTIME hyperlipidemia; 05/15/23 diabetes #90 tabs semaglutide 0.25 mg or 0.5 mg (2 0.5 mg (0.736 mL) SUBCUT QWEEK #3 06/27/23 mg/3 mL) subcutaneous pen injector mL diclofenac sodium 1 % topical gel 4 g topical QID PRN knee pain #100 07/02/23 grams indomethacin 50 mg capsule 50 mg PO TID #21 caps 07/04/23 Allergies Allergy/AdvReac Type Severity Reaction Status Date / Time Penicillins Allergy Severe Rash Verified 07/02/23 15:19 codeine Allergy Verified 07/02/23 15:19 Review of Systems <Brenda Harrison PA-C - Last Filed: 07/02/23 19:47> Review of Systems ROS Unobtainable: All systems reviewed & are unremarkable except as noted in HPI and below Patient History <Brenda Harrison PA-C - Last Filed: 07/02/23 19:47> Medical History Abnormal laboratory test result Asthma Colonic diverticular abscess Degenerative tear of glenoid labrum of left shoulder Diverticulitis Elevated blood pressure reading without diagnosis of hypertension Fatigue GERD (gastroesophageal reflux disease) JOYCE (obstructive sleep apnea) Partial tear subscapularis tendon Respiratory infection SOB (shortness of breath) Supraspinatus tendon tear Tendinosis of rotator cuff Tobacco consumption Type 2 diabetes mellitus with complication, without long-term current use of insulin Social History household members: spouse Smoking Status: Current some day smoker alcohol intake: never substance use type: does not use Smoking Status: Current some day smoker alcohol intake frequency: 0-2 drinks per day Substance Use Type: does not use Exam <Brenda Harrison PA-C - Last Filed: 07/02/23 19:47> Narrative Exam Narrative: GENERAL: [63] year old patient appears stated age. Well-developed patient, in no acute distress. HEAD: Atraumatic. Normocephalic. EYES: Pupils equal round and reactive. Extraocular motions intact. No scleral icterus. No injection or drainage. ENT: Nose without bleeding, purulent drainage. Airway patent. NECK: Trachea midline. Non tender CARDIOVASCULAR: Regular rate and rhythm without murmurs, gallops, or rubs. RESPIRATORY: Clear to auscultation. Breath sounds equal bilaterally. No wheezes, rales, or rhonchi. EXTREMITIES: Right knee with no erythema, obvious edema, warmth, or other signs of infection. Patient able to flex the right knee to approximately 50? but unable to continue due to pain. Possible mild anterior knee effusion present. Tenderness to the posterior knee but no palpable mass or swelling or effusion in that area. No ligamentous laxity noted. No calf swelling, warmth, redness, or tenderness. Negative Homans sign. Normal distal pulses. NEURO: AOx3. SKIN: No rash or erythema of visible areas Initial Vital Signs Initial Vital Signs: Vital Signs Temperature 97.2 F L 07/02/23 15:19 Pulse Rate 87 07/02/23 15:19 Respiratory Rate 18 07/02/23 15:19 Blood Pressure 137/80 07/02/23 15:19 Pulse Oximetry 96 07/02/23 15:19 Oxygen Delivery Method Room Air 07/02/23 15:19 <Schuyler Abbott DO - Last Filed: 07/04/23 18:07> Initial Vital Signs Initial Vital Signs: Vital Signs Temperature 97.2 F L 07/02/23 15:19 Pulse Rate 87 07/02/23 15:19 Respiratory Rate 18 07/02/23 15:19 Blood Pressure 137/80 07/02/23 15:19 Pulse Oximetry 96 07/02/23 15:19 Oxygen Delivery Method Room Air 07/02/23 15:19 Course <Brenda Harrison PA-C - Last Filed: 07/02/23 19:47> Orders Ordered: Discontinued Medications Ketorolac Tromethamine (Ketorolac 30 Mg/Ml Vial) 30 mg IM NOW ONE Stop: 07/02/23 15:51 Last Admin: 07/02/23 15:57 Dose: 30 mg Documented By: AMBER Vital Signs Vital signs: Vital Signs - 8 hr 07/02/23 15:19 07/02/23 17:27 Temperature 97.2 F L 97.7 F Pulse Rate 87 64 Respiratory Rate 18 18 Blood Pressure 137/80 111/67 Pulse Oximetry 96 96 Oxygen Delivery Method Room Air Room Air <Schuyler Abbott DO - Last Filed: 07/04/23 18:07> Orders Ordered: Discontinued Medications Ketorolac Tromethamine (Ketorolac 30 Mg/Ml Vial) 30 mg IM NOW ONE Stop: 07/02/23 15:51 Last Admin: 07/02/23 15:57 Dose: 30 mg Documented By: BS Vital Signs Vital signs: Vital Signs - 8 hr 07/02/23 15:19 07/02/23 17:27 Temperature 97.2 F L 97.7 F Pulse Rate 87 64 Respiratory Rate 18 18 Blood Pressure 137/80 111/67 Pulse Oximetry 96 96 Oxygen Delivery Method Room Air Room Air MDM - Extremity Injury (Lower) <Brenda Harrison PA-C - Last Filed: 07/02/23 19:47> Imaging Data Extremity x-ray #1: Radiologist's Impression: [address] [address] XRay Report Signed Patient: Jourdan Augustine MR#: [id number] : 1960 Acct:[id number] Age/Sex: 63 / M Date of Service: 07/02/23 Loc: ED Accession Number: [id number] Procedure: XR knee RT 3V Ordering Provider: Brenda Harrison P.A-C PROCEDURE: XR KNEE RT 3V INDICATIONS: pain TECHNIQUE: 3 views of the knee were acquired. COMPARISON: [facility], , XR KNEE RT 3V, 09/29/2022, 8:48. FINDINGS: Bones: No fractures or dislocations. No suspicious bony lesions. Tricompartmental osteoarthrosis with marginal osteophytes joint space narrowing and subchondral sclerosis most prominently medial compartment. Patellar enthesophytes. Soft tissues: No joint effusion. No suspicious soft tissue calcifications. Vascular calcifications. Linear radiodensities noticed along the superficial tissues of the knee anterior to the patellar tendon, unchanged. IMPRESSION: No acute findings. Mild tricompartmental osteoarthrosis. Dictated by: Willie Alvarez M.D. on 07/02/2023 at 15:45 Approved by: Willie Alvarez M.D. on 07/02/2023 at 15:48 [facility] Narrative Medical decision making narrative: Patient examination was overall unremarkable. Some slight anterior swelling/possible minor and effusion present but otherwise no significant swelling, redness, warmth, or other signs of infection present. He is able to flex the knee to about 50? which further rules out septic arthritis. He has never had gout in the past and again does not have any redness, swelling, or warmth. He has no positive signs or symptoms for a DVT. His pain is mostly in the posterior knee but there is no palpable swelling or effusion present. It is possible that he could have a Banks's cyst but that is not something that needs to be evaluated emergently. He could be having an osteoarthritis flare up or a gout attack. Patient is nontoxic and has no concerning symptoms of sepsis or systemic infection. Therefore no further imaging or labs are needed today. I recommend patient to a trial inflammatories-gave him the option of oral versus Voltaren gel and he would like to try the Voltaren gel. Do not want to try a course of prednisone as he has uncontrolled diabetes. Recommend patient follow up with his PCP if not improving, we discussed signs and symptoms that would warrant a return to the ED and patient understands and agrees with this plan. Multiple etiologies for patient's symptoms considered including, but not limited to: Osteoarthritis, gout, septic arthritis, DVT, Banks's cyst, ligament injury, tendinitis Patient's symptoms improved over duration of stay with above-stated therapies. Findings and discharge diagnosis discussed with patient/family followed by verbalization of understanding Return precautions discussed with patient/family whom verbalize understanding of diagnosis and plan Discharge Plan Departure Patient Disposition: Home Clinical Impression: Acute pain of right knee Instructions: DI for Knee Pain Activity Restrictions/Additional Instructions: Thank you for choosing us to care for you today. You were evaluated for right knee pain. Your x-ray showed mild osteoarthritis of all 3 compartments your knee. You do not have any concerning symptoms that would indicate an infection or a blood clot at this time. Although we do not have a specific reason for your knee pain, it could be a sprain, arthritis flare-up, gout, or any number of non-urgent causes. You have been given a prescription for Voltaren gel to try on your knee to see if this helps. Please follow up with your PCP within the next 7-10 days to discuss your knee pain if it is not improving. Please return to the ER if you experience any high fevers along with a very red and swollen knee anterior unable to bend the any at all. Prescriptions: New diclofenac sodium 1 % gel 4 g topical QID PRN (Reason: knee pain) Qty: 100 0RF Rx Instructions: apply to single knee, ankle, foot; for foot includes sole/toes/top of foot No Action semaglutide 0.25 mg or 0.5 mg (2 mg/3 mL) pen injector 0.5 mg SUBCUT QWEEK Qty: 3 1RF (DME) blood-glucose meter [facility] See Rx Instructions .Route Qty: 1 0RF Rx Instructions: Use to check blood sugar 3 times daily before meals nicotine 21 mg/24 hr patch 24 hour 1 patch transdermal Q24H Qty: 28 0RF nicotine 14 mg/24 hr patch 24 hour 1 patch transdermal Q24H Qty: 14 0RF nicotine 7 mg/24 hr patch 24 hour 1 patch transdermal Q24H Qty: 14 0RF albuterol sulfate 90 mcg/actuation HFA aerosol inhaler See Rx Instructions .ROUTE .COMPLEX Qty: 8.5 12RF Dose Instruction: inhale 2 puffs by mouth every 4 to 6 hours if needed for shortness of breath or wheezing Rx Instructions: inhale 2 puffs by mouth every 4 to 6 hours if needed for shortness of breath or wheezing metformin 500 mg tablet See Rx Instructions .ROUTE .COMPLEX Qty: 360 1RF Dose Instruction: TAKE 2 TABLET BY MOUTH TWICE A DAY FOR 90 DAYS. Rx Instructions: TAKE 2 TABLET BY MOUTH TWICE A DAY FOR 90 DAYS. fluticasone propion-salmeterol [Advair Diskus] 250-50 mcg/dose blister with device See Rx Instructions .ROUTE .COMPLEX Qty: 60 3RF Dose Instruction: inhale 1 puff by mouth and INTO THE LUNGS twice a day Rinse mouth after use Rx Instructions: inhale 1 puff by mouth and INTO THE LUNGS twice a day Rinse mouth after use atorvastatin [Lipitor] 20 mg tablet 20 mg PO BEDTIME Qty: 90 2RF indomethacin 50 mg capsule 50 mg PO TID Qty: 21 0RF Rx Instructions: administer with food or milk (DME) Home Sleep Study See Rx Instructions .Route .MEDSUPPLY Qty: 1 0RF Rx Instructions: as directed meclizine 25 mg tablet 25 mg PO TID PRN (Reason: dizziness) Qty: 45 0RF Prilosec 2.5 mg susp,delayed release for recon 10 mg PO DAILY aspirin [Adult Aspirin Regimen] 81 mg tablet,delayed release (DR/EC) 81 mg PO DAILY peg 3350-electrolytes [Golytely] 236-22.74-6.74 -5.86 gram recon soln 240 ml PO Q10M Qty: 4000 0RF Rx Instructions: until fecal effluent is clear naproxen sodium [Aleve] 220 mg Capsule 220 mg PO BID PRN (Reason: pain / discomfort) Referrals: Hamida Victoria MD [Primary Care Provider] - Stand Alone Forms: Patient Portal/API ED Sign-out <Schuyler Abbott DO - Last Filed: 07/04/23 18:07> Cosign ED Attending Cosignature Attestation: Dr Abbott Co-Sign Statement: I was available for consultation during this patient's emergency department visit. This chart is signed by myself for administrative purposes only. I did not have direct contact with this patient during this visit. They were seen independently by the APC.
[2023-07-02 17:27] VITALS: BP 111/67; PULSE 64; RESP 18; TEMP 36.5; O2SAT 96
== END 2023-07-02 17:34 | disposition home or self-care (01) ==
PROVIDERS: Emergency Provider Physician Assistant; Family Provider Orthopaedic Surgery; PCP Student in an Organized Health Care Education/Training Program
DX: M25.561 Pain in right knee (principal); Z79.899 Other long term (current) drug therapy
CPT/HCPCS: 73562; 96372; 99283; J1885

== ENCOUNTER 2023-07-07 13:40 | Emergency (ER) | payer OTHER, MEDICAID, SELFPAY ==
[2021-06-28 16:29] VITALS: BMI 36.6
[2023-07-07 13:43] VITALS: BP 151/94; PULSE 95; RESP 18; TEMP 36.3; O2SAT 96; BMI 33.9
--- NOTE | 2023-07-07 14:05 | ED_ITS ---
HPI - Extremity Problem <Merle Rivera PA-C - Last Filed: 07/07/23 17:26> General Chief complaint: Extremity Problem,Nontraumatic Stated complaint: rt knee pain Time Seen by Provider: 07/07/23 13:48 Source: patient Mode of arrival: Ambulatory History of Present Illness HPI Narrative: Patient is a 63-year-old male with type 2 diabetes presenting for evaluation of right knee pain x1 week. He denies any trauma to his right knee. One week ago, he states he got up out of bed and felt the pain in his right knee. He feels the pain has worsened since initial onset. He was seen in the ER the day after the pain started and received a x-ray which showed osteoarthrosis. He states that he has pain at all times with a throbbing sensation in his right knee, worse on the lateral and posterior side. He reports that he had no trauma nor any previous trauma to his right knee in the past or recently. He denies any fever or chills. He denies any use of IV drugs. He states that the pain is worsened by small movements of lifting his right leg and with bearing weight. He describes the pain being present deep inside his knee in the lateral and posterior aspect. He notes tenderness with any movement of his knee as well as light palpation. He states he has also noticed increased swelling. He denies numbness in his right leg. He was seen in the walk-in clinic today and sent here for more detailed evaluation. He also reports this morning he noticed a boil over the knuckle of his right 5th finger. He states that it leaked pus this morning. He denies known injury prior to noticing it this morning. He has since noticed increased pain and swelling in his right hand, and has increased pain with making a fist, worse in his 4th and 5th fingers. He denies numbness in his his right hand. He is unaware of any trauma to the area until noticing a lesion this morning. Related Data Home Medications Medication Instructions Recorded Confirmed aspirin 81 mg tablet,delayed 81 mg PO DAILY 05/27/20 07/07/23 release (Adult Aspirin Regimen) omeprazole magnesium 2.5 mg oral 10 mg PO DAILY 05/27/20 07/07/23 suspension,delayed release (Prilosec) naproxen sodium 220 mg capsule 220 mg PO BID PRN pain / discomfort 12/04/20 07/07/23 (Aleve) Previous Rx's Medication Instructions Recorded blood-glucose meter #1 ea 04/13/21 peg 3350-electrolytes 236 240 ml PO Q10M #4,000 mL 07/01/21 gram-22.74 gram-6.74 gram-5.86 gram solution (Golytely) nicotine 21 mg/24 hr daily 1 patch transdermal Q24H #28 ea 10/20/21 transdermal patch nicotine 14 mg/24 hr daily 1 patch transdermal Q24H #14 ea 11/09/21 transdermal patch nicotine 7 mg/24 hr daily 1 patch transdermal Q24H #14 ea 11/09/21 transdermal patch albuterol sulfate 90 mcg/actuation See Rx Instructions .Route 07/11/22 aerosol inhaler .COMPLEX #8.5 grams Home Sleep Study #1 ea 08/05/22 meclizine 25 mg tablet 25 mg PO TID PRN dizziness #45 tabs 11/02/22 metformin 500 mg tablet See Rx Instructions .Route 01/25/23 .COMPLEX #360 tabs Advair Diskus 250 mcg-50 mcg/dose See Rx Instructions .Route 04/13/23 powder for inhalation (fluticasone .COMPLEX #60 blisters propion-salmeterol) atorvastatin 20 mg tablet (Lipitor) 20 mg PO BEDTIME hyperlipidemia; 05/15/23 diabetes #90 tabs semaglutide 0.25 mg or 0.5 mg (2 0.5 mg (0.736 mL) SUBCUT QWEEK #3 06/27/23 mg/3 mL) subcutaneous pen injector mL diclofenac sodium 1 % topical gel 4 g topical QID PRN knee pain #100 07/02/23 grams indomethacin 50 mg capsule 50 mg PO TID #21 caps 07/04/23 doxycycline hyclate 100 mg capsule 100 mg PO BID 7 days #13 caps 07/07/23 Allergies Allergy/AdvReac Type Severity Reaction Status Date / Time Penicillins Allergy Severe Rash Verified 07/07/23 13:03 codeine Allergy Verified 07/07/23 13:03 Review of Systems <Merle Rivera PA-C - Last Filed: 07/07/23 17:26> Review of Systems Narrative: See HPI Patient History <Merle Rivera PA-C - Last Filed: 07/07/23 17:26> Medical History Abnormal laboratory test result Asthma Colonic diverticular abscess Degenerative tear of glenoid labrum of left shoulder Diverticulitis Elevated blood pressure reading without diagnosis of hypertension Fatigue GERD (gastroesophageal reflux disease) JOYCE (obstructive sleep apnea) Partial tear subscapularis tendon Respiratory infection SOB (shortness of breath) Supraspinatus tendon tear Tendinosis of rotator cuff Tobacco consumption Type 2 diabetes mellitus with complication, without long-term current use of insulin Social History household members: spouse Smoking Status: Current some day smoker alcohol intake: never substance use type: does not use Smoking Status: Current some day smoker tobacco type: cigarettes alcohol intake frequency: 0-2 drinks per day Substance Use Type: does not use Exam <Merle Rivera PA-C - Last Filed: 07/07/23 17:26> Initial Vital Signs Initial Vital Signs: Vital Signs Temperature 97.3 F L 07/07/23 13:43 Pulse Rate 95 H 07/07/23 13:43 Respiratory Rate 18 07/07/23 13:43 Blood Pressure 151/94 H 07/07/23 13:43 Pulse Oximetry 96 07/07/23 13:43 Oxygen Delivery Method Room Air 07/07/23 13:43 GENERAL: 63 year old patient appears stated age. Well-developed patient, in no acute distress. HEAD: Atraumatic. Normocephalic. EYES: Pupils equal round and reactive. Extraocular motions intact. No scleral icterus. No injection or drainage. ENT: Nose without bleeding, purulent drainage. Throat without erythema, tonsillar hypertrophy or exudate. Airway patent. TMs pearly mckeon with good COL, Nontender to mastoid, tragus or pinna palpation. NECK: Trachea midline. Non tender. No cervical lymphadenopathy CARDIOVASCULAR: Regular rate and rhythm without murmurs, gallops, or rubs. RESPIRATORY: Clear to auscultation. Breath sounds equal bilaterally. No wheezes, rales, or rhonchi. EXTREMITIES: Edema over the lateral aspect of right knee with increased edema in posterior right knee, no significant erythema noted, decreased flexion of the knee to about 50?, Negative anterior and posterior drawer of right knee, 5/5 knee flexion extension strength, patient has pain with general movements of right knee. 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 SKIN: See extremities <Violette Terrell DO - Last Filed: 07/07/23 18:26> Initial Vital Signs Initial Vital Signs: Vital Signs Temperature 97.3 F L 07/07/23 13:43 Pulse Rate 95 H 07/07/23 13:43 Respiratory Rate 18 07/07/23 13:43 Blood Pressure 151/94 H 07/07/23 13:43 Pulse Oximetry 96 07/07/23 13:43 Oxygen Delivery Method Room Air 07/07/23 13:43 Course <Merle Rivera PA-C - Last Filed: 07/07/23 17:26> Orders Ordered: ED Orders 07/07/23 14:27 US periph venous low extrem rt Stat 07/07/23 15:05 CBC Auto Diff [Complete Blood Count AUTO DIFF] Stat CMP [Comprehensive Metabolic Panel] Stat CRP [C-Reactive Protein Quant] Stat ESR [Erythrocyte Sedimentation Rate] Stat Lactate (Lactic Acid) Stat Procalcitonin Stat 07/07/23 15:32 Blood Culture Stat Discontinued Medications Doxycycline Hyclate (Doxycycline Hyclate 100 Mg Tablet) 100 mg PO NOW ONE Stop: 07/07/23 16:31 Last Admin: 07/07/23 16:33 Dose: 100 mg Documented By: CTS Vital Signs Vital signs: Vital Signs - 8 hr 07/07/23 13:43 07/07/23 15:05 07/07/23 15:06 Temperature 97.3 F L Pulse Rate 95 H 78 75 Respiratory Rate 18 Blood Pressure 151/94 H Pulse Oximetry 96 98 96 Oxygen Delivery Method Room Air Room Air Room Air 07/07/23 15:06 Temperature Pulse Rate Respiratory Rate Blood Pressure 112/76 Pulse Oximetry Oxygen Delivery Method <DO Devyn Miranda Last Filed: 07/07/23 18:26> Orders Ordered: ED Orders 07/07/23 14:27 US periph venous low extrem rt Stat 07/07/23 15:05 CBC Auto Diff [Complete Blood Count AUTO DIFF] Stat CMP [Comprehensive Metabolic Panel] Stat CRP [C-Reactive Protein Quant] Stat ESR [Erythrocyte Sedimentation Rate] Stat Lactate (Lactic Acid) Stat Procalcitonin Stat 07/07/23 15:32 Blood Culture Stat Discontinued Medications Doxycycline Hyclate (Doxycycline Hyclate 100 Mg Tablet) 100 mg PO NOW ONE Stop: 07/07/23 16:31 Last Admin: 07/07/23 16:33 Dose: 100 mg Documented By: CTS Vital Signs Vital signs: Vital Signs - 8 hr 07/07/23 13:43 07/07/23 15:05 07/07/23 15:06 Temperature 97.3 F L Pulse Rate 95 H 78 75 Respiratory Rate 18 Blood Pressure 151/94 H Pulse Oximetry 96 98 96 Oxygen Delivery Method Room Air Room Air Room Air 07/07/23 15:06 Temperature Pulse Rate Respiratory Rate Blood Pressure 112/76 Pulse Oximetry Oxygen Delivery Method MDM - Extremity (Nontraumatic) <Merle Rivera PA-C - Last Filed: 07/07/23 17:26> Lab Data 07/07/23 15:05 07/07/23 15:05 Labs: Lab Results 07/07/23 07/07/23 Range/Units 15:05 17:17 WBC 8.8 (4.5-11.0) X10^3/uL RBC 4.43 L (4.5-5.9) X10^6/uL Hgb 13.9 (13.5-17.5) g/dL Hct 39.9 L (41-53) % MCV 90.0 (80-100) fL MCH 31.3 (26-34) PG MCHC 34.8 (30-36) % RDW 13.3 (11.6-14.8) % Plt Count 242 (150-400) X10^3/uL Neut % (Auto) 54.1 (50-75) % Lymph % (Auto) 34.4 (25-40) % Chase % (Auto) 8.1 (3-14) % Eos % (Auto) 2.6 (2-4) % Baso % (Auto) 0.8 (0-2) % Neut # (Auto) 4800 (5279-4879) /uL Lymph # (Auto) 3000 (2357-3451) /uL Chase # (Auto) 700 (0-900) /uL Eos # (Auto) 200 (0-450) /uL Baso # (Auto) 100 (0-100) /uL ESR 5 (0-15) MM/HR Sodium 136 L (137-145) mmol/L Potassium 3.9 (3.4-5.1) mmol/L Chloride 102 (98-107) mmol/L Carbon Dioxide 25 (22-32) mmol/L BUN 15 (9-20) mg/dL Creatinine 0.62 L (0.66-1.25) mg/dL Estimated GFR > 60 (>60) mL/min BUN/Creatinine Ratio 24.2 H (6-22) Glucose 170 H (80-110) mg/dL Lactate 2.2 H 1.0 (0.7-2.1) mmol/L Calcium 9.3 (8.4-10.2) mg/dL Total Bilirubin 0.6 (0.2-1.3) mg/dL AST 21 (17-59) IU/L ALT 23 (<50) IU/L Alkaline Phosphatase 44 (38-126) U/L C-Reactive Protein 0.5 (<1.0) mg/dL Total Protein 7.0 (6.3-8.2) g/dL Albumin 4.1 (3.5-5.0) g/dL Globulin 2.9 (1.7-4.1) g/dL Albumin/Globulin Ratio 1.4 (1.0-2.8) Procalcitonin 0.05 (<0.5) ng/mL Imaging Data U/S venous lower extremity right: Radiologist's Impression: PROCEDURE: US PERIPH VENOUS LOW EXTREM RT INDICATIONS: pain and swelling of right knee TECHNIQUE: Real-time imaging, as well as color and pulse Doppler interrogation, were performed of the lower extremity deep veins from the inguinal ligament to the popliteal fossa, with documentation of the visualized calf veins. COMPARISON: None. FINDINGS: The common femoral, femoral, popliteal, and the visualized calf veins are normally compressible, and free of intraluminal thrombus. Color and pulse Doppler demonstrate normal phasic intraluminal flow. There is normal augmentation response to distal compression maneuver. Note is made of a fluid collection measuring 3.5 x 1.1 x 6.0 cm along the lateral aspect of the right knee IMPRESSION: No DVT found. Presumed synovial protrusion lateral right knee area, which could be further assessed if clinically warranted with MR scanning. Dictated by: Miguel Heck M.D. on 07/07/2023 at 15:28 Approved by: Miguel Heck M.D. on 07/07/2023 at 15:29 [facility] Narrative Medical decision making narrative: Patient is a 63-year-old male with type 2 diabetes presenting for evaluation of right knee pain and swelling x 1 week as well as right hand swelling x1 day. Ultrasound shows no evidence of clot. Patient received an x-ray 1 week ago with no abnormal findings, so after discussion with patient, x-ray was not repeated today. He demonstrates decreased range of motion of his right knee to about 50 degrees. He denies history of gout. There was appreciable swelling noted on exam in the lateral side of his right knee as well as some increased edema behind his right knee. Blood work today included CBC, CBC, blood cultures, lactate, procalcitonin, CRP, ESR Regarding the abscess on his dorsal right 5th MCP, patient does appear to have surrounding cellulitis, so we will treat with doxycycline. Vital signs are appropriate. He received 100mg doxycycline tablet in the ED today. Multiple etiologies for patient's symptoms considered including, but not limited to: Banks's cyst, osteoarthritis, DVT, septic arthritis Prior Charts reviewed: Labs reviewed and interpreted by myself: Procalcitonin, lactate, ESR, CRP within normal limits, CBC within normal limits, CMP shows elevated blood sugar 170 which is similar to previous values. Suspicion for sepsis low, we will consult ortho to evaluate ultrasound findings. Imaging reviewed: Ultrasound right knee Consultations: Reviewed case with Dr. Terrell Consulted with Dr. Pemberton regarding US results. He recommend patient follow up in clinic. Patient's symptoms improved over duration of stay with above-stated therapies. Findings and discharge diagnosis discussed with patient/family followed by verbalization of understanding Return precautions discussed with patient/family whom verbalize understanding of diagnosis and plan <Violette Terrell, DO - Last Filed: 07/07/23 18:26> Lab Data Labs: Lab Results 07/07/23 07/07/23 Range/Units 15:05 17:17 WBC 8.8 (4.5-11.0) X10^3/uL RBC 4.43 L (4.5-5.9) X10^6/uL Hgb 13.9 (13.5-17.5) g/dL Hct 39.9 L (41-53) % MCV 90.0 (80-100) fL MCH 31.3 (26-34) PG MCHC 34.8 (30-36) % RDW 13.3 (11.6-14.8) % Plt Count 242 (150-400) X10^3/uL Neut % (Auto) 54.1 (50-75) % Lymph % (Auto) 34.4 (25-40) % Chase % (Auto) 8.1 (3-14) % Eos % (Auto) 2.6 (2-4) % Baso % (Auto) 0.8 (0-2) % Neut # (Auto) 4800 (0824-3553) /uL Lymph # (Auto) 3000 (2642-2917) /uL Chase # (Auto) 700 (0-900) /uL Eos # (Auto) 200 (0-450) /uL Baso # (Auto) 100 (0-100) /uL ESR 5 (0-15) MM/HR Sodium 136 L (137-145) mmol/L Potassium 3.9 (3.4-5.1) mmol/L Chloride 102 (98-107) mmol/L Carbon Dioxide 25 (22-32) mmol/L BUN 15 (9-20) mg/dL Creatinine 0.62 L (0.66-1.25) mg/dL Estimated GFR > 60 (>60) mL/min BUN/Creatinine Ratio 24.2 H (6-22) Glucose 170 H (80-110) mg/dL Lactate 2.2 H 1.0 (0.7-2.1) mmol/L Calcium 9.3 (8.4-10.2) mg/dL Total Bilirubin 0.6 (0.2-1.3) mg/dL AST 21 (17-59) IU/L ALT 23 (<50) IU/L Alkaline Phosphatase 44 (38-126) U/L C-Reactive Protein 0.5 (<1.0) mg/dL Total Protein 7.0 (6.3-8.2) g/dL Albumin 4.1 (3.5-5.0) g/dL Globulin 2.9 (1.7-4.1) g/dL Albumin/Globulin Ratio 1.4 (1.0-2.8) Procalcitonin 0.05 (<0.5) ng/mL Discharge Plan Departure Patient Disposition: Home Clinical Impression: Swelling of joint of right knee Cellulitis Qualifiers: Site of cellulitis: extremity Site of cellulitis of extremity: upper extremity Laterality: right Qualified Code(s): L03.113 - Cellulitis of right upper limb Activity Restrictions/Additional Instructions: Thank you for coming in today for your care. We did lab work during your visit today to rule out a possible septic joint. Your lab results and vital signs were reassuring. Ultrasound showed no evidence of a clot, but did note a presumed synovial protrusion over lateral right knee which is the area that you have noticed swelling in. After discussion with Dr. Pemberton today, recommend follow up with Dr. Pemberton with [facility] in out patient setting since there was no evidence of septic arthritis. You may call [phone] to set up an appointment. Otherwise, recommend continued rest, Tylenol, elevation and compression. Please return to the ER if he should develop any fever, increased redness or severe worsening pain in your right knee Regarding your right hand, it does appear to be an infection of the skin called cellulitis. I recommend treatment with by mouth antibiotics. I have called in a prescription of doxycycline. You have received 1 dose in the ER today. Please follow up for further evaluation in the ER if he should develop any high fevers, rapid swelling of your hand her worsening pain. Thank you for coming in today for your care. Prescriptions: New doxycycline hyclate 100 mg capsule 100 mg PO BID 7 Days Qty: 13 0RF No Action semaglutide 0.25 mg or 0.5 mg (2 mg/3 mL) pen injector 0.5 mg SUBCUT QWEEK Qty: 3 1RF (DME) blood-glucose meter Misc See Rx Instructions .Route Qty: 1 0RF Rx Instructions: Use to check blood sugar 3 times daily before meals nicotine 21 mg/24 hr patch 24 hour 1 patch transdermal Q24H Qty: 28 0RF nicotine 14 mg/24 hr patch 24 hour 1 patch transdermal Q24H Qty: 14 0RF nicotine 7 mg/24 hr patch 24 hour 1 patch transdermal Q24H Qty: 14 0RF albuterol sulfate 90 mcg/actuation HFA aerosol inhaler See Rx Instructions .ROUTE .COMPLEX Qty: 8.5 12RF Dose Instruction: inhale 2 puffs by mouth every 4 to 6 hours if needed for shortness of breath or wheezing Rx Instructions: inhale 2 puffs by mouth every 4 to 6 hours if needed for shortness of breath or wheezing metformin 500 mg tablet See Rx Instructions .ROUTE .COMPLEX Qty: 360 1RF Dose Instruction: TAKE 2 TABLET BY MOUTH TWICE A DAY FOR 90 DAYS. Rx Instructions: TAKE 2 TABLET BY MOUTH TWICE A DAY FOR 90 DAYS. fluticasone propion-salmeterol [Advair Diskus] 250-50 mcg/dose blister with device See Rx Instructions .ROUTE .COMPLEX Qty: 60 3RF Dose Instruction: inhale 1 puff by mouth and INTO THE LUNGS twice a day Rinse mouth after use Rx Instructions: inhale 1 puff by mouth and INTO THE LUNGS twice a day Rinse mouth after use atorvastatin [Lipitor] 20 mg tablet 20 mg PO BEDTIME Qty: 90 2RF indomethacin 50 mg capsule 50 mg PO TID Qty: 21 0RF Rx Instructions: administer with food or milk (DME) Home Sleep Study See Rx Instructions .Route .MEDSUPPLY Qty: 1 0RF Rx Instructions: as directed meclizine 25 mg tablet 25 mg PO TID PRN (Reason: dizziness) Qty: 45 0RF Prilosec 2.5 mg susp,delayed release for recon 10 mg PO DAILY aspirin [Adult Aspirin Regimen] 81 mg tablet,delayed release (DR/EC) 81 mg PO DAILY peg 3350-electrolytes [Golytely] 236-22.74-6.74 -5.86 gram recon soln 240 ml PO Q10M Qty: 4000 0RF Rx Instructions: until fecal effluent is clear naproxen sodium [Aleve] 220 mg Capsule 220 mg PO BID PRN (Reason: pain / discomfort) diclofenac sodium 1 % gel 4 g topical QID PRN (Reason: knee pain) Qty: 100 0RF Rx Instructions: apply to single knee, ankle, foot; for foot includes sole/toes/top of foot Referrals: Hamida Victoria MD [Primary Care Provider] - Stand Alone Forms: Patient Portal/API ED Sign-out <Violette Terrell DO - Last Filed: 07/07/23 18:26> Cosign ED Attending Cosignature Attestation: I was immediately available in the department for consultation. Case was discussed with myself. Labs and imaging were reviewed.
--- NOTE | 2023-07-07 14:27 | DI.US.S_ITS ---
PROCEDURE: US PERIPH VENOUS LOW EXTREM RT INDICATIONS: pain and swelling of right knee TECHNIQUE: Real-time imaging, as well as color and pulse Doppler interrogation, were performed of the lower extremity deep veins from the inguinal ligament to the popliteal fossa, with documentation of the visualized calf veins. COMPARISON: None. FINDINGS: The common femoral, femoral, popliteal, and the visualized calf veins are normally compressible, and free of intraluminal thrombus. Color and pulse Doppler demonstrate normal phasic intraluminal flow. There is normal augmentation response to distal compression maneuver. Note is made of a fluid collection measuring 3.5 x 1.1 x 6.0 cm along the lateral aspect of the right knee IMPRESSION: No DVT found. Presumed synovial protrusion lateral right knee area, which could be further assessed if clinically warranted with MR scanning. Dictated by: Miguel Heck M.D. on 07/07/2023 at 15:28 Approved by: Miguel Heck M.D. on 07/07/2023 at 15:29
[2023-07-07 15:05] VITALS: PULSE 78; O2SAT 98
[2023-07-07 15:06] VITALS: BP 112/76; PULSE 75; O2SAT 96
[2023-07-07 15:15] LABS: Add Manual Diff / Slide Review NO; Basophils Absolute Auto 100 /uL (0-100); Basophils Percent Auto 0.8 % (0-2); Eosinophils Absolute Auto 200 /uL (0-450); Eosinophils Percent Auto 2.6 % (2-4); Hematocrit 39.9 % (41-53); Hemoglobin 13.9 g/dL (13.5-17.5); Lymphocytes Absolute Auto 3000 /uL (1100-4500); Lymphocytes Percent Auto 34.4 % (25-40); Mean Corpuscular HGB Conc 34.8 % (30-36); Mean Corpuscular Hemoglobin 31.3 PG (26-34); Monocytes Absolute Auto 700 /uL (0-900); Monocytes Percent Auto 8.1 % (3-14); Neutrophils Absolute Auto 4800 /uL (1500-7000); Neutrophils Percent Auto 54.1 % (50-75); Platelet Count 242 X10^3/uL (150-400); Red Blood Cell Count 4.43 X10^6/uL (4.5-5.9); Red Cell Distribution Width 13.3 % (11.6-14.8); White Blood Cell Count 8.8 X10^3/uL (4.5-11.0)
[2023-07-07 15:27] LABS: Lactate (Lactic Acid) 2.2 mmol/L (0.7-2.1)
[2023-07-07 15:29] LABS: Alanine Aminotransferase 23 IU/L (<50); Albumin 4.1 g/dL (3.5-5.0); Albumin Globulin Ratio 1.4 (1.0-2.8); Alkaline Phosphatase 44 U/L (38-126); Aspartate Aminotransferase 21 IU/L (17-59); BUN Creatinine Ratio 24.2 (6-22); Bilirubin Total 0.6 mg/dL (0.2-1.3); Blood Urea Nitrogen 15 mg/dL (9-20); C-Reactive Protein Quant 0.5 mg/dL (<1.0); Calcium 9.3 mg/dL (8.4-10.2); Carbon Dioxide 25 mmol/L (22-32); Chloride 102 mmol/L (98-107); Estimated Glomerular Filt Rate > 60 mL/min (>60); Globulin 2.9 g/dL (1.7-4.1); Glucose 170 mg/dL (80-110); HEMOLYSIS 16 (0-50); Potassium 3.9 mmol/L (3.4-5.1); Sodium 136 mmol/L (137-145)
[2023-07-07 15:35] LABS: Erythrocyte Sedimentation Rate 5 MM/HR (0-15)
[2023-07-07 15:43] LABS: Procalcitonin 0.05 ng/mL (<0.5)
[2023-07-07] MEDS: DOXYCYCLINE HYCLATE 100 MG TABLET PO (16:33)
[2023-07-07 16:54] LABS: Reflexed Lactate in 2 Hours Y
== END 2023-07-07 17:02 | disposition home or self-care (01) ==
PROVIDERS: Emergency Provider Physician Assistant; Family Provider Orthopaedic Surgery; PCP Student in an Organized Health Care Education/Training Program
DX: L03.113 Cellulitis of right upper limb (principal); M25.461 Effusion, right knee
CPT/HCPCS: 36415; 80053; 83605; 84145; 85025; 85651; 86140; 87040; 93971; 99283; 99284

== ENCOUNTER → 2023-08-17 18:00 | Outpatient (CLI) | payer OTHER, MEDICAID, SELFPAY ==
[2021-06-28 16:29] VITALS: BMI 36.6
--- NOTE | 2023-08-17 18:04 | DI.RAD.S_ITS ---
PROCEDURE: XR WRIST LT MIN 3V INDICATIONS: Wrist pain TECHNIQUE: 4 views of the wrist were acquired. COMPARISON: None. FINDINGS: Bones: No fractures or dislocations. No suspicious bony lesions. Soft tissues: No suspicious soft tissue calcifications. IMPRESSION: No displaced fracture. If there remains a high clinical suspicion, or there is anatomic snuffbox tenderness, consider splinting and repeat radiographs in 10-14 days or cross-sectional imaging. Dictated by: Uriel Ferro M.D. on 08/18/2023 at 8:05 Approved by: Uriel Ferro M.D. on 08/18/2023 at 8:38
== END ==
LOC: RAD 18:03
PROVIDERS: Family Provider Orthopaedic Surgery; PCP Student in an Organized Health Care Education/Training Program; Referring Provider Nurse Practitioner Family
DX: S66.919A Strain of unspecified muscle, fascia and tendon at wrist and hand level, unspecified hand, initial encounter (principal)
CPT/HCPCS: 73110

== ENCOUNTER 2023-08-17 21:56 | Emergency (ER) | payer OTHER, MEDICAID, SELFPAY ==
[2021-06-28 16:29] VITALS: BMI 36.6
[2023-08-17 22:06] VITALS: BP 161/86; PULSE 99; RESP 14; TEMP 36.9; O2SAT 97
[2023-08-17 22:17] VITALS: PULSE 91; RESP 37; O2SAT 97
--- NOTE | 2023-08-17 22:20 | ED.GENADULT ---
HPI - General Adult General Chief complaint: Abdominal Pain Stated complaint: lower abd pain Time Seen by Provider: 08/17/23 22:03 Source: patient Mode of arrival: Ambulatory History of Present Illness HPI narrative: Patient is a 63-year-old male. Has a history of 2 prior episodes of diverticulitis. One of which was complicated by an abscess that ultimately did not require surgery. He is here for evaluation of less than 12 hours of left lower quadrant abdominal pain. Had 1 episode of diarrhea prior to arrival that did not change the discomfort. No urinary symptoms. He states that it does feel somewhat like his prior history of diverticulitis. No vomiting. Related Data Home Medications Medication Instructions Recorded Confirmed aspirin 81 mg tablet,delayed 81 mg PO DAILY 05/27/20 08/17/23 release (Adult Aspirin Regimen) omeprazole magnesium 2.5 mg oral 10 mg PO DAILY 05/27/20 08/17/23 suspension,delayed release (Prilosec) naproxen sodium 220 mg capsule 220 mg PO BID PRN pain / discomfort 12/04/20 08/17/23 (Aleve) Previous Rx's Medication Instructions Recorded blood-glucose meter #1 ea 04/13/21 albuterol sulfate 90 mcg/actuation See Rx Instructions .Route 07/11/22 aerosol inhaler .COMPLEX #8.5 grams Home Sleep Study #1 ea 08/05/22 metformin 500 mg tablet See Rx Instructions .Route 01/25/23 .COMPLEX #360 tabs Advair Diskus 250 mcg-50 mcg/dose See Rx Instructions .Route 04/13/23 powder for inhalation (fluticasone .COMPLEX #60 blisters propion-salmeterol) atorvastatin 20 mg tablet (Lipitor) 20 mg PO BEDTIME hyperlipidemia; 05/15/23 diabetes #90 tabs semaglutide 0.25 mg or 0.5 mg (2 0.5 mg (0.736 mL) SUBCUT QWEEK #3 06/27/23 mg/3 mL) subcutaneous pen injector mL prednisone 20 mg tablet 40 mg (2 x 20 mg) PO DAILY #6 tabs 08/17/23 ciprofloxacin HCl 500 mg tablet 500 mg PO BID 10 days #20 tabs 08/18/23 (Cipro) metronidazole 500 mg tablet 500 mg PO TID 10 days #30 tabs 08/18/23 Allergies Allergy/AdvReac Type Severity Reaction Status Date / Time Penicillins Allergy Severe Rash Verified 08/17/23 17:36 codeine Allergy Verified 08/17/23 17:36 Review of Systems Constitutional Constitutional: Reports system reviewed and no additional complaints, except as documented Gastrointestinal Gastrointestinal: Reports system reviewed and no additional complaints, except as documented Genitourinary Genitourinary: Reports system reviewed and no additional complaints, except as documented Integumentary/Breasts Skin/Breast: Reports system reviewed and no additional complaints, except as documented Neurologic Neurologic: Reports system reviewed and no additional complaints, except as documented Patient History Medical History Type 2 diabetes mellitus with complication, without long-term current use of insulin JOYCE (obstructive sleep apnea) Tobacco consumption Tendinosis of rotator cuff Supraspinatus tendon tear Partial tear subscapularis tendon Degenerative tear of glenoid labrum of left shoulder Respiratory infection Elevated blood pressure reading without diagnosis of hypertension SOB (shortness of breath) Abnormal laboratory test result Fatigue Colonic diverticular abscess GERD (gastroesophageal reflux disease) Diverticulitis Asthma Social History household members: spouse Smoking Status: Current every day smoker alcohol intake: never substance use type: does not use Smoking Status: Current every day smoker tobacco type: cigarettes alcohol intake frequency: 0-2 drinks per day Substance Use Type: does not use Exam Initial Vital Signs Initial Vital Signs: Vital Signs Temperature 98.5 F 08/17/23 22:06 Pulse Rate 99 H 08/17/23 22:06 Respiratory Rate 14 08/17/23 22:06 Blood Pressure 161/86 H 08/17/23 22:06 Pulse Oximetry 97 08/17/23 22:06 Oxygen Delivery Method Room Air 08/17/23 22:06 Const General: cooperative, comfortable and No ill appearing HENOK Head: normal to inspection and normocephalic Resp Effort & Inspection: normal respiratory effort Cardio Rate: regular rate Rhythm: regular rhythm GI Inspection: normal to inspection and non-distended Palpation: soft, firm, guarding and tender (Left lower quadrant) Skin General: no rashes or lesions noted Extrem General: normal to inspection and capillary refill normal Course Orders Ordered: ED Orders 08/17/23 22:09 Basic Metabolic Panel Stat Complete Blood Count AUTO DIFF Stat 08/17/23 22:21 CT abdomen pelvis w con Stat Discontinued Medications Ciprofloxacin (Ciprofloxacin 250 Mg Tablet) 500 mg PO NOW ONE Stop: 08/17/23 23:55 Last Admin: 08/18/23 00:07 Dose: 500 mg Documented By: KING Sodium Chloride (Normal Saline 0.9%) 1,000 mls @ 1,000 mls/hr IV BOLUS ONE Stop: 08/17/23 23:20 Last Infusion: 08/18/23 00:04 Dose: Infused Documented By: Admin: 08/17/23 22:55 Dose: 1,000 mls/hr Documented By: KING Metronidazole (Metronidazole 500 Mg Tablet) 500 mg PO NOW ONE Stop: 08/17/23 23:55 Last Admin: 08/18/23 00:07 Dose: 500 mg Documented By: KING Vital Signs Vital signs: Vital Signs - 8 hr 08/17/23 22:06 08/17/23 22:17 08/17/23 22:30 Temperature 98.5 F Pulse Rate 99 H 91 H 87 Respiratory Rate 14 37 H 32 H Blood Pressure 161/86 H Pulse Oximetry 97 97 96 Oxygen Delivery Method Room Air 08/17/23 22:30 08/17/23 23:00 08/17/23 23:00 Temperature Pulse Rate 80 Respiratory Rate 23 Blood Pressure 138/70 125/69 Pulse Oximetry 96 Oxygen Delivery Method 08/17/23 23:31 Temperature Pulse Rate 82 Respiratory Rate Blood Pressure Pulse Oximetry 90 L Oxygen Delivery Method Medical Decision Making Lab Data Lab results reviewed: Yes I reviewed the patient's lab results. 08/17/23 22:09 08/17/23 22:09 Labs: Lab Results 08/17/23 Range/Units 22:09 WBC 6.5 (4.5-11.0) X10^3/uL RBC 4.61 (4.5-5.9) X10^6/uL Hgb 14.3 (13.5-17.5) g/dL Hct 42.1 (41-53) % MCV 91.3 (80-100) fL MCH 31.0 (26-34) PG MCHC 33.9 (30-36) % RDW 13.1 (11.6-14.8) % Plt Count 222 (150-400) X10^3/uL Neut % (Auto) 71.0 (50-75) % Lymph % (Auto) 19.8 L (25-40) % Gentry % (Auto) 8.0 (3-14) % Eos % (Auto) 0.8 L (2-4) % Baso % (Auto) 0.4 (0-2) % Neut # (Auto) 4600 (8519-3676) /uL Lymph # (Auto) 1300 (0925-7140) /uL Gentry # (Auto) 500 (0-900) /uL Eos # (Auto) 0 (0-450) /uL Baso # (Auto) 0 (0-100) /uL Sodium 138 (137-145) mmol/L Potassium 3.9 (3.4-5.1) mmol/L Chloride 104 (98-107) mmol/L Carbon Dioxide 26 (22-32) mmol/L BUN 14 (9-20) mg/dL Creatinine 0.66 (0.66-1.25) mg/dL Estimated GFR > 60 (>60) mL/min BUN/Creatinine Ratio 21.2 (6-22) Glucose 203 H (80-110) mg/dL Calcium 9.7 (8.4-10.2) mg/dL Imaging Data CT scan - abdomen/pelvis: Radiologist's Impression: PROCEDURE: CT ABDOMEN PELVIS W CON INDICATIONS: LLQ abd pain TECHNIQUE: After the administration of intravenous contrast, axial sections acquired from the lung bases to the pubic symphysis. Coronal and sagittal reformats were performed. For radiation dose reduction, the following was used: automated exposure control, adjustment of mA and/or kV according to patient size. COMPARISON: [facility], CT, CT ABDOMEN PELVIS W CON, 06/07/2021, 0:29. FINDINGS: Image quality: Diagnostic. Lower Chest: No significant findings. ABDOMEN: Liver: No solid mass. Gallbladder: Contracted, otherwise unremarkable. Biliary ducts: No biliary dilation. Pancreas: No ductal dilation. Spleen: Size is within normal limits. Adrenal Glands: No adrenal nodules. Kidneys and Ureters: No hydronephrosis. No solid mass. No complex renal cystic lesion which requires follow up. Stomach and Bowel: Diverticulosis is noted. There is wall thickening of the sigmoid colon with minimal surrounding inflammatory changes. Normal appendix. Nondilated small bowel. Peritoneum: No abnormal intraperitoneal fluid. No free air. Ventral Wall: Small fat containing ventral hernia. Abdominal Nodes: No retroperitoneal or mesenteric adenopathy by size criteria. Vessels: Aorta and inferior vena cava are normal in size. Atherosclerotic vascular calcifications. PELVIS: Pelvic Organs: Unremarkable. Bladder: No bladder wall thickening, accounting for underdistention. Pelvic Nodes: No enlarged lymph nodes. Miscellaneous: Small fat containing left inguinal hernia. Bones: No aggressive osseous abnormality. Degenerative changes of the spine. IMPRESSION: Diverticulosis with wall thickening of the sigmoid colon. Minimal surrounding inflammatory changes may represent early diverticulitis. No organized fluid collections or extraluminal gas. MDM Narrative Medical decision making narrative: CT scan shows what appears to be early uncomplicated diverticulitis. Patient is nontoxic appearing. Is not vomiting. Given 1st dose of antibiotics here in the ER. Prescription was sent to the pharmacy of his choice. No indication for admission to the hospital or surgical consultation. He was given return precautions. He expressed understanding and agreement. Discharge Plan Departure Patient Disposition: Home Clinical Impression: Diverticulitis Instructions: DI for Diverticulitis Activity Restrictions/Additional Instructions: I recommend that you take the antibiotics as directed. Also recommend a bland diet for the next couple days. Continue all of your other medications as directed. Return to the emergency department for new symptoms. Prescriptions: New ciprofloxacin HCl [Cipro] 500 mg tablet 500 mg PO BID 10 Days Qty: 20 0RF metronidazole 500 mg tablet 500 mg PO TID 10 Days Qty: 30 0RF No Action semaglutide 0.25 mg or 0.5 mg (2 mg/3 mL) pen injector 0.5 mg SUBCUT QWEEK Qty: 3 1RF prednisone 20 mg tablet 40 mg PO DAILY Qty: 6 0RF (DME) blood-glucose meter [facility] See Rx Instructions .Route Qty: 1 0RF Rx Instructions: Use to check blood sugar 3 times daily before meals albuterol sulfate 90 mcg/actuation HFA aerosol inhaler See Rx Instructions .ROUTE .COMPLEX Qty: 8.5 12RF Dose Instruction: inhale 2 puffs by mouth every 4 to 6 hours if needed for shortness of breath or wheezing Rx Instructions: inhale 2 puffs by mouth every 4 to 6 hours if needed for shortness of breath or wheezing metformin 500 mg tablet See Rx Instructions .ROUTE .COMPLEX Qty: 360 1RF Dose Instruction: TAKE 2 TABLET BY MOUTH TWICE A DAY FOR 90 DAYS. Rx Instructions: TAKE 2 TABLET BY MOUTH TWICE A DAY FOR 90 DAYS. fluticasone propion-salmeterol [Advair Diskus] 250-50 mcg/dose blister with device See Rx Instructions .ROUTE .COMPLEX Qty: 60 3RF Dose Instruction: inhale 1 puff by mouth and INTO THE LUNGS twice a day Rinse mouth after use Rx Instructions: inhale 1 puff by mouth and INTO THE LUNGS twice a day Rinse mouth after use atorvastatin [Lipitor] 20 mg tablet 20 mg PO BEDTIME Qty: 90 2RF (DME) Home Sleep Study See Rx Instructions .Route .MEDSUPPLY Qty: 1 0RF Rx Instructions: as directed Prilosec 2.5 mg susp,delayed release for recon 10 mg PO DAILY aspirin [Adult Aspirin Regimen] 81 mg tablet,delayed release (DR/EC) 81 mg PO DAILY naproxen sodium [Aleve] 220 mg Capsule 220 mg PO BID PRN (Reason: pain / discomfort) Referrals: Hamida Victoria MD [Primary Care Provider] - Stand Alone Forms: Patient Portal/API
[2023-08-17 22:30] VITALS: BP 138/70; PULSE 87; RESP 32; O2SAT 96
[2023-08-17 22:41] LABS: Add Manual Diff / Slide Review NO; Basophils Absolute Auto 0 /uL (0-100); Basophils Percent Auto 0.4 % (0-2); Eosinophils Absolute Auto 0 /uL (0-450); Eosinophils Percent Auto 0.8 % (2-4); Hematocrit 42.1 % (41-53); Hemoglobin 14.3 g/dL (13.5-17.5); Lymphocytes Absolute Auto 1300 /uL (1100-4500); Lymphocytes Percent Auto 19.8 % (25-40); Mean Corpuscular HGB Conc 33.9 % (30-36); Mean Corpuscular Volume 91.3 fL (80-100); Monocytes Absolute Auto 500 /uL (0-900); Neutrophils Absolute Auto 4600 /uL (1500-7000); Platelet Count 222 X10^3/uL (150-400); Red Blood Cell Count 4.61 X10^6/uL (4.5-5.9); Red Cell Distribution Width 13.1 % (11.6-14.8); White Blood Cell Count 6.5 X10^3/uL (4.5-11.0)
[2023-08-17] MEDS: SODIUM CHLORIDE 0.9% 1,000 ML 1000 ML IV (22:55)
[2023-08-17 23:00] VITALS: BP 125/69; PULSE 80; RESP 23; O2SAT 96
[2023-08-17 23:14] LABS: BUN Creatinine Ratio 21.2 (6-22); Blood Urea Nitrogen 14 mg/dL (9-20); Calcium 9.7 mg/dL (8.4-10.2); Carbon Dioxide 26 mmol/L (22-32); Chloride 104 mmol/L (98-107); Estimated Glomerular Filt Rate > 60 mL/min (>60); Glucose 203 mg/dL (80-110); HEMOLYSIS 17 (0-50); Potassium 3.9 mmol/L (3.4-5.1); Sodium 138 mmol/L (137-145)
[2023-08-17 23:31] VITALS: PULSE 82; O2SAT 90
[2023-08-18] MEDS: CIPROFLOXACIN 250 MG TABLET 500 MG PO (00:07)
[2023-08-18] MEDS: metroNIDAZOLE 500 MG TABLET PO (00:07)
== END 2023-08-18 00:28 | disposition home or self-care (01) ==
PROVIDERS: Emergency Provider Emergency Medicine; Family Provider Orthopaedic Surgery; PCP Student in an Organized Health Care Education/Training Program
DX: K57.92 Diverticulitis of intestine, part unspecified, without perforation or abscess without bleeding (principal); Z79.899 Other long term (current) drug therapy; S66.919A Strain of unspecified muscle, fascia and tendon at wrist and hand level, unspecified hand, initial encounter
CPT/HCPCS: 36415; 73110; 74177; 80048; 85025; 96360; 99284; Q9967

== ENCOUNTER 2023-10-06 13:53 | Day surgery (SDC) | payer OTHER, MEDICAID, SELFPAY ==
[2021-06-28 16:29] VITALS: BMI 36.6
--- NOTE | 2023-10-06 | PATH_ITS ---
[facility] Accession Number: [id number] No. of containers..01 Tissue . 01 Material submitted: . esophagus, E-G Junction - GE JUNCTION . 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 Negative for dysplasia and malignancy. R 10/13/2023 1448 Local . 01 Electronically signed: . Fifi Samaniego MD, Pathologist NPI- [id number] . 01 Gross description: . GE JUNCTION: Received in formalin is 1 fragment(s) of mehta, soft tissue measuring 0.3 x 0.3 x 0.3 cm submitted entirely in 1 cassette(s) /EMELINA 10/10/2023 0010 Local . 01 Microscopic: . An AB/PAS stain is performed to evaluate for intestinal metaplasia and is positive. The control stain showed appropriate reactivity. . 01 Pathologist provided ICD-10: K22.70 . 01 CPT . 913982, [id number] Specimen Comment: A courtesy copy of this report has been sent to [phone] Performed at: 01 [facility] [address] [place] [address], [place], [place] [id number] MD Vitor Elmore MD Phone: [phone]
[2023-10-06 14:32] VITALS: BP 137/85; PULSE 75; RESP 16; TEMP 36.2; O2SAT 97; BMI 32.5
[2023-10-06] MEDS: LACTATED RINGERS 1,000 ML 42 ML IV (15:01)
--- NOTE | 2023-10-06 15:36 | PM.HP.1 ---
History of Present Illness History of Present Illness Date Patient Seen: 10/06/23 Time Patient Seen: 15:36 Chief complaint: EGD Narrative: 63-year-old male active tobacco use with chronic GERD here for esophagogastroduodenoscopy. Despite PPI therapy he continues to have breakthrough episodes of dyspepsia. No esophageal dysphagia change in voice or unintentional weight loss. [facility] Medical History Type 2 diabetes mellitus with complication, without long-term current use of insulin JOYCE (obstructive sleep apnea) Tobacco consumption Tendinosis of rotator cuff Supraspinatus tendon tear Partial tear subscapularis tendon Degenerative tear of glenoid labrum of left shoulder Respiratory infection Elevated blood pressure reading without diagnosis of hypertension SOB (shortness of breath) Abnormal laboratory test result Fatigue Colonic diverticular abscess GERD (gastroesophageal reflux disease) Diverticulitis Asthma Social History household members: spouse Smoking Status: Current every day smoker alcohol intake: never substance use type: does not use Meds Home Medications and Allergies Home Medications Medication Instructions Recorded Confirmed Type aspirin 81 mg tablet,delayed 81 mg PO DAILY 05/27/20 10/06/23 History release (Adult Aspirin Regimen) omeprazole magnesium 2.5 mg oral 10 mg PO DAILY 05/27/20 10/06/23 History suspension,delayed release (Prilosec) naproxen sodium 220 mg capsule 220 mg PO BID PRN pain / discomfort 12/04/20 10/06/23 History (Aleve) blood-glucose meter #1 ea 04/13/21 09/12/23 Rx albuterol sulfate 90 mcg/actuation See Rx Instructions .Route 07/11/22 10/06/23 Rx aerosol inhaler .COMPLEX #8.5 grams Home Sleep Study #1 ea 08/05/22 09/12/23 Rx metformin 500 mg tablet See Rx Instructions .Route 01/25/23 09/12/23 Rx .COMPLEX #360 tabs Advair Diskus 250 mcg-50 mcg/dose See Rx Instructions .Route 04/13/23 10/06/23 Rx powder for inhalation (fluticasone .COMPLEX #60 blisters propion-salmeterol) atorvastatin 20 mg tablet (Lipitor) 20 mg PO BEDTIME hyperlipidemia; 05/15/23 10/06/23 Rx diabetes #90 tabs semaglutide 0.25 mg or 0.5 mg (2 0.5 mg (0.736 mL) SUBCUT QWEEK #3 08/28/23 10/06/23 Rx mg/3 mL) subcutaneous pen injector mL (Ozempic) Allergies Allergy/AdvReac Type Severity Reaction Status Date / Time Penicillins Allergy Severe Rash Verified 10/06/23 14:54 codeine Allergy Verified 10/06/23 14:54 Exam Vital Signs (past 8 hours): - 10/06/23 14:32 Temperature 97.2 F L Pulse Rate 75 Respiratory Rate 16 Blood Pressure 137/85 Pulse Oximetry 97 Oxygen Delivery Method Room Air Oxygen Delivery Method Room Air Narrative Exam Narrative: General adult man alert oriented no acute distress Chest nonlabored respiration Extremities warm well perfused Assessment & Plan Assessment and plan (1) GERD (gastroesophageal reflux disease): Qualifiers: Esophagitis presence: esophagitis presence not specified Qualified Code(s): K21.9 - Gastro-esophageal reflux disease without esophagitis Status: Chronic Assessment & Plan narrative: 63-year-old male chronic GERD active tobacco use here for esophagogastroduodenoscopy. Risks benefits alternatives discussed. He elects to proceed.
--- NOTE | 2023-10-06 15:55 | P.OP.EGD_ITS ---
Operative Date/Time/Diagnoses Date of procedure: 10/06/23 Time of procedure: 15:55 Pre-op diagnosis: Chronic GERD Procedure & Clinicians Study performed: Esophagogastroduodenoscopy Same procedure as scheduled: Yes Indications: 63-year-old male active tobacco use with chronic GERD here for EGD Surgeon: Ferny Preston Procedure Notes Procedure in detail: The history and physical was performed/updated and the patient is ASA class is 2. The procedure was discussed in detail with the patient. Potential risks complications including infection, bleeding, missed diagnosis, perforation, need for surgery, and were explained. Their questions were answered and info rmed consent was obtained. Patient placed in left lateral decubitus position. Time out was performed. Procedural sedation was administered by Anesthesia. A bite block was placed. the scope was inserted into the mouth and advanced through the esophagus and into the stomach. The pylorus was intubated and the duodenum was examined to the 2nd portion. The scope was then withdrawn into the stomach and was retroflexed. The stomach was decompressed and scope was withdrawn slowly through the esophagus. FINDINGS -small hiatal hernia -grossly normal GE junction at 35 cm from the incisors. Multiple biopsies taken of the junction using forceps. The patient tolerated the procedure well and will be discharged when they meet criteria. Specimen(s): other (GE junction) Impression: Small hiatal hernia Post-procedure Plan for aftercare: Continue omeprazole as written Disposition: same day surgery
[2023-10-06 16:01] VITALS: BP 144/108; PULSE 84; RESP 24; TEMP 36.1; O2SAT 93
[2023-10-06 16:06] VITALS: BP 113/81; PULSE 86; RESP 25; O2SAT 94
[2023-10-06 16:11] VITALS: BP 117/70; PULSE 70; RESP 19; O2SAT 95
[2023-10-06] MEDS: BENZOCAINE/MENTHOL 1 LOZ PKT 1 EACH PO (16:15)
[2023-10-06 16:20] VITALS: BP 115/71; PULSE 73; RESP 18; O2SAT 94
[2023-10-06 16:35] VITALS: BP 111/83; PULSE 74; RESP 20; O2SAT 94
== END 2023-10-06 16:45 | disposition home or self-care (01) ==
PROVIDERS: Family Provider Orthopaedic Surgery; PCP Family Medicine; Referring Provider Surgery; Visit Provider Surgery
PROC: 0DJ08ZZ Inspection of Upper Intestinal Tract, Via Natural or Artificial Opening Endoscopic (ICD-10-PCS; CPT 43239; principal; 2023-10-06 14:30)
DX: K21.9 Gastro-esophageal reflux disease without esophagitis (principal); K44.9 Diaphragmatic hernia without obstruction or gangrene; K22.70 Barrett's esophagus without dysplasia
CPT/HCPCS: 43239; J2704

== ENCOUNTER 2023-11-04 19:36 | Emergency (ER) | payer OTHER, MEDICAID, SELFPAY ==
[2021-06-28 16:29] VITALS: BMI 36.6
[2023-11-04 19:47] VITALS: BP 118/75; PULSE 75; RESP 16; TEMP 36.6; O2SAT 99; BMI 33.2
[2023-11-04 20:13] LABS: Strep Grp A by PCR Rapid Negative (Negative)
--- NOTE | 2023-11-04 20:47 | ED_ITS ---
HPI - URI/Sore Throat General Chief Complaint: Upper Respiratory Symptoms Stated Complaint: sore throat Time Seen by Provider: 11/04/23 20:46 Source: patient Mode of arrival: Ambulatory History of Present Illness HPI Narrative: 63-year-old male complains of 4-5 days' duration of cough, daughter in household with similar symptoms and duration, also has some component of sore throat. Denies shortness of breath. He feels his cough symptoms compared to 6-year-old daughter symptoms. Chart history of previous Advair and albuterol, denies recent rescue inhaler use. Denies fevers chills. Denies injury trauma new activities. No recent exposure to antibiotics. Related Data Home Medications Medication Instructions Recorded Confirmed aspirin 81 mg tablet,delayed 81 mg PO DAILY 05/27/20 10/18/23 release (Adult Aspirin Regimen) omeprazole magnesium 2.5 mg oral 10 mg PO DAILY 05/27/20 10/18/23 suspension,delayed release (Prilosec) naproxen sodium 220 mg capsule 220 mg PO BID PRN pain / discomfort 12/04/20 10/18/23 (Aleve) Previous Rx's Medication Instructions Recorded blood-glucose meter #1 ea 04/13/21 albuterol sulfate 90 mcg/actuation See Rx Instructions .Route 07/11/22 aerosol inhaler .COMPLEX #8.5 grams Home Sleep Study #1 ea 08/05/22 Advair Diskus 250 mcg-50 mcg/dose See Rx Instructions .Route 04/13/23 powder for inhalation (fluticasone .COMPLEX #60 blisters propion-salmeterol) atorvastatin 20 mg tablet (Lipitor) 20 mg PO BEDTIME hyperlipidemia; 05/15/23 diabetes #90 tabs metformin 500 mg tablet See Rx Instructions .Route 10/10/23 .COMPLEX #360 tabs semaglutide 0.25 mg or 0.5 mg (2 0.5 mg (0.736 mL) SUBCUT QWEEK #3 10/16/23 mg/3 mL) subcutaneous pen injector mL (Ozempic) Allergies Allergy/AdvReac Type Severity Reaction Status Date / Time Penicillins AdvReac Severe Rash Verified 11/04/23 19:47 codeine AdvReac Gastrointestinal Verified 11/04/23 19:47 Upset Review of Systems Review of Systems ROS Unobtainable: All systems reviewed & are unremarkable except as noted in HPI and below Patient History Medical History Type 2 diabetes mellitus with complication, without long-term current use of insulin JOYCE (obstructive sleep apnea) Tobacco consumption Tendinosis of rotator cuff Supraspinatus tendon tear Partial tear subscapularis tendon Degenerative tear of glenoid labrum of left shoulder Respiratory infection Elevated blood pressure reading without diagnosis of hypertension SOB (shortness of breath) Abnormal laboratory test result Fatigue Colonic diverticular abscess GERD (gastroesophageal reflux disease) Diverticulitis Asthma Social History household members: spouse Smoking Status: Current every day smoker alcohol intake: never substance use type: does not use Smoking Status: Current every day smoker tobacco type: cigarettes alcohol intake frequency: 0-2 drinks per day Substance Use Type: does not use Exam Narrative Exam Narrative: GENERAL:Well-developed patient, in mild distress. HEAD: Atraumatic. Normocephalic. EYES: Pupils equal round and reactive. Extraocular motions intact. No scleral icterus. No injection or drainage. ENT: Nose without bleeding, purulent drainage. Throat without erythema, tonsillar hypertrophy or exudate. Airway patent. NECK: Trachea midline. Non tender CARDIOVASCULAR: Regular rate and rhythm without murmurs, gallops, or rubs. RESPIRATORY: Clear to auscultation. Breath sounds equal bilaterally. No wheezes, rales, or rhonchi. GASTROINTESTINAL: Abdomen soft, non-tender, nondistended. EXTREMITIES: No edema or joint tenderness. BACK: Nontender without deformity or crepitance. No flank tenderness. NEURO: AOx3. SKIN: No rash or erythema of visible areas Initial Vital Signs Initial Vital Signs: Vital Signs Temperature 97.9 F 11/04/23 19:47 Pulse Rate 75 11/04/23 19:47 Respiratory Rate 16 11/04/23 19:47 Blood Pressure 118/75 11/04/23 19:47 Pulse Oximetry 99 11/04/23 19:47 Oxygen Delivery Method Room Air 11/04/23 19:47 Course Orders Ordered: ED Orders 11/04/23 19:48 Strep Grp A by PCR Rapid Stat Throat Culture Stat Vital Signs Vital signs: Vital Signs - 8 hr 11/04/23 19:47 11/04/23 21:46 Temperature 97.9 F Pulse Rate 75 74 Respiratory Rate 16 14 Blood Pressure 118/75 Pulse Oximetry 99 97 Oxygen Delivery Method Room Air Room Air MDM - URI/Sore Throat Lab Data Labs: Lab Results 11/04/23 Range/Units 19:48 Group A Strep (PCR) Negative (Negative) MDM Narrative Medical decision making narrative: Adult male with 4-5 days duration upper respiratory symptoms, also with sore thr oat pain, rapid strep negative, oropharyngeal exam benign, no respiratory distress, lungs clear, no retractions, good room-air sat. Medications in the past include albuterol and Advair, moving air well, full sentence speech, lungs clear, we will hold bronchodilator/steroid use for now. We discussed flu/COVID swab testing, he declined. Symptomatic treatment with [id number] medications discussed. Discharged home, return precautions discussed Discharge Plan Departure Patient Disposition: Home Clinical Impression: Upper respiratory infection, Sore throat Instructions: DI for Viral Upper Respiratory Infection -- Adult Activity Restrictions/Additional Instructions: Recent days cough, similar symptoms and duration child and home, on exam you have clear lungs, no respiratory distress, excellent room-air saturation, some sore throat symptoms as well with unremarkable oropharyngeal on exam, strep screen negative. It is likely your sore throat symptoms are viral as well. Take Tylenol and or Motrin as needed for pain control. Recheck with your regular provider if not improving the next couple of days. Return to this/nearest emergency department for any change worsening symptoms, or for any concerns prior Prescriptions: No Action (DME) blood-glucose meter Misc See Rx Instructions .Route Qty: 1 0RF Rx Instructions: Use to check blood sugar 3 times daily before meals albuterol sulfate 90 mcg/actuation HFA aerosol inhaler See Rx Instructions .ROUTE .COMPLEX Qty: 8.5 12RF Dose Instruction: inhale 2 puffs by mouth every 4 to 6 hours if needed for shortness of breath or wheezing Rx Instructions: inhale 2 puffs by mouth every 4 to 6 hours if needed for shortness of breath or wheezing fluticasone propion-salmeterol [Advair Diskus] 250-50 mcg/dose blister with device See Rx Instructions .ROUTE .COMPLEX Qty: 60 3RF Dose Instruction: inhale 1 puff by mouth and INTO THE LUNGS twice a day Rinse mouth after use Rx Instructions: inhale 1 puff by mouth and INTO THE LUNGS twice a day Rinse mouth after use atorvastatin [Lipitor] 20 mg tablet 20 mg PO BEDTIME Qty: 90 2RF metformin 500 mg tablet See Rx Instructions .ROUTE .COMPLEX Qty: 360 1RF Dose Instruction: TAKE 2 TABLET BY MOUTH TWICE A DAY FOR 90 DAYS. Rx Instructions: TAKE 2 TABLET BY MOUTH TWICE A DAY FOR 90 DAYS. Ozempic 0.25 mg or 0.5 mg (2 mg/3 mL) pen injector 0.5 mg SUBCUT QWEEK Qty: 3 2RF (DME) Home Sleep Study See Rx Instructions .Route .MEDSUPPLY Qty: 1 0RF Rx Instructions: as directed Prilosec 2.5 mg susp,delayed release for recon 10 mg PO DAILY aspirin [Adult Aspirin Regimen] 81 mg tablet,delayed release (DR/EC) 81 mg PO DAILY naproxen sodium [Aleve] 220 mg Capsule 220 mg PO BID PRN (Reason: pain / discomfort) Referrals: Lyla Moran MD [Primary Care Provider] - Stand Alone Forms: Patient Portal/API
[2023-11-04 21:46] VITALS: PULSE 74; RESP 14; O2SAT 97
== END 2023-11-04 21:47 | disposition home or self-care (01) ==
PROVIDERS: Emergency Provider Emergency Medicine; Family Provider Orthopaedic Surgery; PCP Family Medicine
DX: J06.9 Acute upper respiratory infection, unspecified (principal); J02.9 Acute pharyngitis, unspecified
CPT/HCPCS: 87070; 87651; 99281; 99282

== ENCOUNTER 2024-03-01 11:24 | Emergency (ER) | payer OTHER, MEDICAID, SELFPAY ==
[2021-06-28 16:29] VITALS: BMI 36.6
[2024-03-01] VITALS (7 sets, daily range): BP systolic 102–137; BP diastolic 67–98; PULSE 60–88; RESP 14–16; TEMP 36.6; O2SAT 95–97; BMI 32.5
--- NOTE | 2024-03-01 12:46 | EKG_ITS ---
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
--- NOTE | 2024-03-01 12:46 | DI.RAD.S_ITS ---
PROCEDURE: XR CHEST 1V INDICATIONS: chest pain TECHNIQUE: One view of the chest was acquired. COMPARISON: [facility], CR, XR CHEST 1V, 10/20/2022, 17:59. [facility], CR, XR CHEST 1V, 06/18/2022, 12:05. FINDINGS: Surgical changes and devices: None. Lungs and pleura: Lungs are clear. No pleural effusions or pneumothorax. Mediastinum: Mediastinal contours appear normal. Heart size is normal. Bones and chest wall: No suspicious bony lesions. Overlying soft tissues appear unremarkable. IMPRESSION: No acute cardiopulmonary abnormality is seen. Dictated by: Uriel Ferro M.D. on 03/01/2024 at 13:42 Approved by: Uriel Ferro M.D. on 03/01/2024 at 13:43
[2024-03-01] MEDS: ONDANSETRON 4 MG/2 ML INJ IV (14:14)
[2024-03-01] MEDS: MECLIZINE HCL 12.5 MG TABLET 50 MG PO (14:15)
[2024-03-01 14:24] LABS: Add Manual Diff / Slide Review NO; Basophils Absolute Auto 0 /uL (0-100); Basophils Percent Auto 0.6 % (0-2); Eosinophils Absolute Auto 200 /uL (0-450); Hematocrit 45.7 % (41-53); Hemoglobin 15.6 g/dL (13.5-17.5); Lymphocytes Absolute Auto 2500 /uL (1100-4500); Mean Corpuscular HGB Conc 34.2 % (30-36); Mean Corpuscular Hemoglobin 31.6 PG (26-34); Mean Corpuscular Volume 92.6 fL (80-100); Monocytes Absolute Auto 500 /uL (0-900); Monocytes Percent Auto 6.4 % (3-14); Neutrophils Absolute Auto 5000 /uL (1500-7000); Platelet Count 285 X10^3/uL (150-400); Red Blood Cell Count 4.94 X10^6/uL (4.5-5.9); White Blood Cell Count 8.2 X10^3/uL (4.5-11.0)
[2024-03-01 14:30] LABS: INR 1.1 (0.9-1.3)
[2024-03-01 14:33] LABS: PTT Partial Thromboplastin Tim 36 SECONDS (25.1-36.5)
[2024-03-01 14:35] LABS: Alanine Aminotransferase 18 IU/L (<50); Albumin 4.3 g/dL (3.5-5.0); Albumin Globulin Ratio 1.4 (1.0-2.8); Alkaline Phosphatase 42 U/L (38-126); Aspartate Aminotransferase 21 IU/L (17-59); BUN Creatinine Ratio 19.4 (6-22); Bilirubin Total 0.6 mg/dL (0.2-1.3); Blood Urea Nitrogen 14 mg/dL (9-20); Calcium 9.7 mg/dL (8.4-10.2); Carbon Dioxide 28 mmol/L (22-32); Chloride 104 mmol/L (98-107); Creatine Kinase 120 U/L (55-170); Estimated Glomerular Filt Rate > 60 mL/min (>60); Globulin 3.1 g/dL (1.7-4.1); Glucose 112 mg/dL (80-110); HEMOLYSIS 18 (0-50); Lipase 72 U/L (23-300); Magnesium 1.6 mg/dL (1.6-2.3); Potassium 3.9 mmol/L (3.4-5.1); Sodium 139 mmol/L (137-145); Total Protein 7.4 g/dL (6.3-8.2)
--- NOTE | 2024-03-01 14:37 | DI.CT.S_ITS ---
PROCEDURE: CT ANGIO HEAD AND NECK INDICATIONS: on going dizziness, hx blockage TECHNIQUE: After the administration of intravenous contrast, 1 mm thick sections acquired from the aortic arch through the [place] of [place]. 3-dimensional hkjxcoc-knckkxfqh-hdjilevzez (MIP) and/or volume rendering reformats were acquired of the central intracranial vasculature and neck separately. For radiation dose reduction, the following was used: automated exposure control, adjustment of mA and/or kV according to patient size. COMPARISON: None. FINDINGS: Image quality: Diagnostic. BRAIN: CSF spaces: Ventricles are normal in size and shape. Basal cisterns are patent. No extra-axial fluid collections. Brain: No significant abnormality of the brain can be seen. Skull and face: Calvarium and facial bones appear intact, without suspicious lesions. Orbits appear normal. Sinuses: Sinuses and mastoids are clear. HEAD CT ANGIOGRAPHY: Anterior circulation: Intracranial internal carotid arteries are normal in size and flow. The flow within the paired anterior cerebral arteries is normal and symmetric. The flow within the middle cerebral arteries is normal and symmetric. The anterior communicating artery is seen. No aneurysms are seen. Posterior circulation: Visualized portions of the vertebral arteries demonstrate normal caliber, and join to form a normal appearing basilar artery. Flow within the posterior cerebral arteries is normal and symmetric. No aneurysms are seen. NECK CT ANGIOGRAPHY: Carotid system: The great vessels demonstrate a conventional anatomy as they arise from the aortic arch. The origins of the common carotid arteries appear patent. The common carotid arteries demonstrate normal caliber and courses. The bifurcation regions are both widely patent. The internal carotid arteries demonstrate normal calibers and courses. Posterior circulation: The origins of the vertebral arteries both appear widely patent. The more superior extracranial portions of both vertebral arteries also demonstrate normal courses and calibers. They join to form a normal appearing basilar artery. Soft tissues: Visualized neck soft tissues demonstrate no suspicious abnormalities. Bones: No suspicious bony lesions. Visualized cervical spine appears normally aligned. IMPRESSION: No significant intracranial arterial abnormality is seen. No significant abnormality is seen within the arteries of the neck. Any quantitative measurements of stenosis were performed using NASCET criteria. Dictated by: Uriel Ferro M.D. on 03/01/2024 at 15:46 Approved by: Uriel Ferro M.D. on 03/01/2024 at 15:48
[2024-03-01 14:46] LABS: NT-proBNP (BNP-Adult 18+) 45 pg/mL (<125); Troponin I < 0.012 ng/mL (0.01-0.034)
--- NOTE | 2024-03-01 15:18 | ED.DIZZY ---
HPI - Dizziness General Chief Complaint: Dizziness Stated Complaint: dizziness Time Seen by Provider: 03/01/24 14:37 History of Present Illness HPI Narrative: Patient is 63-year-old male history of asthma presenting today with ongoing dizziness. He reports that he was seen and evaluated at an outside facility for the same. He was told that he had a clot in his vein and was positive for COVID at the time. He was instructed to take aspirin daily. However he is continued to have intermittent dizziness. He is currently eating beef jerky. He has no numbness tingling or weakness. No chest pain or palpitations. Related Data Home Medications Medication Instructions Recorded Confirmed aspirin 81 mg tablet,delayed 81 mg PO DAILY 05/27/20 03/01/24 release (Adult Aspirin Regimen) omeprazole magnesium 2.5 mg oral 10 mg PO DAILY 05/27/20 03/01/24 suspension,delayed release (Prilosec) naproxen sodium 220 mg capsule 220 mg PO BID PRN pain / discomfort 12/04/20 03/01/24 (Aleve) Previous Rx's Medication Instructions Recorded blood-glucose meter #1 ea 04/13/21 Home Sleep Study #1 ea 08/05/22 metformin 500 mg tablet See Rx Instructions .Route 10/10/23 .COMPLEX #360 tabs albuterol sulfate 90 mcg/actuation See Rx Instructions .Route 11/08/23 aerosol inhaler .COMPLEX #8.5 grams fluticasone propionate 50 1 spray intranasal BID #16 grams 12/31/23 mcg/actuation nasal spray,suspension (Allergy Relief (fluticasone)) Advair Diskus 250 mcg-50 mcg/dose See Rx Instructions .Route 01/24/24 powder for inhalation (fluticasone .COMPLEX #60 blisters propion-salmeterol) semaglutide 0.25 mg or 0.5 mg (2 0.5 mg (0.736 mL) SUBCUT QWEEK #3 01/25/24 mg/3 mL) subcutaneous pen injector mL (Ozempic) atorvastatin 20 mg tablet (Lipitor) 20 mg PO BEDTIME hyperlipidemia; 02/07/24 diabetes #90 tabs meclizine 25 mg tablet 25 mg PO TID PRN dizziness #10 tabs 03/01/24 ondansetron 4 mg disintegrating 4 mg PO Q8H PRN nausea and 03/01/24 tablet vomiting #10 tabs Allergies Allergy/AdvReac Type Severity Reaction Status Date / Time Penicillins AdvReac Severe Rash Verified 03/01/24 10:41 codeine AdvReac Gastrointestinal Verified 03/01/24 10:41 Upset Patient History Medical History Type 2 diabetes mellitus with complication, without long-term current use of insulin JOYCE (obstructive sleep apnea) Tobacco consumption Tendinosis of rotator cuff Supraspinatus tendon tear Partial tear subscapularis tendon Degenerative tear of glenoid labrum of left shoulder Respiratory infection Elevated blood pressure reading without diagnosis of hypertension SOB (shortness of breath) Abnormal laboratory test result Fatigue Colonic diverticular abscess GERD (gastroesophageal reflux disease) Diverticulitis Asthma Social History household members: spouse Smoking Status: Current every day smoker alcohol intake: never substance use type: does not use Smoking Status: Current every day smoker tobacco type: cigarettes alcohol intake frequency: 0-2 drinks per day Substance Use Type: does not use Exam Initial Vital Signs Initial Vital Signs: Vital Signs Temperature 97.8 F 03/01/24 11:32 Pulse Rate 60 03/01/24 11:32 Respiratory Rate 16 03/01/24 11:32 Blood Pressure 137/98 H 03/01/24 11:32 Pulse Oximetry 95 03/01/24 11:32 Oxygen Delivery Method Room Air 03/01/24 11:32 GENERAL: Alert well-appearing 63-year-old male and in no acute distress. HEENT: Head atraumatic,EOMI, pupils reactive, face symmetric, moist mucous membranes CARDIOVASCULAR: Regular rate and rhythm without murmurs, rubs or gallops. RESPIRATORY: Breath sounds equal bilaterally, no wheezes rales or rhonchi. ABDOMEN: Soft, nontender. Normoactive bowel sounds all 4 quadrants. No guarding or rebound. EXTREMITIES: Normal range of motion, no clubbing or edema. Neurovascularly intact NEUROLOGICAL: Alert and oriented x4.Normal gait and speech. Cranial nerves II through XII grossly intact. Good lhsjhp-up-sdeh, good cbke-gz-wpgg, strength equal bilaterally, no dysarthria or aphasia, sensation in tact to soft touch bilaterally, no visual changes, no facial droop SKIN: Warm, dry, no laceration, no petechiae, no rashes or lesions. Scores NIH Stroke Scale Level of Conciousness: Alert, keenly responsive Ask month/age: Answers both questions correctly. Open/close eyes, close hand: Performs both tasks correctly Best gaze horizontal: Normal Visual gooden: No visual loss Facial palsy: Normal symetrical movement Left arm drift: No drift for full 10 sec Right arm drift: No drift for full 10 sec Left leg drift: No drift for full 5 sec Right leg drift: No drift for full 5 sec Limb ataxia: Absent Sensory on face/arms/legs: Normal, no sensory loss Best language: No aphasia, normal Dysarthria: Normal Extinction or inattention: No abnormality Total NIH Stroke scale score: 0 Course Orders Ordered: ED Orders 03/01/24 12:46 XR chest 1V Stat EKG-12 Lead Stat 03/01/24 14:05 Complete Blood Count AUTO DIFF Stat Comprehensive Metabolic Panel Stat Lipase Stat Magnesium Stat NT-proBNP (BNP-Adult 18+) Stat PTT Partial Thromboplastin Fady Stat Prothrombin Time INR Stat Troponin & CK Cardiac Panel Stat 03/01/24 14:37 CT angio head and neck Stat Discontinued Medications Meclizine HCl (Meclizine Hcl 12.5 Mg Tablet) 50 mg PO NOW ONE Stop: 03/01/24 12:47 Last Admin: 03/01/24 14:15 Dose: 50 mg Documented By: GERI Ondansetron HCl (Ondansetron 4 Mg/2 Ml Inj) 4 mg IV NOW ONE Stop: 03/01/24 12:47 Last Admin: 03/01/24 14:14 Dose: 4 mg Documented By: GERI Vital Signs Vital signs: Vital Signs - 8 hr 03/01/24 11:32 03/01/24 14:28 03/01/24 14:30 Temperature 97.8 F Pulse Rate 60 88 88 Respiratory Rate 16 Blood Pressure 137/98 H Pulse Oximetry 95 97 Oxygen Delivery Method Room Air 03/01/24 14:30 03/01/24 14:42 03/01/24 14:42 Temperature Pulse Rate 88 Respiratory Rate Blood Pressure 116/73 115/71 Pulse Oximetry 97 Oxygen Delivery Method 03/01/24 15:05 03/01/24 15:05 03/01/24 15:30 Temperature Pulse Rate 77 77 Respiratory Rate Blood Pressure 111/70 Pulse Oximetry 97 97 Oxygen Delivery Method 03/01/24 15:30 03/01/24 16:00 03/01/24 16:00 Temperature Pulse Rate 78 Respiratory Rate 14 Blood Pressure 102/67 113/71 Pulse Oximetry 96 Oxygen Delivery Method MDM - Dizziness Lab Data 03/01/24 14:05 03/01/24 14:05 Labs: Lab Results 03/01/24 Range/Units 14:05 WBC 8.2 (4.5-11.0) X10^3/uL RBC 4.94 (4.5-5.9) X10^6/uL Hgb 15.6 (13.5-17.5) g/dL Hct 45.7 (41-53) % MCV 92.6 (80-100) fL MCH 31.6 (26-34) PG MCHC 34.2 (30-36) % RDW 14.0 (11.6-14.8) % Plt Count 285 (150-400) X10^3/uL Neut % (Auto) 61.0 (50-75) % Lymph % (Auto) 30.0 (25-40) % Barnes % (Auto) 6.4 (3-14) % Eos % (Auto) 2.0 (2-4) % Baso % (Auto) 0.6 (0-2) % Neut # (Auto) 5000 (9606-9876) /uL Lymph # (Auto) 2500 (0738-2537) /uL Barnes # (Auto) 500 (0-900) /uL Eos # (Auto) 200 (0-450) /uL Baso # (Auto) 0 (0-100) /uL PT 13.0 H (9.4-12.5) SECONDS INR 1.1 (0.9-1.3) APTT 36 (25.1-36.5) SECONDS Sodium 139 (137-145) mmol/L Potassium 3.9 (3.4-5.1) mmol/L Chloride 104 (98-107) mmol/L Carbon Dioxide 28 (22-32) mmol/L BUN 14 (9-20) mg/dL Creatinine 0.72 (0.66-1.25) mg/dL Estimated GFR > 60 (>60) mL/min BUN/Creatinine Ratio 19.4 (6-22) Glucose 112 H (80-110) mg/dL Calcium 9.7 (8.4-10.2) mg/dL Magnesium 1.6 (1.6-2.3) mg/dL Total Bilirubin 0.6 (0.2-1.3) mg/dL AST 21 (17-59) IU/L ALT 18 (<50) IU/L Alkaline Phosphatase 42 (38-126) U/L Total Creatine Kinase 120 (55-170) U/L Troponin I < 0.012 (0.01-0.034) ng/mL NT-Pro-B Natriuret Pep 45 (<125) pg/mL Total Protein 7.4 (6.3-8.2) g/dL Albumin 4.3 (3.5-5.0) g/dL Globulin 3.1 (1.7-4.1) g/dL Albumin/Globulin Ratio 1.4 (1.0-2.8) Lipase 72 (23-300) U/L Imaging Data CTA - brain/neck: Radiologist's Impression: PROCEDURE: CT ANGIO HEAD AND NECK INDICATIONS: on going dizziness, hx blockage TECHNIQUE: After the administration of intravenous contrast, 1 mm thick sections acquired from the aortic arch through the [place]. 3-dimensional svwxecg-veykecasb-ilopesztov (MIP) and/or volume rendering reformats were acquired of the central intracranial vasculature and neck separately. For radiation dose reduction, the following was used: automated exposure control, adjustment of mA and/or kV according to patient size. COMPARISON: None. FINDINGS: Image quality: Diagnostic. BRAIN: CSF spaces: Ventricles are normal in size and shape. Basal cisterns are patent. No extra-axial fluid collections. Brain: No significant abnormality of the brain can be seen. Skull and face: Calvarium and facial bones appear intact, without suspicious lesions. Orbits appear normal. Sinuses: Sinuses and mastoids are clear. HEAD CT ANGIOGRAPHY: Anterior circulation: Intracranial internal carotid arteries are normal in size and flow. The flow within the paired anterior cerebral arteries is normal and symmetric. The flow within the middle cerebral arteries is normal and symmetric. The anterior communicating artery is seen. No aneurysms are seen. Posterior circulation: Visualized portions of the vertebral arteries demonstrate normal caliber, and join to form a normal appearing basilar artery. Flow within the posterior cerebral arteries is normal and symmetric. No aneurysms are seen. NECK CT ANGIOGRAPHY: Carotid system: The great vessels demonstrate a conventional anatomy as they arise from the aortic arch. The origins of the common carotid arteries appear patent. The common carotid arteries demonstrate normal caliber and courses. The bifurcation regions are both widely patent. The internal carotid arteries demonstrate normal calibers and courses. Posterior circulation: The origins of the vertebral arteries both appear widely patent. The more superior extracranial portions of both vertebral arteries also demonstrate normal courses and calibers. They join to form a normal appearing basilar artery. Soft tissues: Visualized neck soft tissues demonstrate no suspicious abnormalities. Bones: No suspicious bony lesions. Visualized cervical spine appears normally aligned. IMPRESSION: No significant intracranial arterial abnormality is seen. No significant abnormality is seen within the arteries of the neck. Any quantitative measurements of stenosis were performed using NASCET criteria. Dictated by: Uriel Ferro M.D. on 03/01/2024 at 15:46 Chest x-ray: Radiologist's Impression: No acute cardiopulmonary process ECG Data Attestation: I personally reviewed and interpreted this ECG as follows: Interpretation: Normal sinus rhythm rate 75 CO interval 170 QRS 84 QTC [address] changes MDM Narrative Medical decision making narrative: Patient is 63-year-old male history of vertigo presenting to date with ongoing dizziness. He was previously diagnosed with something and COVID and told to take aspirin. We have spent 4 hours trying to get records an unsuccessful. He is neurologically intact no persistent ongoing dizziness. His CT angio does not show any large vessel occlusion. He is NIH stroke scale of 0. He was given meclizine and Zofran which actually has seemed to help Blood work has been reviewed no leukocytosis or anemia, electrolytes are stable creatinine is stable 0.72 glucose 112, troponin negative EKG shows a sinus rhythm no ischemic arrhythmic Imaging reviewed no large vessel occlusion no abnormality Patient is a appointment with primary care provider in 2 days. Symptoms do not seem to be any worse but they are just not getting better. Finally after multiple hours in the emergency department patient remembered that he does discharge instructions with him in the car. We attempted to get records but unsuccessful patient has discharge instructions does show that he had a CT angio. Unclear what the results were however 2 days testing does not show any evidence of concern. He is ambulating in the ED he is tolerating food. Does have a history of vertigo. At this time I do suspect vertigo he has an appointment with his primary care provider he may or may not require an outpatient MRI but I have a very low suspicion for a posterior stroke. Not having signs or symptoms of a cavernous sinus thrombosis. Unclear what his understanding of his discharge diagnosis is without reviewing the records. However today workup in the emergency department is overall reassuring. Discharge Plan Departure Patient Disposition: Home Clinical Impression: Vertigo Instructions: DI for Vertigo Activity Restrictions/Additional Instructions: *You have been diagnosed with vertigo *What to do: At this time please follow-up with your primary care provider. You may or may not require an outpatient MRI however your CT angio was negative today *Continue to take medications as directed Meclizine 25 mg every 8 hours if needed for dizzy Zofran 4 mg every 8 hours if needed for nausea or vomiting *Follow up with your primary care provider in 2-3 days or call [phone] *Return to ER if you should have increasing dizziness, falling chest pain confusion [or] any new, worsening or concerning symptoms Prescriptions: New meclizine 25 mg tablet 25 mg PO TID PRN (Reason: dizziness) Qty: 10 0RF ondansetron 4 mg tablet,disintegrating 4 mg PO Q8H PRN (Reason: nausea and vomiting) Qty: 10 0RF No Action fluticasone propionate [Allergy Relief (fluticasone)] 50 mcg/actuation spray,suspension 1 spray intranasal BID Qty: 16 0RF Rx Instructions: administer into each nostril (DME) blood-glucose meter Misc See Rx Instructions .Route Qty: 1 0RF Rx Instructions: Use to check blood sugar 3 times daily before meals metformin 500 mg tablet See Rx Instructions .ROUTE .COMPLEX Qty: 360 1RF Dose Instruction: TAKE 2 TABLET BY MOUTH TWICE A DAY FOR 90 DAYS. Rx Instructions: TAKE 2 TABLET BY MOUTH TWICE A DAY FOR 90 DAYS. albuterol sulfate 90 mcg/actuation HFA aerosol inhaler See Rx Instructions .ROUTE .COMPLEX Qty: 8.5 2RF Dose Instruction: inhale 2 puffs by mouth every 4 to 6 hours if needed for shortness of breath or wheezing Rx Instructions: inhale 2 puffs by mouth every 4 to 6 hours if needed for shortness of breath or wheezing fluticasone propion-salmeterol [Advair Diskus] 250-50 mcg/dose blister with device See Rx Instructions .ROUTE .COMPLEX Qty: 60 3RF Dose Instruction: inhale 1 puff by mouth and INTO THE LUNGS twice a day Rinse mouth after use Rx Instructions: inhale 1 puff by mouth and INTO THE LUNGS twice a day Rinse mouth after use Ozempic 0.25 mg or 0.5 mg (2 mg/3 mL) pen injector 0.5 mg SUBCUT QWEEK Qty: 3 3RF atorvastatin [Lipitor] 20 mg tablet 20 mg PO BEDTIME Qty: 90 0RF Rx Instructions: PT WILL NEED TO BE SEEN BEFORE NEXT RENEWAL 02/07/24 ([facility] [place]) Home Sleep Study See Rx Instructions .Route .MEDSUPPLY Qty: 1 0RF Rx Instructions: as directed Prilosec 2.5 mg susp,delayed release for recon 10 mg PO DAILY aspirin [Adult Aspirin Regimen] 81 mg tablet,delayed release (DR/EC) 81 mg PO DAILY naproxen sodium [Aleve] 220 mg Capsule 220 mg PO BID PRN (Reason: pain / discomfort) Referrals: Lyla Moran MD [Primary Care Provider] - Stand Alone Forms: Patient Portal/API
== END 2024-03-01 16:42 | disposition home or self-care (01) ==
PROVIDERS: Emergency Provider Emergency Medicine; Family Provider Orthopaedic Surgery; PCP Family Medicine
DX: R42 Dizziness and giddiness (principal); R79.89 Other specified abnormal findings of blood chemistry
CPT/HCPCS: 36415; 70496; 70498; 71045; 80053; 82550; 83690; 83735; 83880; 84484; 85025; 85610; 85730; 93005; 96374; 99284; J2405; Q9967

== ENCOUNTER → 2024-06-04 12:12 | Outpatient (CLI) | payer OTHER, SELFPAY ==
[2021-06-28 16:29] VITALS: BMI 36.6
--- NOTE | 2024-06-04 12:14 | DI.RAD.S_ITS ---
PROCEDURE: XR CHEST 2V INDICATIONS: Cough TECHNIQUE: 2 views of the chest were acquired. COMPARISON: [facility], CR, XR CHEST 1V, 03/01/2024, 13:13. [facility], CR, XR CHEST 1V, 10/20/2022, 17:59. FINDINGS: Surgical changes and devices: None. Lungs and pleura: Lungs are clear. No pleural effusions or pneumothorax. Mediastinum: Mediastinal contours are normal. Heart size is normal. Bones and chest wall: No suspicious bony abnormalities. Soft tissues appear unremarkable. IMPRESSION: No acute cardiopulmonary abnormality is seen. Dictated by: Sherwin Clark M.D. on 06/04/2024 at 15:43 Approved by: Sherwin Clark M.D. on 06/04/2024 at 15:44
== END ==
LOC: RAD 12:13
PROVIDERS: Family Provider Orthopaedic Surgery; PCP Family Medicine; Referring Provider Nurse Practitioner Family; Visit Provider Nurse Practitioner Family
DX: R05.9 Cough, unspecified (principal)
CPT/HCPCS: 71046

== ENCOUNTER → 2024-07-25 16:04 | Outpatient (CLI) | payer OTHER, SELFPAY ==
[2021-06-28 16:29] VITALS: BMI 36.6
[2024-07-25 16:55] LABS: Influenza A - CEPHEID Flu A NEGATIVE (NEGATIVE); Influenza B - CEPHEID Flu B NEGATIVE (NEGATIVE); Respiratory Syncytial Virus Negative (Negative)
[2024-07-25 17:48] LABS: COVID-19 CEPHEID 4-PLEX PCR Negative (Negative)
== END ==
PROVIDERS: Family Provider Orthopaedic Surgery; PCP Family Medicine; Visit Provider Physician Assistant
DX: R05.1 Acute cough (principal)
CPT/HCPCS: 87635; 87400 ×2; 87420; 0241U

== ENCOUNTER 2024-08-17 11:01 | Emergency (ER) | payer OTHER, SELFPAY ==
[2021-06-28 16:29] VITALS: BMI 36.6
[2024-08-17] VITALS (14 sets, daily range): BP systolic 95–122; BP diastolic 62–80; PULSE 68–99; RESP 12–29; TEMP 36.6; O2SAT 94–98; BMI 35.2
--- NOTE | 2024-08-17 11:21 | EKG_ITS ---
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
[2024-08-17 11:24] LABS: Add Manual Diff / Slide Review NO; Basophils Absolute Auto 100 /uL (0-100); Basophils Percent Auto 0.7 % (0-2); Eosinophils Absolute Auto 100 /uL (0-450); Eosinophils Percent Auto 1.2 % (2-4); Hematocrit 43.4 % (41-53); Hemoglobin 14.9 g/dL (13.5-17.5); Lymphocytes Absolute Auto 2600 /uL (1100-4500); Lymphocytes Percent Auto 29.2 % (25-40); Mean Corpuscular HGB Conc 34.4 % (30-36); Mean Corpuscular Hemoglobin 31.4 PG (26-34); Mean Corpuscular Volume 91.4 fL (80-100); Monocytes Absolute Auto 700 /uL (0-900); Neutrophils Absolute Auto 5500 /uL (1500-7000); Neutrophils Percent Auto 60.9 % (50-75); Platelet Count 301 X10^3/uL (150-400); Red Blood Cell Count 4.75 X10^6/uL (4.5-5.9); Red Cell Distribution Width 13.4 % (11.6-14.8); White Blood Cell Count 8.9 X10^3/uL (4.5-11.0)
[2024-08-17 11:36] LABS: Alanine Aminotransferase 20 IU/L (<50); Albumin 4.5 g/dL (3.5-5.0); Albumin Globulin Ratio 1.7 (1.0-2.8); Alkaline Phosphatase 39 U/L (38-126); Aspartate Aminotransferase 24 IU/L (17-59); BUN Creatinine Ratio 18.1 (6-22); Bilirubin Total 0.5 mg/dL (0.2-1.3); Blood Urea Nitrogen 13 mg/dL (9-20); Calcium 9.1 mg/dL (8.4-10.2); Carbon Dioxide 26 mmol/L (22-32); Chloride 103 mmol/L (98-107); Estimated Glomerular Filt Rate > 60 mL/min (>60); Globulin 2.7 g/dL (1.7-4.1); Glucose 110 mg/dL (80-110); HEMOLYSIS < 15 (0-50); Lipase 76 U/L (23-300); Potassium 4.1 mmol/L (3.4-5.1); Sodium 137 mmol/L (137-145); Total Protein 7.2 g/dL (6.3-8.2)
--- NOTE | 2024-08-17 11:54 | DI.CT.S_ITS ---
PROCEDURE: CT ABDOMEN PELVIS W CON INDICATIONS: abd pain, hx diverticulitis TECHNIQUE: After the administration of intravenous contrast, axial sections acquired from the lung bases to the pubic symphysis. Coronal and sagittal reformats were performed. For radiation dose reduction, the following was used: automated exposure control, adjustment of mA and/or kV according to patient size. COMPARISON: [facility], CT, CT ABDOMEN PELVIS WITH CONTRAST, 08/09/2024, 15:59. [facility], CT, CT ABDOMEN PELVIS W CON, 08/17/2023, 23:31. FINDINGS: Lower Chest: No significant findings. ABDOMEN: Liver: No solid mass. Gallbladder: No radiopaque gallstones or wall thickening. Biliary ducts: No biliary dilation. Pancreas: No ductal dilation. Spleen: Size is within normal limits. Adrenal Glands: No adrenal nodules. Kidneys and Ureters: No hydronephrosis. No solid mass. No complex renal cystic lesion which requires follow up. Stomach and Bowel: Normal colonic caliber, without significant wall thickening. Multiple diverticula arise from the sigmoid colon . Wall thickening and mild pericolonic inflammatory change. Evidence of prior left inguinal hernia repair with resolving seroma noted as well. Peritoneum: No abnormal intraperitoneal fluid. No free air. Ventral Wall: Ventral hernia contains fat without bowel involvement. Abdominal Nodes: No retroperitoneal or mesenteric adenopathy by size criteria. Vessels: Aortic atherosclerotic vascular calcification noted without evidence of aneurysm. PELVIS: Pelvic Organs: Unremarkable. Bladder: No bladder wall thickening, accounting for underdistention. Pelvic Nodes: No enlarged lymph nodes. Miscellaneous: No inguinal hernias are seen. Bones: Degenerative disc disease and arthropathy noted in lower lumbar spine. IMPRESSION: Sigmoid diverticulosis with mild pericolonic inflammatory change probably reflects a mild diverticulitis without evidence of free or obstruction. Evidence of prior left inguinal hernia repair. Associated seroma is slightly smaller than the prior exam Approved by: Antonio Delgadillo M.D. on 08/17/2024 at 12:18
--- NOTE | 2024-08-17 13:08 | ED_ITS ---
HPI - Abdominal Pain General Chief Complaint: Abdominal Pain Stated Complaint: Diverticulitis Time Seen by Provider: 08/17/24 11:32 Source: patient Mode of arrival: Ambulatory History of Present Illness HPI narrative: 64-year-old male with history of diverticulitis, now about 6 weeks postop from laparoscopic left inguinal hernia repair Dr. Michaud at [facility], has had ongoing left lower quadrant abdominal discomfort postoperatively, saw Dr. Michaud last week or so with CT diagnosis of diverticulitis but no recurrent/complication of inguinal repair, taking oral ciprofloxacin antibiotic. Complaining of persisting increasing left lower quadrant abdominal pain. No trauma or new activities. No fevers or chills. No black or red stools. Related Data Home Medications Medication Instructions Recorded Confirmed aspirin 81 mg tablet,delayed 81 mg PO DAILY 05/27/20 07/25/24 release (Adult Aspirin Regimen) omeprazole magnesium 2.5 mg oral 10 mg PO DAILY 05/27/20 07/25/24 suspension,delayed release (Prilosec) Previous Rx's Medication Instructions Recorded blood-glucose meter #1 ea 04/13/21 Home Sleep Study #1 ea 08/05/22 albuterol sulfate 90 mcg/actuation See Rx Instructions .Route 11/08/23 aerosol inhaler .COMPLEX #8.5 grams atorvastatin 20 mg tablet 20 mg PO ONCE PM for 03/06/24 hyperlipidemia #90 tabs metformin 500 mg tablet 1,000 mg (2 x 500 mg) PO BID #360 05/03/24 tabs fluticasone propionate 50 1 spray intranasal Q12H #16 grams 06/03/24 mcg/actuation nasal spray,suspension (Flonase Allergy Relief) semaglutide 0.25 mg or 0.5 mg (2 0.5 mg (0.736 mL) SUBCUT QWEEK #3 07/08/24 mg/3 mL) subcutaneous pen injector mL (Ozempic) benzonatate 200 mg capsule 200 mg PO TID PRN cough #30 caps 07/25/24 guaifenesin 1,200 mg tablet, 1,200 mg PO Q12H #30 tabs 07/25/24 extended release 12 hr fluticasone 250 mcg-salmeterol 50 1 ea PO BID #60 ea 07/31/24 mcg/dose blistr powdr for inhalation hydrocodone 5 mg-acetaminophen 325 1 tab PO Q6H PRN pain #14 tabs 08/17/24 mg tablet Allergies Allergy/AdvReac Type Severity Reaction Status Date / Time Penicillins AdvReac Severe Rash Verified 07/25/24 16:05 codeine AdvReac Gastrointestinal Verified 07/25/24 16:05 Upset Patient History Medical History (Updated 08/17/24 @ 13:40 by Isidoro Stroud MD) Type 2 diabetes mellitus with complication, without long-term current use of insulin JOYCE (obstructive sleep apnea) Tobacco consumption Tendinosis of rotator cuff Supraspinatus tendon tear Partial tear subscapularis tendon Degenerative tear of glenoid labrum of left shoulder Elevated blood pressure reading without diagnosis of hypertension Colonic diverticular abscess GERD (gastroesophageal reflux disease) Diverticulitis Asthma Social History household members: spouse Smoking Status: Current every day smoker alcohol intake: never substance use type: does not use Smoking Status: Current every day smoker tobacco type: cigarettes alcohol intake frequency: 0-2 drinks per day Exam Narrative Exam Narrative: GENERAL: Well-developed patient, in mild distress. HEAD: Atraumatic. Normocephalic. EYES: Pupils equal round and reactive. Extraocular motions intact. No scleral icterus. No injection or drainage. ENT: Nose without bleeding, purulent drainage. Throat without erythema, tonsillar hypertrophy or exudate. Airway patent. NECK: Trachea midline. Non tender CARDIOVASCULAR: Regular rate and rhythm without murmurs, gallops, or rubs. RESPIRATORY: Clear to auscultation. Breath sounds equal bilaterally. No wheezes, rales, or rhonchi. GASTROINTESTINAL: Abdomen nondistended, some tenderness left lower quadrant, active normal bowel tones without rushes or tinkles, no obvious hernia or scar left lower inguinal region. EXTREMITIES: No edema or joint tenderness. BACK: Nontender without deformity or crepitance. No flank tenderness. NEURO: AOx3. Motor functions grossly nonfocal SKIN: No rash or erythema of visible areas Initial Vital Signs Initial Vital Signs: Vital Signs Temperature 97.8 F 08/17/24 11:08 Pulse Rate 99 H 08/17/24 11:08 Respiratory Rate 18 08/17/24 11:08 Blood Pressure 109/80 08/17/24 11:08 Pulse Oximetry 97 08/17/24 11:08 Oxygen Delivery Method Room Air 08/17/24 11:08 Course Orders Ordered: ED Orders 08/17/24 13:20 Urine Microscopic Stat Discontinued Medications Ciprofloxacin (Cipro) 400 mg in 200 mls @ 200 mls/hr IV NOW ONE Stop: 08/17/24 14:24 Last Admin: 08/17/24 13:41 Dose: 200 mls/hr Documented By: VIANNEY Metronidazole (Metronidazole 500 Mg Tablet) 500 mg PO NOW ONE Stop: 08/17/24 13:26 Last Admin: 08/17/24 13:43 Dose: 500 mg Documented By: VIANNEY Ondansetron HCl (Ondansetron 4 Mg/2 Ml Inj) 4 mg IV NOW PRN PRN Reason: Nausea And Vomiting Ondansetron HCl (Ondansetron 4 Mg Odt) 4 mg PO NOW PRN PRN Reason: Nausea And Vomiting Last Admin: 08/17/24 13:43 Dose: 4 mg Documented By: VIANNEY Vital Signs Vital signs: Vital Signs - 8 hr 08/17/24 13:30 08/17/24 13:57 08/17/24 13:57 Pulse Rate 73 73 Respiratory Rate 29 H 29 H Blood Pressure 95/65 Pulse Oximetry 97 97 08/17/24 14:00 08/17/24 14:00 08/17/24 14:15 Pulse Rate 69 Respiratory Rate 22 Blood Pressure 106/66 108/69 Pulse Oximetry 97 08/17/24 14:15 08/17/24 14:30 08/17/24 14:31 Pulse Rate 68 68 70 Respiratory Rate 23 22 20 Blood Pressure Pulse Oximetry 94 95 95 08/17/24 14:31 08/17/24 14:45 08/17/24 14:45 Pulse Rate 71 Respiratory Rate 19 Blood Pressure 104/68 106/69 Pulse Oximetry 94 MDM - Abdominal Pain Lab Data Attestation: I reviewed the patient's lab results. Lab results narrative: White blood cell count 8900, hemoglobin 14.9, platelets adequate. Basic metabolic panel unremarkable, normal renal function, glucose 110. Liver functions and lipase normal. 08/17/24 11:13 08/17/24 11:13 Labs: Lab Results 08/17/24 08/17/24 Range/Units 11:13 13:20 WBC 8.9 (4.5-11.0) X10^3/uL RBC 4.75 (4.5-5.9) X10^6/uL Hgb 14.9 (13.5-17.5) g/dL Hct 43.4 (41-53) % MCV 91.4 (80-100) fL MCH 31.4 (26-34) PG MCHC 34.4 (30-36) % RDW 13.4 (11.6-14.8) % Plt Count 301 (150-400) X10^3/uL Neut % (Auto) 60.9 (50-75) % Lymph % (Auto) 29.2 (25-40) % Park % (Auto) 8.0 (3-14) % Eos % (Auto) 1.2 L (2-4) % Baso % (Auto) 0.7 (0-2) % Neut # (Auto) 5500 (1087-8440) /uL Lymph # (Auto) 2600 (0772-5896) /uL Park # (Auto) 700 (0-900) /uL Eos # (Auto) 100 (0-450) /uL Baso # (Auto) 100 (0-100) /uL Sodium 137 (137-145) mmol/L Potassium 4.1 (3.4-5.1) mmol/L Chloride 103 (98-107) mmol/L Carbon Dioxide 26 (22-32) mmol/L BUN 13 (9-20) mg/dL Creatinine 0.72 (0.66-1.25) mg/dL Estimated GFR > 60 (>60) mL/min BUN/Creatinine Ratio 18.1 (6-22) Glucose 110 (80-110) mg/dL Calcium 9.1 (8.4-10.2) mg/dL Total Bilirubin 0.5 (0.2-1.3) mg/dL AST 24 (17-59) IU/L ALT 20 (<50) IU/L Alkaline Phosphatase 39 (38-126) U/L Total Protein 7.2 (6.3-8.2) g/dL Albumin 4.5 (3.5-5.0) g/dL Globulin 2.7 (1.7-4.1) g/dL Albumin/Globulin Ratio 1.7 (1.0-2.8) Lipase 76 (23-300) U/L Urine RBC None seen (0-5/HPF) Urine WBC None seen (0-5/HPF) Ur Squamous Epith Cells None seen (0-5/HPF) Urine Bacteria None seen (None) Ur Culture Indicated? Cult not indicated Vol Urine Centrifuged 10ml (spun) Point of care testing: Urine Dip Bedside Urine Glucose Negative Bedside Urine Bilirubin - Negative Bedside Urine Ketone - Negative Urine Specific [place] 1.015 Bedside Urine Occult Blood - Negative Bedside Urine pH 6.5 Bedside Urine Protein +/- 15 Bedside Urine Urobilinogen - Negative Bedside Urine Nitrite - Negative Bedside Urine Leukocytes - Negative Esterase Imaging Data CT scan - abdomen/pelvis: Radiologist's Impression: [address] [address] [address] Scan Report Signed Patient: Jourdan Augustine MR#: [id number] : 1960 Acct:[id number] Age/Sex: 64 / M Date of Service: 08/17/24 Loc: ED Accession Number: [id number] Procedure: CT abdomen pelvis w con Ordering Provider: Isidoro Stroud MD PROCEDURE: CT ABDOMEN PELVIS W CON INDICATIONS: abd pain, hx diverticulitis TECHNIQUE: After the administration of intravenous contrast, axial sections acquired from the lung bases to the pubic symphysis. Coronal and sagittal reformats were performed. For radiation dose reduction, the following was used: automated exposure control, adjustment of mA and/or kV according to patient size. COMPARISON: [facility], CT, CT ABDOMEN PELVIS WITH CONTRAST, 08/09/2024, 15:59. [facility], CT, CT ABDOMEN PELVIS W CON, 08/17/2023, 23:31. FINDINGS: Lower Chest: No significant findings. ABDOMEN: Liver: No solid mass. Gallbladder: No radiopaque gallstones or wall thickening. Biliary ducts: No biliary dilation. Pancreas: No ductal dilation. Spleen: Size is within normal limits. Adrenal Glands: No adrenal nodules. Kidneys and Ureters: No hydronephrosis. No solid mass. No complex renal cystic lesion which requires follow up. Stomach and Bowel: Normal colonic caliber, without significant wall thickening. Multiple diverticula arise from the sigmoid colon . Wall thickening and mild pericolonic inflammatory change. Evidence of prior left inguinal hernia repair with resolving seroma noted as well. Peritoneum: No abnormal intraperitoneal fluid. No free air. Ventral Wall: Ventral hernia contains fat without bowel involvement. Abdominal Nodes: No retroperitoneal or mesenteric adenopathy by size criteria. Vessels: Aortic atherosclerotic vascular calcification noted without evidence of aneurysm. PELVIS: Pelvic Organs: Unremarkable. Bladder: No bladder wall thickening, accounting for underdistention. Pelvic Nodes: No enlarged lymph nodes. Miscellaneous: No inguinal hernias are seen. Bones: Degenerative disc disease and arthropathy noted in lower lumbar spine. IMPRESSION: Sigmoid diverticulosis with mild pericolonic inflammatory change probably reflects a mild diverticulitis without evidence of free or obstruction. Evidence of prior left inguinal hernia repair. Associated seroma is slightly smaller than the prior exam Approved by: Antonio Delgadillo M.D. on 08/17/2024 at 12:18 ECG Data Interpretation: Normal sinus rhythm with rate of 76, no obvious ST segment elevation or depressions images. OK 166, QRS 84, QTC 414. [facility] Narrative Medical decision making narrative: 64-year-old male with history of left inguinal hernia laparoscopic repair 6 weeks ago, history of diverticulitis, postoperative pain, seen about 1 week ago by his surgeon having left-sided abdominal pain, CT abdomen and pelvis at that time showed diverticulitis, no complications of the surgical repair. Patient has been taking oral ciprofloxacin. Complains of increased pain. Afebrile, sirs screen negative. Left lower quadrant abdominal tenderness on exam without rigidity, without rebound tenderness. Screening labs unremarkable. CT abdomen and pelvis Ordered. CT abdomen and pelvis impressions: ?Sigmoid diverticulosis with mild pericolonic inflammatory change probably reflects a mild diverticulitis without evidence of free air or obstruction. Evidence of prior left inguinal hernia repair. Associated seroma slightly smaller than prior exam. ? See radiology report. We will give IV ciprofloxacin. Continue course of antibacterial treatment. Pain medication requested, IV Dilaudid. Consider Augmentin however he has a history of penicillin allergy, we will continue quinolone/Flagyl antibiotic combination for now. Patient has oral ciprofloxacin and oral Flagyl to take at home. Encouraged to complete his course of antibiotics. We will send pain medication to his pharmacy hydrocodone to use next few days if needed. Recheck with his PCP advise end of antibiotic course. Return precautions discussed. Discharge Plan Departure Patient Disposition: Home Clinical Impression: Diverticulitis Instructions: DI for Diverticulitis Activity Restrictions/Additional Instructions: History of left inguinal hernia repair about 6 weeks ago now, subsequent development of left lower quadrant abdominal pain, history of diverticulitis, outside facility CT abdomen and pelvis showed diverticulitis without complications of hernia repair, taking oral ciprofloxacin/Flagyl combination antibiotic, still having left lower quadrant pain. No fever on triage. Abdomen with some left lower quadrant abdominal tenderness but unremarkable bowel tones. CT abdomen and pelvis done today shows mild diverticulitis changes, no perforation or obstruction or abscess changes, per Radiology report. This seems to be the source of your discomfort. Hemodynamically stable, unremarkable lab, minimal inflammation on CT scanning, no indications for admission or transfer at this time. IV ciprofloxacin antibiotic was given while he were here in the emergency department. Encouraged to continue to take your regimen of oral ciprofloxacin and oral Flagyl/metronidazole antibiotics for their full intended course. Recheck with your regular doctor at the end of your antibiotic course of treatment. Return to this/nearest emergency department for any change worsening symptoms or any concerns prior. Thank you for allowing our team to evaluate you today. Prescriptions: New hydrocodone-acetaminophen 5-325 mg tablet 1 tab PO Q6H PRN (Reason: pain) Qty: 14 0RF No Action fluticasone propionate [Flonase Allergy Relief] 50 mcg/actuation spray,suspension 1 spray intranasal Q12H Qty: 16 0RF Rx Instructions: administer into each nostril guaifenesin 1,200 mg tablet extended release 12hr 1,200 mg PO Q12H Qty: 30 0RF benzonatate 200 mg capsule 200 mg PO TID PRN (Reason: cough) Qty: 30 0RF (DME) blood-glucose meter Mis See Rx Instructions .Route Qty: 1 0RF Rx Instructions: Use to check blood sugar 3 times daily before meals albuterol sulfate 90 mcg/actuation HFA aerosol inhaler See Rx Instructions .ROUTE .COMPLEX Qty: 8.5 2RF Dose Instruction: inhale 2 puffs by mouth every 4 to 6 hours if needed for shortness of breath or wheezing Rx Instructions: inhale 2 puffs by mouth every 4 to 6 hours if needed for shortness of breath or wheezing atorvastatin 20 mg tablet 20 mg PO ONCE PM Qty: 90 4RF metformin 500 mg tablet 1,000 mg PO BID Qty: 360 0RF Ozempic 0.25 mg or 0.5 mg (2 mg/3 mL) pen injector 0.5 mg SUBCUT QWEEK Qty: 3 5RF fluticasone propion-salmeterol 250-50 mcg/dose blister with device 1 ea PO BID Qty: 60 0RF (DME) Home Sleep Study See Rx Instructions .Route .MEDSUPPLY Qty: 1 0RF Rx Instructions: as directed Prilosec 2.5 mg susp,delayed release for recon 10 mg PO DAILY aspirin [Adult Aspirin Regimen] 81 mg tablet,delayed release (DR/EC) 81 mg PO DAILY Referrals: Lyla Moran MD [Primary Care Provider] - Stand Alone Forms: Patient Portal/API/Survey
[2024-08-17] MEDS: CIPROFLOXACIN 400 MG/200 ML PIGGYBACK 200 MG IV (13:41)
[2024-08-17] MEDS: ONDANSETRON 4 MG ODT PO (13:43)
[2024-08-17] MEDS: metroNIDAZOLE 500 MG TABLET PO (13:43)
[2024-08-17 13:54] LABS: Bacteria Urine None Seen; Culture Indicated Urine Cult Not Indicated; RBC Urine None Seen (0-5/HPF); Squamous Epithelial Cell Urine None Seen (0-5/HPF); Urine Volume 10mL (spun); WBC Urine None Seen (0-5/HPF)
== END 2024-08-17 14:57 | disposition home or self-care (01) ==
PROVIDERS: Emergency Provider Emergency Medicine; Family Provider Orthopaedic Surgery; PCP Family Medicine
DX: K57.32 Diverticulitis of large intestine without perforation or abscess without bleeding (principal); Z98.890 Other specified postprocedural states
CPT/HCPCS: 36415; 74177; 80053; 81003; 81015; 83690; 85025; 93005; 96365; 99284; J0744; Q9967